=== PATIENT | female | born 1940 | race Caucasian/White ===

== ENCOUNTER 2016-05-27 13:16 | Emergency (ER) | payer MEDICARE, BC ==
[2016-05-27 13:31] VITALS: RESP 18
--- NOTE | 2016-05-27 14:08 | ED ---
General Adult HPI - General Chief complaint: Chest Pain Stated complaint: chest pain Time Seen by Provider: 05/27/16 13:30 Source: patient, RN notes reviewed Mode of arrival: ambulatory - History of Present Illness Initial comments: This is a 75-year-old female presents emergency Department complaining of left- sided chest pain. Patient states she's had this for about 15 years. Patient states sharp burning sensation lasts a few seconds and goes away and then comes back. Patient states when she burps the pain goes away completely. Patient states if he drinks water it usually takes away the pain. Patient came in today after the pain occurred because she states she had a TIA recently and was wondering if this is somehow related and wanted to be checked out. Patient denies any shortness of breath or difficulty breathing patient denies any pain currently. Patient denies any diaphoresis per patient denies any nausea. Patient states there is no difference with this pain today that she's had the last 15 years. Patient denies any headache patient denies numbness weakness. Patient denies any recent fever chills or cough. - Related Data Home Medications Medication Instructions Recorded Confirmed Ezetimibe [Zetia] 10 mg PO DAILY 02/18/15 05/27/16 clonazePAM [KlonoPIN] 0.5 mg PO TID PRN 02/18/15 05/27/16 Desvenlafaxine Succinate [Pristiq] 50 mg PO DAILY 05/07/16 05/27/16 Lisinopril [Zestril] 5 mg PO DAILY 05/07/16 05/27/16 lamoTRIgine [LaMICtal] 12.5 mg PO DAILY 05/07/16 05/27/16 Previous Rx's Medication Instructions Recorded amLODIPine [Norvasc] 5 mg PO DAILY #30 tab 05/09/16 Aspirin EC [Ecotrin Low Dose] 81 mg PO DAILY #1 tablet. 05/10/16 Clopidogrel Bisulfate [Plavix] 75 mg PO DAILY #30 tab 05/10/16 Allergies Allergy/AdvReac Type Severity Reaction Status Date / Time Iodinated Contrast Media - Allergy Unknown Verified 05/27/16 13:39 Oral and [Iodinated Contrast Media - IV Dye] Review of Systems ROS Statement: Those systems with pertinent positive or pertinent negative responses have been documented in the HPI. ROS Other: All systems not noted in ROS Statement are negative. Past Medical History Past Medical History: CVA/TIA, Hyperlipidemia, Hypertension, Renal Disease Additional Past Medical History / Comment(s): Chronic renal disease stage III, heart murmur-has plaque on valve, vertigo History of Any Multi-Drug Resistant Organisms: None Reported Past Surgical History: Breast Surgery, Cholecystectomy, Hysterectomy Additional Past Surgical History / Comment(s): L breast bx-benign, TEEs, CYN CATARACTS removed, cataracts removed bilaterally, colonoscopy-normal, Past Anesthesia/Blood Transfusion Reactions: Previous Problems w/ Anesthesia Additional Past Anesthesia/Blood Transfusion Reaction / Comment(s): STATES WAS TOLD "WE ALMOST LOST YOU" THAT HER B/P BOTTOMS Past Psychological History: Anxiety, Depression Additional Psychological History / Comment(s): Pt lives with her daughter. She is independent. She drives. Smoking Status: Current every day smoker Past Alcohol Use History: None Reported Additional Past Alcohol Use History / Comment(s): STOPPED SMOKING REGULAR CIGARETTES 2 YRS AGO-2013, CURRENTLY USING THE e-cigarettes. STARTED SMOKING 1954 Past Drug Use History: None Reported - Past Family History Mother Family Medical History: Cancer, CVA/TIA Additional Family Medical History / Comment(s): breast Father Family Medical History: Cancer Additional Family Medical History / Comment(s): lung General Exam - General Exam Comments Initial Comments: GENERAL: Patient is well-developed and well-nourished. Patient is nontoxic and well- hydrated and is in no acute distress. ENT: Neck is soft and supple. No significant lymphadenopathy is noted. Oropharynx is clear. Moist mucous membranes. Neck has full range of motion without eliciting any pain EYES: The sclera were anicteric and conjunctiva were pink and moist. Extraocular movements were intact and pupils were equal round and reactive to light. Eyelids were unremarkable. PULMONARY: Unlabored respirations. Good breath sounds bilaterally. No audible rales rhonchi or wheezing was noted. CARDIOVASCULAR: There is a regular rate and rhythm without any murmurs gallops or rubs. ABDOMEN: Soft and nontender with normal bowel sounds. No palpable organomegaly was noted. There is no palpable pulsatile mass. SKIN: Skin is clear with no lesions or rashes and otherwise unremarkable. NEUROLOGIC: Patient is alert and oriented x3. Cranial nerves II through XII are grossly intact. Motor and sensory are also intact. Normal speech, volume and content. Symmetrical smile. MUSCULOSKELETAL: Normal extremities with adequate strength and full range of motion. No lower extremity swelling or edema. No calf tenderness. LYMPHATICS: No significant lymphadenopathy is noted PSYCHIATRIC: Normal psychiatric evaluation. Normal interpersonal interactions appears functionally intact in deals appropriately with others. No signs of depression. No signs of anxiety. Course Vital Signs 05/27/16 13:27 Temperature 97.6 F Pulse Rate 91 Respiratory 18 Rate Blood Pressure 136/62 O2 Sat by Pulse 97 Oximetry Medical Decision Making - Medical Decision Making EKG shows sinus rhythm with a PAC at 81 bpm. It was on a 96 dresses 102 QT interval 380 QTC is 441. Patient's EKG shows no ST segment elevation or depression or T-wave abdomen is noted Patient's potassium was 5.91 I spoke with the lab and said there was hemolysis. I went back into reevaluate the patient she was having no symptoms. Patient' s chest x-ray was normal. Patient states that her symptoms typically worsened when she eats late at night just before going to bed Patient states these are the exact same symptom she has had for last 15 years and she believes is related to her stomach and her chest. I told the patient to follow-up with her primary medical care doctor and to return for any new or worsening symptoms - Lab Data Result diagrams: 05/27/16 11:40 05/27/16 11:40 Lab Results 05/27/16 05/27/16 05/27/16 Range/Units 11:40 11:40 11:40 WBC 7.2 (3.8-10.6) k/uL RBC 4.76 (3.80-5.40) m/uL Hgb 14.5 (11.4-16.0) gm/dL Hct 44.4 (34.0-46.0) % MCV 93.3 (80.0-100.0) fL MCH 30.5 (25.0-35.0) pg MCHC 32.7 (31.0-37.0) g/dL RDW 13.0 (11.5-15.5) % Plt Count 236 (150-450) k/uL Neutrophils % 70 % Lymphocytes % 20 % Monocytes % 6 % Eosinophils % 1 % Basophils % 1 % Neutrophils # 5.1 (1.3-7.7) k/uL Lymphocytes # 1.5 (1.0-4.8) k/uL Monocytes # 0.5 (0-1.0) k/uL Eosinophils # 0.1 (0-0.7) k/uL Basophils # 0.1 (0-0.2) k/uL PT (9.0-12.0) sec INR (<1.1) APTT (22.0-30.0) sec Sodium 144 (137-145) mmol/L Potassium 5.9 H (3.5-5.1) mmol/L Chloride 107 (98-107) mmol/L Carbon Dioxide 27 (22-30) mmol/L Anion Gap 10 mmol/L BUN 17 (7-17) mg/dL Creatinine 0.98 (0.52-1.04) mg/dL Est GFR (MDRD) Af Amer >60 (>60 ml/min/1.73 sqM) Est GFR (MDRD) Non-Af 55 (>60 ml/min/1.73 sqM) Glucose 86 (74-99) mg/dL Calcium 10.0 (8.4-10.2) mg/dL Magnesium 2.0 (1.6-2.3) mg/dL Total Bilirubin 1.2 (0.2-1.3) mg/dL AST 38 H (14-36) U/L ALT 24 (9-52) U/L Alkaline Phosphatase 74 (38-126) U/L Total Creatine Kinase 34 (30-135) U/L CK-MB (CK-2) <0.2 (0.0-2.4) ng/mL CK-MB (CK-2) Rel Index Troponin I <0.012 (0.000-0.034) ng/mL Total Protein 7.4 (6.3-8.2) g/dL Albumin 4.2 (3.5-5.0) g/dL 05/27/16 Range/Units 11:40 WBC (3.8-10.6) k/uL RBC (3.80-5.40) m/uL Hgb (11.4-16.0) gm/dL Hct (34.0-46.0) % MCV (80.0-100.0) fL MCH (25.0-35.0) pg MCHC (31.0-37.0) g/dL RDW (11.5-15.5) % Plt Count (150-450) k/uL Neutrophils % % Lymphocytes % % Monocytes % % Eosinophils % % Basophils % % Neutrophils # (1.3-7.7) k/uL Lymphocytes # (1.0-4.8) k/uL Monocytes # (0-1.0) k/uL Eosinophils # (0-0.7) k/uL Basophils # (0-0.2) k/uL PT 11.5 (9.0-12.0) sec INR 1.2 (<1.1) APTT 22.3 (22.0-30.0) sec Sodium (137-145) mmol/L Potassium (3.5-5.1) mmol/L Chloride (98-107) mmol/L Carbon Dioxide (22-30) mmol/L Anion Gap mmol/L BUN (7-17) mg/dL Creatinine (0.52-1.04) mg/dL Est GFR (MDRD) Af Amer (>60 ml/min/1.73 sqM) Est GFR (MDRD) Non-Af (>60 ml/min/1.73 sqM) Glucose (74-99) mg/dL Calcium (8.4-10.2) mg/dL Magnesium (1.6-2.3) mg/dL Total Bilirubin (0.2-1.3) mg/dL AST (14-36) U/L ALT (9-52) U/L Alkaline Phosphatase (38-126) U/L Total Creatine Kinase (30-135) U/L CK-MB (CK-2) (0.0-2.4) ng/mL CK-MB (CK-2) Rel Index Troponin I (0.000-0.034) ng/mL Total Protein (6.3-8.2) g/dL Albumin (3.5-5.0) g/dL Disposition Clinical Impression: Gastric reflux Disposition: HOME SELF-CARE Condition: Good Instructions: Gastroesophageal Reflux Disease (ED), Chest Pain (ED) Referrals: Pee Cornell MD [Primary Care Provider] - 1-2 days Time of Disposition: 16:17
[2016-05-27 14:54] LABS: Basophils # (A) 0.1 k/uL (0-0.2); Basophils % (A) 1 %; CH 30.7; Eosinophils # (A) 0.1 k/uL (0-0.7); Eosinophils % (A) 1 %; HCT 44.4 % (34.0-46.0); HDW 2.47; HGB 14.5 gm/dL (11.4-16.0); Luc # (Auto) 0.11; Luc % (Auto) 2; Lymphocytes # (A) 1.5 k/uL (1.0-4.8); Lymphocytes % (A) 20 %; MCH 30.5 pg (25.0-35.0); MCHC 32.7 g/dL (31.0-37.0); MCV 93.3 fL (80.0-100.0); Mean Platelet Volume 7.6; Monocytes # (A) 0.5 k/uL (0-1.0); Monocytes % (A) 6 %; Neutrophils # (A) 5.1 k/uL (1.3-7.7); Neutrophils % (A) 70 %; RBC 4.76 m/uL (3.80-5.40); WBC 7.2 k/uL (3.8-10.6); WBC (Perox) 7.74
[2016-05-27 15:03] LABS: INR 1.2 (<1.1); Partial Thromboplastin Time 22.3 sec (22.0-30.0); Prothrombin Time 11.5 sec (9.0-12.0)
[2016-05-27 15:10] LABS: ALT 24 U/L (9-52); AST 38 U/L (14-36); Alkaline Phosphatase 74 U/L (38-126); Anion Gap 10 mmol/L; Blood Urea Nitrogen 17 mg/dL (7-17); Carbon Dioxide 27 mmol/L (22-30); Chloride 107 mmol/L (98-107); Glucose 86 mg/dL (74-99); Non-African American GFR(MDRD) 55 (>60 ml/min/1.73 sqM); Sodium 144 mmol/L (137-145); Total Bilirubin 1.2 mg/dL (0.2-1.3); Total Protein 7.4 g/dL (6.3-8.2)
[2016-05-27 15:15] LABS: Creatine Kinase 34 U/L (30-135)
--- NOTE | 2016-05-27 15:27 | XR ---
EXAMINATION TYPE: XR chest 2V DATE OF EXAM: 05/27/2016 2:59 PM COMPARISON: NONE HISTORY: Chest pain TECHNIQUE: Frontal and lateral views of the chest are obtained. FINDINGS: Heart is normal. Lungs are clear of consolidation. There are no hilar masses. There are sm all calcified granulomata scattered in the lungs. Thoracic aorta is atheromatous. Bony thorax is inta ct. IMPRESSION: No active cardiopulmonary disease. Healed granulomatous disease.
[2016-05-27 15:28] LABS: Creatine Kinase MB <0.2 ng/mL (0.0-2.4); Troponin I <0.012 ng/mL (0.000-0.034)
[2016-05-27 15:54] LABS: Potassium 5.9 mmol/L (3.5-5.1)
[2016-05-27 16:39] VITALS: BP 131/70; PULSE 72; TEMP 98
== END 2016-05-27 16:46 | disposition home or self-care (01) ==
LOC: EC 13:16
DX: K21.9 Gastro-esophageal reflux disease without esophagitis (principal); E78.5 Hyperlipidemia, unspecified; I12.9 Hypertensive chronic kidney disease with stage 1 through stage 4 chronic kidney disease, or unspecified chronic kidney disease; N18.3 Chronic kidney disease, stage 3 (moderate); R01.1 Cardiac murmur, unspecified; F32.9 Major depressive disorder, single episode, unspecified; F17.210 Nicotine dependence, cigarettes, uncomplicated; Z91.041 Radiographic dye allergy status; Z86.73 Personal history of transient ischemic attack (TIA), and cerebral infarction without residual deficits; Z79.899 Other long term (current) drug therapy; Z79.82 Long term (current) use of aspirin; Z79.02 Long term (current) use of antithrombotics/antiplatelets
CPT/HCPCS: 36415; 71020; 80053; 82550; 82553; 83735; 84484; 85025; 85610; 85730; 93005; 99285

== ENCOUNTER 2016-06-06 15:23 | Emergency (ER) | payer MEDICARE, BC ==
[2016-06-06 15:32] VITALS: RESP 18
[2016-06-06] MEDS ORDERED: DIAZEPAM 5 MG/ML 2 ML SYRINGE IVP STA (15:49)
[2016-06-06] MEDS ORDERED: MECLIZINE 25 MG TAB PO STA (15:49)
--- NOTE | 2016-06-06 15:52 | ED ---
General Adult HPI - General Chief complaint: Neuro Symptoms/Deficit Stated complaint: POSS TIA Time Seen by Provider: 06/06/16 15:35 Source: EMS, RN notes reviewed Mode of arrival: EMS Limitations: no limitations - History of Present Illness Initial comments: This is a 75-year-old female presents to the emergency department complaining of being dizzy. Patient states while in the car driving she turned her head when she turned back everything seemed to be moving. Patient states she's had vertigo before this is exactly what it seemed like. Patient states when she got out of her car she had a hard time walking because she was a little off balance per patient denies any nausea vomiting per patient denies any headache. Patient denies numbness weakness. Patient denies palpitations chest pain difficult breathing shortness of breath per patient denies abdominal pain patient denies nausea vomiting or diarrhea. Patient denies any recent fever chills or cough. Patient denies any recent injury or trauma. - Related Data Home Medications Medication Instructions Recorded Confirmed Ezetimibe [Zetia] 10 mg PO DAILY 02/18/15 06/06/16 clonazePAM [KlonoPIN] 0.5 mg PO TID PRN 02/18/15 06/06/16 Desvenlafaxine Succinate [Pristiq] 50 mg PO DAILY 05/07/16 06/06/16 Lisinopril [Zestril] 5 mg PO DAILY 05/07/16 06/06/16 Previous Rx's Medication Instructions Recorded amLODIPine [Norvasc] 5 mg PO DAILY #30 tab 05/09/16 Aspirin EC [Ecotrin Low Dose] 81 mg PO DAILY #1 tablet. 05/10/16 Clopidogrel Bisulfate [Plavix] 75 mg PO DAILY #30 tab 05/10/16 Meclizine [Antivert] 25 mg PO TID #20 tab 06/06/16 Allergies Allergy/AdvReac Type Severity Reaction Status Date / Time Iodinated Contrast Media - Allergy Unknown Verified 06/06/16 15:44 Oral and [Iodinated Contrast Media - IV Dye] Review of Systems ROS Statement: Those systems with pertinent positive or pertinent negative responses have been documented in the HPI. ROS Other: All systems not noted in ROS Statement are negative. Past Medical History Past Medical History: CVA/TIA, Hyperlipidemia, Hypertension, Renal Disease Additional Past Medical History / Comment(s): Chronic renal disease stage III, heart murmur-has plaque on valve, vertigo History of Any Multi-Drug Resistant Organisms: None Reported Past Surgical History: Breast Surgery, Cholecystectomy, Hysterectomy Additional Past Surgical History / Comment(s): L breast bx-benign, TEEs, CYN CATARACTS removed, cataracts removed bilaterally, colonoscopy-normal, Past Anesthesia/Blood Transfusion Reactions: Previous Problems w/ Anesthesia Additional Past Anesthesia/Blood Transfusion Reaction / Comment(s): STATES WAS TOLD "WE ALMOST LOST YOU" THAT HER B/P BOTTOMS Past Psychological History: Anxiety, Depression Additional Psychological History / Comment(s): Pt lives with her daughter. She is independent. She drives. Smoking Status: Current every day smoker Past Alcohol Use History: None Reported Additional Past Alcohol Use History / Comment(s): STOPPED SMOKING REGULAR CIGARETTES 2 YRS AGO-2013, CURRENTLY USING THE e-cigarettes. STARTED SMOKING 1954 Past Drug Use History: None Reported - Past Family History Mother Family Medical History: Cancer, CVA/TIA Additional Family Medical History / Comment(s): breast Father Family Medical History: Cancer Additional Family Medical History / Comment(s): lung General Exam - General Exam Comments Initial Comments: GENERAL: Patient is well-developed and well-nourished. Patient is nontoxic and well- hydrated and is in mild distress. ENT: Neck is soft and supple. No significant lymphadenopathy is noted. Oropharynx is clear. Moist mucous membranes. Neck has full range of motion without eliciting any pain. EYES: The sclera were anicteric and conjunctiva were pink and moist. Extraocular movements were intact and pupils were equal round and reactive to light. Eyelids were unremarkable. PULMONARY: Unlabored respirations. Good breath sounds bilaterally. No audible rales rhonchi or wheezing was noted. CARDIOVASCULAR: There is a regular rate and rhythm without any murmurs gallops or rubs. ABDOMEN: Soft and nontender with normal bowel sounds. No palpable organomegaly was noted. There is no palpable pulsatile mass. SKIN: Skin is clear with no lesions or rashes and otherwise unremarkable. NEUROLOGIC: Patient is alert and oriented x3. Cranial nerves II through XII are grossly intact. Motor and sensory are also intact. Normal speech, volume and content. Symmetrical smile. Cerebellar exam grossly intact. MUSCULOSKELETAL: Normal extremities with adequate strength and full range of motion. LYMPHATICS: No significant lymphadenopathy is noted PSYCHIATRIC: Normal psychiatric evaluation. Normal interpersonal interactions appears functionally intact in deals appropriately with others. No signs of depression. No signs of anxiety. Limitations: no limitations Course Vital Signs 06/06/16 15:29 Temperature 97.5 F L Pulse Rate 78 Respiratory 18 Rate Blood Pressure 149/66 O2 Sat by Pulse 100 Oximetry Medical Decision Making - Medical Decision Making EKG shows a normal sinus rhythm at 72 bpm ME interval is 192 QRS is under QT interval 388 QTC is 424. Patient's EKG shows no ST segment elevation or depression or T wave abnormalities are noted Chest x-ray shows no acute abnormality. CT of the brain shows no acute abnormality. I went back in and reevaluated the patient after she received Valium and Antivert she was feeling considerably better though not back to her baseline. I do believe the patient has vertigo. - Lab Data Result diagrams: 06/06/16 15:42 06/06/16 15:42 Lab Results 06/06/16 06/06/16 06/06/16 Range/Units 15:42 15:42 15:42 WBC 5.5 (3.8-10.6) k/uL RBC 4.92 (3.80-5.40) m/uL Hgb 15.2 (11.4-16.0) gm/dL Hct 45.7 (34.0-46.0) % MCV 92.8 (80.0-100.0) fL MCH 30.9 (25.0-35.0) pg MCHC 33.2 (31.0-37.0) g/dL RDW 13.0 (11.5-15.5) % Plt Count 262 (150-450) k/uL Neutrophils % 69 % Lymphocytes % 22 % Monocytes % 6 % Eosinophils % 1 % Basophils % 1 % Neutrophils # 3.8 (1.3-7.7) k/uL Lymphocytes # 1.2 (1.0-4.8) k/uL Monocytes # 0.3 (0-1.0) k/uL Eosinophils # 0.0 (0-0.7) k/uL Basophils # 0.1 (0-0.2) k/uL PT (9.0-12.0) sec INR (<1.1) APTT (22.0-30.0) sec Sodium 143 (137-145) mmol/L Potassium 4.2 (3.5-5.1) mmol/L Chloride 105 (98-107) mmol/L Carbon Dioxide 26 (22-30) mmol/L Anion Gap 12 mmol/L BUN 13 (7-17) mg/dL Creatinine 1.01 (0.52-1.04) mg/dL Est GFR (MDRD) Af Amer >60 (>60 ml/min/1.73 sqM) Est GFR (MDRD) Non-Af 53 (>60 ml/min/1.73 sqM) Glucose 88 (74-99) mg/dL Calcium 10.1 (8.4-10.2) mg/dL Magnesium 1.9 (1.6-2.3) mg/dL Total Bilirubin 0.6 (0.2-1.3) mg/dL AST 25 (14-36) U/L ALT 38 (9-52) U/L Alkaline Phosphatase 77 (38-126) U/L Total Creatine Kinase 26 L (30-135) U/L CK-MB (CK-2) 0.2 (0.0-2.4) ng/mL CK-MB (CK-2) Rel Index 0.8 Troponin I <0.012 (0.000-0.034) ng/mL Total Protein 7.1 (6.3-8.2) g/dL Albumin 4.2 (3.5-5.0) g/dL 06/06/16 Range/Units 15:42 WBC (3.8-10.6) k/uL RBC (3.80-5.40) m/uL Hgb (11.4-16.0) gm/dL Hct (34.0-46.0) % MCV (80.0-100.0) fL MCH (25.0-35.0) pg MCHC (31.0-37.0) g/dL RDW (11.5-15.5) % Plt Count (150-450) k/uL Neutrophils % % Lymphocytes % % Monocytes % % Eosinophils % % Basophils % % Neutrophils # (1.3-7.7) k/uL Lymphocytes # (1.0-4.8) k/uL Monocytes # (0-1.0) k/uL Eosinophils # (0-0.7) k/uL Basophils # (0-0.2) k/uL PT 11.6 (9.0-12.0) sec INR 1.2 (<1.1) APTT 26.7 (22.0-30.0) sec Sodium (137-145) mmol/L Potassium (3.5-5.1) mmol/L Chloride (98-107) mmol/L Carbon Dioxide (22-30) mmol/L Anion Gap mmol/L BUN (7-17) mg/dL Creatinine (0.52-1.04) mg/dL Est GFR (MDRD) Af Amer (>60 ml/min/1.73 sqM) Est GFR (MDRD) Non-Af (>60 ml/min/1.73 sqM) Glucose (74-99) mg/dL Calcium (8.4-10.2) mg/dL Magnesium (1.6-2.3) mg/dL Total Bilirubin (0.2-1.3) mg/dL AST (14-36) U/L ALT (9-52) U/L Alkaline Phosphatase (38-126) U/L Total Creatine Kinase (30-135) U/L CK-MB (CK-2) (0.0-2.4) ng/mL CK-MB (CK-2) Rel Index Troponin I (0.000-0.034) ng/mL Total Protein (6.3-8.2) g/dL Albumin (3.5-5.0) g/dL Disposition Clinical Impression: Vertigo Disposition: HOME SELF-CARE Condition: Good Instructions: Vertigo (ED) Prescriptions: Meclizine [Antivert] 25 mg PO TID #20 tab Referrals: Pee Cornell MD [Primary Care Provider] - 1-2 days Time of Disposition: 16:57
[2016-06-06 16:06] LABS: Basophils # (A) 0.1 k/uL (0-0.2); Basophils % (A) 1 %; CH 30.9; CHCM 33.5; Eosinophils % (A) 1 %; HCT 45.7 % (34.0-46.0); HDW 2.51; HGB 15.2 gm/dL (11.4-16.0); Luc # (Auto) 0.07; Luc % (Auto) 1; Lymphocytes # (A) 1.2 k/uL (1.0-4.8); Lymphocytes % (A) 22 %; MCH 30.9 pg (25.0-35.0); MCHC 33.2 g/dL (31.0-37.0); MCV 92.8 fL (80.0-100.0); Mean Platelet Volume 7.8; Monocytes # (A) 0.3 k/uL (0-1.0); Monocytes % (A) 6 %; Neutrophils # (A) 3.8 k/uL (1.3-7.7); Neutrophils % (A) 69 %; RBC 4.92 m/uL (3.80-5.40); WBC 5.5 k/uL (3.8-10.6)
[2016-06-06 16:15] LABS: INR 1.2 (<1.1); Partial Thromboplastin Time 26.7 sec (22.0-30.0); Prothrombin Time 11.6 sec (9.0-12.0)
[2016-06-06 16:26] LABS: ALT 38 U/L (9-52); AST 25 U/L (14-36); Alkaline Phosphatase 77 U/L (38-126); Anion Gap 12 mmol/L; Blood Urea Nitrogen 13 mg/dL (7-17); Calcium 10.1 mg/dL (8.4-10.2); Carbon Dioxide 26 mmol/L (22-30); Chloride 105 mmol/L (98-107); Glucose 88 mg/dL (74-99); Magnesium 1.9 mg/dL (1.6-2.3); Non-African American GFR(MDRD) 53 (>60 ml/min/1.73 sqM); Potassium 4.2 mmol/L (3.5-5.1); Sodium 143 mmol/L (137-145); Total Bilirubin 0.6 mg/dL (0.2-1.3); Total Protein 7.1 g/dL (6.3-8.2)
[2016-06-06 16:35] LABS: Creatine Kinase 26 U/L (30-135)
[2016-06-06 16:47] LABS: Creatine Kinase MB 0.2 ng/mL (0.0-2.4); Troponin I <0.012 ng/mL (0.000-0.034)
--- NOTE | 2016-06-06 16:52 | CT ---
EXAMINATION TYPE: CT brain wo con DATE OF EXAM: 06/06/2016 4:41 PM COMPARISON: 05/07/2016 INDICATION: Pt states of vertigo today. DLP: 998.3 mGycm, Automated exposure control for dose reduction was used. CONTRAST: None CT of the brain is performed utilizing 3 mm thick sections through the posterior fossa and 3 mm thick sections through the remaining calvarium. Study is performed within 24 hours of arrival to the hosp ital. No abnormal hyperdensity is present to suggest an acute intracranial hemorrhage. No mass lesion is evident. No acute infarcts are evident. Mild periventricular white matter hypodensity may be present, most lik sue on the basis of chronic white matter ischemic changes. Ventricles and sulci are appropriate for the patient age. Paranasal sinuses and mastoid air cells within the [id number] are clear. IMPRESSIONS: 1. Mild periventricular white matter ischemic type changes.
--- NOTE | 2016-06-06 16:55 | XR ---
EXAMINATION TYPE: XR chest 2V DATE OF EXAM: 06/06/2016 4:45 PM COMPARISON: 05/27/2016 INDICATION: Chest pain TECHNIQUE: Frontal and lateral views of the chest are obtained. FINDINGS: The heart size is normal. The pulmonary vasculature is normal. There are scattered nodules the right mid and lower lung. These were present previously. Continued mo nitoring with a follow up examination in 3 months is recommended. No new infiltrates are evident. IMPRESSION: 1. No acute pulmonary process. 2. Apparent chronic nodularity within the right lung. Follow-up exam in 3 months is recommended.
[2016-06-06 17:19] VITALS: BP 146/77; PULSE 69; TEMP 98.3
== END 2016-06-06 17:19 | disposition home or self-care (01) ==
LOC: EC 15:23
DX: R42 Dizziness and giddiness (principal); I12.9 Hypertensive chronic kidney disease with stage 1 through stage 4 chronic kidney disease, or unspecified chronic kidney disease; E78.5 Hyperlipidemia, unspecified; N18.3 Chronic kidney disease, stage 3 (moderate); F32.9 Major depressive disorder, single episode, unspecified; F17.200 Nicotine dependence, unspecified, uncomplicated; Z86.73 Personal history of transient ischemic attack (TIA), and cerebral infarction without residual deficits; Z79.02 Long term (current) use of antithrombotics/antiplatelets; Z79.82 Long term (current) use of aspirin; Z91.041 Radiographic dye allergy status; Z79.899 Other long term (current) drug therapy
CPT/HCPCS: 99285; 96374; 36415; 93005; 80053; 82550; 82553; 83735; 84484; 85025; 85610; 85730; 71020; 70450; J3360

== ENCOUNTER → 2017-02-14 | Outpatient (CLI) | payer MEDICARE, BC ==
--- NOTE | 2017-02-15 11:16 | MM ---
Reason for exam: screening (asymptomatic). Last mammogram was performed 1 year and 5 months ago. History: Family history of breast cancer in mother at age 85 and breast cancer in maternal grandmother at age 47. Benign excisional biopsy of the left breast, 2013. Benign excisional biopsy of the right breast, 1981. Physical Findings: A clinical breast exam by your physician is recommended on an annual basis and results should be correlated with mammographic findings. MG 3D Screening Mammo W/Cad Bilateral CC and MLO view(s) were taken. Prior study comparison: September 26, 2015, bilateral MG screening mammo w CAD. November 20, 2013, mammogram, performed at [place]. Finding #1: There is a 1.5 mm high density mass in the upper outer quadrant of the right breast. Finding #2: There are typically benign calcifications. ASSESSMENT: Incomplete: need additional imaging evaluation, BI-RAD 0 RECOMMENDATION: Special view mammogram of the right breast. If lesion persists on supplemental views, image directed ultrasound is recommended. [facility] will attempt to contact patient to return for supplemental views and ultrasound if indicated.
== END | disposition home or self-care (01) ==
LOC: RADMAMWWP 11:43
PROVIDERS: ATTEND Family Medicine
DX: Z12.31 Encounter for screening mammogram for malignant neoplasm of breast (principal)
CPT/HCPCS: 77063; G0202

== ENCOUNTER → 2017-02-21 | Outpatient (CLI) | payer MEDICARE, BC ==
--- NOTE | 2017-02-21 08:34 | MM ---
Reason for exam: additional evaluation requested from abnormal screening. Last mammogram was performed less than 1 month ago. History: Patient is postmenopausal. Family history of breast cancer in mother at age 85 and breast cancer in maternal grandmother at age 47. Benign excisional biopsy of the left breast, 2013. Benign excisional biopsy of the right breast, 1981. Physical Findings: Nurse did not find any significant physical abnormalities on exam. MG 3D Work Up W/Cad RT Spot compression CC, spot compression MLO, LM, and CC view(s) were taken of the right breast. Prior study comparison: February 14, 2017, bilateral MG 3d screening mammo w/cad. September 26, 2015, bilateral MG screening mammo w CAD. There are scattered fibroglandular densities. On spot CC, the upper outer quadrant focal asymmetry appears similar but 3D images show no definate persisting abnormality. No persisting abnormality on the 3D spot MLO or 3D lateral images. These results were verbally communicated with the patient and result sheet given to the patient on 02/21/17. ASSESSMENT: Incomplete: need additional imaging evaluation, BI-RAD 0 RECOMMENDATION: Ultrasound of the right breast. (upper outer quadrant)
--- NOTE | 2017-02-21 08:59 | USB ---
Reason for exam: additional evaluation requested from abnormal screening. History: Patient is postmenopausal. Family history of breast cancer in mother at age 85 and breast cancer in maternal grandmother at age 47. Benign excisional biopsy of the left breast, 2013. Benign excisional biopsy of the right breast, 1981. US Breast Workup Limited RT Right breast ultrasound demonstrates a 0.2 x 0.2 x 0.3cm lesion too small to characterize at 10 o'clock, while this is very small, there may be an echogenic rim and a 0.3 x 0.4 x 0.5cm hypoechoic lesion at 10 o'clock and very vertically orientated. Uncertain if this relates to prior excisional scar tissue. These results were verbally communicated with the patient and result sheet given to the patient on 02/21/17. ASSESSMENT: Suspicious, BI-RAD 4 RECOMMENDATION: Surgical consultation and ultrasound core biopsy of the right breast. (2 site) Called Dr. Grimes with mammographic findings and has scheduled an appointment for the patient for 02/28/17 at 10:[address] Marcus. PRELIMINARY REPORT CALLED AND FAXED TO DR. MARCUS ON 02/21/17.
== END | disposition home or self-care (01) ==
LOC: RADMAMWWP 06:52
PROVIDERS: ATTEND Family Medicine
DX: R92.8 Other abnormal and inconclusive findings on diagnostic imaging of breast (principal); Z80.3 Family history of malignant neoplasm of breast
CPT/HCPCS: 76642; G0206; G0279

== ENCOUNTER → 2017-03-11 | Outpatient (CLI) | payer MEDICARE, BC ==
--- NOTE | 2017-03-11 11:10 | CT ---
EXAMINATION TYPE: CT chest wo con DATE OF EXAM: 03/11/2017 COMPARISON: NONE HISTORY: Patient complains of episode of hemoptysis. CT DLP: 391.9 mGycm. Automated Exposure Control for Dose Reduction was Utilized. TECHNIQUE: CT scan of the thorax is performed without IV contrast. FINDINGS: LUNGS: Numerous calcified benign granulomas are seen scattered throughout the lungs measuring up to 7 mm on the right, however few noncalcified pulmonary nodules are seen. Within the left lower lobe jazmin ng the interlobar fissure there is a 5 mm triangular-shaped nodule favored to relate to a perifissura l lymph node. 3 mm noncalcified pulmonary nodule in the left upper lobe on series 4 image 20 is prese nt. No focal consolidation is identified. Minimal subsegmental bibasilar dependent atelectasis is see n. There is no pleural effusion or pneumothorax seen. The tracheobronchial tree is patent. MEDIASTINUM: Lack of IV contrast is noted to limit evaluation for mediastinal and especially hilar ad enopathy. Multiple calcified hilar and mediastinal lymph nodes are seen as sequela of granulomatous c hange. There are no definitive greater than 1 cm hilar or mediastinal lymph nodes. Calcific atheromat ous changes are appreciated of the thoracic aorta and of the coronary arteries, moderate in degree as well as the cardiac valves. The heart is mildly enlarged. No pericardial effusion is present. Ascend ing thoracic aorta is within normal limits measuring 3.5 cm. OTHER: Small gastroesophageal hiatal hernia is noted. Cholecystectomy clips reside within the gallbla dder fossa. Single sclerotic focus within a mid thoracic vertebrae may relate to benign bone island a s it is densely ossified. IMPRESSION: 1. No focal consolidation, pleural effusion, or pulmonary mass. Benign pulmonary and mediastinal gran ulomatous changes are present. Tracheobronchial tree is patent. No findings to correspond to the ayleen ent's known hemoptysis. 2. Single noncalcified left upper lobe subcentimeter pulmonary nodule measuring 3 mm. This may also r epresent a noncalcified granuloma with neoplastic nodule considered much less likely. Follow-up CT co uld be performed in one year if clinically indicated for surveillance.
== END | disposition home or self-care (01) ==
LOC: RADCTMAIN 10:17
PROVIDERS: ATTEND Family Medicine
DX: R91.1 Solitary pulmonary nodule (principal); J84.10 Pulmonary fibrosis, unspecified
CPT/HCPCS: 71250

== ENCOUNTER → 2017-03-18 | Day surgery (SDC) | payer MEDICARE, BC ==
[2017-03-18 11:42] VITALS: RESP 16; TEMP 97.8; BMI 35.1
[2017-03-18 13:42] VITALS: BP 145/57; PULSE 84
--- NOTE | 2017-03-18 15:45 | USB ---
EXAMINATION TYPE: US biopsy breast add'l VAD RT, US biopsy breast VAD RT, MG diagnostic mammo RT wo CAD DATE OF EXAM: 03/18/2017 CLINICAL HISTORY: R92.8 abn mamm. TECHNIQUE: Ultrasound guided core biopsy of right breast. COMPARISON: 02/21/2017 FINDINGS: The procedure of ultrasound guided core biopsy was explained to the patient. Benefits, alternatives, and risks were discussed. An informed consent was then obtained. Site A: The patient was placed in supine positioning for imaging and for the procedure. The overlying skin was prepped and draped in usual sterile fashion. 7 cc of 1% lidocaine was used as anesthetic into the skin and subcutaneous tissue up to area of concern in the right breast (0.2 x 0.2 x 0.3 cm mass at the 10:00 position). A lisa was made with surgical scalpel. Under ultrasound guidance, a 12-gauge vacuum assisted biopsy gun device was used to obtain 8 core samples. Following this, a coil biopsy marker was left in lesion. Site B: The patient was placed in supine positioning for imaging and for the procedure. The overlying skin was prepped and draped in usual sterile fashion. 3 the use of lidocaine at the skin surface and 10 cc of lidocaine with epinephrine was utilized as anesthetic into subcutaneous tissue up to area of concern in the right breast (0.3 x 0.4 x 0.5 cm mass at the 10:00 position). A lisa was made with surgical scalpel. Under ultrasound guidance, a 12-gauge vacuum assisted biopsy gun device was used to obtain 6 core samples. Following this, a ribbon biopsy marker was left in lesion. The patient tolerated the procedure well without any immediate complication. The patient was kept in the radiology department for short stay after the procedure and then discharged home in stable condition. IMPRESSION: Successful, uncomplicated 2 site ultrasound guided core biopsy of area of concern in the right breast, full pathology results to follow. Pathology Results: Malignant A. BREAST, RIGHT, SITE 1 ZONE A, CORE BIOPSY: FIBROCYSTIC CHANGES INCLUDING CYSTS, FIBROSIS, AND CALCIFICATIONS. DETACHED FRAGMENTS OF HYPERPLASTIC DUCTAL EPITHELIAL CELLS WITH PAPILLOMATOUS FEATURES, SEE COMMENT. B. 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 SEE SURGICAL PATHOLOGY CANCER CASE SUMMARY AND COMMENT. Recommendation Surgical consult of the right breast. Site A: High Risk Site B: Malignant Papilloma features-re excise this region Malignant-appropriate therapy follow up MTDD
== END ==
LOC: RADUSWWP 11:16
PROVIDERS: ATTEND Surgery
DX: C50.911 Malignant neoplasm of unspecified site of right female breast (principal); Z17.0 Estrogen receptor positive status [ER+]; N60.31 Fibrosclerosis of right breast; R92.1 Mammographic calcification found on diagnostic imaging of breast
CPT/HCPCS: 88305; 88342; 88341; 19083; 19084; G0206; J2001

== ENCOUNTER 2017-06-17 11:53 | Emergency (ER) | payer MEDICARE, BC ==
[2017-06-17 12:21] VITALS: BP 139/62; PULSE 85; RESP 18; TEMP 99
--- NOTE | 2017-06-17 12:31 | ED ---
General Adult HPI - General Chief complaint: Fall Stated complaint: Fall, came over from [facility] Time Seen by Provider: 06/17/17 12:22 Source: patient, RN notes reviewed Mode of arrival: ambulatory Limitations: no limitations - History of Present Illness Initial comments: Patient's a 76-year-old female who presents emergency room today with a chief complaint of an injury to the posterior aspect of her left arm that occurred 4 days ago. Patient does admit that she is on a blood thinner. Denies any head injury. States she was getting out of her recliner tripped on a blanket hitting the back of the left arm against a table. She was with some bruising some swelling to the area. She states she was at [facility] receiving treatment and advised to come here to the emergency room for x-ray. Patient denies any recent fever, chills, shortness of breath, chest pain, back pain, vomiting, headaches or visual changes, or any other complaints. - Related Data Home Medications Medication Instructions Recorded Confirmed Ezetimibe [Zetia] 10 mg PO QAM 02/18/15 04/23/17 clonazePAM [KlonoPIN] 0.5 mg PO TID PRN 02/18/15 04/17/17 Lisinopril [Zestril] 5 mg PO QAM 05/07/16 04/17/17 Desvenlafaxine Succinate [Pristiq] 100 mg PO QAM 03/07/17 04/17/17 amLODIPine [Norvasc] 10 mg PO QAM 03/27/17 04/17/17 Albuterol Inhaler [Ventolin Hfa 1 - 2 puff INHALATION Q6HR PRN 04/17/17 04/17/17 Inhaler] Chlorpheniramine/Dextromethorp 2 each PO DAILY PRN 04/17/17 04/17/17 [Coricidin Hbp Cough & Cold Tab] Previous Rx's Medication Instructions Recorded Aspirin EC [Ecotrin Low Dose] 81 mg PO DAILY #1 tablet. 05/10/16 Clopidogrel Bisulfate [Plavix] 75 mg PO DAILY #30 tab 05/10/16 Allergies Allergy/AdvReac Type Severity Reaction Status Date / Time Iodinated Contrast- Oral and Allergy R/T RENAL Verified 06/17/17 12:21 IV Dye DISEASE [Iodinated Contrast Media - IV Dye] Review of Systems ROS Statement: Those systems with pertinent positive or pertinent negative responses have been documented in the HPI. ROS Other: All systems not noted in ROS Statement are negative. 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 Flor of blood in sputum and that she is taking coricidin otc for her cough. History of Any Multi-Drug Resistant Organisms: None Reported Past Surgical History: Breast Surgery, Cholecystectomy, Hysterectomy Additional Past Surgical History / Comment(s): VARICOSE VEIN SX, L breast bx- benign, MULTIPLE TEEs, CYN CATARACTS , colonoscopy-normal, Right breast surgery. Past Anesthesia/Blood Transfusion Reactions: Previous Problems w/ Anesthesia Additional Past Anesthesia/Blood Transfusion Reaction / Comment(s): STATES WAS TOLD "WE ALMOST LOST YOU" THAT HER B/P DROPPED POST CHOLECYSTECTOMY Past Psychological History: Anxiety, Depression Smoking Status: Former smoker Past Alcohol Use History: None Reported Past Drug Use History: None Reported - Past Family History Mother Family Medical History: Cancer, CVA/TIA Additional Family Medical History / Comment(s): breast Father Family Medical History: Cancer Additional Family Medical History / Comment(s): lung General Exam - General Exam Comments Initial Comments: General: The patient is awake and alert, in no distress, and does not appear acutely ill. Neck: The neck is supple, there is no tenderness or JVD. Cardiovascular: There is a regular rate and rhythm. No murmur, rub or gallop is appreciated. Respiratory: Lungs are clear to auscultation, respirations are non-labored, breath sounds are equal. No wheezes, stridor, rales, or rhonchi. Musculoskeletal: Patient does have bruising purple in color to the posterior aspect of the left humerus. Patient tender to palpation mid shaft humerus. No tenderness to the left shoulder or left elbow. Shows full range of motion all areas. Sensation intact pulses equal bilaterally 2+. Strength 5/5. Neurological: A&O x 3. CN II-XII intact, There are no obvious motor or sensory deficits. Coordination appears grossly intact. Speech is normal. Skin: Skin is warm and dry and no rashes or lesions are noted. Psychiatric: Normal mood and affect. Limitations: no limitations Course Vital Signs 06/17/17 12:17 Temperature 99.0 F Pulse Rate 85 Respiratory 18 Rate Blood Pressure 139/62 O2 Sat by Pulse 99 Oximetry Medical Decision Making - Medical Decision Making Patient's x-rays reviewed and are negative for any acute fracture dislocation. Results were discussed with the patient. Patient advised to continue to ice area. Advised to follow-up if symptoms persist for further evaluation. Advised return for any other concerns. Disposition Clinical Impression: Contusion of arm, left Disposition: HOME SELF-CARE Condition: Good Instructions: Contusion in Adults (ED) Additional Instructions: Please use ice to the area as discussed. Please follow-up with family doctor symptoms persist or return to emergency room for any other concerns. Referrals: Tom Grimes DO [Primary Care Provider] - 1-2 days Time of Disposition: 12:47
--- NOTE | 2017-06-17 12:51 | XR ---
EXAMINATION TYPE: XR humerus LT DATE OF EXAM: 06/17/2017 COMPARISON: NONE HISTORY: 76 year-old female left upper arm pain and contusion since fall 5 days ago TECHNIQUE: 2 views FINDINGS: There is focal soft tissue swelling along the lateral mid arm sitting on the AP view. No acute fractu re. The shoulder and elbow articulations appear grossly intact. No periostitis or osteolysis. IMPRESSION: Approximately 6 cm area of focal soft tissue density lateral left mid arm probably posttraumatic subc utaneous soft tissue contusion/hematoma. No underlying acute osseous abnormality seen.
== END 2017-06-17 12:57 | disposition home or self-care (01) ==
LOC: EC 11:53
DX: S40.022A Contusion of left upper arm, initial encounter (principal); I25.10 Atherosclerotic heart disease of native coronary artery without angina pectoris; E78.5 Hyperlipidemia, unspecified; I12.9 Hypertensive chronic kidney disease with stage 1 through stage 4 chronic kidney disease, or unspecified chronic kidney disease; N18.3 Chronic kidney disease, stage 3 (moderate); F41.9 Anxiety disorder, unspecified; F32.9 Major depressive disorder, single episode, unspecified; Z85.3 Personal history of malignant neoplasm of breast; Z87.891 Personal history of nicotine dependence; Z91.041 Radiographic dye allergy status; Z79.899 Other long term (current) drug therapy; W01.198A Fall on same level from slipping, tripping and stumbling with subsequent striking against other object, initial encounter
CPT/HCPCS: 77412; 77417; 99283

== ENCOUNTER 2017-09-10 08:43 | Day surgery (SDC) | payer MEDICARE, BC ==
[2017-09-06 13:45] VITALS: BMI 34.9
[~2017-09-10 08:43] MED LIST: LACTATED RINGERS 1,000 ML IV SCH; LIDOCAINE 1% 20 ML VIAL (10MG/ML) FOR IV START INTRADERMA PRN; MIDAZOLAM 2 MG/2 ML VIAL IV PRN
[2017-09-10 09:32] VITALS: TEMP 98.9
[2017-09-10] MEDS ORDERED: PROPOFOL 10 MG/ML 20 ML VIAL IV ONE (09:59)
[2017-09-10] MEDS ORDERED: LIDOCAINE 1% INJ 10MG/ML (20 ML MDV) ONE (09:59)
--- NOTE | 2017-09-10 10:25 | P.OP ---
Date of Procedure: 09/10/17 Preoperative Diagnosis: Prior history of colon polyps Postoperative Diagnosis: Diverticuli, internal hemorrhoids, prominent anal papillae Procedure(s) Performed: Colonoscopy Anesthesia: MAC Surgeon: Kacy Marcus Estimated Blood Loss (ml): 0 IV fluids (ml): 300 Pathology: none sent Condition: stable Disposition: PACU Indications for Procedure: . History of colon polyps, last colonoscopy approximately 5 years ago Operative Findings: Diverticuli, internal hemorrhoids, prominent anal papillae Description of Procedure: Patient was taken to the endoscopy suite and following sedation rectal exam was performed. Patient was noted to have good sphincter tone no masses. Colonoscope was passed through the anus into the rectum. Was passed through the sigmoid colon up to splenic flexure. Was passed through the transverse colon hepatic flexure right colon down to the area of the cecum. Circumferential observation mucosa did not reveal any lesions of concern in the cecum or right colon. No lesions of concern in the transverse colon. No lesions of concern in the left colon or sigmoid colon. Patient was noted to have scattered diverticuli. Scope was brought down to the rectum where it was retroflexed. Internal hemorrhoids identified prominent anal papillae. Approximately 6 minutes were taken to withdraw the scope from the cecum to the rectum. Impression/plan: 1. Diverticuli 2. Prominent anal papillae 3. Internal hemorrhoids Plan: 1. Repeat scope 7-10 years 2. Conservative management of diverticuli 3. Anoscopic evaluation of prominent anal papillae and internal hemorrhoids in 1 year
--- NOTE | 2017-09-10 10:26 | P.DS ---
Providers Attending physician: Kacy Marcus Primary care physician: Tom Grimes Plan - Discharge Summary New Discharge Prescriptions: No Action clonazePAM [KlonoPIN] 0.5 mg PO TID PRN PRN Reason: Anxiety Ezetimibe [Zetia] 10 mg PO QAM Lisinopril [Zestril] 5 mg PO QAM Aspirin EC [Ecotrin Low Dose] 81 mg PO DAILY #1 tablet. Clopidogrel Bisulfate [Plavix] 75 mg PO DAILY #30 tab Desvenlafaxine Succinate [Pristiq] 100 mg PO QAM amLODIPine [Norvasc] 10 mg PO QAM Albuterol Inhaler [Ventolin Hfa Inhaler] 1 - 2 puff INHALATION Q6HR PRN PRN Reason: Shortness Of Breath Aspirin [Adult Low Dose Aspirin EC] 81 mg PO DAILY Discharge Medication List Ezetimibe [Zetia] 10 mg PO QAM 02/18/15 [History] clonazePAM [KlonoPIN] 0.5 mg PO TID PRN 02/18/15 [History] Lisinopril [Zestril] 5 mg PO QAM 05/07/16 [History] Aspirin EC [Ecotrin Low Dose] 81 mg PO DAILY #1 tablet. 05/10/16 [Rx] Clopidogrel Bisulfate [Plavix] 75 mg PO DAILY #30 tab 05/10/16 [Rx] Desvenlafaxine Succinate [Pristiq] 100 mg PO QAM 03/07/17 [History] amLODIPine [Norvasc] 10 mg PO QAM 03/27/17 [History] Albuterol Inhaler [Ventolin Hfa Inhaler] 1 - 2 puff INHALATION Q6HR PRN [History] Aspirin [Adult Low Dose Aspirin EC] 81 mg PO DAILY 09/06/17 [History] Activity/Diet/Wound Care/Special Instructions: Diverticular diet Do not drive today Anoscopic exam in 1 year Discharge Disposition: HOME SELF-CARE
[2017-09-10 10:32] VITALS: RESP 18
[2017-09-10 10:57] VITALS: BP 111/48; PULSE 75
== END 2017-09-10 11:05 | disposition home or self-care (01) ==
LOC: ORWHC2ENDO 08:43
PROVIDERS: ATTEND Surgery
DX: Z12.11 Encounter for screening for malignant neoplasm of colon (principal); Z86.010 Personal history of colon polyps; K57.30 Diverticulosis of large intestine without perforation or abscess without bleeding; K64.8 Other hemorrhoids; I25.10 Atherosclerotic heart disease of native coronary artery without angina pectoris; I13.10 Hypertensive heart and chronic kidney disease without heart failure, with stage 1 through stage 4 chronic kidney disease, or unspecified chronic kidney disease; N18.9 Chronic kidney disease, unspecified; Z87.891 Personal history of nicotine dependence; J44.9 Chronic obstructive pulmonary disease, unspecified; Z86.73 Personal history of transient ischemic attack (TIA), and cerebral infarction without residual deficits; Z85.3 Personal history of malignant neoplasm of breast; F41.9 Anxiety disorder, unspecified; Z79.02 Long term (current) use of antithrombotics/antiplatelets; Z79.82 Long term (current) use of aspirin; Z79.890 Hormone replacement therapy; Z79.899 Other long term (current) drug therapy; Z91.041 Radiographic dye allergy status
CPT/HCPCS: J2001; J2704; G0105; 45378

== ENCOUNTER 2017-09-21 02:27 | Emergency (ER) | payer MEDICARE, BC ==
[2017-09-21 02:34] VITALS: TEMP 97.6
--- NOTE | 2017-09-21 02:56 | ED ---
General Adult HPI - General Chief complaint: Abdominal Pain Stated complaint: Blood in urine Time Seen by Provider: 09/21/17 02:40 Source: patient, RN notes reviewed Mode of arrival: ambulatory Limitations: no limitations - History of Present Illness Initial comments: This is a 77-year-old female who presents to the emergency department with chief complaint of blood in her urine. Patient states that yesterday she developed dysuria. She states that she has been unable to fully empty her bladder because of the discomfort she feels while trying to urinate. Patient states that she woke up this a.m. and noticed blood in her urine. She states that she has stage III kidney disease and has had urinary tract infections in the past but has never noticed blood in her urine. She denies abdominal pain, nausea or vomiting, diarrhea or constipation. She denies fevers or chills, chest pain or shortness of breath. - Related Data Home Medications Medication Instructions Recorded Confirmed Ezetimibe [Zetia] 10 mg PO QAM 02/18/15 09/16/17 clonazePAM [KlonoPIN] 0.5 mg PO TID PRN 02/18/15 09/16/17 Lisinopril [Zestril] 5 mg PO QAM 05/07/16 09/16/17 Desvenlafaxine Succinate [Pristiq] 100 mg PO QAM 03/07/17 09/16/17 amLODIPine [Norvasc] 10 mg PO QAM 03/27/17 09/16/17 Albuterol Inhaler [Ventolin Hfa 1 - 2 puff INHALATION Q6HR PRN 04/17/17 09/16/17 Inhaler] Aspirin [Adult Low Dose Aspirin EC] 81 mg PO DAILY 09/06/17 09/16/17 Anastrozole [Arimidex] 1 mg PO DAILY 09/16/17 09/16/17 Cholecalciferol [Vitamin D3] 400 unit PO DAILY@1200 09/16/17 09/16/17 Clopidogrel [Plavix] 75 mg PO DAILY 09/16/17 09/16/17 Previous Rx's Medication Instructions Recorded Amoxicillin/Potassium Clav 1 tab PO Q12HR #20 tab 09/21/17 [Augmentin 875-125 Tablet] Phenazopyridine HCl [Pyridium] 100 mg PO TID #6 tab 09/21/17 Allergies Allergy/AdvReac Type Severity Reaction Status Date / Time Iodinated Contrast- Oral and Allergy R/T RENAL Verified 09/21/17 02:34 IV Dye DISEASE [Iodinated Contrast Media - IV Dye] Review of Systems ROS Statement: Those systems with pertinent positive or pertinent negative responses have been documented in the HPI. ROS Other: All systems not noted in ROS Statement are negative. 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 Flor of blood in sputum and that she is taking coricidin otc for her cough. History of Any Multi-Drug Resistant Organisms: None Reported Past Surgical History: Breast Surgery, Cholecystectomy, Hysterectomy Additional Past Surgical History / Comment(s): VARICOSE VEIN SX, L breast bx- benign, MULTIPLE TEEs, CYN CATARACTS , colonoscopy-normal, Right breast surgery. LUMPECTOMY RT BREAST Past Anesthesia/Blood Transfusion Reactions: Previous Problems w/ Anesthesia Additional Past Anesthesia/Blood Transfusion Reaction / Comment(s): STATES WAS TOLD "WE ALMOST LOST YOU" THAT HER B/P DROPPED POST CHOLECYSTECTOMY Past Psychological History: Anxiety, Depression Smoking Status: Former smoker Past Alcohol Use History: None Reported Past Drug Use History: None Reported - Past Family History Mother Family Medical History: Cancer, CVA/TIA Additional Family Medical History / Comment(s): breast Father Family Medical History: Cancer Additional Family Medical History / Comment(s): lung General Exam - General Exam Comments Initial Comments: General: Awake and alert, well-developed; in no apparent distress. Pleasant and cooperative elderly female. HEENT: Head atraumatic, normocephalic. Pupils are equal, round and reactive to light. Extraocular movements intact. Oropharynx moist without erythema or exudate. Neck: Supple. Normal ROM. Cardiovascular: Regular rate and rhythm. No murmurs, rubs or gallops. Chest symmetrical. Respiratory: Lungs clear to auscultation bilaterally. No wheezes, rales or rhonchi. Normal respiratory effort with no use of accessory muscles. Abdomen: Soft, non-tender, non-distended. No rigidity, rebound or guarding. Normal bowel sounds in all 4 quadrants. Mild left CVA tenderness. Musculoskeletal: Normal ROM, no tenderness bilateral upper and lower extremities. Skin: [place], warm and dry without rashes or lesions. Neurological: Alert and oriented x3. CN II-XII grossly intact. Speech is fluent and answers are appropriate. No focal neuro deficits. Psychiatric: Normal mood and affect. No overt signs of depression or anxiety noted. Limitations: no limitations Course Vital Signs 09/21/17 02:30 Temperature 97.6 F Pulse Rate 96 Respiratory 18 Rate Blood Pressure 138/62 O2 Sat by Pulse 96 Oximetry Medical Decision Making - Medical Decision Making This is a 77-year-old female who presents to the emergency department with chief complaint of blood in her urine. Patient states that she developed dysuria yesterday and noticed blood in her urine earlier this a.m. Patient denies any abdominal pain, flank pain, nausea or vomiting, diarrhea or constipation, fevers or chills. She states that she does experience discomfort while trying to urinate. Patient's vital signs are stable and she is afebrile. CBC was unremarkable. CMP revealed a BUN of 24 and creatinine of 1.2. This is elevated from baseline, however patient does state that she has stage III kidney disease and states that she has not been drinking water today because she does not want to urinate due to the discomfort. UA was obtained and revealed moderate blood, large leukocyte esterase, high red blood cells and white blood cells and many white blood cell clumps. This case was discussed with attending physician, Dr. William. Recommended administering 2 g of Rocephin here and discharging patient home with Augmentin and Pyridium. Patient already sees Dr. Levine. Recommended follow-up with her on Saturday morning. Patient was made aware of findings and plan and is in agreement. She will be discharged home at this time. Vital signs are stable and she is in no acute distress. All questions answered. - Lab Data Result diagrams: 09/21/17 03:06 09/21/17 03:06 Lab Results 09/21/17 09/21/17 09/21/17 Range/Units 02:53 03:06 03:06 WBC 8.0 (3.8-10.6) k/uL RBC 4.17 (3.80-5.40) m/uL Hgb 11.5 (11.4-16.0) gm/dL Hct 35.5 (34.0-46.0) % MCV 85.0 (80.0-100.0) fL MCH 27.4 (25.0-35.0) pg MCHC 32.3 (31.0-37.0) g/dL RDW 14.2 (11.5-15.5) % Plt Count 438 (150-450) k/uL Neutrophils % 79 % Lymphocytes % 10 % Monocytes % 5 % Eosinophils % 3 % Basophils % 1 % Neutrophils # 6.3 (1.3-7.7) k/uL Lymphocytes # 0.8 L (1.0-4.8) k/uL Monocytes # 0.4 (0-1.0) k/uL Eosinophils # 0.3 (0-0.7) k/uL Basophils # 0.1 (0-0.2) k/uL Sodium 141 (137-145) mmol/L Potassium 4.4 (3.5-5.1) mmol/L Chloride 107 (98-107) mmol/L Carbon Dioxide 20 L (22-30) mmol/L Anion Gap 14 mmol/L BUN 24 H (7-17) mg/dL Creatinine 1.20 H (0.52-1.04) mg/dL Est GFR (CKD-EPI)AfAm 51 (>60 ml/min/1.73 sqM) Est GFR (CKD-EPI)NonAf 44 (>60 ml/min/1.73 sqM) Glucose 105 H (74-99) mg/dL Calcium 9.7 (8.4-10.2) mg/dL Total Bilirubin 0.2 (0.2-1.3) mg/dL AST 28 (14-36) U/L ALT 30 (9-52) U/L Alkaline Phosphatase 135 H (38-126) U/L Total Protein 6.5 (6.3-8.2) g/dL Albumin 3.8 (3.5-5.0) g/dL Amylase 41 (30-110) U/L Lipase 64 (23-300) U/L Urine Color Light Red Urine Appearance Cloudy H (Clear) Urine pH 5.5 (5.0-8.0) Ur Specific [place] 1.010 (1.001-1.035) Urine Protein 1+ H (Negative) Urine Glucose (UA) Negative (Negative) Urine Ketones Negative (Negative) Urine Blood Moderate H (Negative) Urine Nitrite Negative (Negative) Urine Bilirubin Negative (Negative) Urine Urobilinogen <2.0 (<2.0) mg/dL Ur Leukocyte Esterase Large H (Negative) Urine RBC >182 H (0-5) /hpf Urine WBC >182 H (0-5) /hpf Urine WBC Clumps Many H (None) /hpf Ur Squamous Epith Cells 15 H (0-4) /hpf Hyaline Casts 97 H (0-2) /lpf Disposition Clinical Impression: Hematuria, Urinary tract infection Narrative: UTI/early pyelonephritis Disposition: HOME SELF-CARE Condition: Good Instructions: Hematuria (ED), Urinary Tract Infection in Women (ED) Additional Instructions: Please follow-up with Dr. Levine on Saturday morning. Please take medications as prescribed. Please follow up with primary care provider within 1-2 days. Return to emergency department if symptoms should worsen or any concerns arise. Prescriptions: Amoxicillin/Potassium Clav [Augmentin 875-125 Tablet] 1 tab PO Q12HR #20 tab Phenazopyridine HCl [Pyridium] 100 mg PO TID #6 tab Is patient prescribed a controlled substance at d/c from ED?: No Referrals: Tom Grimes DO [Primary Care Provider] - 1-2 days Anaya Levine MD [STAFF PHYSICIAN] - 1-2 days Time of Disposition: 03:53
[2017-09-21 03:16] LABS: Basophils # (A) 0.1 k/uL (0-0.2); Basophils % (A) 1 %; Eosinophils # (A) 0.3 k/uL (0-0.7); Eosinophils % (A) 3 %; HCT 35.5 % (34.0-46.0); HGB 11.5 gm/dL (11.4-16.0); Lymphocytes # (A) 0.8 k/uL (1.0-4.8); Lymphocytes % (A) 10 %; MCH 27.4 pg (25.0-35.0); MCHC 32.3 g/dL (31.0-37.0); Mean Platelet Volume 6.6; Monocytes # (A) 0.4 k/uL (0-1.0); Monocytes % (A) 5 %; Neutrophils # (A) 6.3 k/uL (1.3-7.7); Neutrophils % (A) 79 %; Platelet Count 438 k/uL (150-450); RBC 4.17 m/uL (3.80-5.40); RDW 14.2 % (11.5-15.5)
[2017-09-21 03:19] LABS: Appearance,Urine Cloudy (Clear); Bilirubin,Urine Negative (Negative); Blood,Urine Moderate (Negative); Color,Urine Light Red; Glucose,Urine (UA) Negative (Negative); Hyaline Casts,Urine 97 /lpf (0-2); Ketones,Urine Negative (Negative); Leukocyte Esterase,Urine Large (Negative); Nitrite,Urine Negative (Negative); PH, Urine 5.5 (5.0-8.0); Protein,Urine 1+ (Negative); RBC,Urine >182 /hpf (0-5); Squamous Epithelial Cell,Urine 15 /hpf (0-4); Urobilinogen,Urine <2.0 mg/dL (<2.0); WBC,Urine >182 /hpf (0-5)
[2017-09-21 03:32] LABS: Albumin 3.8 g/dL (3.5-5.0); Calcium 9.7 mg/dL (8.4-10.2); Potassium 4.4 mmol/L (3.5-5.1); Total Bilirubin 0.2 mg/dL (0.2-1.3); Total Protein 6.5 g/dL (6.3-8.2)
[2017-09-21] MEDS ORDERED: cefTRIAXone IN SWFI 2,000 MG/20 ML SYRINGE IVP ONE (04:00)
[2017-09-21 04:11] VITALS: BP 126/59; PULSE 79; RESP 16
== END 2017-09-21 04:17 | disposition home or self-care (01) ==
LOC: EC 02:27
DX: N39.0 Urinary tract infection, site not specified (principal); R78.89 Finding of other specified substances, not normally found in blood; E78.5 Hyperlipidemia, unspecified; I12.9 Hypertensive chronic kidney disease with stage 1 through stage 4 chronic kidney disease, or unspecified chronic kidney disease; N18.3 Chronic kidney disease, stage 3 (moderate); I25.10 Atherosclerotic heart disease of native coronary artery without angina pectoris; F32.9 Major depressive disorder, single episode, unspecified; Z87.891 Personal history of nicotine dependence; Z79.02 Long term (current) use of antithrombotics/antiplatelets; Z79.82 Long term (current) use of aspirin; Z79.899 Other long term (current) drug therapy; Z91.041 Radiographic dye allergy status; Z86.73 Personal history of transient ischemic attack (TIA), and cerebral infarction without residual deficits; Z85.3 Personal history of malignant neoplasm of breast; Z98.890 Other specified postprocedural states
CPT/HCPCS: 36415; 80053; 82150; 83690; 85025; 81001; 87086; 99284; 96374; J0696; 87077; 87186

== ENCOUNTER 2017-11-16 10:23 | Emergency (ER) | payer MEDICARE, BC ==
[2017-11-16 10:35] VITALS: BP 110/66; PULSE 96; RESP 18; TEMP 98.4
--- NOTE | 2017-11-16 11:27 | ED ---
General Adult HPI - General Chief complaint: Recheck/Abnormal Lab/Rx Stated complaint: Medication refill Time Seen by Provider: 11/16/17 10:48 Source: patient, RN notes reviewed, old records reviewed Mode of arrival: ambulatory Limitations: no limitations - History of Present Illness Initial comments: This patient is a 77 year old female with CC of medication refill for .5mg of klonopin. Patient has been on this medication for years, she receives this from psychiatrist Dr. Pate. She forgot to call in her Rx for refill, and could not get it until Saturday. Patient reports that she needs 2 pills for today, and 3 for tomorrow. Patient has no suicidal or homicidal thoughts. She reports she has anxiety and does reach out to support groups and volunteers at the hospital. - Related Data Home Medications Medication Instructions Recorded Confirmed Ezetimibe [Zetia] 10 mg PO QAM 02/18/15 11/16/17 clonazePAM [KlonoPIN] 0.5 mg PO TID PRN 02/18/15 11/16/17 Lisinopril [Zestril] 5 mg PO QAM 05/07/16 11/16/17 Desvenlafaxine Succinate [Pristiq] 100 mg PO QAM 03/07/17 11/16/17 amLODIPine [Norvasc] 10 mg PO QAM 03/27/17 11/16/17 Albuterol Inhaler [Ventolin Hfa 1 - 2 puff INHALATION Q6HR PRN 04/17/17 11/16/17 Inhaler] Aspirin [Adult Low Dose Aspirin EC] 81 mg PO DAILY 09/06/17 11/16/17 Anastrozole [Arimidex] 1 mg PO DAILY 09/16/17 11/16/17 Cholecalciferol [Vitamin D3] 400 unit PO DAILY@1200 09/16/17 11/16/17 Clopidogrel [Plavix] 75 mg PO DAILY 09/16/17 11/16/17 Previous Rx's Medication Instructions Recorded clonazePAM [KlonoPIN] 0.5 mg PO TID #6 tablet 11/16/17 Allergies Allergy/AdvReac Type Severity Reaction Status Date / Time Iodinated Contrast- Oral and Allergy R/T RENAL Verified 11/16/17 10:35 IV Dye DISEASE [Iodinated Contrast Media - IV Dye] Review of Systems ROS Statement: Those systems with pertinent positive or pertinent negative responses have been documented in the HPI. ROS Other: All systems not noted in ROS Statement are negative. 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 Flor of blood in sputum and that she is taking coricidin otc for her cough. History of Any Multi-Drug Resistant Organisms: None Reported Past Surgical History: Breast Surgery, Cholecystectomy, Hysterectomy Additional Past Surgical History / Comment(s): VARICOSE VEIN SX, L breast bx- benign, MULTIPLE TEEs, CYN CATARACTS , colonoscopy-normal, Right breast surgery. LUMPECTOMY RT BREAST Past Anesthesia/Blood Transfusion Reactions: Previous Problems w/ Anesthesia Additional Past Anesthesia/Blood Transfusion Reaction / Comment(s): STATES WAS TOLD "WE ALMOST LOST YOU" THAT HER B/P DROPPED POST CHOLECYSTECTOMY Past Psychological History: Anxiety, Depression Smoking Status: Former smoker - Past Family History Mother Family Medical History: Cancer, CVA/TIA Additional Family Medical History / Comment(s): breast Father Family Medical History: Cancer Additional Family Medical History / Comment(s): lung General Exam - General Exam Comments Initial Comments: A pleasant 77 year old female, no distress. Limitations: no limitations General appearance: alert, in no apparent distress Head exam: Present: atraumatic, normocephalic, normal inspection Eye exam: Present: normal appearance, PERRL, EOMI. Absent: scleral icterus, conjunctival injection, periorbital swelling ENT exam: Present: normal exam, mucous membranes moist Neck exam: Present: normal inspection. Absent: tenderness, meningismus, lymphadenopathy Respiratory exam: Present: normal lung sounds bilaterally. Absent: respiratory distress, wheezes, rales, rhonchi, stridor Cardiovascular Exam: Present: regular rate, normal rhythm, normal heart sounds. Absent: systolic murmur, diastolic murmur, rubs, gallop, clicks GI/Abdominal exam: Present: soft, normal bowel sounds. Absent: distended, tenderness, guarding, rebound, rigid Extremities exam: Present: normal inspection, full ROM, normal capillary refill. Absent: tenderness, pedal edema, joint swelling, calf tenderness Back exam: Present: normal inspection Neurological exam: Present: alert, oriented X3, CN II-XII intact Psychiatric exam: Present: normal mood, anxious. Absent: normal affect Skin exam: Present: warm, dry, intact, normal color. Absent: rash Course Vital Signs 11/16/17 10:30 Temperature 98.4 F Pulse Rate 96 Respiratory 18 Rate Blood Pressure 110/66 O2 Sat by Pulse 98 Oximetry Medical Decision Making - Medical Decision Making PAtient is a 77 year old female, needing refill of clonopin for 2 days until a refill can be placed by psychiatrist. MAPS report was completed and patient is out of her medication in time. Patient will be given an Rx for 6 pills until can be followed up with PCP and psych. Patient has no other symptoms, suicidal thoughts or homicidal thoughts. Patient understand treatment plans and will comply. Disposition Clinical Impression: Medication refill, Anxiety Disposition: HOME SELF-CARE Condition: Good Instructions: Anxiety (ED) Additional Instructions: Patient has a follow-up with your psychiatrist and counselors. Return to emergency department if any alarming signs or symptoms occur. Prescriptions: clonazePAM [KlonoPIN] 0.5 mg PO TID #6 tablet Is patient prescribed a controlled substance at d/c from ED?: Yes When asked, does pt state using other controlled substances?: No If prescribed controlled substance>3 days was MAPS reviewed?: Yes If opioid is for acute pain is fill amount 7 days or less?: Yes If Rx opioid, was Start Talking consent form obtained?: No Referrals: Tom Grimes DO [Primary Care Provider] - 1-2 days
== END 2017-11-16 11:43 | disposition home or self-care (01) ==
LOC: EC 10:23
DX: Z76.0 Encounter for issue of repeat prescription (principal); F41.9 Anxiety disorder, unspecified; I25.10 Atherosclerotic heart disease of native coronary artery without angina pectoris; J44.9 Chronic obstructive pulmonary disease, unspecified; E78.5 Hyperlipidemia, unspecified; I12.9 Hypertensive chronic kidney disease with stage 1 through stage 4 chronic kidney disease, or unspecified chronic kidney disease; N18.3 Chronic kidney disease, stage 3 (moderate); Z86.73 Personal history of transient ischemic attack (TIA), and cerebral infarction without residual deficits; Z95.3 Presence of xenogenic heart valve; Z87.891 Personal history of nicotine dependence; Z79.82 Long term (current) use of aspirin; Z79.02 Long term (current) use of antithrombotics/antiplatelets; Z79.899 Other long term (current) drug therapy; Z91.041 Radiographic dye allergy status
CPT/HCPCS: 99282

== ENCOUNTER → 2017-12-20 | Outpatient (CLI) | payer MEDICARE, BC ==
--- NOTE | 2017-12-26 09:32 | MM ---
Reason for exam: follow-up at short interval from prior study. Last mammogram was performed 9 months ago. History: Patient is postmenopausal, has history of breast cancer at age 76, and has history of high-risk lesion on a previous biopsy at age 76. Family history of breast cancer in mother at age 85 and breast cancer in maternal grandmother at age 47. Malignant MG pre op loc each addl RT of the right breast, April 23, 2017. Malignant MG pre op needle loc RT of the right breast, April 23, 2017. Lumpectomy of the right breast, April 23, 2017. High risk US biopsy breast VAD RT of the right breast, March 18, 2017. Malignant US biopsy breast add'l VAD RT of the right breast, March 18, 2017. Benign excisional biopsy of the left breast, 2013. Benign excisional biopsy of the right breast, 1981. Taking antineoplastic beginning at age 77. Physical Findings: Nurse did not find any significant physical abnormalities on exam. MG 3D Diag Mammo W/Cad RT CC, MLO, and XCCL view(s) were taken of the right breast. Prior study comparison: March 18, 2017, right breast MG diagnostic mammo RT wo CAD. February 21, 2017, right breast MG 3d work up w/cad RT. February 21, 2017, right breast US breast workup limited RT. February 14, 2017, bilateral MG 3d screening mammo w/cad. September 26, 2015, bilateral MG screening mammo w CAD. November 20, 2013, mammogram, performed at [place]. May 29, 2013, mammogram, performed at [place]. The breast tissue is heterogeneously dense. This may lower the sensitivity of mammography. No suspicious abnormality. Post therapy change on the right. Biozorb noted right upper outer quadrant. These results were verbally communicated with the patient and result sheet given to the patient on 12/20/17. ASSESSMENT: Benign, BI-RAD 2 RECOMMENDATION: Follow-up diagnostic mammogram of both breasts in 1 year.
== END | disposition home or self-care (01) ==
LOC: RADMAMWWP 12:44
PROVIDERS: ATTEND Surgery
DX: Z08 Encounter for follow-up examination after completed treatment for malignant neoplasm (principal); Z85.3 Personal history of malignant neoplasm of breast
CPT/HCPCS: 77065; G0279; 77061

== ENCOUNTER → 2018-01-15 | Outpatient (CLI) | payer MEDICARE, BC ==
--- NOTE | 2018-01-15 10:02 | US ---
EXAMINATION TYPE: US kidneys/renal and bladder DATE OF EXAM: 01/15/2018 COMPARISON: US dated 04/25/2015 CLINICAL HISTORY: N18.3 Chronic kidney disease stage 3. CKD EXAM MEASUREMENTS: Right Kidney: 8.3 x 3.4 x 4.0 cm Left Kidney: 9.9 x 4.2 x 4.7 cm Right Kidney: Small in size, cortical thinning Left Kidney: Appeared wnl Bladder: wnl Bilateral Jets seen: Yes There is no evidence for hydronephrosis at this point in time. No nephrolithiasis is seen. No thor s are identified. The urinary bladder is anechoic. Bilateral ureteral jets are seen. IMPRESSION: Findings compatible with medical renal disease, similar to prior.
== END | disposition home or self-care (01) ==
LOC: RADUSWWP 09:24
PROVIDERS: ATTEND Internal Medicine Nephrology
DX: N18.3 Chronic kidney disease, stage 3 (moderate) (principal)
CPT/HCPCS: 76770

== ENCOUNTER → 2018-05-01 | Outpatient (CLI) | payer MEDICARE, BC ==
[2018-05-01 13:15] VITALS: BP 146/71; PULSE 89; RESP 18; TEMP 98.2; BMI 34.2
--- NOTE | 2018-05-01 13:46 | P.GSHP ---
History of Present Illness H&P Date: 05/01/18 Chief Complaint: Right breast cancer This is a 77-year-old white female who is status post right breast lumpectomy, radiation therapy in March 2017. She was noted to have invasive ductal carcinoma, invasive lobular carcinoma, lobular carcinoma in situ, and ductal carcinoma in situ,. The lesion was felt to be a T1 N0 M0 invasive ductal carcinoma. The ductal carcinoma in situ was approximately 7 mm in size and 8 mm from the superior margin this was a grade 1-2 lesion. Invasive lobular tumor was a grade 3 lesion of uncertain of the size. The invasive ductal tumor was ER/NE positive and HER-2 negative. The invasive lobular cancer was ER/NE negative and HER-2 negative. 1. AJCC1A, pT1 the N0 (SN) ER positive NE positive HER-2/nu negative invasive ductal carcinoma 2. AJCC1A, P T1 1 N0 (S) ER negative NE negative HER-2/nu negative invasive lobular carcinoma The patient was treated with radiation therapy and Arimidex she is still taking this. The patient complains of soreness in both breast. No masses of concern in her breast. No nipple discharge or changes of concern. The patient states she is feeling depressed secondary to family issues. Family History: 1. mother: breast 2. father: lung Hormonal history: Menarche: 10 Pregnancies: 4, 4 children, first born at 18, breast fed: none Menopause: 50 BCP: 3 years hormones: unsure short duration Past surgical history: 1. Cholecystectomy 2. Colonoscopy 3. Bilateral cataracts 4. Vein stripping bilateral lower legs Past Medical History: 1. depression Social History: smoke: none alcohol: none drugs: none - Constitutional Constitutional: Reports sweats, Denies chills, Denies fever - EENT Eyes: bilateral blurred vision, denies pain Ears: bilateral: decreased hearing, tinnitus Ears, nose, mouth and throat: Denies headache, Denies sore throat - Breasts Breasts: bilateral: as per HPI - Cardiovascular Cardiovascular: Denies chest pain, Denies shortness of breath - Respiratory Comment: SOB at times Respiratory: Denies cough, Denies 7 - Gastrointestinal Gastrointestinal: Reports diarrhea - Genitourinary (Female) Genitourinary: Denies dysuria, Denies hematuria - Menstruation Menstruation: Reports postmenopausal - Musculoskeletal Comment: leg arthritis - Integumentary Integumentary: Denies pruritus, Denies rash - Neurological Comment: TIA Neurological: Reports numbness, Denies weakness - Psychiatric Psychiatric: Reports depression - Endocrine Endocrine: Reports fatigue, Reports weight change - Hematologic/Lymphatic Comment: Aspirin and Plavix - Allergic/Immunologic Allergic/Immunologic: Reports as per HPI 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 Flor of blood in sputum and that she is taking coricidin otc for her cough. History of Any Multi-Drug Resistant Organisms: None Reported Past Surgical History: Breast Surgery, Cholecystectomy, Hysterectomy Additional Past Surgical History / Comment(s): VARICOSE VEIN SX, L breast bx- benign, MULTIPLE TEEs, CYN CATARACTS , colonoscopy-normal, Right breast surgery. LUMPECTOMY RT BREAST Past Anesthesia/Blood Transfusion Reactions: Previous Problems w/ Anesthesia Additional Past Anesthesia/Blood Transfusion Reaction / Comment(s): STATES WAS TOLD "WE ALMOST LOST YOU" THAT HER B/P DROPPED POST CHOLECYSTECTOMY Past Psychological History: Anxiety, Depression Additional Psychological History / Comment(s): . Smoking Status: Former smoker Past Alcohol Use History: None Reported Additional Past Alcohol Use History / Comment(s): SMOKED 1-2 PPD - QUIT REGULAR CIGARETTES-2013- SMOKED 30 YEARS AND THEN SMOKED E-CIGARETTES UNTIL NOVEMBER 2016. Past Drug Use History: None Reported - Past Family History Mother Family Medical History: Cancer, CVA/TIA Additional Family Medical History / Comment(s): breast Father Family Medical History: Cancer Additional Family Medical History / Comment(s): lung Medications and Allergies Home Medications Medication Instructions Recorded Confirmed Type Ezetimibe [Zetia] 10 mg PO QAM 02/18/15 05/01/18 History clonazePAM [KlonoPIN] 0.5 mg PO TID PRN 02/18/15 11/16/17 History Lisinopril [Zestril] 5 mg PO QAM 05/07/16 05/01/18 History Desvenlafaxine Succinate [Pristiq] 100 mg PO QAM 03/07/17 05/01/18 History amLODIPine [Norvasc] 10 mg PO QAM 03/27/17 05/01/18 History Albuterol Inhaler [Ventolin Hfa 1 - 2 puff INHALATION Q6HR PRN 04/17/17 History Inhaler] Aspirin [Adult Low Dose Aspirin EC] 81 mg PO DAILY 09/06/17 05/01/18 History Anastrozole [Arimidex] 1 mg PO DAILY 09/16/17 05/01/18 History Cholecalciferol [Vitamin D3] 400 unit PO DAILY@1200 09/16/17 05/01/18 History Clopidogrel [Plavix] 75 mg PO DAILY 09/16/17 05/01/18 History clonazePAM [KlonoPIN] 0.5 mg PO TID #6 tablet 11/16/17 05/01/18 Rx Allergies Allergy/AdvReac Type Severity Reaction Status Date / Time Iodinated Contrast- Oral and Allergy R/T RENAL Verified 11/16/17 10:35 IV Dye DISEASE [Iodinated Contrast Media - IV Dye] Surgical - Exam Vital Signs Temp Pulse Resp BP Pulse Ox 98.2 F 89 18 146/71 93 L 05/01/18 13:05 05/01/18 13:05 05/01/18 13:05 05/01/18 13:05 05/01/18 13:05 BMI 34.2 - General obese - Eyes normal ocular movement - ENT no hearing loss, no congestion - Neck no masses, trachea midline - Respiratory normal respiratory effort, clear to auscultation - Cardiovascular DENYS Rhythm: regular Heart Sounds: normal: S1, S2 - Abdomen Abdomen: soft - Integumentary mild erythema related to radiation - Neurologic no disoriented, no combative - Psychiatric oriented to time, oriented to person, oriented to place, speech is normal, memory intact Breast examination: Right breast: Well-healed scar from prior lumpectomy, skin changes related to radiation no dominant masses or nodules of concern and multiple positional exam Right axilla: No adenopathy of concern Left breast: No dominant mass or nodules of concern Left axilla: No adenopathy of concern Assessment and Plan Assessment: Impression: 1. right breast cancer status post lumpectomy and radiation therapy 2. TIA 3. depression Plan: 1. bilateral mammogram 2. follow up in 6 months 3. medical managment of medical problems CC: Cornelio
== END ==
LOC: WWCWWP 12:37
PROVIDERS: ATTEND Surgery
DX: Z53.9 Procedure and treatment not carried out, unspecified reason (principal)

== ENCOUNTER → 2018-05-05 | Outpatient (CLI) | payer MEDICARE, BC ==
--- NOTE | 2018-05-05 14:14 | MM ---
Reason for exam: follow-up at short interval from prior study. Last mammogram was performed 4 months ago. History: Patient is postmenopausal, has history of breast cancer at age 76, and has history of high-risk lesion on a previous biopsy at age 76. Family history of breast cancer in mother at age 85 and breast cancer in maternal grandmother at age 47. Malignant MG pre op loc each addl RT of the right breast, April 23, 2017. Malignant MG pre op needle loc RT of the right breast, April 23, 2017. Lumpectomy of the right breast, April 23, 2017. High risk US biopsy breast VAD RT of the right breast, March 18, 2017. Malignant US biopsy breast add'l VAD RT of the right breast, March 18, 2017. Benign excisional biopsy of the left breast, 2013. Benign excisional biopsy of the right breast, 1981. Taking antineoplastic beginning at age 77. Physical Findings: Nurse did not find any significant physical abnormalities on exam. MG 3D Diag Mammo W/Cad CYN Bilateral CC and MLO view(s) were taken. Prior study comparison: December 20, 2017, right breast MG 3d diag mammo w/cad RT. March 18, 2017, right breast MG diagnostic mammo RT wo CAD. There are scattered fibroglandular densities. Post surgical changes in the right breast. No significant new findings when compared with previous films. These results were verbally communicated with the patient and result sheet given to the patient on 05/05/18. ASSESSMENT: Benign, BI-RAD 2 RECOMMENDATION: Follow-up diagnostic mammogram of both breasts in 1 year.
== END ==
LOC: RADMAMWWP 12:46
PROVIDERS: ATTEND Surgery
DX: Z08 Encounter for follow-up examination after completed treatment for malignant neoplasm (principal); Z85.3 Personal history of malignant neoplasm of breast
CPT/HCPCS: 77066; G0279; 77062

== ENCOUNTER 2018-06-07 09:13 | Emergency (ER) | payer MEDICARE, BC ==
[2018-06-07 09:19] VITALS: RESP 18; TEMP 97.6
--- NOTE | 2018-06-07 09:51 | ED ---
General Adult HPI <Taurus Atkins - Last Filed: 06/07/18 11:21> - General Source: patient, RN notes reviewed Mode of arrival: ambulatory Limitations: no limitations <GuillermoJoey - Last Filed: 06/07/18 11:24> - General Chief complaint: Dizziness Stated complaint: Confused Time Seen by Provider: 06/07/18 09:31 - History of Present Illness Initial comments: Patient 77-year-old female presenting to the emergency room today with a chief complaint of a funny feeling in her head that occurred this morning. She states that she was waking up this morning and she typically has some "thoughts " but then they go away. She states she usually does not remember them. She states that then she was waking up and she felt a funny feeling in her head. She describes it as a "shaking". States is difficult to describe. She states she's not had this feeling before. She states it lasted just a few seconds. She denies any symptoms or any complaints currently. She states that she is unsure if it's related back to her history of depression. She states she does see a psychiatrist. She denies any suicidal or homicidal thoughts or plans. States she has been taking medications as prescribed. Patient denies any recent fever, chills, shortness of breath, chest pain, back pain, abdominal pain , nausea or vomiting, numbness or tingling, headaches or visual changes, or any other complaints. (Joey Li) - Related Data Home Medications Medication Instructions Recorded Confirmed Ezetimibe [Zetia] 10 mg PO QAM 02/18/15 06/07/18 clonazePAM [KlonoPIN] 0.5 mg PO TID PRN 02/18/15 06/07/18 Lisinopril [Zestril] 5 mg PO QAM 05/07/16 06/07/18 Desvenlafaxine Succinate [Pristiq] 100 mg PO QAM 03/07/17 06/07/18 amLODIPine [Norvasc] 10 mg PO QAM 03/27/17 06/07/18 Aspirin [Adult Low Dose Aspirin EC] 81 mg PO DAILY 09/06/17 06/07/18 Anastrozole [Arimidex] 1 mg PO DAILY 09/16/17 06/07/18 Cholecalciferol [Vitamin D3] 400 unit PO DAILY@1200 09/16/17 06/07/18 Clopidogrel [Plavix] 75 mg PO DAILY 09/16/17 06/07/18 Allergies Allergy/AdvReac Type Severity Reaction Status Date / Time Iodinated Contrast- Oral and Allergy R/T RENAL Verified 06/07/18 10:08 IV Dye DISEASE [Iodinated Contrast Media - IV Dye] Review of Systems ROS Other: All systems not noted in ROS Statement are negative. <Taurus Atkins - Last Filed: 06/07/18 11:21> ROS Other: All systems not noted in ROS Statement are negative. <Joey Li - Last Filed: 06/07/18 11:24> ROS Statement: Those systems with pertinent positive or pertinent negative responses have been documented in the HPI. 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 Flor of blood in sputum and that she is taking coricidin otc for her cough. History of Any Multi-Drug Resistant Organisms: None Reported Past Surgical History: Breast Surgery, Cholecystectomy, Hysterectomy Additional Past Surgical History / Comment(s): VARICOSE VEIN SX, L breast bx- benign, MULTIPLE TEEs, CYN CATARACTS , colonoscopy-normal, Right breast surgery. LUMPECTOMY RT BREAST Past Anesthesia/Blood Transfusion Reactions: Previous Problems w/ Anesthesia Additional Past Anesthesia/Blood Transfusion Reaction / Comment(s): STATES WAS TOLD "WE ALMOST LOST YOU" THAT HER B/P DROPPED POST CHOLECYSTECTOMY Past Psychological History: Anxiety, Depression Smoking Status: Former smoker Past Alcohol Use History: None Reported Past Drug Use History: None Reported - Past Family History Mother Family Medical History: Cancer, CVA/TIA Additional Family Medical History / Comment(s): breast Father Family Medical History: Cancer Additional Family Medical History / Comment(s): lung <Joey Li - Last Filed: 06/07/18 11:24> General Exam <Taurus Atkins - Last Filed: 06/07/18 11:21> Limitations: no limitations <Joey Li - Last Filed: 06/07/18 11:24> - General Exam Comments Initial Comments: General: The patient is awake and alert, in no distress, and does not appear acutely ill. Eye: Pupils are equal, round and reactive to light, extra-ocular movements are intact. No nystagmus. There is normal conjunctiva bilaterally. No signs of icterus. Ears, nose, mouth and throat: There are moist mucous membranes and no oral lesions. Neck: The neck is supple, there is no tenderness or JVD. Cardiovascular: There is a regular rate and rhythm. No murmur, rub or gallop is appreciated. Respiratory: Lungs are clear to auscultation, respirations are non-labored, breath sounds are equal. No wheezes, stridor, rales, or rhonchi. Musculoskeletal: Normal ROM, no tenderness. Strength 5/5. Sensation intact. Pulses equal bilaterally 2+. Neurological: A&O x 3. CN II-XII intact, There are no obvious motor or sensory deficits. Coordination appears grossly intact. Speech is normal. Skin: Skin is warm and dry and no rashes or lesions are noted. Psychiatric: Cooperative, appropriate mood & affect, normal judgment. (Joey Li) Course <WilbertTaurus - Last Filed: 06/07/18 11:21> <GuillermoJoey - Last Filed: 06/07/18 11:24> Vital Signs 06/07/18 09:14 Temperature 97.6 F Pulse Rate 87 Respiratory 18 Rate Blood Pressure 131/61 O2 Sat by Pulse 98 Oximetry - Reevaluation(s) Reevaluation #1: 06/07/18 11:21 PA supervision: I proceeded [id number] evaluation the patient patient did present with some vague complaints this morning she believes it may be secondary to anxiety which she's had the past. CT lab work are reviewed EKG reviewed no acute findings. I do agree with the assessment and plan. (Taurus Atkins) EKG Findings - EKG Comments: EKG Findings:: EKG performed at 0953: Shows normal sinus rhythm at 74 bpm. OK interval 186. QRS 118. QT/QTC 396/439. No acute ST change. <Joey Li - Last Filed: 06/07/18 11:24> Medical Decision Making - Lab Data Result diagrams: 06/07/18 10:11 06/07/18 10:11 <Taurus Atkins - Last Filed: 06/07/18 11:21> - Lab Data Result diagrams: 06/07/18 10:11 06/07/18 10:11 <Joey Li - Last Filed: 06/07/18 11:24> - Medical Decision Making Patient reexamined at this time shows no signs of distress. She is resting comfortably. She's been recent Medicare in the emergency room. She admits that she had a funny feeling this morning that lasted just a few seconds. CT of the head was performed which is negative for any acute changes. Patient's blood work reviewed. She does admit to history of anxiety. At this time patient's resting comfortably with no symptoms. Will be discharged home to follow-up the family doctor over the next 2 days. Advised return for any other concerns. (Joey Li) - Lab Data Lab Results 06/07/18 06/07/18 06/07/18 Range/Units 10:11 10:11 10:11 WBC 6.4 (3.8-10.6) k/uL RBC 4.69 (3.80-5.40) m/uL Hgb 13.9 (11.4-16.0) gm/dL Hct 42.7 (34.0-46.0) % MCV 91.1 (80.0-100.0) fL MCH 29.6 (25.0-35.0) pg MCHC 32.5 (31.0-37.0) g/dL RDW 14.1 (11.5-15.5) % Plt Count 259 (150-450) k/uL Neutrophils % 73 % Lymphocytes % 14 % Monocytes % 6 % Eosinophils % 3 % Basophils % 1 % Neutrophils # 4.7 (1.3-7.7) k/uL Lymphocytes # 0.9 L (1.0-4.8) k/uL Monocytes # 0.4 (0-1.0) k/uL Eosinophils # 0.2 (0-0.7) k/uL Basophils # 0.1 (0-0.2) k/uL PT (9.0-12.0) sec INR (<1.2) APTT (22.0-30.0) sec Sodium 140 (137-145) mmol/L Potassium 5.1 (3.5-5.1) mmol/L Chloride 110 H (98-107) mmol/L Carbon Dioxide 24 (22-30) mmol/L Anion Gap 6 mmol/L BUN 17 (7-17) mg/dL Creatinine 1.14 H (0.52-1.04) mg/dL Est GFR (CKD-EPI)AfAm 54 (>60 ml/min/1.73 sqM) Est GFR (CKD-EPI)NonAf 47 (>60 ml/min/1.73 sqM) Glucose 96 (74-99) mg/dL Calcium 9.8 (8.4-10.2) mg/dL Total Bilirubin 0.7 (0.2-1.3) mg/dL AST 25 (14-36) U/L ALT 18 (9-52) U/L Alkaline Phosphatase 77 (38-126) U/L Total Creatine Kinase 41 (30-135) U/L CK-MB (CK-2) 0.2 (0.0-2.4) ng/mL CK-MB (CK-2) Rel Index 0.5 Troponin I 0.012 (0.000-0.034) ng/mL Total Protein 7.4 (6.3-8.2) g/dL Albumin 4.1 (3.5-5.0) g/dL 06/07/18 Range/Units 10:11 WBC (3.8-10.6) k/uL RBC (3.80-5.40) m/uL Hgb (11.4-16.0) gm/dL Hct (34.0-46.0) % MCV (80.0-100.0) fL MCH (25.0-35.0) pg MCHC (31.0-37.0) g/dL RDW (11.5-15.5) % Plt Count (150-450) k/uL Neutrophils % % Lymphocytes % % Monocytes % % Eosinophils % % Basophils % % Neutrophils # (1.3-7.7) k/uL Lymphocytes # (1.0-4.8) k/uL Monocytes # (0-1.0) k/uL Eosinophils # (0-0.7) k/uL Basophils # (0-0.2) k/uL PT 10.4 (9.0-12.0) sec INR 1.0 (<1.2) APTT 24.9 (22.0-30.0) sec Sodium (137-145) mmol/L Potassium (3.5-5.1) mmol/L Chloride (98-107) mmol/L Carbon Dioxide (22-30) mmol/L Anion Gap mmol/L BUN (7-17) mg/dL Creatinine (0.52-1.04) mg/dL Est GFR (CKD-EPI)AfAm (>60 ml/min/1.73 sqM) Est GFR (CKD-EPI)NonAf (>60 ml/min/1.73 sqM) Glucose (74-99) mg/dL Calcium (8.4-10.2) mg/dL Total Bilirubin (0.2-1.3) mg/dL AST (14-36) U/L ALT (9-52) U/L Alkaline Phosphatase (38-126) U/L Total Creatine Kinase (30-135) U/L CK-MB (CK-2) (0.0-2.4) ng/mL CK-MB (CK-2) Rel Index Troponin I (0.000-0.034) ng/mL Total Protein (6.3-8.2) g/dL Albumin (3.5-5.0) g/dL Disposition <Taurus Atkins - Last Filed: 06/07/18 11:21> Is patient prescribed a controlled substance at d/c from ED?: No Time of Disposition: 11:24 <Joey Li - Last Filed: 06/07/18 11:24> Clinical Impression: Headache Disposition: HOME SELF-CARE Condition: Good Instructions: Acute Headache (ED) Additional Instructions: Please follow-up with family doctor in the next 2 days. Please return to emergency room if the symptoms increase or worsen or for any other concerns. Referrals: Tom Grimes DO [Primary Care Provider] - 1-2 days
[2018-06-07 10:25] LABS: Basophils # (A) 0.1 k/uL (0-0.2); Basophils % (A) 1 %; Eosinophils # (A) 0.2 k/uL (0-0.7); Eosinophils % (A) 3 %; HCT 42.7 % (34.0-46.0); HGB 13.9 gm/dL (11.4-16.0); Lymphocytes # (A) 0.9 k/uL (1.0-4.8); Lymphocytes % (A) 14 %; MCH 29.6 pg (25.0-35.0); MCHC 32.5 g/dL (31.0-37.0); MCV 91.1 fL (80.0-100.0); Mean Platelet Volume 7.3; Monocytes # (A) 0.4 k/uL (0-1.0); Monocytes % (A) 6 %; Neutrophils # (A) 4.7 k/uL (1.3-7.7); Neutrophils % (A) 73 %; Platelet Count 259 k/uL (150-450); RBC 4.69 m/uL (3.80-5.40); RDW 14.1 % (11.5-15.5); WBC 6.4 k/uL (3.8-10.6)
[2018-06-07 10:48] LABS: Albumin 4.1 g/dL (3.5-5.0); Calcium 9.8 mg/dL (8.4-10.2); Total Bilirubin 0.7 mg/dL (0.2-1.3); Total Protein 7.4 g/dL (6.3-8.2)
[2018-06-07 10:49] LABS: Potassium 5.1 mmol/L (3.5-5.1)
[2018-06-07 10:56] LABS: Partial Thromboplastin Time 24.9 sec (22.0-30.0); Prothrombin Time 10.4 sec (9.0-12.0)
[2018-06-07 11:00] LABS: Creatine Kinase MB 0.2 ng/mL (0.0-2.4); Troponin I 0.012 ng/mL (0.000-0.034)
--- NOTE | 2018-06-07 11:06 | CT ---
EXAMINATION TYPE: CT brain wo con DATE OF EXAM: 06/07/2018 COMPARISON: Previous study dated 06/06/2016 HISTORY: Dizziness and weakness CT DLP: 1099.4 mGycm Automated exposure control for dose reduction was used. FINDINGS: There are mild, generalized changes of sulcal prominence and ventriculomegaly, compatible with mild a trophic change. There is diffuse periventricular white matter lucency, compatible with chronic white matter ischemic change. No acute focal lesion, mass effect or midline shift is seen. I do not see evidence of intracr anial blood. There is mucoperiosteal thickening involving both maxillary sinuses. The remainder the paranasal sinu ses and mastoids are clear. The bony calvarium is intact. IMPRESSION: 1. NO ACUTE INTRACRANIAL ABNORMALITY. 2. MILD DEGENERATIVE CHANGE. 3. MILD, CHRONIC, BILATERAL MAXILLARY SINUS MUCOSAL DISEASE.
[2018-06-07 11:26] VITALS: BP 116/60; PULSE 71
== END 2018-06-07 11:30 | disposition home or self-care (01) ==
LOC: EC 09:13
DX: R51 Headache (principal); R42 Dizziness and giddiness; R41.0 Disorientation, unspecified; I25.10 Atherosclerotic heart disease of native coronary artery without angina pectoris; E78.5 Hyperlipidemia, unspecified; I12.9 Hypertensive chronic kidney disease with stage 1 through stage 4 chronic kidney disease, or unspecified chronic kidney disease; N18.3 Chronic kidney disease, stage 3 (moderate); F41.9 Anxiety disorder, unspecified; F32.9 Major depressive disorder, single episode, unspecified; Z79.82 Long term (current) use of aspirin; Z79.02 Long term (current) use of antithrombotics/antiplatelets; Z79.899 Other long term (current) drug therapy; Z91.041 Radiographic dye allergy status; Z87.891 Personal history of nicotine dependence; Z86.73 Personal history of transient ischemic attack (TIA), and cerebral infarction without residual deficits; Z85.3 Personal history of malignant neoplasm of breast
CPT/HCPCS: 36415; 70450; 80053; 82550; 82553; 84484; 85025; 85610; 85730; 93005; 99284

== ENCOUNTER → 2018-08-14 | Outpatient (CLI) | payer MEDICARE, BC ==
--- NOTE | 2018-08-14 15:33 | US ---
EXAMINATION TYPE: US venous doppler duplex LE RT DATE OF EXAM: 08/14/2018 3:15 PM COMPARISON: NONE CLINICAL HISTORY: 78-year-old female M79.604 Pain R lower Limb. Ecchymosis to right anterior lower le g x 2 days. SIDE PERFORMED: Right TECHNIQUE: The lower extremity deep venous system is examined utilizing real time linear array sonog lucy with graded compression, doppler sonography and color-flow sonography. FINDINGS: VESSELS IMAGED: Common Femoral Vein Deep Femoral Vein Greater Saphenous Vein * Femoral Vein Popliteal Vein Small Saphenous Vein * Proximal Calf Veins Posterior tibial veins (* superficial vessels) Right Leg: Negative for DVT Additional targeted scanning lateral leg at the site of ecchymosis. Mild subcutaneous edema is noted. IMPRESSION: No evidence for DVT within the right lower extremity.
--- NOTE | 2018-08-14 16:11 | XR ---
EXAMINATION TYPE: XR foot complete RT DATE OF EXAM: 08/14/2018 CLINICAL HISTORY: Pain and contusion of the right dorsal foot after injury TECHNIQUE: Frontal, lateral, and oblique images of the right foot are obtained. COMPARISON: None FINDINGS: There is no acute fracture/dislocation evident in the right foot. The joint spaces in the right foot display degenerative change most significant of the distal interphalangeal joints and fir st metatarsophalangeal joint. There is also diffuse osseous demineralization and hallux valgus deform ity. The overlying soft tissue appears unremarkable. IMPRESSION: There is no acute fracture or dislocation in the right foot.
== END ==
LOC: RADUSWWP 13:39
PROVIDERS: ATTEND Physician Assistant
DX: M79.604 Pain in right leg (principal)

== ENCOUNTER 2018-08-19 11:10 | Observation (INO) | payer MEDICARE, BC ==
[2018-08-19] MEDS ORDERED: ASPIRIN 81 MG PO STA (11:26)
[2018-08-19] MEDS ORDERED: NITROGLYCERIN OINT 1 INCH/GM PACKET TOPICAL STA (11:26)
--- NOTE | 2018-08-19 11:30 | ED ---
General Adult HPI - General Chief complaint: Chest Pain Stated complaint: Chest pain Time Seen by Provider: 08/19/18 11:15 Source: patient, RN notes reviewed Mode of arrival: wheelchair Limitations: no limitations - History of Present Illness Initial comments: Patient is a pleasant 78-year-old female presenting to the emergency Department with complaints of chest discomfort. Onset of symptoms was around 5 this morning. Patient had an ache of her left upper chest that lasted less than a minute. Symptoms are resolved. Patient had a second episode more of sharp discomfort of her left lower chest that lasted around a minute and has resolved. No associated dyspnea, nausea, or diaphoresis. No history of similar symptoms previously. Patient is scheduled to see Dr. Garcia tomorrow. No leg pain or leg swelling. - Related Data Home Medications Medication Instructions Recorded Confirmed Ezetimibe [Zetia] 10 mg PO QAM 02/18/15 08/19/18 clonazePAM [KlonoPIN] 0.5 mg PO TID PRN 02/18/15 08/19/18 Lisinopril [Zestril] 5 mg PO QAM 05/07/16 08/19/18 Desvenlafaxine Succinate [Pristiq] 100 mg PO QAM 03/07/17 08/19/18 amLODIPine [Norvasc] 10 mg PO QAM 03/27/17 08/19/18 Aspirin [Adult Low Dose Aspirin EC] 81 mg PO DAILY 09/06/17 08/19/18 Anastrozole [Arimidex] 1 mg PO DAILY 09/16/17 08/19/18 Cholecalciferol [Vitamin D3] 400 unit PO DAILY@1200 09/16/17 08/19/18 Clopidogrel [Plavix] 75 mg PO DAILY 09/16/17 08/19/18 Allergies Allergy/AdvReac Type Severity Reaction Status Date / Time Iodinated Contrast- Oral and Allergy R/T RENAL Verified 08/19/18 11:45 IV Dye DISEASE [Iodinated Contrast Media - IV Dye] Review of Systems ROS Statement: Those systems with pertinent positive or pertinent negative responses have been documented in the HPI. ROS Other: All systems not noted in ROS Statement are negative. Constitutional: Denies: fever Eyes: Denies: eye pain ENT: Denies: ear pain Respiratory: Denies: cough, dyspnea Cardiovascular: Reports: chest pain Endocrine: Denies: fatigue Gastrointestinal: Denies: abdominal pain Genitourinary: Denies: dysuria Musculoskeletal: Denies: back pain Skin: Denies: rash Neurological: Denies: weakness Past Medical History Past Medical History: Coronary Artery Disease (CAD), Cancer, COPD, CVA/TIA, GERD/Reflux, Hyperlipidemia, Hypertension, Renal Disease Additional Past Medical History / Comment(s): TIA 04/2016, Chronic renal disease stage III, heart murmur-has plaque on valve, vertigo, Lesion left upper lung lobe., 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 LUMPECTOMY RT BREAST Past Anesthesia/Blood Transfusion Reactions: Previous Problems w/ Anesthesia Additional Past Anesthesia/Blood Transfusion Reaction / Comment(s): STATES WAS TOLD "WE ALMOST LOST YOU" THAT HER B/P DROPPED POST CHOLECYSTECTOMY Past Psychological History: Anxiety, Depression Smoking Status: Former smoker Past Alcohol Use History: None Reported Past Drug Use History: None Reported - Past Family History Mother Family Medical History: Cancer, CVA/TIA Additional Family Medical History / Comment(s): breast Father Family Medical History: Cancer Additional Family Medical History / Comment(s): lung General Exam Limitations: no limitations General appearance: alert, in no apparent distress Head exam: Present: atraumatic Eye exam: Present: normal appearance Neck exam: Present: normal inspection Respiratory exam: Present: normal lung sounds bilaterally. Absent: chest wall tenderness Cardiovascular Exam: Present: regular rate, normal rhythm Expanded Peripheral pulses: 2+: Radial (R), Radial (L), Posterior Tibialis (R), Posterior Tibialis (L) GI/Abdominal exam: Present: soft. Absent: tenderness Extremities exam: Present: normal inspection. Absent: pedal edema, calf tenderness Neurological exam: Present: alert Psychiatric exam: Present: normal affect, normal mood Skin exam: Present: normal color Course Vital Signs 08/19/18 11:11 Temperature 98.2 F Pulse Rate 99 Respiratory 20 Rate Blood Pressure 157/71 O2 Sat by Pulse 97 Oximetry - Reevaluation(s) Reevaluation #1: 08/19/18 11:31 Patient states she sees Dr. Grimes. EKG Findings - EKG Comments: EKG Findings:: Normal sinus rhythm at 80. PA 160. QRS 104. QT 398. QTC 459. Left axis. LVH criteria. Septal Q waves. No acute ST change. Medical Decision Making - Medical Decision Making Patient reevaluated and resting comfortably in bed. Patient symptom-free at this point. Patient and family updated on results and plan. Case discussed in detail with Dr. Lane, who will admit covering for Dr. Grimes. - Lab Data Result diagrams: 08/19/18 12:06 08/19/18 12:06 Lab Results 08/19/18 08/19/18 08/19/18 Range/Units 12:06 12:06 12:06 WBC 5.5 (3.8-10.6) k/uL RBC 4.61 (3.80-5.40) m/uL Hgb 12.1 (11.4-16.0) gm/dL Hct 41.0 (34.0-46.0) % MCV 89.0 (80.0-100.0) fL MCH 26.2 (25.0-35.0) pg MCHC 29.5 L (31.0-37.0) g/dL RDW 14.1 (11.5-15.5) % Plt Count 288 (150-450) k/uL Neutrophils % 73 % Lymphocytes % 14 % Monocytes % 7 % Eosinophils % 3 % Basophils % 1 % Neutrophils # 4.1 (1.3-7.7) k/uL Lymphocytes # 0.8 L (1.0-4.8) k/uL Monocytes # 0.4 (0-1.0) k/uL Eosinophils # 0.2 (0-0.7) k/uL Basophils # 0.0 (0-0.2) k/uL Hypochromasia Slight PT 10.1 (9.0-12.0) sec INR 0.9 (<1.2) APTT 24.3 (22.0-30.0) sec Sodium 141 (137-145) mmol/L Potassium 4.9 (3.5-5.1) mmol/L Chloride 110 H (98-107) mmol/L Carbon Dioxide 23 (22-30) mmol/L Anion Gap 8 mmol/L BUN 24 H (7-17) mg/dL Creatinine 1.04 (0.52-1.04) mg/dL Est GFR (CKD-EPI)AfAm 60 (>60 ml/min/1.73 sqM) Est GFR (CKD-EPI)NonAf 52 (>60 ml/min/1.73 sqM) Glucose 86 (74-99) mg/dL Calcium 9.9 (8.4-10.2) mg/dL Magnesium 2.1 (1.6-2.3) mg/dL Total Bilirubin 0.6 (0.2-1.3) mg/dL AST 28 (14-36) U/L ALT 27 (9-52) U/L Alkaline Phosphatase 95 (38-126) U/L Troponin I (0.000-0.034) ng/mL Total Protein 7.0 (6.3-8.2) g/dL Albumin 4.0 (3.5-5.0) g/dL 08/19/18 Range/Units 12:06 WBC (3.8-10.6) k/uL RBC (3.80-5.40) m/uL Hgb (11.4-16.0) gm/dL Hct (34.0-46.0) % MCV (80.0-100.0) fL MCH (25.0-35.0) pg MCHC (31.0-37.0) g/dL RDW (11.5-15.5) % Plt Count (150-450) k/uL Neutrophils % % Lymphocytes % % Monocytes % % Eosinophils % % Basophils % % Neutrophils # (1.3-7.7) k/uL Lymphocytes # (1.0-4.8) k/uL Monocytes # (0-1.0) k/uL Eosinophils # (0-0.7) k/uL Basophils # (0-0.2) k/uL Hypochromasia PT (9.0-12.0) sec INR (<1.2) APTT (22.0-30.0) sec Sodium (137-145) mmol/L Potassium (3.5-5.1) mmol/L Chloride (98-107) mmol/L Carbon Dioxide (22-30) mmol/L Anion Gap mmol/L BUN (7-17) mg/dL Creatinine (0.52-1.04) mg/dL Est GFR (CKD-EPI)AfAm (>60 ml/min/1.73 sqM) Est GFR (CKD-EPI)NonAf (>60 ml/min/1.73 sqM) Glucose (74-99) mg/dL Calcium (8.4-10.2) mg/dL Magnesium (1.6-2.3) mg/dL Total Bilirubin (0.2-1.3) mg/dL AST (14-36) U/L ALT (9-52) U/L Alkaline Phosphatase (38-126) U/L Troponin I 0.014 (0.000-0.034) ng/mL Total Protein (6.3-8.2) g/dL Albumin (3.5-5.0) g/dL - Radiology Data Radiology results: image reviewed (Chest x-ray shows no acute process) Disposition Clinical Impression: Chest pain Disposition: ADMITTED IP TO THIS [facility] Is patient prescribed a controlled substance at d/c from ED?: No Referrals: None,Stated [REFERRING] - 1-2 days Decision Time: 13:33
[2018-08-19 12:31] LABS: Basophils % (A) 1 %; Eosinophils # (A) 0.2 k/uL (0-0.7); Eosinophils % (A) 3 %; HGB 12.1 gm/dL (11.4-16.0); Hypochromasia Slight; Lymphocytes # (A) 0.8 k/uL (1.0-4.8); Lymphocytes % (A) 14 %; MCH 26.2 pg (25.0-35.0); MCHC 29.5 g/dL (31.0-37.0); Mean Platelet Volume 7.6; Monocytes # (A) 0.4 k/uL (0-1.0); Monocytes % (A) 7 %; Neutrophils # (A) 4.1 k/uL (1.3-7.7); Neutrophils % (A) 73 %; Platelet Count 288 k/uL (150-450); RBC 4.61 m/uL (3.80-5.40); RDW 14.1 % (11.5-15.5); WBC 5.5 k/uL (3.8-10.6)
[2018-08-19 12:34] LABS: Calcium 9.9 mg/dL (8.4-10.2); Total Bilirubin 0.6 mg/dL (0.2-1.3)
--- NOTE | 2018-08-19 12:36 | XR ---
EXAMINATION TYPE: XR chest 2V DATE OF EXAM: 08/19/2018 COMPARISON: 06/06/2016 HISTORY: Shortness of breath TECHNIQUE: Frontal and lateral views of the chest are obtained. FINDINGS: Scattered senescent parenchymal changes noted. Hyperinflation compatible with COPD. No evidence for infiltrate. No evidence for atelectasis. Right mid lung zone granulomas. Heart size is stable. Mediastinal structures are stable and grossly unremarkable. No evidence for hilar prominence. Degenerative changes dorsal spine. IMPRESSION: 1. No evidence for acute pulmonary disease.
[2018-08-19 12:38] LABS: Magnesium 2.1 mg/dL (1.6-2.3); Potassium 4.9 mmol/L (3.5-5.1)
[2018-08-19 13:03] LABS: INR 0.9 (<1.2); Partial Thromboplastin Time 24.3 sec (22.0-30.0); Prothrombin Time 10.1 sec (9.0-12.0)
[2018-08-19] MEDS ORDERED: NITROGLYCERIN SL TABS 0.4 MG TAB SUBLINGUAL PRN (13:33)
[2018-08-19] MEDS ORDERED: clonazePAM 0.5 MG TAB PO PRN (16:57)
[2018-08-19] MEDS: NITROGLYCERIN OINT 1 INCH/GM PACKET TOPICAL SCH (19:31)
--- NOTE | 2018-08-20 00:26 | HP ---
HISTORY AND PHYSICAL DATE OF ADMISSION: 08/19/2018. DATE OF SERVICE: 08/19/2018. PRESENTING COMPLAINT: Chest pain. HISTORY OF PRESENTING COMPLAINT: This is a pleasant 78-year-old patient, follows with Dr. Grimes. Chronic stable medical conditions include COPD, GERD, hyperlipidemia, hypertension, chronic kidney disease stage 3, leak in left lung lobe, intracardiac tumor. He sees Dr. Alvarado. Right breast cancer. The patient presents with some sharp chest pain, localized, did not radiate. No perspiration or shortness of breath. It is lasting for a short time. Not related to activity. Came in to rule out a cardiac cause. The patient denies any coronary artery disease or prior history of angina. Rather active around the house. The patient's daughter lives with her. REVIEW OF SYSTEMS: CONSTITUTIONAL: None. HEENT: None. RESPIRATORY: None. CARDIOVASCULAR: As above. GENITOURINARY: None. MUSCULOSKELETAL: Arthritic pain in many joints. DERMATOLOGICAL, HEMATOLOGIC, LYMPHATIC: None. PSYCHIATRY: None. NEUROLOGIC: None. PAST MEDICAL HISTORY: COPD, GERD, hyperlipidemia, hypertension, TIA in 2016, chronic kidney disease stage 3, has a plaque on a valve, lesion of the left lower lobe, intracardiac tumor being followed by Dr. Alvarado, right breast cancer, sinus drainage, hemorrhoids. PAST SURGICAL HISTORY: Breast surgery, cholecystectomy, hysterectomy, varicose vein stripping, left breast benign mass, multiple TEEs, colonoscopy normal. PSYCH HISTORY: History of anxiety and depression. SOCIAL HISTORY: The patient smoked for about 30 years, quit in 2013, then smoked E-cigarettes until about 2 years ago. [place]. FAMILY HISTORY: Stroke and breast cancer. HOME MEDICATIONS: 1. Klonopin 0.5 mg t.i.d. p.r.n. 2. Norvasc 10 mg p.o. daily. 3. Zestril 5 mg p.o. daily. 4. Zetia 10 mg p.o. daily. 5. Pristiq 100 mg p.o. daily. 6. Plavix 75 mg p.o. daily. 7. Vitamin D3, 400 units p.o. daily. 8. Aspirin 81 mg p.o. daily. 9. Arimidex 1 mg p.o. daily. ALLERGIES: IV CONTRAST DYE. PHYSICAL EXAMINATION: VITAL SIGNS: Temperature 98.2, pulse 80, resting blood pressure 133/71, pulse ox 93 percent room air. GENERAL APPEARANCE: Well-built. BMI 32%, lying in bed. EYES: Pupils equal. Conjunctivae normal. HEENT: External nose and ears normal. Oral cavity normal. NECK: JVD not raised. Mass not palpable. Respiratory effort normal. LUNGS: Decreased breath sounds. CARDIOVASCULAR: First and second sounds normal. No edema. ABDOMEN: Soft, nontender. Liver and spleen not palpable. LYMPHATIC: No lymph nodes palpable in the neck or axillae. PSYCHIATRY: Alert and oriented x3. Mood and affect normal. NEUROLOGIC: Pupils equal. Cranial nerves grossly intact. Power and sensation grossly intact. MUSCULOSKELETAL: Evidence of osteoarthritis especially in the hands. INVESTIGATIONS: White count 5.5, hemoglobin 12.1, potassium 4.9, troponin 0.014, 0.017, creatinine 1.04. EKG tracing personally reviewed by me shows normal sinus rhythm. Poor R-wave progression in the anterior leads. Chest x-ray film personally reviewed by me shows borderline cardiomegaly, some elevation of right diaphragm. Lung lopez are clear. ASSESSMENT: 1. Anterior chest wall pain with some atypical features for which patient has cardiac risk factors. We need to rule out underlying coronary artery disease though the presentation is not compatible with the same. 2. Obesity; BMI 33.7. 3. Chronic obstructive pulmonary disease in an ex-smoker. 4. Gastroesophageal reflux disease. 5. Hypertension. 6. Hyperlipidemia. 7. Chronic kidney disease stage 2, probably from nephrosclerosis. PLAN: The patient is on aspirin and Plavix. Home medications resumed. Nitroglycerin paste was added. Cardiac enzymes are in place. Cardiology was consulted. Care was discussed with the patient and daughter at the bedside. Questions were answered. MMODL / IJN: [id number] /
[2018-08-20 01:02] LABS: Cholesterol 204 mg/dL (<200); HDL Cholesterol 77 mg/dL (40-60); LDL Cholesterol,Calculated 101 mg/dL (0-99); Triglycerides 128 mg/dL (<150)
[2018-08-20] MEDS: NITROGLYCERIN OINT 1 INCH/GM PACKET TOPICAL SCH ×2 (01:18→05:58)
[2018-08-20] MEDS ORDERED: ANASTROZOLE 1 MG TAB PO SCH (09:00)
[2018-08-20] MEDS ORDERED: ASPIRIN 325 MG TAB PO SCH (09:00)
[2018-08-20] MEDS ORDERED: ASPIRIN 81 MG PO SCH (09:00)
[2018-08-20] MEDS ORDERED: DESVENLAFAXINE SUCCINATE 50 MG TAB.ER.24H PO SCH (09:00)
[2018-08-20] MEDS ORDERED: EZETIMIBE 10 MG TAB PO SCH (09:00)
[2018-08-20] MEDS ORDERED: LISINOPRIL 5 MG TAB PO SCH (09:00)
[2018-08-20] MEDS ORDERED: amLODIPine 10 MG TAB PO SCH (09:00)
[2018-08-20] MEDS ORDERED: CLOPIDOGREL 75 MG TAB PO SCH (09:00)
[2018-08-20] MEDS ORDERED: DOBUTamine DRIP for NUC MED 500 MG in DEXTROSE/WATER 1 250ML.BAG IV ONE (09:40)
--- NOTE | 2018-08-20 12:31 | P.CRDCN ---
History of Present Illness History of present illness: This is a pleasant 78-year-old female past medical history significant for severe aortic regurgitation, aortic stenosis, mitral regurgitation and a calcified echodense cardiac mass that has been stable, hypertension, dyslipidemia, COPD, TIA in the past history of breast cancer status post lumpectomy. She has no known history of coronary artery disease. She follows in the office with Dr. Garcia. We've been asked to see her in consultation secondary to chest discomfort. She describes a very sharp sudden jolt of pain in the midsternal region that comes at rest. She states she was sitting down yesterday morning in bed when it came on. There is no specific aggravating fac tor. The symptoms subsided immediately on their own. She denies radiation to the back, arm, neck or jaw. She denies associated shortness of breath, palpitations, dizziness, nausea, vomiting or diaphoresis. EKG reveals sinus mechanism with poor R-wave progression. No acute ST or T wave abnormalities noted. Chest x-ray is negative for acute cardiopulmonary process. Laboratory data reviewed, WBC 5.5, hemoglobin 12.1, platelets 288, sodium 141, potassium 4.9, creatinine 1.04, magnesium 2.1, cardiac enzymes negative 3, LDL 101 and HDL 77. Current cardiac medications include aspirin 81 mg daily, Plavix 75 mg daily, steady at 10 mg daily, lisinopril 5 mg daily, amlodipine 10 mg daily. The pa sebas states she takes Plavix secondary to TIA in the past. Most recent echocardiogram obtained in the office July 2018 reveals preserved left ventricular systolic function with ejection fraction 50% with overall mild global hypokinesia, mild to moderate mitral regurgitation, severe aortic regurgitation, mild aortic stenosis with a mean gradient across the valve of 14 mmHg, a calcified intracardiac mass noted that his chronic and stable from previous echocardiogram. At the time of my exam: CONSTITUTIONAL: Denies fever. Denies chills. EYES: Denies blurred vision. Denies vision changes. Denies eye pain. EARS, NOSE, MOUTH & THROAT: Denies headache. Denies sore throat. Denies ear pain. CARDIOVASCULAR: Denies chest pain. Denies shortness of breath. Denies orthopnea. Denies PND. Denies palpitations. RESPIRATORY: Denies cough. GASTROINTESTINAL: Denies abdominal pain. Denies diarrhea. Denies constipation. Denies nausea. Denies vomiting. MUSCULOSKELETAL: Denies myalgias. INTEGUMENTARY: Denies pruitis. Denies rash. NEUROLOGIC: Denies numbness. Denies tingling. Denies weakness. PSYCHIATRIC: Denies anxiety. Denies depression. ENDOCRINE: Denies fatigue. Denies weight change. Denies polydipsia. Denies polyurina. GENITOURINARY: Denies burning, hematuria or urgency with micturation. HEMATOLOGIC: Denies history of anemia. Denies bleeding. Blood pressure 154/66 heart rate 76 afebrile maintaining saturation on room air GENERAL: This is a 78-year-old female in no apparent distress at the time of my examination. HEENT: Head is atraumatic, normocephalic. Pupils are equal, round. Sclerae anicteric. Conjunctivae are clear. Mucous membranes of the mouth are moist. Neck is supple. There is no jugular venous distention. No carotid bruit is heard. LUNGS: Clear to auscultation no wheezes, rales or rhonchi. No chest wall tenderness is noted on palpation or with deep breathing. HEART: Regular rate and rhythm with systolic and diastolic murmur, no rubs or gallops. S1 and S2 heard. ABDOMEN: Soft, nontender. Bowel sounds are heard. No organomegaly noted. EXTREMITIES: No evidence of peripheral edema and no calf tenderness noted. VASCULAR: Radial and dorsalis pedis pulses palpated, no evidence of clubbing. NEUROLOGIC: Patient is awake, alert and oriented x3. ASSESSMENT Chest pain, atypical for angina. An acute coronary event has been ruled out with no EKG evidence of ischemia and negative cardiac enzymes. Valvular heart disease Hypertension History of TIA COPD Dyslipidemia Former nicotine dependence Anxiety/depression History of breast cancer status post lumpectomy PLAN Echocardiogram obtained in the office earlier this week has been reviewed. We will obtain a stress echocardiogram to assess for stress-induced ischemia and see if there is any return of symptoms. If normal she is stable from a cardiac perspective. We recommend discontinuation of Plavix since her TIA was 3 years ago. Follow-up with Dr. Garcia in the office. Thank you kindly for this consultation. Nurse Practitioner note has been reviewed, I agree with a documented findings and plan of care. Patient was seen and examined. 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 History of Any Multi-Drug Resistant Organisms: None Reported Past Surgical History: Breast Surgery, Cholecystectomy, Hysterectomy Additional Past Surgical History / Comment(s): VARICOSE VEIN SX, L breast bx- benign, MULTIPLE TEEs, CYN CATARACTS , colonoscopy-normal, Right breast surgery. LUMPECTOMY RT BREAST Past Anesthesia/Blood Transfusion Reactions: Previous Problems w/ Anesthesia Additional Past Anesthesia/Blood Transfusion Reaction / Comment(s): STATES WAS TOLD "WE ALMOST LOST YOU" THAT HER B/P DROPPED POST CHOLECYSTECTOMY Past Psychological History: Anxiety, Depression Additional Psychological History / Comment(s): . Smoking Status: Former smoker Past Alcohol Use History: None Reported Additional Past Alcohol Use History / Comment(s): SMOKED 1-2 PPD - QUIT REGULAR CIGARETTES-2013- SMOKED 30 YEARS AND THEN SMOKED E-CIGARETTES UNTIL NOVEMBER 2016. Past Drug Use History: None Reported - Past Family History Mother Family Medical History: Cancer, CVA/TIA Additional Family Medical History / Comment(s): breast Father Family Medical History: Cancer Additional Family Medical History / Comment(s): lung Medications and Allergies Home Medications Medication Instructions Recorded Confirmed Type Ezetimibe [Zetia] 10 mg PO QAM 02/18/15 08/19/18 History clonazePAM [KlonoPIN] 0.5 mg PO TID PRN 02/18/15 08/19/18 History Lisinopril [Zestril] 5 mg PO QAM 05/07/16 08/19/18 History Desvenlafaxine Succinate [Pristiq] 100 mg PO QAM 03/07/17 08/19/18 History amLODIPine [Norvasc] 10 mg PO QAM 03/27/17 08/19/18 History Aspirin [Adult Low Dose Aspirin EC] 81 mg PO DAILY 09/06/17 08/19/18 History Anastrozole [Arimidex] 1 mg PO DAILY 09/16/17 08/19/18 History Cholecalciferol [Vitamin D3] 400 unit PO DAILY@1200 09/16/17 08/19/18 History Clopidogrel [Plavix] 75 mg PO DAILY 09/16/17 08/19/18 History Allergies Allergy/AdvReac Type Severity Reaction Status Date / Time Iodinated Contrast- Oral and Allergy R/T RENAL Verified 08/19/18 11:45 IV Dye DISEASE [Iodinated Contrast Media - IV Dye] Physical Exam Vitals: Vital Signs Temp Pulse Pulse Resp BP BP Pulse Ox 08/20/18 08:00 76 18 08/20/18 07:10 98.2 F 76 18 154/66 94 L 08/20/18 04:00 98.3 F 83 16 156/67 94 L 08/20/18 03:39 16 08/19/18 23:47 98.5 F 84 16 141/55 93 L 08/19/18 23:35 80 16 08/19/18 20:30 98.2 F 80 16 133/71 93 L 08/19/18 20:00 80 16 08/19/18 18:30 77 18 149/45 92 L 08/19/18 18:00 17 143/62 93 L 08/19/18 17:30 137/45 08/19/18 17:00 82 19 143/47 92 L 08/19/18 16:30 17 142/49 94 L 08/19/18 16:00 18 143/47 96 08/19/18 15:30 85 16 143/44 95 08/19/18 15:00 18 146/53 93 L 08/19/18 14:30 16 140/47 93 L 08/19/18 14:00 17 139/47 94 L Intake and Output 08/19/18 08/20/18 08/20/18 22:59 06:59 14:59 Other: Voiding Method Toilet Toilet Toilet # Voids 2 2 2 Results 08/19/18 12:06 08/19/18 12:06 Cardiac Enzymes 08/19/18 08/19/18 08/19/18 Range/Units 12:06 12:06 18:15 AST 28 (14-36) U/L Troponin I 0.014 0.017 (0.000-0.034) ng/mL 08/20/18 Range/Units 00:32 AST (14-36) U/L Troponin I 0.026 (0.000-0.034) ng/mL Coagulation 08/19/18 Range/Units 12:06 PT 10.1 (9.0-12.0) sec APTT 24.3 (22.0-30.0) sec Lipids 08/20/18 Range/Units 00:33 Triglycerides 128 (<150) mg/dL Cholesterol 204 H (<200) mg/dL HDL Cholesterol 77 H (40-60) mg/dL CBC 08/19/18 Range/Units 12:06 WBC 5.5 (3.8-10.6) k/uL RBC 4.61 (3.80-5.40) m/uL Hgb 12.1 (11.4-16.0) gm/dL Hct 41.0 (34.0-46.0) % Plt Count 288 (150-450) k/uL Comprehensive Metabolic Panel 08/19/18 Range/Units 12:06 Sodium 141 (137-145) mmol/L Potassium 4.9 (3.5-5.1) mmol/L Chloride 110 H (98-107) mmol/L Carbon Dioxide 23 (22-30) mmol/L BUN 24 H (7-17) mg/dL Creatinine 1.04 (0.52-1.04) mg/dL Glucose 86 (74-99) mg/dL Calcium 9.9 (8.4-10.2) mg/dL AST 28 (14-36) U/L ALT 27 (9-52) U/L Alkaline Phosphatase 95 (38-126) U/L Total Protein 7.0 (6.3-8.2) g/dL Albumin 4.0 (3.5-5.0) g/dL Current Medications Generic Name Dose Route Start Last Admin Trade Name Freq PRN Reason Stop Dose Admin Amlodipine Besylate 10 mg 08/20/18 09:00 Norvasc PO QAM JEFFERY Anastrozole 1 mg 08/20/18 09:00 08/20/18 08:29 Arimidex PO 1 mg DAILY [facility] Administration Aspirin 81 mg 08/20/18 09:00 Aspirin PO DAILY [facility] Clonazepam 0.5 mg 08/19/18 16:57 Klonopin PO TID PRN Anxiety Clopidogrel Bisulfate 75 mg 08/20/18 09:00 Plavix PO DAILY [facility] Desvenlafaxine Succinate 100 mg 08/20/18 09:00 Pristiq Er PO QAM [facility] Ezetimibe 10 mg 08/20/18 09:00 Zetia PO QAM [facility] Dobutamine HCl/Dextrose 500 mg 250 mls @ 25.038 mls/hr 08/20/18 09:40 / IV Solution IV 08/20/18 19:39 .Q10H ONE Protocol 10 MCG/KG/MIN Lisinopril 5 mg 08/20/18 09:00 Zestril PO QAM [facility] Nitroglycerin 1 inch 08/19/18 18:00 08/20/18 05:58 Nitro-Bid Oint TOPICAL Not Given Q6HR [facility] Nitroglycerin 0.4 mg 08/19/18 13:33 Nitrostat SUBLINGUAL Q5M PRN Chest Pain Sodium Chloride 10 ml 08/19/18 21:00 08/19/18 23:13 Saline Flush IV 10 ml BID [facility] Administration Intake and Output 08/19/18 08/20/18 08/20/18 22:59 06:59 14:59 Other: Voiding Method Toilet Toilet Toilet # Voids 2 2 2 08/19/18 12:06 08/19/18 12:06
[2018-08-20 12:38] VITALS: BP 137/56; PULSE 99; RESP 16; TEMP 97.7
--- NOTE | 2018-08-20 13:54 | ECHOS ---
STRESS ECHOCARDIOGRAM INDICATIONS: Chest pain. BASELINE HEART RATE: 106 BASELINE BLOOD PRESSURE: 153/60 MAXIMUM HEART RATE: 135 MAXIMUM BLOOD PRESSURE: 189/43 85% MPHR: 121 100% MPHR: 142 METS: 3.4 MAXIMUM STAGE REACHED: 1 TOTAL EXERCISE TIME: 2:30 CLINICAL INFORMATION: Patient was exercised for a total period of 2 minutes and 30 seconds. The peak heart rate of 135 was achieved. Maximum blood pressure of 189/43 mmHg was noted. Patient did not complain of any chest pain during the test. Resting EKG showed evidence of normal sinus rhythm with left bundle branch block pattern with ST-T abnormalities during exercise. Again ST T abnormalities were noted. Occasional PVCs were noted. The baseline echocardiographic images reveals normal left ventricular chamber size with atypical septal motion secondary to left bundle branch block pattern. There is also small area of inferior basal wall hypokinesia and in the immediate post exercise, the abnormal septal motion persists and there is a persistent hypokinesia in the inferior basal segment suggestive of prior myocardial infarction. FINAL IMPRESSION: 1. This stress echocardiographic study shows atypical and paradoxical septal motion of the interventricular septum secondary to left bundle branch block. 2. There is a persistent hypokinesia in the inferobasal segment suggestive of prior inferior basal myocardial infarction. The EKG portion of the stress test is inconclusive to diagnose ischemia because of the left bundle branch block pattern. Occasional premature ventricular contractions were noted. MMODL / IJN: [id number] /
--- NOTE | 2018-08-21 06:19 | DS ---
DISCHARGE SUMMARY DATE OF ADMISSION: 08/19/2018 DATE OF DISCHARGE: 08/20/2018 FINAL DIAGNOSES: 1. Anterior chest wall pain, could be musculoskeletal. 2. Obesity; body mass index 33.7. 3. Chronic obstructive pulmonary disease in an ex-smoker. 4. Gastroesophageal reflux disease. 5. Hypertension. 6. Hyperlipidemia. 7. Chronic kidney disease stage 2 probably from nephrosclerosis. HOSPITAL COURSE: This patient presented with anterior chest wall pain, sharp. The patient did undergo a stress echocardiogram that was negative. Care was discussed with the patient. PHYSICAL EXAMINATION: On examination, temperature 97.7 pulse 99, respiration 16, blood pressure 137/56, pulse ox 94% on room air. Lungs are clear. CONSULTATION: Dr. Alice Enamorado from Cardiology. DISCHARGE MEDICATIONS: 1. Zetia 10 mg p.o. daily. 2. Klonopin 0.5 mg p.o. t.i.d. p.r.n. 3. Zestril 5 mg p.o. daily. 4. Pristiq 100 mg p.o. daily. 5. Norvasc 10 mg p.o. daily. 6. Aspirin 81 mg p.o. daily. 7. Arimidex 1 mg p.o. daily. 8. Vitamin D3, 400 units p.o. daily. 9. Plavix 75 mg p.o. daily. Follow up with Dr. Garcia in 3 weeks. Follow up with Dr. Grimes in one week. MMODL / NOAN: [id number] /
== END 2018-08-20 16:00 | disposition home or self-care (01) ==
LOC: SUPCPDRO 11:10 → EC 11:10 → 1SOBS 13:33
PROVIDERS: ADMIT Hospitalist; ATTEND Hospitalist
DX: R07.89 Other chest pain (principal); I25.10 Atherosclerotic heart disease of native coronary artery without angina pectoris; K21.9 Gastro-esophageal reflux disease without esophagitis; J44.9 Chronic obstructive pulmonary disease, unspecified; I12.9 Hypertensive chronic kidney disease with stage 1 through stage 4 chronic kidney disease, or unspecified chronic kidney disease; N18.2 Chronic kidney disease, stage 2 (mild); I08.0 Rheumatic disorders of both mitral and aortic valves; R91.1 Solitary pulmonary nodule; D15.1 Benign neoplasm of heart; E78.5 Hyperlipidemia, unspecified; F41.9 Anxiety disorder, unspecified; F32.9 Major depressive disorder, single episode, unspecified; C50.911 Malignant neoplasm of unspecified site of right female breast; M19.042 Primary osteoarthritis, left hand; M19.041 Primary osteoarthritis, right hand; Z68.33 Body mass index [BMI] 33.0-33.9, adult; E66.9 Obesity, unspecified; Z79.02 Long term (current) use of antithrombotics/antiplatelets; Z79.82 Long term (current) use of aspirin; Z91.041 Radiographic dye allergy status; Z79.811 Long term (current) use of aromatase inhibitors; Z79.899 Other long term (current) drug therapy; Z86.73 Personal history of transient ischemic attack (TIA), and cerebral infarction without residual deficits; Z90.49 Acquired absence of other specified parts of digestive tract; Z90.710 Acquired absence of both cervix and uterus; Z87.891 Personal history of nicotine dependence; Z80.3 Family history of malignant neoplasm of breast; Z80.1 Family history of malignant neoplasm of trachea, bronchus and lung; Z82.3 Family history of stroke
CPT/HCPCS: 99285; 36415; 93005; 93351; 80061; 80053; 83735; 84484 ×2; 85025; 85610; 85730; 71046; G0378 ×2; J1250; S0170

== ENCOUNTER 2018-09-21 04:20 | Inpatient (IN) | payer MEDICARE, BC ==
[2018-09-21] MEDS ORDERED: ETOMIDATE 2 MG/ML 10 ML VIAL IVP STA (04:24)
[2018-09-21] MEDS ORDERED: SUCCINYLCHOLINE CHLORIDE VIAL 200 MG/10 ML VIAL IV STA (04:28)
[2018-09-21] MEDS ORDERED: PROPOFOL 1,000 MG in EMPTY BAG 1 BAG IV STA (04:29)
[2018-09-21] MEDS ORDERED: PROPOFOL 1,000 MG in EMPTY BAG 1 BAG IV ONE (04:33)
--- NOTE | 2018-09-21 04:43 | ED ---
SOB HPI - General Chief Complaint: Shortness of Breath Stated Complaint: CHANA Time Seen by Provider: 09/21/18 04:31 Source: patient, EMS Mode of arrival: EMS Limitations: no limitations - History of Present Illness Initial Comments: This is a 78-year-old female with a history of COPD, severe aortic regurgitation, hyperlipidemia who presents emergent department for shortness of breath. Per EMS she called because she was having progressive worsening luis alberto rtness of breath and cough throughout the evening. When they got there they placed her on nasal cannula oxygen and she was satting 92% however shortly after leaving the house she became very anxious and then suddenly became more diaphoretic and shortness of breath. He noted that she went into severe respiratory distress. They attempted BiPAP however were unable to oxygenate the patient adequately. They gave a DuoNeb treatment in route to the hospital. The patient did report to them in route that she wanted to be full code and he placed on a ventilator if required. There is no reported fevers at home. The daughter is special needs and states that she has been coughing all night however otherwise has little to the history. The patient was intubated on arrival due to severe respiratory distress. - Related Data Home Medications Medication Instructions Recorded Confirmed Ezetimibe [Zetia] 10 mg PO QAM 02/18/15 08/19/18 clonazePAM [KlonoPIN] 0.5 mg PO TID PRN 02/18/15 08/19/18 Lisinopril [Zestril] 5 mg PO QAM 05/07/16 08/19/18 Desvenlafaxine Succinate [Pristiq] 100 mg PO QAM 03/07/17 08/19/18 amLODIPine [Norvasc] 10 mg PO QAM 03/27/17 08/19/18 Aspirin [Adult Low Dose Aspirin EC] 81 mg PO DAILY 09/06/17 08/19/18 Anastrozole [Arimidex] 1 mg PO DAILY 09/16/17 08/19/18 Cholecalciferol [Vitamin D3] 400 unit PO DAILY@1200 09/16/17 08/19/18 Clopidogrel [Plavix] 75 mg PO DAILY 09/16/17 08/19/18 Allergies Allergy/AdvReac Type Severity Reaction Status Date / Time Iodinated Contrast- Oral and Allergy R/T RENAL Verified 09/21/18 04:25 IV Dye DISEASE [Iodinated Contrast Media - IV Dye] Review of Systems ROS Statement: Those systems with pertinent positive or pertinent negative responses have been documented in the HPI. ROS Other: All systems not noted in ROS Statement are negative. 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 History of Any Multi-Drug Resistant Organisms: None Reported Past Surgical History: Breast Surgery, Cholecystectomy, Hysterectomy Additional Past Surgical History / Comment(s): VARICOSE VEIN SX, L breast bx- benign, MULTIPLE TEEs, CYN CATARACTS , colonoscopy-normal, Right breast surgery. LUMPECTOMY RT BREAST Past Anesthesia/Blood Transfusion Reactions: Previous Problems w/ Anesthesia Additional Past Anesthesia/Blood Transfusion Reaction / Comment(s): STATES WAS TOLD "WE ALMOST LOST YOU" THAT HER B/P DROPPED POST CHOLECYSTECTOMY Past Psychological History: Anxiety, Depression Smoking Status: Former smoker Past Alcohol Use History: None Reported Past Drug Use History: None Reported - Past Family History Mother Family Medical History: Cancer, CVA/TIA Additional Family Medical History / Comment(s): breast Father Family Medical History: Cancer Additional Family Medical History / Comment(s): lung General Exam - General Exam Comments Initial Comments: Constitutional: Awake alert patient is extremely anxious and in respiratory distress Head: Normocephalic atraumatic Eyes: no conjunctival injection No scleral icterus EOMI Neck: No JVD Supple Heart: Tachycardia normal S1-S2 no murmurs Lungs: Patient is tachypnea can, there are rales at the bilateral bases, patient is coughing up frothy sputum Abdomen: Soft nondistended nontender Extremities: Non edematous DP pulses intact Radial pulses intact Neuro: Patient was awake and alert however and severe distress and unable to answer questions No focal neurologic deficits Psych: Appropriate mood and affect Limitations: no limitations Course Vital Signs 09/21/18 09/21/18 09/21/18 04:21 04:24 04:25 Temperature 100.2 F H Pulse Rate 101 H Respiratory 30 H 30 H 14 Rate Blood Pressure 179/81 O2 Sat by Pulse 75 L Oximetry 09/21/18 09/21/18 09/21/18 04:50 05:06 05:10 Temperature Pulse Rate 120 H 99 92 Respiratory 20 14 20 Rate Blood Pressure 106/69 156/62 O2 Sat by Pulse 94 L 95 94 L Oximetry 09/21/18 09/21/18 05:11 05:20 Temperature Pulse Rate 90 85 Respiratory 20 20 Rate Blood Pressure 113/42 108/42 O2 Sat by Pulse 95 95 Oximetry - Reevaluation(s) Reevaluation #1: 09/21/18 04:42 EKG showing sinus tachycardia with a rate of 109. There is a left bundle-branch block which is insistent with the patient's history. No abnormal ST segment changes or T-wave inversions. QTC is 465. Other intervals normal. No ectopy. Procedures - Intubation Sedative: Etomidate Mg Given: 20 Paralytic: Succinylcholine Mg Given: 100 Laryngoscope: Alessandra Size: 4 ET Tube Size: 7.5 ET Tube Uncuffed: Yes Tube Secured Depth (cm): 20 Tube Secured Location: lips Tube Placement Confirmation: visualized tube passing through cords, equal breath sounds bilaterally, no breath sounds over epigastrium, confirmation by capnometry Patient Tolerated Procedure: well Intubation Complications: none Medical Decision Making - Medical Decision Making This is a 78-year-old female who presents emergency department in respiratory distress. The patient did have frothy secretions upon intubation that were suctioned. Intubation was performed without any problem. A 7.5 tube was placed. Initial chest x-ray did show right mainstem intubation and this was adjusted by pulling the tube back. Chest x-ray did show what appears to be bilateral pulmonary edema. This would be consistent with the patient's sudden onset of respiratory distress and flash pulmonary edema. However the patient also has a leukocytosis of 16 and was noted by family to be having some cough with a low-grade temperature at home. Because of this patient was started on antibiotics. Lactic acidosis of 5.2 was suspected to be from the patient's respiratory failure and hypoxia and not due to sepsis. Unable to give the patient sepsis boluses because of the pulmonary edema on x-ray and worsening of her respiratory status. The patient was started on gentle fluid hydration at 75 mL an hour. Lasix was held due to the patient's blood pressure and pneumonia. Suspect that the pulmonary edema will resolve on its own with better blood pressure control and positive pressure ventilation. The patient will be admitted to the ICU for further monitoring. - Lab Data Result diagrams: 09/21/18 04:25 09/21/18 04:25 Lab Results 09/21/18 09/21/18 09/21/18 Range/Units 04:25 04:25 04:25 WBC 16.2 H (3.8-10.6) k/uL RBC 5.06 (3.80-5.40) m/uL Hgb 13.3 (11.4-16.0) gm/dL Hct 45.1 (34.0-46.0) % MCV 89.1 (80.0-100.0) fL MCH 26.2 (25.0-35.0) pg MCHC 29.5 L (31.0-37.0) g/dL RDW 14.4 (11.5-15.5) % Plt Count 422 (150-450) k/uL Neutrophils % 58 % Lymphocytes % 31 % Monocytes % 4 % Eosinophils % 3 % Basophils % 1 % Neutrophils # 9.5 H (1.3-7.7) k/uL Lymphocytes # 5.0 H (1.0-4.8) k/uL Monocytes # 0.6 (0-1.0) k/uL Eosinophils # 0.4 (0-0.7) k/uL Basophils # 0.2 (0-0.2) k/uL Hypochromasia Marked PT (9.0-12.0) sec INR (<1.2) APTT (22.0-30.0) sec Sample Site ABG pH (7.35-7.45) ABG pCO2 (35-45) mmHg ABG pO2 (83-108) mmHg ABG HCO3 (21-25) mmol/L ABG Total CO2 (19-24) mmol/L ABG O2 Saturation (94-97) % ABG Base Excess mmol/L Jesus Test FiO2 % Sodium 140 (137-145) mmol/L Potassium 4.8 (3.5-5.1) mmol/L Chloride 106 (98-107) mmol/L Carbon Dioxide 20 L (22-30) mmol/L Anion Gap 14 mmol/L BUN 24 H (7-17) mg/dL Creatinine 1.25 H (0.52-1.04) mg/dL Est GFR (CKD-EPI)AfAm 48 (>60 ml/min/1.73 sqM) Est GFR (CKD-EPI)NonAf 41 (>60 ml/min/1.73 sqM) Glucose 163 H (74-99) mg/dL Plasma Lactic Acid Ryan (0.7-2.0) mmol/L Calcium 9.5 (8.4-10.2) mg/dL Magnesium 2.2 (1.6-2.3) mg/dL Total Bilirubin 0.8 (0.2-1.3) mg/dL AST 106 H (14-36) U/L ALT 51 (9-52) U/L Alkaline Phosphatase 143 H (38-126) U/L CK-MB (CK-2) 0.3 (0.0-2.4) ng/mL Troponin I 0.014 (0.000-0.034) ng/mL NT-Pro-B Natriuret Pep pg/mL Total Protein 7.9 (6.3-8.2) g/dL Albumin 4.5 (3.5-5.0) g/dL Urine Color Urine Appearance (Clear) Urine pH (5.0-8.0) Ur Specific Gorham (1.001-1.035) Urine Protein (Negative) Urine Glucose (UA) (Negative) Urine Ketones (Negative) Urine Blood (Negative) Urine Nitrite (Negative) Urine Bilirubin (Negative) Urine Urobilinogen (<2.0) mg/dL Ur Leukocyte Esterase (Negative) 09/21/18 09/21/18 09/21/18 Range/Units 04:25 04:25 04:25 WBC (3.8-10.6) k/uL RBC (3.80-5.40) m/uL Hgb (11.4-16.0) gm/dL Hct (34.0-46.0) % MCV (80.0-100.0) fL MCH (25.0-35.0) pg MCHC (31.0-37.0) g/dL RDW (11.5-15.5) % Plt Count (150-450) k/uL Neutrophils % % Lymphocytes % % Monocytes % % Eosinophils % % Basophils % % Neutrophils # (1.3-7.7) k/uL Lymphocytes # (1.0-4.8) k/uL Monocytes # (0-1.0) k/uL Eosinophils # (0-0.7) k/uL Basophils # (0-0.2) k/uL Hypochromasia PT 11.4 (9.0-12.0) sec INR 1.1 (<1.2) APTT 24.7 (22.0-30.0) sec Sample Site ABG pH (7.35-7.45) ABG pCO2 (35-45) mmHg ABG pO2 (83-108) mmHg ABG HCO3 (21-25) mmol/L ABG Total CO2 (19-24) mmol/L ABG O2 Saturation (94-97) % ABG Base Excess mmol/L Jesus Test FiO2 % Sodium (137-145) mmol/L Potassium (3.5-5.1) mmol/L Chloride (98-107) mmol/L Carbon Dioxide (22-30) mmol/L Anion Gap mmol/L BUN (7-17) mg/dL Creatinine (0.52-1.04) mg/dL Est GFR (CKD-EPI)AfAm (>60 ml/min/1.73 sqM) Est GFR (CKD-EPI)NonAf (>60 ml/min/1.73 sqM) Glucose (74-99) mg/dL Plasma Lactic Acid Ryan 5.4 H* (0.7-2.0) mmol/L Calcium (8.4-10.2) mg/dL Magnesium (1.6-2.3) mg/dL Total Bilirubin (0.2-1.3) mg/dL AST (14-36) U/L ALT (9-52) U/L Alkaline Phosphatase (38-126) U/L CK-MB (CK-2) (0.0-2.4) ng/mL Troponin I (0.000-0.034) ng/mL NT-Pro-B Natriuret Pep 2320 pg/mL Total Protein (6.3-8.2) g/dL Albumin (3.5-5.0) g/dL Urine Color Urine Appearance (Clear) Urine pH (5.0-8.0) Ur Specific Gorham (1.001-1.035) Urine Protein (Negative) Urine Glucose (UA) (Negative) Urine Ketones (Negative) Urine Blood (Negative) Urine Nitrite (Negative) Urine Bilirubin (Negative) Urine Urobilinogen (<2.0) mg/dL Ur Leukocyte Esterase (Negative) 09/21/18 09/21/18 Range/Units 04:41 05:09 WBC (3.8-10.6) k/uL RBC (3.80-5.40) m/uL Hgb (11.4-16.0) gm/dL Hct (34.0-46.0) % MCV (80.0-100.0) fL MCH (25.0-35.0) pg MCHC (31.0-37.0) g/dL RDW (11.5-15.5) % Plt Count (150-450) k/uL Neutrophils % % Lymphocytes % % Monocytes % % Eosinophils % % Basophils % % Neutrophils # (1.3-7.7) k/uL Lymphocytes # (1.0-4.8) k/uL Monocytes # (0-1.0) k/uL Eosinophils # (0-0.7) k/uL Basophils # (0-0.2) k/uL Hypochromasia PT (9.0-12.0) sec INR (<1.2) APTT (22.0-30.0) sec Sample Site Right Radial ABG pH 7.20 L (7.35-7.45) ABG pCO2 51 H (35-45) mmHg ABG pO2 78 L (83-108) mmHg ABG HCO3 20 L (21-25) mmol/L ABG Total CO2 21 (19-24) mmol/L ABG O2 Saturation 91.8 L (94-97) % ABG Base Excess -8.2 mmol/L Jesus Test Yes FiO2 100 % Sodium (137-145) mmol/L Potassium (3.5-5.1) mmol/L Chloride (98-107) mmol/L Carbon Dioxide (22-30) mmol/L Anion Gap mmol/L BUN (7-17) mg/dL Creatinine (0.52-1.04) mg/dL Est GFR (CKD-EPI)AfAm (>60 ml/min/1.73 sqM) Est GFR (CKD-EPI)NonAf (>60 ml/min/1.73 sqM) Glucose (74-99) mg/dL Plasma Lactic Acid Ryan (0.7-2.0) mmol/L Calcium (8.4-10.2) mg/dL Magnesium (1.6-2.3) mg/dL Total Bilirubin (0.2-1.3) mg/dL AST (14-36) U/L ALT (9-52) U/L Alkaline Phosphatase (38-126) U/L CK-MB (CK-2) (0.0-2.4) ng/mL Troponin I (0.000-0.034) ng/mL NT-Pro-B Natriuret Pep pg/mL Total Protein (6.3-8.2) g/dL Albumin (3.5-5.0) g/dL Urine Color Yellow Urine Appearance Clear (Clear) Urine pH 5.0 (5.0-8.0) Ur Specific Gorham 1.023 (1.001-1.035) Urine Protein Trace H (Negative) Urine Glucose (UA) Negative (Negative) Urine Ketones Negative (Negative) Urine Blood Negative (Negative) Urine Nitrite Negative (Negative) Urine Bilirubin Negative (Negative) Urine Urobilinogen <2.0 (<2.0) mg/dL Ur Leukocyte Esterase Negative (Negative) Critical Care Time Critical Care Time: Yes Total Critical Care Time: 35 Critical Care Time: Critical care time was spent medically stabilized and the patient including intubation, ventilator management, and attempting to obtain blood samples at bedside. Time was spent obtaining history from EMS and family, speaking with [employer] application packaging consultant, reviewing labs and imaging, readjusting the patient's ET tube after initial chest x-ray, initiating antibiotics for sepsis and interpreting lab results. Disposition Clinical Impression: Acute respiratory failure with hypoxia, Flash pulmonary edema, SIRS (systemic inflammatory response syndrome), Heart failure Disposition: ADMITTED IP TO THIS HOSP Condition: Critical Referrals: Tom Grimes DO [Primary Care Provider] - 1-2 days
[2018-09-21 04:45] LABS: Basophils # (A) 0.2 k/uL (0-0.2); Basophils % (A) 1 %; Eosinophils # (A) 0.4 k/uL (0-0.7); Eosinophils % (A) 3 %; HCT 45.1 % (34.0-46.0); HGB 13.3 gm/dL (11.4-16.0); Hypochromasia Marked; Lymphocytes % (A) 31 %; MCH 26.2 pg (25.0-35.0); MCHC 29.5 g/dL (31.0-37.0); MCV 89.1 fL (80.0-100.0); Monocytes # (A) 0.6 k/uL (0-1.0); Monocytes % (A) 4 %; Neutrophils # (A) 9.5 k/uL (1.3-7.7); Neutrophils % (A) 58 %; Platelet Count 422 k/uL (150-450); RBC 5.06 m/uL (3.80-5.40); RDW 14.4 % (11.5-15.5); WBC 16.2 k/uL (3.8-10.6)
[2018-09-21] MEDS: fentaNYL (PF) 50 MCG/ML 2 ML AMP IVP PRN (04:45)
[2018-09-21] MEDS ORDERED: AZITHROMYCIN 500 MG in SODIUM CHLORIDE 0.9% 250 ML IVPB STA (04:50)
[2018-09-21] MEDS ORDERED: cefTRIAXone IN SWFI 1,000 MG/10 ML SYRINGE IVP STA (04:50)
[2018-09-21 04:54] LABS: Appearance,Urine Clear (Clear); Bilirubin,Urine Negative (Negative); Blood,Urine Negative (Negative); Color,Urine Yellow; Glucose,Urine (UA) Negative (Negative); Ketones,Urine Negative (Negative); Leukocyte Esterase,Urine Negative (Negative); Nitrite,Urine Negative (Negative); Protein,Urine Trace (Negative); Specific Gravity,Urine 1.023 (1.001-1.035); Urobilinogen,Urine <2.0 mg/dL (<2.0)
[2018-09-21 04:56] LABS: INR 1.1 (<1.2); Partial Thromboplastin Time 24.7 sec (22.0-30.0); Prothrombin Time 11.4 sec (9.0-12.0)
[2018-09-21 04:58] LABS: Albumin 4.5 g/dL (3.5-5.0); Calcium 9.5 mg/dL (8.4-10.2); Total Bilirubin 0.8 mg/dL (0.2-1.3); Total Protein 7.9 g/dL (6.3-8.2)
--- NOTE | 2018-09-21 05:01 | XR ---
EXAM: XR Chest, 1 View CLINICAL HISTORY: Pain TECHNIQUE: Frontal view of the chest. COMPARISON: 08/19/2018 FINDINGS: Lungs: Patchy to confluent perihilar opacities with interstitial prominence, right greater than left. Pleural space: Unremarkable. No pneumothorax. Heart: The cardiac silhouette is upper limits of normal in caliber. Mediastinum: As above. More prominent from previous examination . Bones/joints: No appreciable acute abnormality identified. Soft tissues: Postsurgical changes with surgical clips and superficial skin veronica overlie the right lateral thoracic in the presumed area of the breast tissue. Tubes, lines and devices: The endotracheal tube tip is identified in the right mainstem bronchus, approximately 2.7 cm below the srini. The nasogastric tube traverses the mediastinum and extends into the superior abdomen. The tip is not clearly evident on this exam but is presumed in the mid to distal stomach. IMPRESSION: 1. The endotracheal tube tip is identified in the right mainstem bronchus, approximately 2.7 cm below the srini. Recommend retraction of approximately 6 cm, if not already performed. 2. Patchy to confluent perihilar opacities with interstitial prominence, right greater than left. Differential consideration includes interstitial and alveolar edema versus infection. Asymmetric prominence of the right lung despite endotracheal tube positioning suggest right lung involvement greater than left. No large pleural effusion or pneumothorax identified. 3. The nasogastric tube traverses the mediastinum and extends into the superior abdomen. The tip is not clearly evident on this exam but is presumed in the mid to distal stomach. 4. Postsurgical changes with surgical clips and superficial skin veronica overlie the right lateral thoracic in the presumed area of the breast tissue. <MYCVCSECTION> [employer] 09/21/18 05:08 Verify Receipt Verified receipt with AMY Soares. Report given to Dr. Jorge on 09/21 05:08 (-04:00)
[2018-09-21 05:07] LABS: Potassium 4.8 mmol/L (3.5-5.1)
[2018-09-21 05:08] LABS: Magnesium 2.2 mg/dL (1.6-2.3)
[2018-09-21 05:14] LABS: ABG Base Excess -8.2 mmol/L; ABG HCO3 20 mmol/L (21-25); ABG Oxygen Saturation 91.8 % (94-97); ABG PCO2 51 mmHg (35-45); ABG PO2 78 mmHg (83-108); ABG TCO2 21 mmol/L (19-24); Allen Test Performed? Yes
[2018-09-21 05:15] LABS: Creatine Kinase MB 0.3 ng/mL (0.0-2.4); Troponin I 0.014 ng/mL (0.000-0.034)
[2018-09-21] MEDS: SODIUM CHLORIDE 0.9% 1,000 ML IV SCH ×2 (05:23→21:13)
[2018-09-21] MEDS ORDERED: ACETAMINOPHEN SUPPOSITORY 650 MG SUPP RECTAL PRN (05:24)
[2018-09-21] MEDS ORDERED: NALOXONE 0.4 MG/ML 1 ML VIAL IV PRN (05:25)
[2018-09-21 06:08] LABS: Glucose,Whole Blood 175 mg/dL (75-99)
--- NOTE | 2018-09-21 06:36 | XR ---
EXAMINATION TYPE: XR chest 1V DATE OF EXAM: 09/21/2018 HISTORY: vent. REFERENCE: Previous study dated 09/21/2018. FINDINGS: The patient is ET tube has been pulled back and is now in satisfactory position, 2 cm above the srini. An NG tube is present and its tip is just beyond the GE junction and should likely be ad vanced. There is bibasilar airspace disease. This has worsened on the left. There are bilateral effusions. He art size is upper limits of normal. IMPRESSION: 1. SATISFACTORY ET TUBE PLACEMENT. 2. THE PATIENT IS NG TUBE SHOULD BE ADVANCED ITS TIP IS JUST WITHIN THE GE JUNCTION. 3. WORSENING BIBASILAR AIRSPACE DISEASE. 4. SMALL, BILATERAL EFFUSIONS.
[2018-09-21] MEDS ORDERED: SODIUM CHLORIDE 0.9% 2,000 ML IV ONE (07:12)
[2018-09-21] MEDS: PROPOFOL 1,000 MG in EMPTY BAG 1 BAG IV SCH ×4 (07:30→20:53)
[2018-09-21 08:14] LABS: Amorphous Sediment,Urine Few /hpf; Appearance,Urine Cloudy (Clear); Bacteria,Urine Rare /hpf; Bilirubin,Urine Negative (Negative); Blood,Urine Trace (Negative); Color,Urine Yellow; Glucose,Urine (UA) Trace (Negative); Granular Casts,Urine 13 /lpf (0); Hyaline Casts,Urine 7 /lpf (0-2); Ketones,Urine Negative (Negative); Leukocyte Esterase,Urine Negative (Negative); Nitrite,Urine Negative (Negative); PH, Urine 5.5 (5.0-8.0); Protein,Urine 2+ (Negative); RBC,Urine 1 /hpf (0-5); Specific Gravity,Urine 1.023 (1.001-1.035); Squamous Epithelial Cell,Urine 1 /hpf (0-4); Urobilinogen,Urine <2.0 mg/dL (<2.0)
[2018-09-21] MEDS ORDERED: CISATRACURIUM 2 MG/ML 5 ML VIAL IV ONE (08:40)
[2018-09-21 09:17] LABS: ABG Base Excess -8.2 mmol/L; ABG HCO3 18 mmol/L (21-25); ABG PCO2 37 mmHg (35-45); ABG PO2 96 mmHg (83-108); ABG TCO2 19 mmol/L (19-24); Allen Test Performed? Yes
[2018-09-21] MEDS ORDERED: IPRATROPIUM-ALBUTEROL 3 ML NEB INHALATION PRN (09:32)
--- NOTE | 2018-09-21 09:43 | XR ---
EXAMINATION TYPE: XR chest 1V portable DATE OF EXAM: 09/21/2018 HISTORY: Line Placement. REFERENCE: Previous study dated 09/21/2018. FINDINGS: Patient is ET tube remains in good position. The patient NG tube is just beyond the GE junc tion and should be advanced. Left internal jugular catheter has been inserted. Its tip is in the righ t atrium. The heart is mildly enlarged. There is vascular congestion and batwing edema. Confluent airspace dise ase in the right may represent confluent edema or pneumonia. I suspect tiny effusions. IMPRESSION: 1. SATISFACTORY PLACEMENT OF THE PATIENT'S LEFT INTERNAL JUGULAR CATHETER. 2. NG TUBE IS AT THE GE JUNCTION AND SHOULD BE ADVANCED. 3. CHANGES CONSISTENT WITH MILD HEART FAILURE. CONFLUENT DISEASE IN THE RIGHT LUNG BASE MAY REPRESENT CONFLUENT EDEMA OR PNEUMONIA.
[2018-09-21] MEDS: NOREPINEPHRINE 4 MG in SODIUM CHLORIDE 0.9% 250 ML IV SCH ×2 (09:45→23:50)
--- NOTE | 2018-09-21 10:16 | CONS ---
CONSULTATION HISTORY: This is a 78-year-old female that was seen in the emergency room by Dr. Jorge. She apparently was brought in by EMS because of difficulty breathing. She apparently has a history of underlying COPD, aortic regurgitation, hyperlipidemia, and presented to the emergency room with complaints of increasing shortness of breath. It apparently had been going on for a couple days prior to admission and getting worse. She was placed on nasal cannula. The patient became very anxious in the emergency room and was much more diaphoretic and in DrTalon Jorge mentioned that her face became blue. For that reason, she was intubated. They did try BiPAP prior to intubation. She also did receive some updraft treatments en route. Apparently there were no fever or chills. Apparently, the family member was asked about life support and they wanted her to be a FULL CODE. In addition, apparently it came out that the patient had been coughing all night. Her current situation is that she is currently on the volume assist-control mode rate of 20, tidal volume 500, FiO2 of 100% and PEEP of 5. Blood gases show pO2 of 78, pCO2 of 51, and pH 7.24. She is getting saline at 100 mL an hour. She has got 2.7 L of fluids. She is getting Diprivan at 50 mcg/kg per per minute. The patient was admitted on the . We gave her 10 mg of Nimbex and put left internal jugular triple- lumen catheter in her. We will also attempt to put an art line in her. CURRENT HOME MEDICATIONS: Apparently included Zetia, Klonopin, Zestril, Pristiq, Norvasc, aspirin Arimidex, vitamin D3, and Plavix. ALLERGIES: IVP DYE. PAST MEDICAL HISTORY: Includes CAD, right breast cancer, COPD, CVA, GERD, hyperlipidemia, hypertension, stage 3 chronic kidney disease. She also apparently has a history of transient ischemic attack. She also apparently has a history of valvular heart disease. In addition, there is some mention of a left upper lobe lung lesion. SURGICAL HISTORY: Includes among other things, breast cancer surgery on the right breast, cholecystectomy, hysterectomy, varicose vein surgery, multiple transesophageal echocardiograms, bilateral cataracts, colonoscopy, and right breast lumpectomy. SOCIAL HISTORY: Positive for previous tobacco use. Denies alcohol or illicit drug use. FAMILY HISTORY: Positive for cancer, CVA. Both mother and father apparently had breast and lung cancer respectively. OCCUPATIONAL HISTORY: Not known. REVIEW OF SYSTEMS: Cannot be obtained. Review of systems obtained from the ER meryl includes shortness of breath which has been progressive, chest congestion and cough. PHYSICAL EXAMINATION: Current vital signs include a temperature of 100.2, heart rate 87, respiratory rate 26, blood pressure 84/20, mean 41, saturations 98%. Currently appears sedated. She was paralyzed briefly for insertion of line. HEENT examination is grossly unremarkable. She looks much older than her stated age. She has got an orally placed endotracheal tube and NG tube. Neck is supple. Full range of motion. No adenopathy. There is a left internal jugular triple-lumen catheter that I just inserted. Cardiovascular examination reveals distant heart sounds. Heart rate about 90 beats per minute. S1, S2 normal. There is no murmur. Lungs reveal coarse rhonchi. Breath sounds are diminished. No wheezes. Abdomen is obese. Bowel sounds are heard. Extremities are intact. Minimal edema. Skin is without rash. Neurologic examination could not be properly assessed. She has chest x-ray that shows bibasilar airspace disease with small effusions. This could be consistent with either pneumonia and/or heart failure or both. LABS: Microbiology is pending. Lab data includes a white count of 16.2, hemoglobin 13.3, hematocrit 45.1, platelet count 422,000. PT/INR and PTT normal. Sodium 140, potassium 4.8, chloride 106, CO2 of 20, anion gap is 14, BUN and creatinine 24 and 1.25. Glucose was 163. Lactic acid was 5.4, AST 106, alkaline phosphatase 143. Troponin was 0.014 and terminal proBNP was 2320. Urine is yellow and cloudy. There is 2+ protein, trace glucose, trace blood. Leukocyte esterase and nitrate both negative. There is rare bacteria. MEDICATIONS: Reviewed. The patient is on Tylenol suppository, chlorhexidine, subcu heparin, Narcan, Protonix. She did receive antibiotics in the emergency room but they were not continued. ASSESSMENT: 1. Acute hypoxemic respiratory failure requiring intubation and mechanical ventilation on September 21. Etiologies would include either fluid overload/CHF versus pneumonia or both. 2. History of coronary artery disease. 3. Breast cancer by history. 4. History of chronic obstructive pulmonary disease from previous tobacco use. 5. History of cerebrovascular accident. 6. History of gastroesophageal reflux disease. 7. Hyperlipidemia. 8. Hypertension. 9. Stage 3 chronic kidney disease. 10.Valvular heart disease. 11.Apparent left upper lobe pulmonary nodule. PLAN: Overall prognosis remains very guarded. Central line and art line in place. Adjustments will be made. Medications will be reviewed. She will be started on DuoNeb every 4 around the clock. The patient will also be started on some antibiotics. A number of different consultants have been consulted and asked to see this patient. Started on tube feeds. She may need Levophed for blood pressure support. Additional recommendations and suggestions are forthcoming. Again prognosis is very guarded. We will continue to follow closely. MMODL / IJN: [id number] / KALEN
--- NOTE | 2018-09-21 10:34 | PCN ---
PROCEDURE NOTE PROCEDURE PERFORMED: Radial arterial line placement DESCRIPTION OF PROCEDURE: Right radial arterial line was placed without immediate complications. Patient tolerated the procedure well, good waveform and blood return were noted, patient art line was sutured in place, sterile dressing was applied. MMBARBARA / NOAN: [id number] /
--- NOTE | 2018-09-21 10:34 | PCN ---
PROCEDURE NOTE PROCEDURE: Triple lumen catheter placement. CELLAR PUMPER: Dr. Cote. PREOPERATIVE DIAGNOSIS: Administration of fluids and pressors. POSTOPERATIVE DIAGNOSIS: Administration of fluids and pressors. DESCRIPTION: A time-out was completed verifying correct patient, procedure, site, positioning, and implant(s) or special equipment if applicable. The patient was placed in a dependent position appropriate for triple lumen catheter placement based on the vein to be cannulated. The patient's left neck was prepped and draped in sterile fashion. 1% Lidocaine was used to anesthetize the surrounding skin area. A triple lumen 9F Cordis catheter was introduced into the left internal jugular or common femoral vein using Seldinger technique. The catheter was threaded smoothly over the guide wire and appropriate blood return was obtained. Each lumen of the catheter was evacuated of air and flushed with sterile saline. The catheter was then sutured in place to the skin and a sterile dressing applied. Perfusion to the extremity distal to the point of catheter insertion was checked and found to be adequate. There was good blood return from all 3 ports. Patient tolerated the procedure well. The catheter was sutured in place. Sterile dressing was applied by the nurse. A chest x-ray will be done to check placement and rule out complication. MMODL / IJN: [id number] /
[2018-09-21] MEDS ORDERED: PROPOFOL 10 MG/ML 20 ML VIAL IV ONE (10:56)
[2018-09-21] MEDS: ACETAMINOPHEN IV (For NPO) 1,000 MG in EMPTY BAG 1 BAG IVPB PRN (11:00)
[2018-09-21] MEDS: IPRATROPIUM-ALBUTEROL 3 ML NEB INHALATION SCH ×4 (11:21→23:03)
[2018-09-21] MEDS: PANTOPRAZOLE 40 MG/10 ML VIAL IV SCH (11:54)
[2018-09-21] MEDS: CHLORHEXIDINE GLUCONATE 15 ML CUP MUCOUS MEM SCH ×2 (11:55→20:51)
[2018-09-21] MEDS: HEPARIN SODIUM,PORCINE 5,000 UNIT/ML 1 ML VIAL SQ SCH ×3 (11:55→23:51)
[2018-09-21 12:17] LABS: Glucose,Whole Blood 110 mg/dL (75-99)
[2018-09-21] MEDS ORDERED: SODIUM CHLORIDE 0.9% 1,000 ML IV ONE (13:46)
[2018-09-21] MEDS ORDERED: FUROSEMIDE 10 MG/ML 2 ML VIAL IV ONE (15:13)
[2018-09-21 17:57] LABS: Glucose,Whole Blood 91 mg/dL (75-99)
--- NOTE | 2018-09-21 22:19 | HP ---
HISTORY AND PHYSICAL DATE OF ADMISSION: 09/21/2018. DATE OF SERVICE: 09/21/2018. PRESENTING COMPLAINT: Unwell. HISTORY OF PRESENTING COMPLAINT: This is a 78-year-old patient with rather extensive medical history. The patient for the last 2 to 3 days was home, getting unwell, getting more and more short of breath. She had called the EMS. She was getting more and more short of breath and coughing more. She was initially put on nasal cannula and was saturating 92%, then she became more diaphoretic, more short of breath, went into respiratory failure. Initially BiPAP was tried and she was then intubated en route. The patient was at home with a daughter who is special needs. The patient is currently in the ICU on Levophed about 10 mics, propofol 55 mics and FiO2 and PEEP. Tube feeding is at 30 mL an hour. Also getting IV fluids. Patient has got a Mayer catheter in place. Having some thick franco secretions through the endotracheal tube. The patient's chronic stable medical conditions include COPD, GERD, hypertension, hyperlipidemia, chronic kidney disease stage 2 last noted. REVIEW OF SYSTEMS: Cannot be done as patient is intubated. Other information as above. PAST MEDICAL HISTORY: COPD, GERD, hypertension, hyperlipidemia, chronic kidney disease stage 2. PAST SURGICAL HISTORY: Breast surgery, cholecystectomy, hysterectomy, varicose vein surgery, multiple TEEs, bilateral cataract, right breast lumpectomy. Additional past medical includes TIA in 2016 with no residual, intracardiac tumor, more details not known, hemorrhoids, GERD. PSYCH HISTORY: Anxiety and depression. SOCIAL HISTORY: The patient smoked for about 30 years. Did smoke E cigarettes until November of 2016. Alcohol none. Lives with her daughter who is handicapped and patient's sister is the DPOA. FAMILY HISTORY: Stroke and breast cancer. HOME MEDICATIONS: 1. Klonopin 0.5 mg p.o. t.i.d. p.r.n. 2. Norvasc 10 mg p.o. daily. 3. Zestril 5 mg p.o. daily. 4. Zetia 10 mg p.o. daily. 5. Pristiq 100 mg p.o. daily. 6. Plavix 75 mg p.o. daily. 7. Arimidex 1 mg p.o. daily. ALLERGIES: IV CONTRAST DYE. PHYSICAL EXAMINATION: VITAL SIGNS: Vital signs, temperature up to 104, pulse 85, respirations 39, blood pressure 120/45, pulse ox 92 percent. GENERAL APPEARANCE: BMI 31. Lying in bed intubated. EYES: Pupils equal. Conjunctivae normal. HEENT: External appearance of nose and ears normal. Oral cavity, endotracheal tube in place. NECK: JVD unable to assess. Mass not palpable. Respiratory effort increased. LUNGS: Decreased breath sounds. Some crackles. CARDIOVASCULAR: First and second sounds normal. No edema. ABDOMEN: Soft, nontender. Liver and spleen not palpable. LYMPHATIC: No lymph node palpable in the neck or axillae. PSYCHIATRY: Unable to assess. Patient intubated. NEUROLOGICAL: Pupils equal. Reacting. Plantars are equivocal. INVESTIGATIONS: Reviewed in the clinical context. White count 16.2, hemoglobin 13.3, platelets 422,000. Potassium 4.8, BUN 24, creatinine 1.25. Lactic acid 5.4. Blood gas showed a pCO2 of 51, PO2 of 78, and a pH of 7.2. The patient's BUN creatinine was 1.04 on 08/19/2018. EKG tracing personally reviewed by me shows left bundle branch block. Chest x-ray film personally reviewed by me shows diffuse infiltrates on the right side, some on the left side. ASSESSMENT: 1. Acute severe sepsis due to multilobar pneumonia suspect gram-negative organism, POA. 2. Acute hypoxic respiratory failure, severe, requiring ventilator support, from pneumonia. 3. Acute chronic obstructive pulmonary disease exacerbation in an ex-smoker smoker. 4. Acute metabolic encephalopathy due to sepsis. 5. Obesity; BMI more than 30. 6. Gastroesophageal reflux disease. 7. Essential hypertension history of. 8. Hyperlipidemia. 9. 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 10.Septic shock. The patient is on pressure support. PLAN: The patient is on IV fluids, IV propofol, IV Levophed, antibiotics in the form of ceftriaxone and Zithromax started by Dr. Flor. The patient is critically ill. DVT prophylaxis has been given. Cultures have been sent off for the blood. Will also send off sputum cultures. MMODL / IJN: [id number] /
[2018-09-21 23:40] LABS: Appearance,Urine Cloudy (Clear); Bilirubin,Urine Negative (Negative); Blood,Urine Trace (Negative); Color,Urine Yellow; Glucose,Urine (UA) Negative (Negative); Hyaline Casts,Urine 9 /lpf (0-2); Ketones,Urine Negative (Negative); Leukocyte Esterase,Urine Negative (Negative); Mucus,Urine Occasional /hpf; Nitrite,Urine Negative (Negative); Protein,Urine Negative (Negative); RBC,Urine 6 /hpf (0-5); Specific Gravity,Urine 1.015 (1.001-1.035); Squamous Epithelial Cell,Urine <1 /hpf (0-4); Urobilinogen,Urine <2.0 mg/dL (<2.0); WBC,Urine 3 /hpf (0-5)
[2018-09-22] LABS: Glucose,Whole Blood 135 mg/dL (75-99)
[2018-09-22] MEDS: PROPOFOL 1,000 MG in EMPTY BAG 1 BAG IV SCH ×7 (00:43→22:00)
[2018-09-22] MEDS: ACETAMINOPHEN IV (For NPO) 1,000 MG in EMPTY BAG 1 BAG IVPB PRN ×2 (00:46→16:27)
[2018-09-22] MEDS: IPRATROPIUM-ALBUTEROL 3 ML NEB INHALATION SCH ×6 (03:55→23:04)
[2018-09-22 04:45] LABS: Basophils % (A) 0 %; Eosinophils % (A) 0 %; HCT 33.2 % (34.0-46.0); HGB 10.4 gm/dL (11.4-16.0); Hypochromasia Marked; Lymphocytes # (A) 0.8 k/uL (1.0-4.8); Lymphocytes % (A) 4 %; MCH 27.4 pg (25.0-35.0); MCHC 31.3 g/dL (31.0-37.0); MCV 87.5 fL (80.0-100.0); Mean Platelet Volume 7.7; Monocytes # (A) 0.4 k/uL (0-1.0); Monocytes % (A) 2 %; Neutrophils # (A) 17.5 k/uL (1.3-7.7); Neutrophils % (A) 93 %; Platelet Count 249 k/uL (150-450); RBC 3.79 m/uL (3.80-5.40); RDW 14.8 % (11.5-15.5); WBC 18.8 k/uL (3.8-10.6)
[2018-09-22 04:51] LABS: Albumin 2.7 g/dL (3.5-5.0); Calcium 7.5 mg/dL (8.4-10.2); Magnesium 1.7 mg/dL (1.6-2.3); Phosphorus 3.2 mg/dL (2.5-4.5); Total Bilirubin 0.4 mg/dL (0.2-1.3); Total Protein 5.1 g/dL (6.3-8.2)
[2018-09-22 05:03] LABS: Allen Test Performed? Yes
[2018-09-22 05:05] LABS: ABG Base Excess -8.4 mmol/L; ABG HCO3 18 mmol/L (21-25); ABG PCO2 35 mmHg (35-45); ABG PH 7.32 (7.35-7.45); ABG PO2 92 mmHg (83-108); ABG TCO2 19 mmol/L (19-24)
[2018-09-22] MEDS ORDERED: Magnesium Replacement Protocol 1 EACH MISC MISCELLANE PRN (05:10)
[2018-09-22] MEDS: SODIUM CHLORIDE 0.9% 1,000 ML IV SCH ×2 (05:23→14:14)
[2018-09-22] MEDS: MAGNESIUM SULFATE-D5W PMX 1 GM in DEXTROSE/WATER 1 100ML.BAG IVPB SCH ×2 (06:20→09:05)
[2018-09-22 06:32] LABS: Glucose,Whole Blood 123 mg/dL (75-99)
--- NOTE | 2018-09-22 08:08 | XR ---
EXAMINATION TYPE: XR chest 1V portable DATE OF EXAM: 09/22/2018 COMPARISON: 09/21/2018 HISTORY: Shortness of breath. Endotracheal tube placement. TECHNIQUE: Single frontal view of the chest is obtained. FINDINGS: There are new bilateral layering pleural effusions, engorgement of the hilar vasculature, enlarged cardiomediastinal silhouette, and bibasilar airspace disease. There is also mild pulmonary v ascular congestion. Endotracheal is satisfactory in position and similar to the prior. Enteric tube e xtends beyond the distal end of the film and coils with its distal portion directed cephalad likely i n the gastric fundus oriented towards the gastroesophageal junction. No sizable pneumothorax. Osseous demineralization. Right breast surgical clips are noted. IMPRESSION: Sequela of congestive heart failure with new layering small pleural effusions, pulmonary vascular congestion, and enlarged cardiomediastinal silhouette.
[2018-09-22] MEDS: PANTOPRAZOLE 40 MG/10 ML VIAL IV SCH (09:03)
[2018-09-22] MEDS: HEPARIN SODIUM,PORCINE 5,000 UNIT/ML 1 ML VIAL SQ SCH ×3 (09:04→23:55)
[2018-09-22] MEDS: CHLORHEXIDINE GLUCONATE 15 ML CUP MUCOUS MEM SCH ×2 (09:04→19:53)
[2018-09-22] MEDS: AZITHROMYCIN 500 MG in SODIUM CHLORIDE 0.9% 250 ML IVPB SCH (09:04)
[2018-09-22 11:56] LABS: Glucose,Whole Blood 113 mg/dL (75-99)
--- NOTE | 2018-09-22 15:34 | P.PN ---
Subjective Progress Note Date: 09/22/18 A 78-year-old female patient who came in to the emergency department with respiratory failure. The patient has COPD, history of aortic regurgitation and hyperlipidemia and addition to a previous history of CVA, hypertension, and breast cancer. The patient was intubated and placed on a mechanical ventilator. She was septic, but I will and she was aggressively resuscitated with IV fluids and currently she is only a few mics of norepinephrine infusion for blood pressure support. She already has a triple lumen catheter in place. Chest x- ray from today shows adequate positioning of the orotracheal tube. The patient has still some cardiomegaly and bilateral layering of pleural effusion in addition to engorgement of the hilar vasculature and cardiac silhouettes. Overall his findings are more consistent with CHF, the patient is acting more like pneumonia/sepsis. She is afebrile. White cell count remains elevated at 18, and the patient's metabolic acidosis improving. Lactic acid level is down to 1.7. Renal function is normal with a creatinine of 0.9. The patient is currently receiving a combination of Rocephin and Zithromax. The patient is also on IV fluids with normal state rate of 100 mL an hour. Echocardiogram was sent and the results are still pending for now. The patient remains on a mechanical ventilator. On today's evaluation the patient is on a PEEP of 8 with an FiO2 of 50% and tidal volume of 400 with a rate of 25. The blood gases from today showed a pH of 7.32 with a pCO2 of 35 and a pO2 of 92. A sedation holiday will be given. Nevertheless, the patient is not ready for any weaning trials or possible extubation yet. She is producing adequate amount of urine output. No other significant events otherwise since yesterday. Objective - Vital Signs Vital signs: Vital Signs Temp 99.7 F H 09/22/18 12:00 Pulse 80 09/22/18 15:23 Resp 32 H 09/22/18 14:00 BP 124/45 09/22/18 04:30 Pulse Ox 95 09/22/18 14:00 Intake & Output 09/21/18 09/22/18 09/22/18 18:59 06:59 18:59 Intake Total 2622.810 2593.280 1741.960 Output Total 1190 1035 445 Balance 4978.575 5586.280 1296.960 Weight 79.379 kg 89.5 kg Intake: IV 2215 1486 1195 ACETAMINOPHEN IV (For NPO 100 ) 1,000 mg In Empty Bag 1 bag @ 400 mls/hr IVPB Q6HR PRN Rx#:[id number] Azithromycin 500 mg In 250 Sodium Chloride 0.9% 250 ml @ 250 mls/hr IVPB DAILY [facility] Rx#:[id number] Magnesium Sulfate-D5w Pmx 100 100 1 gm In Dextrose/Water 1 100ml.bag @ 100 mls/hr IVPB Q1H [facility] Rx#: [id number] Normal Saline Pressure 15 36 45 Bag Sodium Chloride 0.9% 1, 1200 1200 800 000 ml @ 100 mls/hr IV . Q10H [facility] Rx#:[id number] Sodium Chloride 0.9% 2, 1000 000 ml @ 999 mls/hr IV . Q2H1M ONE Rx#:[id number] cefTRIAXone 1 gm In 50 Sodium Chloride 0.9% 50 ml @ 100 mls/hr IVPB Q24H [facility] Rx#:[id number] Intake, IV Titration 407.810 597.280 246.960 Amount Norepinephrine 4 mg In 171.380 274.260 52.623 Sodium Chloride 0.9% 250 ml @ 0.05 MCG/KG/MIN 15. 122 mls/hr IV .[id number] [facility] Rx#:[id number] Propofol 1,000 mg In 236.430 323.020 194.337 Empty Bag 1 bag @ Titrate IV .Q0M [facility] Rx#: [id number] Tube Feeding 420 240 Other 90 60 Output: Urine 1190 1035 445 Other: Voiding Method Indwelling Catheter Indwelling Catheter Indwelling Catheter ABP, PAP, CO, CI - Last Documented Arterial Blood Pressure 147/41 - Exam Gen. appearance, comfortable likely distress. Intubated on a mechanical ventilator. Head exam was generally normal. There was no scleral icterus or corneal arcus. Mucous membranes were moist. Neck was supple and without jugular venous distension, thyromegaly, or carotid bruits. Carotids were easily palpable bilaterally. There was no adenopathy. The patient has an orogastric and orotracheal tube are both in place. Lungs sounds are diminished in lung bases bilaterally otherwise clear. No wheezes overall currently crackles. Cardiac exam revealed the PMI to be normally situated and sized. The rhythm was regular and no extrasystoles were noted during several minutes of auscultation. The first and second heart sounds were normal and physiologic splitting of the second heart sound was noted. There were no murmurs, rubs, clicks, or gallops. Abdominal exam revealed normal bowel sounds. The abdomen was soft, non-tender, and without masses, organomegaly, or appreciable enlargement of the abdominal aorta. Examination of the extremities revealed easily palpable radial, femoral and pedal pulses. There was no cyanosis, clubbing or edema. Examination of the skin revealed no evidence of significant rashes, suspicious appearing nevi or other concerning lesions. Neurologically the patient is sedated and the patient is calm and comfortable. No focal neurological deficits. Sedation holidays to follow. - Labs CBC & Chem 7: 09/22/18 04:20 09/22/18 04:20 Labs: Abnormal Lab Results - Last 24 Hours (Table) 09/21/18 09/21/18 09/22/18 Range/Units 21:50 23:57 04:20 WBC 18.8 H (3.8-10.6) k/uL RBC 3.79 L (3.80-5.40) m/uL Hgb 10.4 L (11.4-16.0) gm/dL Hct 33.2 L (34.0-46.0) % Neutrophils # 17.5 H (1.3-7.7) k/uL Lymphocytes # 0.8 L (1.0-4.8) k/uL ABG pH (7.35-7.45) ABG HCO3 (21-25) mmol/L Chloride (98-107) mmol/L Carbon Dioxide (22-30) mmol/L BUN (7-17) mg/dL Glucose (74-99) mg/dL POC Glucose (mg/dL) 135 H (75-99) mg/dL Calcium (8.4-10.2) mg/dL AST (14-36) U/L ALT (9-52) U/L Total Protein (6.3-8.2) g/dL Albumin (3.5-5.0) g/dL Urine Appearance Cloudy H (Clear) Urine Blood Trace H (Negative) Urine RBC 6 H (0-5) /hpf Hyaline Casts 9 H (0-2) /lpf Urine Mucus Occasional H (None) /hpf 09/22/18 09/22/18 09/22/18 Range/Units 04:20 04:47 06:29 WBC (3.8-10.6) k/uL RBC (3.80-5.40) m/uL Hgb (11.4-16.0) gm/dL Hct (34.0-46.0) % Neutrophils # (1.3-7.7) k/uL Lymphocytes # (1.0-4.8) k/uL ABG pH 7.32 L (7.35-7.45) ABG HCO3 18 L (21-25) mmol/L Chloride 116 H (98-107) mmol/L Carbon Dioxide 18 L (22-30) mmol/L BUN 20 H (7-17) mg/dL Glucose 156 H (74-99) mg/dL POC Glucose (mg/dL) 123 H (75-99) mg/dL Calcium 7.5 L (8.4-10.2) mg/dL AST 48 H (14-36) U/L ALT 59 H (9-52) U/L Total Protein 5.1 L (6.3-8.2) g/dL Albumin 2.7 L (3.5-5.0) g/dL Urine Appearance (Clear) Urine Blood (Negative) Urine RBC (0-5) /hpf Hyaline Casts (0-2) /lpf Urine Mucus (None) /hpf 09/22/18 Range/Units 11:52 WBC (3.8-10.6) k/uL RBC (3.80-5.40) m/uL Hgb (11.4-16.0) gm/dL Hct (34.0-46.0) % Neutrophils # (1.3-7.7) k/uL Lymphocytes # (1.0-4.8) k/uL ABG pH (7.35-7.45) ABG HCO3 (21-25) mmol/L Chloride (98-107) mmol/L Carbon Dioxide (22-30) mmol/L BUN (7-17) mg/dL Glucose (74-99) mg/dL POC Glucose (mg/dL) 113 H (75-99) mg/dL Calcium (8.4-10.2) mg/dL AST (14-36) U/L ALT (9-52) U/L Total Protein (6.3-8.2) g/dL Albumin (3.5-5.0) g/dL Urine Appearance (Clear) Urine Blood (Negative) Urine RBC (0-5) /hpf Hyaline Casts (0-2) /lpf Urine Mucus (None) /hpf Microbiology - Last 24 Hours (Table) 09/21/18 21:50 Urine Culture - Preliminary Urine,Catheterized 09/21/18 05:32 Blood Culture - Preliminary Blood No Growth after 24 hours 09/21/18 04:37 Gram Stain - Preliminary Sputum Sputum Culture - Preliminary Assessment and Plan Plan: 1 acute hypoxic respiratory failure 2 acute beta pulmonary infiltrates with pleural effusions probably combination of pneumonia/CHF 3 acute hypotension, consider sepsis, improved with fluid resuscitation and the patient is currently on low-dose pressors 4 acute kidney injury, improved 5 history of right-sided breast cancer 6 COPD 7 previous history of CVA 8 hypertension 9 hyperlipidemia 10 acute leukocytosis 11 mild lactic acidosis, improving 12 history of aortic regurgitation valvular heart disease, awaiting follow-up echocardiogram to assess LV function and the valvular function Plan Keep the patient sedated for now. Wean down the FiO2 as tolerated to maintain saturation above 90%. May be able to cut down the PEEP down to 5. Continue IV fluids. Continue same antibiotic coverage. Obtain an echocardiogram. Obtain pro-calcitonin level. Give the patient has sedation holiday. Not ready for weaning for extubation at this point in time. Wean off pressors and discontinue norepinephrine possible. Continue tube feeds. Echocardiogram to be done today. We'll continue to follow make further recommendations based on her progress. Renal Function is improved. Critical care evaluation done more than 30 minutes. Time with Patient: Greater than 30
[2018-09-22] MEDS: NOREPINEPHRINE 4 MG in SODIUM CHLORIDE 0.9% 250 ML IV SCH (18:42)
[2018-09-22 18:46] LABS: Glucose,Whole Blood 111 mg/dL (75-99)
--- NOTE | 2018-09-22 18:48 | ECHOF ---
Referral Reason:chf MEASUREMENTS -------- HEIGHT: 160.0 cm WEIGHT: 89.4 kg BP: IVSd: 1.1 cm (0.6 - 1.1) LVIDd: 3.9 cm (3.9 - 5.3) LVPWd: 1.2 cm (0.6 - 1.1) IVSs: 1.6 cm LVIDs: 2.4 cm LVPWs: 1.8 cm LAESV Index (A-L): 15.59 ml/m Ao Diam: 2.7 cm (2.0 - 3.7) LA Diam: 3.6 cm (2.7 - 3.8) AV Cusp: 1.1 cm (1.5 - 2.6) EPSS: 1.7 cm MV E Woody: 1.17 m/s MV DecT: 284 ms MV A Woody: 0.58 m/s MV E/A Ratio: 2.01 AV maxP.89 mmHg AV meanP.49 mmHg AR PHT: 201 ms RAP: 20.00 mmHg RVSP: 29.19 mmHg MV EF SLOPE: 62.98 mm/s (70 - 150) MV EXCURSION: 14.92 mm (> 18.000) FINDINGS -------- Sinus rhythm. This was a technically good study. The left ventricular size is normal. Left ventricular wall thickness is normal. Overall left vent ricular systolic function is mildly impaired with, an EF between 45 - 50 %. The right ventricle is normal in size. Normal LA size by volume 22+/-6 ml/m2. The right atrial size is normal. Aortic valve is trileaflet and is moderately thickened. There is severe aortic regurgitation. The re is moderate aortic stenosis present. Peak/mean gradient across the Aortic Valve is 39.89mmHg / 1 8.49mmHg. The mitral valve leaflets are mildly thickened. Mild mitral annular calcification present. Modera te mitral regurgitation is present. Mild tricuspid regurgitation present. The right ventricular systolic pressure, as measured by Doppl er, is 29.19mmHg. There is no pulmonic regurgitation present. The aortic root size is normal. The inferior vena cava is dilated with no significant inspiratory collapse which is consistent estima alberto right atrial pressure of >20 mmHg. There is no pericardial effusion. CONCLUSIONS -------- 1. Sinus rhythm. 2. This was a technically good study. 3. The left ventricular size is normal. 4. Left ventricular wall thickness is normal. 5. Overall left ventricular systolic function is mildly impaired with, an EF between 45 - 50 %. 6. The right ventricle is normal in size. 7. Normal LA size by volume 22+/-6 ml/m2. 8. The right atrial size is normal. 9. Aortic valve is trileaflet and is moderately thickened. 10. There is severe aortic regurgitation. 11. There is moderate aortic stenosis present. 12. Peak/mean gradient across the Aortic Valve is 39.89mmHg / 18.49mmHg. 13. The mitral valve leaflets are mildly thickened. 14. Mild mitral annular calcification present. 15. Moderate mitral regurgitation is present. 16. Mild tricuspid regurgitation present. 17. The right ventricular systolic pressure, as measured by Doppler, is 29.19mmHg. 18. There is no pulmonic regurgitation present. 19. The aortic root size is normal. 20. The inferior vena cava is dilated with no significant inspiratory collapse which is consistent es timated right atrial pressure of >20 mmHg. 21. There is no pericardial effusion. PUBLICATIONS EDITOR: Leilani Urbina RDCS
[2018-09-22 21:00] LABS: Albumin 2.4 g/dL (3.5-5.0); Calcium 7.7 mg/dL (8.4-10.2); Magnesium 2.4 mg/dL (1.6-2.3); Phosphorus 2.8 mg/dL (2.5-4.5); Potassium 3.9 mmol/L (3.5-5.1); Total Bilirubin 0.3 mg/dL (0.2-1.3); Total Protein 4.7 g/dL (6.3-8.2)
--- NOTE | 2018-09-22 21:14 | PN ---
PROGRESS NOTE DATE OF SERVICE: September 22, 2018. PRESENTING COMPLAINT: Intubated. INTERVAL HISTORY: This is a patient admitted to the ICU, intubated with multilobar pneumonia with severe sepsis and COPD exacerbation. Remains on the vent. The patient remains on Levophed drip and propofol drip. Also getting tube feeding. Ventilator FiO2 80% and PEEP of 5. Getting IV fluids. Still getting some secretions through the endotracheal tube. REVIEW OF SYSTEMS: Patient intubated. CURRENT MEDICATIONS: Reviewed that include DuoNeb, IV azithromycin, IV ceftriaxone, IV Levophed, IV propofol, normal saline. PHYSICAL EXAMINATION: VITAL SIGNS: Temperature 99.7, pulse 81, respiration 28, blood pressure 140/36, pulse ox 92 percent on the ventilator. GENERAL APPEARANCE: Lying in bed, intubated. EYES: Pupils are equal. Conjunctivae normal. NECK: JVD unable to assess. Mass not palpable. HEENT endotracheal tube in place. RESPIRATORY: Effort increased. LUNGS: Decreased breath sounds. CARDIOVASCULAR: First and second sounds normal. No edema. ABDOMEN: Soft, nontender. Liver and spleen not palpable. PSYCHIATRY: Pupil reactive. INVESTIGATIONS: White count is 18.8, hemoglobin 10.4, potassium 4, BUN 20, creatinine 0.97. Procalcitonin 28.8. 2D echocardiogram shows EF of 45-50 percent and severe aortic regurgitation, moderate aortic stenosis, moderate mitral regurgitation is present. ASSESSMENT: 1. Multilobar pneumonia suspect gram-negative organism with severe sepsis, POA, slow to respond. 2. Acute hypoxic respiratory failure, severe, requiring ventilator support from pneumonia slow to respond. 3. Acute chronic obstructive pulmonary disease exacerbation in an ex-smoker. 4. Acute metabolic encephalopathy due to sepsis. 5. Obesity; BMI more than 30. 6. Gastroesophageal reflux disease. 7. Essential hypertension history of. 8. Hyperlipidemia. 9. 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 10.Septic shock. Patient is on pressor support. 11.Severe aortic regurgitation, moderate aortic stenosis, moderate mitral regurgitation, nonrheumatic. PLAN: Continue current medication and treatment plan. Patient remains critically ill. Did speak to the sisters at the bedside. Antibiotics, pressor support is to continue. Follow with photographic equipment mechanic. MMODL / IJN: [id number] /
[2018-09-23 00:51] LABS: Glucose,Whole Blood 108 mg/dL (75-99)
[2018-09-23] MEDS: SODIUM CHLORIDE 0.9% 1,000 ML IV SCH ×3 (01:29→21:05)
[2018-09-23] MEDS: PROPOFOL 1,000 MG in EMPTY BAG 1 BAG IV SCH ×6 (01:50→22:26)
[2018-09-23] MEDS: NOREPINEPHRINE 4 MG in SODIUM CHLORIDE 0.9% 250 ML IV SCH (02:41)
[2018-09-23] MEDS: IPRATROPIUM-ALBUTEROL 3 ML NEB INHALATION SCH ×6 (03:25→23:22)
[2018-09-23 04:29] LABS: Basophils % (A) 0 %; Eosinophils % (A) 0 %; HCT 29.9 % (34.0-46.0); HGB 9.3 gm/dL (11.4-16.0); Hypochromasia Marked; Lymphocytes # (A) 1.8 k/uL (1.0-4.8); Lymphocytes % (A) 16 %; MCH 27.3 pg (25.0-35.0); MCHC 31.1 g/dL (31.0-37.0); MCV 87.8 fL (80.0-100.0); Monocytes # (A) 0.3 k/uL (0-1.0); Monocytes % (A) 2 %; Neutrophils # (A) 8.5 k/uL (1.3-7.7); Neutrophils % (A) 80 %; Platelet Count 195 k/uL (150-450); RBC 3.41 m/uL (3.80-5.40); RDW 14.7 % (11.5-15.5); WBC 10.7 k/uL (3.8-10.6)
[2018-09-23 04:44] LABS: Calcium 8.1 mg/dL (8.4-10.2); Magnesium 2.4 mg/dL (1.6-2.3); Phosphorus 2.8 mg/dL (2.5-4.5); Potassium 4.1 mmol/L (3.5-5.1)
[2018-09-23 05:09] LABS: ABG Base Excess -6.7 mmol/L; ABG HCO3 19 mmol/L (21-25); ABG Oxygen Saturation 98.6 % (94-97); ABG PCO2 35 mmHg (35-45); ABG PH 7.35 (7.35-7.45); ABG PO2 113 mmHg (83-108); ABG TCO2 20 mmol/L (19-24)
[2018-09-23 06:18] LABS: Glucose,Whole Blood 90 mg/dL (75-99)
--- NOTE | 2018-09-23 07:20 | P.CRDCN ---
History of Present Illness Consult date: 09/23/18 Chief complaint: Shortness of breath History of present illness: This is a 78-year-old female patient with a past medical history significant for valvular heart disease unknown severe aortic regurgitation, moderate aortic stenosis, and moderate mitral regurgitation, as well as history of chronic hypoxic respiratory failure secondary to COPD, history of stroke in the past and history of breast cancer, was admitted to the hospital with acute hypoxic respiratory failure. Currently the patient is intubated and she is on mechanical ventilation. The patient presented to the hospital with shortness of breath for the last few days and she was found to be septic. Beside being intubated, currently the patient is on antibiotic for the sepsis/pneumonia. We get involved in the care of the patient because off "V. tach". I did review the rhythm strip which to me looks like intermittent left bundle branch block which seems to be associated was tachycardia. I was able to identify P-wave. I don't feel that this is represent ventricular tachycardia. The patient underwent an echocardiogram which revealed impaired LV function with EF between 45-50% with severe aortic insufficiency, moderate aortic stenosis, and moderate mitral regurgitation. The patient yesterday was hemodynamically unstable and she was receiving vasopressors but currently she is off any vasopressors. Her systolic blood pressure has been between 110-1 20 mmHg. I will start the patient on small dose of metoprolol and see if she can tolerate that to prevent the int ermittent arrhythmia with intermittent LBBB. Beside that I did review the blood work from today which revealed stable hemoglobin as well as normal creatinine and electrolytes. 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 History of Any Multi-Drug Resistant Organisms: None Reported Past Surgical History: Breast Surgery, Cholecystectomy, Hysterectomy Additional Past Surgical History / Comment(s): VARICOSE VEIN SX, L breast bx- benign, MULTIPLE TEEs, CYN CATARACTS , colonoscopy-normal, Right breast surgery. LUMPECTOMY RT BREAST Past Anesthesia/Blood Transfusion Reactions: Previous Problems w/ Anesthesia Additional Past Anesthesia/Blood Transfusion Reaction / Comment(s): STATES WAS TOLD "WE ALMOST LOST YOU" THAT HER B/P DROPPED POST CHOLECYSTECTOMY Past Psychological History: Anxiety, Depression Additional Psychological History / Comment(s): . Smoking Status: Former smoker Past Alcohol Use History: None Reported Additional Past Alcohol Use History / Comment(s): SMOKED 1-2 PPD - QUIT REGULAR CIGARETTES-2013- SMOKED 30 YEARS AND THEN SMOKED E-CIGARETTES UNTIL NOVEMBER 2016. Past Drug Use History: None Reported - Past Family History Mother Family Medical History: Cancer, CVA/TIA Additional Family Medical History / Comment(s): breast Father Family Medical History: Cancer Additional Family Medical History / Comment(s): lung, heart issues Medications and Allergies Home Medications Medication Instructions Recorded Confirmed Type Ezetimibe [Zetia] 10 mg PO QAM 02/18/15 09/21/18 History clonazePAM [KlonoPIN] 0.5 mg PO TID PRN 02/18/15 09/21/18 History Lisinopril [Zestril] 5 mg PO QAM 05/07/16 09/21/18 History Desvenlafaxine Succinate [Pristiq] 100 mg PO QAM 03/07/17 09/21/18 History amLODIPine [Norvasc] 10 mg PO QAM 03/27/17 09/21/18 History Anastrozole [Arimidex] 1 mg PO DAILY 09/16/17 09/21/18 History Clopidogrel [Plavix] 75 mg PO DAILY 09/16/17 09/21/18 History Allergies Allergy/AdvReac Type Severity Reaction Status Date / Time Iodinated Contrast- Oral and Allergy R/T RENAL Verified 09/21/18 08:40 IV Dye DISEASE [Iodinated Contrast Media - IV Dye] Physical Exam Vitals: Vital Signs Temp Pulse Resp BP Pulse Ox 09/23/18 07:00 73 25 H 96 09/23/18 06:00 76 25 H 97 09/23/18 05:30 76 25 H 97 09/23/18 05:00 77 25 H 97 09/23/18 04:30 79 28 H 97 09/23/18 04:00 99.5 F 81 28 H 98 09/23/18 03:46 80 09/23/18 03:31 80 04/30/19 03:30 79 25 H 148/50 95 09/23/18 03:00 75 26 H 122/39 96 09/23/18 02:30 74 25 H 112/38 96 09/23/18 02:00 99.5 F 76 26 H 116/40 95 09/23/18 01:30 80 26 H 98 09/23/18 01:00 79 26 H 97 09/23/18 00:30 78 26 H 97 09/23/18 00:00 99.9 F H 81 27 H 117/38 96 09/22/18 23:30 76 25 H 99 09/22/18 23:29 79 09/22/18 23:10 78 09/22/18 23:00 77 26 H 97 09/22/18 22:45 79 28 H 98 09/22/18 22:30 78 27 H 97 09/22/18 22:15 78 27 H 97 09/22/18 22:00 78 28 H 97 09/22/18 21:45 79 29 H 97 09/22/18 21:30 84 27 H 95 09/22/18 21:15 81 26 H 93 L 09/22/18 21:00 80 29 H 97 09/22/18 20:45 85 29 H 96 09/22/18 20:30 85 30 H 95 09/22/18 20:15 87 36 H 95 09/22/18 20:00 100.6 F H 86 29 H 92 L 09/22/18 19:56 84 09/22/18 19:45 78 25 H 96 09/22/18 19:30 80 28 H 94 L 09/22/18 19:28 78 09/22/18 19:00 78 27 H 95 09/22/18 18:00 82 29 H 96 09/22/18 17:00 81 28 H 97 09/22/18 16:00 98.9 F 80 28 H 94 L 09/22/18 15:23 80 09/22/18 15:03 80 09/22/18 15:00 102 H 30 H 96 09/22/18 14:00 86 32 H 95 09/22/18 13:00 80 28 H 94 L 09/22/18 12:00 99.7 F H 81 28 H 92 L 09/22/18 11:27 78 09/22/18 11:10 76 04/29/19 11:00 79 29 H 90 L 09/22/18 10:00 80 30 H 90 L 09/22/18 09:45 77 28 H 93 L 09/22/18 09:30 76 27 H 92 L 09/22/18 09:15 74 26 H 92 L 09/22/18 09:00 71 25 H 94 L 09/22/18 08:45 69 25 H 95 09/22/18 08:30 69 25 H 96 09/22/18 08:15 69 25 H 95 09/22/18 08:00 98.8 F 67 25 H 95 09/22/18 07:50 71 09/22/18 07:45 67 25 H 97 09/22/18 07:30 69 25 H 98 09/22/18 07:15 69 25 H 97 Intake and Output 09/22/18 09/23/18 09/23/18 22:59 06:59 14:59 Intake Total 8780.808 0359.585 186 Output Total 725 632 105 Balance 552.882 786.585 81 Intake: IV 848 848 156 Normal Saline Pressure 48 48 6 Bag Sodium Chloride 0.9% 1, 800 800 100 000 ml @ 100 mls/hr IV . Q10H JEFFERY Rx#:[id number] cefTRIAXone 1 gm In 50 Sodium Chloride 0.9% 50 ml @ 100 mls/hr IVPB Q24H JEFFERY Rx#:[id number] Intake, IV Titration 99.882 210.585 Amount Norepinephrine 4 mg In 10.585 Sodium Chloride 0.9% 250 ml @ 0.05 MCG/KG/MIN 15. 122 mls/hr IV .[id number] JEFFERY Rx#:[id number] Propofol 1,000 mg In 99.882 200.000 Empty Bag 1 bag @ Titrate IV .Q0M JEFFERY Rx#: [id number] Tube Feeding 270 300 30 Other 60 60 Output: Urine 725 632 105 Other: Voiding Method Indwelling Catheter Indwelling Catheter Weight 93.8 kg ABP, PAP, CO, CI - Last 8 Hours Arterial Blood Pressure 141/36 Arterial Blood Pressure 141/36 Arterial Blood Pressure 147/41 Arterial Blood Pressure 145/37 Arterial Blood Pressure 143/36 Arterial Blood Pressure 146/41 Arterial Blood Pressure 125/37 Arterial Blood Pressure 146/36 Arterial Blood Pressure 99/27 Arterial Blood Pressure 138/36 Arterial Blood Pressure 138/34 Arterial Blood Pressure 139/35 Arterial Blood Pressure 124/62 Arterial Blood Pressure 134/36 Arterial Blood Pressure 123/32 - Constitutional General appearance: no acute distress - Respiratory Respiratory: bilateral: diminished - Cardiovascular Rhythm: regular Heart sounds: normal: S1, S2 Abnormal Heart Sounds: systolic murmur Results 09/23/18 04:05 09/23/18 04:05 Cardiac Enzymes 09/22/18 Range/Units 20:26 AST 36 (14-36) U/L CBC 09/23/18 Range/Units 04:05 WBC 10.7 H (3.8-10.6) k/uL RBC 3.41 L (3.80-5.40) m/uL Hgb 9.3 L (11.4-16.0) gm/dL Hct 29.9 L (34.0-46.0) % Plt Count 195 (150-450) k/uL Comprehensive Metabolic Panel 09/22/18 09/23/18 Range/Units 20:26 04:05 Sodium 138 138 (137-145) mmol/L Potassium 3.9 4.1 (3.5-5.1) mmol/L Chloride 115 H 115 H (98-107) mmol/L Carbon Dioxide 18 L 19 L (22-30) mmol/L BUN 21 H 21 H (7-17) mg/dL Creatinine 0.86 0.83 (0.52-1.04) mg/dL Glucose 102 H 104 H (74-99) mg/dL Calcium 7.7 L 8.1 L (8.4-10.2) mg/dL AST 36 (14-36) U/L ALT 47 (9-52) U/L Alkaline Phosphatase 95 (38-126) U/L Total Protein 4.7 L (6.3-8.2) g/dL Albumin 2.4 L (3.5-5.0) g/dL Current Medications Generic Name Dose Route Start Last Admin Trade Name Freq PRN Reason Stop Dose Admin Acetaminophen 650 mg 09/21/18 05:24 Tylenol Suppository RECTAL Q6H PRN Fever Albuterol/Ipratropium 3 ml 09/21/18 12:00 09/23/18 07:11 Duoneb 0.5 Mg-3 Mg/3 Ml Soln INHALATION 3 ml RT-Q4H JEFFERY Administration Albuterol/Ipratropium 3 ml 09/21/18 09:32 Duoneb 0.5 Mg-3 Mg/3 Ml Soln INHALATION RT-Q2H PRN Shortness Of Breath Or Wheezing Chlorhexidine Gluconate 15 ml 09/21/18 09:00 09/22/18 19:53 Peridex MUCOUS MEM 15 ml BID JEFFERY Administration Fentanyl Citrate 50 mcg 09/21/18 04:39 09/21/18 04:45 Sublimaze IVP 50 mcg Q1H PRN Administration Agitation Heparin Sodium (Porcine) 5,000 unit 09/21/18 08:00 09/22/18 23:55 Heparin SQ 5,000 unit Q8HR JEFFERY Administration Sodium Chloride 1,000 mls @ 100 mls/hr 09/21/18 05:30 09/23/18 01:29 Saline 0.9% IV 100 mls/hr .Q10H JEFFERY Administration Azithromycin 500 mg/ Sodium 250 mls @ 250 mls/hr 09/22/18 09:00 09/22/18 09:04 Chloride IVPB 250 mls/hr DAILY JEFFERY Administration Ceftriaxone Sodium 1 gm/ 50 mls @ 100 mls/hr 09/22/18 06:00 09/23/18 06:39 Sodium Chloride IVPB 100 mls/hr Q24H JEFFERY Administration Acetaminophen 1,000 mg/ IV 100 mls @ 400 mls/hr 09/21/18 10:03 09/22/18 16:27 Solution IVPB 400 mls/hr Q6HR PRN Administration Fever and/ or Pain Norepinephrine Bitartrate 4 mg 254 mls @ 15.122 mls/hr 09/21/18 09:45 09/23/18 03:15 / Sodium Chloride IV 0 mcg/kg/min .[id number] JEFFERY 0 mls/hr Titration Protocol 0.05 MCG/KG/MIN Propofol 1,000 mg/ IV Solution 100 mls @ 0 mls/hr 09/21/18 07:30 09/23/18 06:03 IV 60 mcg/kg/min .Q0M JEFFERY 33.768 mls/hr Administration Protocol Titrate Metoprolol Tartrate 12.5 mg 09/23/18 09:00 Lopressor PO BID JEFFERY Miscellaneous Information 1 each 09/22/18 05:10 Magnesium Per Protocol MISCELLANE DAILY PRN Per Protocol Protocol Naloxone HCl 0.2 mg 09/21/18 05:25 Narcan IV Q2M PRN Opioid Reversal Pantoprazole Sodium 40 mg 09/21/18 09:00 09/22/18 09:03 Protonix IV 40 mg DAILY JEFFERY Administration Intake and Output 09/22/18 09/23/18 09/23/18 22:59 06:59 14:59 Intake Total 3144.611 6315.585 186 Output Total 725 632 105 Balance 552.882 786.585 81 Intake: IV 848 848 156 Normal Saline Pressure 48 48 6 Bag Sodium Chloride 0.9% 1, 800 800 100 000 ml @ 100 mls/hr IV . Q10H JEFFERY Rx#:[id number] cefTRIAXone 1 gm In 50 Sodium Chloride 0.9% 50 ml @ 100 mls/hr IVPB Q24H JEFFERY Rx#:[id number] Intake, IV Titration 99.882 210.585 Amount Norepinephrine 4 mg In 10.585 Sodium Chloride 0.9% 250 ml @ 0.05 MCG/KG/MIN 15. 122 mls/hr IV .[id number] JEFFERY Rx#:[id number] Propofol 1,000 mg In 99.882 200.000 Empty Bag 1 bag @ Titrate IV .Q0M JEFFERY Rx#: [id number] Tube Feeding 270 300 30 Other 60 60 Output: Urine 725 632 105 Other: Voiding Method Indwelling Catheter Indwelling Catheter Weight 93.8 kg 09/23/18 04:05 09/23/18 04:05 Assessment and Plan Assessment: Assessment #1 acute hypoxic respiratory failure #2 sepsis/pneumonia #3 acute renal failure which has improved #4 hemodynamic instability which has improved #5 cardiac arrhythmia #6 valvular heart disease #7 COPD #8 multiple comorbid conditions Plan #1 the echocardiogram was reviewed #2 I would start the patient on small dose of metoprolol to see if she can tolerate that #3 continue the current medical regimen #4 continue following up with the patient Thank you for allowing us participate in her care and we'll continue following up with the patient
--- NOTE | 2018-09-23 08:20 | XR ---
EXAMINATION TYPE: XR chest 1V portable DATE OF EXAM: 09/23/2018 Comparison: 09/22/2018 Clinical History: 78-year-old female tube placement Findings: ET tube is satisfactory. NG tube courses below the diaphragm. Left-sided CVC tip in the right atrium. Heart remains borderline enlarged with diffuse interstitial prominence and bibasilar opacities. Impression: Overall stable exam. Suspect underlying pulmonary vascular congestion with small effusions and adjace nt atelectasis and/or consolidation.
[2018-09-23] MEDS: PANTOPRAZOLE 40 MG/10 ML VIAL IV SCH (08:26)
[2018-09-23] MEDS: AZITHROMYCIN 500 MG in SODIUM CHLORIDE 0.9% 250 ML IVPB SCH (08:26)
[2018-09-23] MEDS: HEPARIN SODIUM,PORCINE 5,000 UNIT/ML 1 ML VIAL SQ SCH ×3 (08:26→23:43)
[2018-09-23] MEDS: CHLORHEXIDINE GLUCONATE 15 ML CUP MUCOUS MEM SCH ×2 (08:26→21:04)
[2018-09-23] MEDS ORDERED: FUROSEMIDE 10 MG/ML 4 ML VIAL IV SCH (09:00)
--- NOTE | 2018-09-23 09:01 | CDI ---
Documentation Clarification Form Date: 09/23/2018 8:48:27 AM From: Niki MorrisonSterlingJOAN franco, CCDS Admit Date: 09/21/2018 5:25:00 AM Patient Name: Cindy Quiros Visit Number: [id number] Discharge Date: ATTENTION: The Clinical Documentation Specialists (CDI) and [facility] Coding Staff appreciate your assistance in clarifying documentation. Please respond to the clarification below the line at the bottom and electronically sign. The CDI & [facility] Coding staff will review the response and follow-up if needed. Please note: Queries are made part of the Legal Health Record. If you have any questions, please contact the author of this message via ITS. Dr. Vern Thomas Per the ED impression: "Acute respiratory failure with hypoxia, Flash pulmonary edema, SIRS (systemic inflammatory response syndrome), Heart failure" Per the Pulmonary/Critical Care consult: "This could be consistent with either pneumonia and/or heart failure or both." History/Risk Factors: COPD, Hypertension, CKD Stage II, Hyperlipidemia & GERD, History breast CA. Clinical Indicators: Patient is admitted from home via EMS, Intubated on arrival VS: T 100.2^, P 101^, R 30 (cough, sob, shallow, tachypnea), BP 179/81, PO 75 BVM-intubated. LAB: WBC 16.2^, Neut 9.5^, pH 7.20*, pCO2 51^, pO2 78*, HCO3 20*, O2 Sat 91.8*; CO2 20*, BUN 24^, Cr 1.25%, Lactic Acid: 5.4^^. RAD: CXR: Intubated: ET tube, Patchy to confluent perihilar opacities w/interstitial prominence, rt > lt. Interstitial & alveolar edema vs infection. f/u CXR: Small bilateral effusions. ECHO 09/22: Systolic function mildly impaired w/EF 45-50%, Severe aortic regurg, Mod aortic stenosis, Mod MR, mild TR BNP 2320 Treatment: Intubated, NGT, A line, Triple lumen cath, IV Azithromycin, IV Rocephin, IV fluid bolus, Heparin sq, IV Nimbex, Albuterol INH, IV Tylenol, IV Lasix. In your professional opinion, can you please clarify the acuity and type of CHF if known or is CHF ruled out? Congestive Heart Failure Ruled out Systolic Heart Failure: o Acute o Chronic o Acute on Chronic Diastolic Heart Failure: o Acute o Chronic o Acute on Chronic Systolic & Diastolic Heart Failure: o Acute o Chronic o Acute on Chronic Heart Failure Unable to Determine Other, please specify (Last Revision: August 2017) Acute on chronic diastolic heart [facility]
[2018-09-23] MEDS: METOPROLOL TARTRATE 12.5 MG TAB PO SCH ×2 (09:10→21:05)
[2018-09-23 11:50] LABS: Glucose,Whole Blood 100 mg/dL (75-99)
--- NOTE | 2018-09-23 12:20 | P.PN ---
Subjective Progress Note Date: 09/23/18 A 78-year-old female patient who came in to the emergency department with respiratory failure. The patient has COPD, history of aortic regurgitation and hyperlipidemia and addition to a previous history of CVA, hypertension, and breast cancer. The patient was intubated and placed on a mechanical ventilator. She was septic, but I will and she was aggressively resuscitated with IV fluids and currently she is only a few mics of norepinephrine infusion for blood pressure support. She already has a triple lumen catheter in place. Chest x- ray from today shows adequate positioning of the orotracheal tube. The patient has still some cardiomegaly and bilateral layering of pleural effusion in addition to engorgement of the hilar vasculature and cardiac silhouettes. Overall his findings are more consistent with CHF, the patient is acting more like pneumonia/sepsis. She is afebrile. White cell count remains elevated at 18, and the patient's metabolic acidosis improving. Lactic acid level is down to 1.7. Renal function is normal with a creatinine of 0.9. The patient is currently receiving a combination of Rocephin and Zithromax. The patient is also on IV fluids with normal state rate of 100 mL an hour. Echocardiogram was sent and the results are still pending for now. The patient remains on a mechanical ventilator. On today's evaluation the patient is on a PEEP of 8 with an FiO2 of 50% and tidal volume of 400 with a rate of 25. The blood gases from today showed a pH of 7.32 with a pCO2 of 35 and a pO2 of 92. A sedation holiday will be given. Nevertheless, the patient is not ready for any weaning trials or possible extubation yet. She is producing adequate amount of urine output. No other significant events otherwise since yesterday. On 09/23/2018 and seeing this patient for a follow-up. This morning the patient is still sedated with Diprivan at 50 microvascular KG per minute. She is calm and comfortable. Hemodynamically she is stable and the patient is currently off pressors. She remains on a mechanical ventilator. She is an assist-control mode at the rate of 85 with a tidal volume of 400 with an FiO2 of 50% and a PEEP of 5. The chest x-ray from today is showing pulmonary vascular congestion and small effusions bilaterally. No significant sputum production. The blood cultures been negative. The patient remains on a combination of Rocephin and Zithromax. The echocardiogram was done and the patient was found to have a mildly impaired LV function with an ejection fraction of 45-50%. There is evidence of severe aortic regurgitation, moderate aortic stenosis, moderate mitral regurgitation and right ventricular systolic pressure measured to be 29 mmHg. The net fluid balance over the past 24 hours is +2.6 L. The white cell count has improved and is down to 10.7. Blood gases from today showed a pH of 7.35 with a pCO2 of 35 and a pO2 of 113 and this was on FiO2 of 50%. She is tolerating her tube feeds. No other significant events overnight otherwise. Objective - Vital Signs Vital signs: Vital Signs Temp 98.7 F 09/23/18 08:00 Pulse 83 09/23/18 11:43 Resp 30 H 09/23/18 10:00 BP 124/43 09/23/18 10:00 Pulse Ox 97 09/23/18 10:00 Intake & Output 09/22/18 09/23/18 09/23/18 18:59 06:59 18:59 Intake Total 2315.960 2122.467 882.254 Output Total 830 972 605 Balance 0612.891 2111.467 277.254 Weight 93.8 kg Intake: IV 1619 1272 564 Azithromycin 500 mg In 250 250 Sodium Chloride 0.9% 250 ml @ 250 mls/hr IVPB DAILY [facility] Rx#:[id number] Magnesium Sulfate-D5w Pmx 100 1 gm In Dextrose/Water 1 100ml.bag @ 100 mls/hr IVPB Q1H [facility] Rx#: [id number] Normal Saline Pressure 69 72 24 Bag Sodium Chloride 0.9% 1, 1200 1200 240 000 ml @ 100 mls/hr IV . Q10H [facility] Rx#:[id number] cefTRIAXone 1 gm In 50 Sodium Chloride 0.9% 50 ml @ 100 mls/hr IVPB Q24H [facility] Rx#:[id number] Intake, IV Titration 246.960 310.467 108.254 Amount Norepinephrine 4 mg In 52.623 10.585 Sodium Chloride 0.9% 250 ml @ 0.05 MCG/KG/MIN 15. 122 mls/hr IV .[id number] [facility] Rx#:[id number] Propofol 1,000 mg In 194.337 299.882 108.254 Empty Bag 1 bag @ Titrate IV .Q0M [facility] Rx#: [id number] Tube Feeding 360 450 180 Other 90 90 30 Output: Urine 830 972 605 Other: Voiding Method Indwelling Catheter Indwelling Catheter ABP, PAP, CO, CI - Last Documented Arterial Blood Pressure 115/36 - Exam Gen. appearance, comfortable likely distress. Intubated on a mechanical ventilator. Head exam was generally normal. There was no scleral icterus or corneal arcus. Mucous membranes were moist. Neck was supple and without jugular venous distension, thyromegaly, or carotid bruits. Carotids were easily palpable bilaterally. There was no adenopathy. The patient has an orogastric and orotracheal tube are both in place. Lungs sounds are diminished in lung bases bilaterally otherwise clear. No wheezes overall currently crackles. Cardiac exam revealed the PMI to be normally situated and sized. The rhythm was regular and no extrasystoles were noted during several minutes of auscultation. The first and second heart sounds were normal and physiologic splitting of the second heart sound was noted. There were no murmurs, rubs, clicks, or gallops. Abdominal exam revealed normal bowel sounds. The abdomen was soft, non-tender, and without masses, organomegaly, or appreciable enlargement of the abdominal aorta. Examination of the extremities revealed easily palpable radial, femoral and pedal pulses. There was no cyanosis, clubbing or edema. Examination of the skin revealed no evidence of significant rashes, suspicious appearing nevi or other concerning lesions. Neurologically the patient is sedated and the patient is calm and comfortable. No focal neurological deficits. Sedation holidays to follow. - Labs CBC & Chem 7: 09/23/18 04:05 09/23/18 04:05 Labs: Abnormal Lab Results - Last 24 Hours (Table) 09/22/18 09/22/18 09/22/18 Range/Units 04:20 18:31 20:26 WBC (3.8-10.6) k/uL RBC (3.80-5.40) m/uL Hgb (11.4-16.0) gm/dL Hct (34.0-46.0) % Neutrophils # (1.3-7.7) k/uL ABG pO2 (83-108) mmHg ABG HCO3 (21-25) mmol/L ABG O2 Saturation (94-97) % Chloride 115 H (98-107) mmol/L Carbon Dioxide 18 L (22-30) mmol/L BUN 21 H (7-17) mg/dL Glucose 102 H (74-99) mg/dL POC Glucose (mg/dL) 111 H (75-99) mg/dL Calcium 7.7 L (8.4-10.2) mg/dL Magnesium 2.4 H (1.6-2.3) mg/dL Total Protein 4.7 L (6.3-8.2) g/dL Albumin 2.4 L (3.5-5.0) g/dL Procalcitonin 28.87 H (0.02-0.09) ng/mL 09/23/18 09/23/18 09/23/18 Range/Units 00:23 04:05 04:05 WBC 10.7 H (3.8-10.6) k/uL RBC 3.41 L (3.80-5.40) m/uL Hgb 9.3 L (11.4-16.0) gm/dL Hct 29.9 L (34.0-46.0) % Neutrophils # 8.5 H (1.3-7.7) k/uL ABG pO2 (83-108) mmHg ABG HCO3 (21-25) mmol/L ABG O2 Saturation (94-97) % Chloride 115 H (98-107) mmol/L Carbon Dioxide 19 L (22-30) mmol/L BUN 21 H (7-17) mg/dL Glucose 104 H (74-99) mg/dL POC Glucose (mg/dL) 108 H (75-99) mg/dL Calcium 8.1 L (8.4-10.2) mg/dL Magnesium 2.4 H (1.6-2.3) mg/dL Total Protein (6.3-8.2) g/dL Albumin (3.5-5.0) g/dL Procalcitonin (0.02-0.09) ng/mL 09/23/18 09/23/18 Range/Units 05:04 11:49 WBC (3.8-10.6) k/uL RBC (3.80-5.40) m/uL Hgb (11.4-16.0) gm/dL Hct (34.0-46.0) % Neutrophils # (1.3-7.7) k/uL ABG pO2 113 H (83-108) mmHg ABG HCO3 19 L (21-25) mmol/L ABG O2 Saturation 98.6 H (94-97) % Chloride (98-107) mmol/L Carbon Dioxide (22-30) mmol/L BUN (7-17) mg/dL Glucose (74-99) mg/dL POC Glucose (mg/dL) 100 H (75-99) mg/dL Calcium (8.4-10.2) mg/dL Magnesium (1.6-2.3) mg/dL Total Protein (6.3-8.2) g/dL Albumin (3.5-5.0) g/dL Procalcitonin (0.02-0.09) ng/mL Microbiology - Last 24 Hours (Table) 09/21/18 04:37 Gram Stain - Final Sputum Sputum Culture - Final 09/21/18 05:32 Blood Culture - Preliminary Blood No Growth after 48 hours 09/21/18 23:35 Blood Culture - Preliminary Blood No Growth after 24 hours 09/21/18 21:50 Urine Culture - Preliminary Urine,Catheterized Assessment and Plan Plan: 1 acute hypoxic respiratory failure, currently intubated on a mechanical ventilator. Chest x-ray still showing pulmonary vessel congestion and small effusions bilaterally. Pneumonia cannot be completely excluded monitor the patient's proBNP level was quite elevated at time of admission. The patient was also hypotensive and the patient is hemodynamically stable at this point in time. Currently on accommodation Rocephin and Zithromax. There is improvement in the blood gases. The patient is currently off pressors. 2 acute bilateral pulmonary infiltrates with pleural effusions probably combination of pneumonia/CHF 3 acute hypotension, consider sepsis, improved with fluid resuscitation and the patient was resuscitated with IV fluids and pressors and currently she is off pressors and she is maintaining home blood pressure 4 acute kidney injury, improved 5 history of right-sided breast cancer 6 COPD 7 previous history of CVA 8 hypertension 9 hyperlipidemia 10 acute leukocytosis 11 mild lactic acidosis, improving 12 history of aortic regurgitation valvular heart disease, and echo of the heart showed an ejection fraction of 45% and the patient has severe aortic regurgitation, moderate aortic stenosis, moderate mitral regurgitation and mild degree of pulmonary hypertension. 13 leukocytosis, improved Plan The patient was given a sedation holiday this morning. She was able to wake up and follow commands. Nevertheless, she failed spontaneous breathing trial as the patient became tachypneic. The trial was discontinued and the patient was placed back on the mechanical ventilator. Currently she is an assist-control mode at the same vent setting and a PEEP is down to 5 with an FiO2 of 50% with further weaning down to maintain a saturation above 90%. The patient was given a dose of Lasix 40 mg IV push and I'm suggesting continuing the Lasix 20 mg IV push every 12 hours. We'll try to get her into a negative fluid balance. Kept on IV fluids to KVO. Continue Rocephin and Zithromax. Continue to tube feeds. Reevaluate her condition in a.m. Repeat chest x-ray and blood gases in the morning. We'll consider another weaning trial in a.m. hopefully by then her overall condition and the fluid balance will be further optimized. We'll continue to follow. Critically care evaluation that was done more than 30 minutes. Time with Patient: Greater than 30
--- NOTE | 2018-09-23 15:34 | PN ---
PROGRESS NOTE DATE OF SERVICE: 09/23/2018 PRESENTING COMPLAINT: Intubated. INTERVAL HISTORY: The patient is in the ICU intubated with multilobar pneumonia with severe sepsis, COPD exacerbation. Seen by Dr. Brown today, patient did get some IV Lasix. Patient had been on Levophed drip and propofol. Also getting tube feeding. FiO2 is 50% and a PEEP of 5. No family present at bedside. REVIEW OF SYSTEMS: Patient intubated. CURRENT MEDICATIONS: Reviewed that include IV Zithromax, IV ceftriaxone, IV propofol, taken off Levophed. PHYSICAL EXAM: Temperature 98.9, pulse 58, respiration 25, blood pressure 116/32, pulse ox 96% on ventilator. GENERAL APPEARANCE: Lying in bed, intubated. EYES: Pupils equal, conjunctivae are normal. NECK: JVD unable to assess. Mass not palpable. HEENT:": Endotracheal tube in place respiratory effort increased. LUNGS: Decreased breath sounds. Sounds no edema. ABDOMEN: Soft, nontender. Liver and spleen not palpable psychiatry pupils are reactive does respond to pain. INVESTIGATIONS: White count 10.7, hemoglobin 9.3, platelets 195. Potassium 4.1, BUN 21, creatinine 0.83. Chest x-ray film reviewed. ASSESSMENT: 1. Multilobar pneumonia, suspect gram-negative organism with severe sepsis, POA. 2. Acute hypoxic respiratory failure, severe, requiring ventilator support from pneumonia slow to respond. 3. Acute chronic obstructive pulmonary disease exacerbation an ex-smoker. 4. Hyperintensive, patient felt to be in fluid overload, given IV Lasix. 5. Acute metabolic encephalopathy due to sepsis. 6. Obesity; BMI more than 30. 7. Gastroesophageal reflux disease. 8. Essential hypertension history. 9. Hyperlipidemia. 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 11.Septic shock, status post pressure support. 12.Severe aortic regurgitation, moderate aortic stenosis, moderate mitral regurgitation, nonrheumatic. 13.Two minute episode of ventricular tachycardia yesterday evening. PLAN: Continue current medication and treatment plan. Patient was is seen earlier by Cardiology today, they are putting the patient on a small dose of beta fuentes. Prognosis remains guarded. Will follow. MMODL / IJN: [id number] /
[2018-09-23 17:49] LABS: Glucose,Whole Blood 98 mg/dL (75-99)
[2018-09-23] MEDS: FUROSEMIDE 10 MG/ML 2 ML VIAL IV SCH (21:05)
[2018-09-23] MEDS: ACETAMINOPHEN IV (For NPO) 1,000 MG in EMPTY BAG 1 BAG IVPB PRN (22:00)
[2018-09-24 00:20] LABS: Glucose,Whole Blood 100 mg/dL (75-99)
[2018-09-24] MEDS: PROPOFOL 1,000 MG in EMPTY BAG 1 BAG IV SCH ×3 (01:32→17:44)
[2018-09-24] MEDS: IPRATROPIUM-ALBUTEROL 3 ML NEB INHALATION SCH ×6 (03:00→23:28)
[2018-09-24 04:41] LABS: ABG HCO3 24 mmol/L (21-25); ABG Oxygen Saturation 94.6 % (94-97); ABG PCO2 38 mmHg (35-45); ABG PH 7.41 (7.35-7.45); ABG PO2 69 mmHg (83-108); ABG TCO2 25 mmol/L (19-24); Allen Test Performed? Yes
[2018-09-24 04:47] LABS: Basophils % (A) 0 %; Eosinophils # (A) 0.1 k/uL (0-0.7); Eosinophils % (A) 1 %; HCT 28.9 % (34.0-46.0); Hypochromasia Moderate; Lymphocytes # (A) 0.9 k/uL (1.0-4.8); Lymphocytes % (A) 12 %; MCH 26.8 pg (25.0-35.0); MCV 86.4 fL (80.0-100.0); Mean Platelet Volume 7.9; Monocytes # (A) 0.3 k/uL (0-1.0); Monocytes % (A) 3 %; Neutrophils % (A) 81 %; Platelet Count 219 k/uL (150-450); RBC 3.34 m/uL (3.80-5.40); RDW 15.2 % (11.5-15.5); WBC 7.4 k/uL (3.8-10.6)
[2018-09-24 05:16] LABS: Calcium 8.5 mg/dL (8.4-10.2); Magnesium 1.9 mg/dL (1.6-2.3); Phosphorus 3.2 mg/dL (2.5-4.5); Potassium 3.7 mmol/L (3.5-5.1)
[2018-09-24] MEDS ORDERED: POTASSIUM BICARBONATE/CIT AC 20 MEQ TABLET.EFF NG-TUBE SCH (06:00)
--- NOTE | 2018-09-24 07:21 | P.PN ---
Subjective Progress Note Date: 09/24/18 Principal diagnosis: Cardiac arrhythmia This is a 78-year-old female patient with a past medical history significant for COPD, valvular heart disease, as well as multiple comorbid conditions was admitted to the hospital with shortness of breath and was diagnosed with acute hypoxic respiratory failure secondary to COPD exacerbation as well as sepsis pneumonia. We get involved in her care because of cardiac arrhythmia and the patient was experiencing intermittent and rate related LBBB. On follow-up with her today, the patient continues to be intubated. She seems to be hemodynamically stable and she was on vasopressors earlier. Yesterday I did start the patient on small dose of metoprolol and we'll continue that. If her blood pressure is tolerating it, I am going to increase the dose of metoprolol. And we'll do that gradually. The echocardiogram showed mildly imp aired LV function with evidence off mild to moderate aortic stenosis. Objective - Vital Signs Vital signs: Vital Signs Temp 99.5 F 09/24/18 04:00 Pulse 71 09/24/18 07:05 Resp 31 H 09/24/18 06:00 BP 136/46 09/24/18 05:00 Pulse Ox 91 L 09/24/18 06:00 Intake & Output 09/23/18 09/24/18 09/24/18 18:59 06:59 18:59 Intake Total 1703.361 987.892 Output Total 2560 1365 Balance -856.639 -377.108 Weight 89.9 kg Intake: IV 772 172 Azithromycin 500 mg In 250 Sodium Chloride 0.9% 250 ml @ 250 mls/hr IVPB DAILY [facility] Rx#:[id number] Normal Saline Pressure 72 72 Bag Sodium Chloride 0.9% 1, 400 100 000 ml @ 20 mls/hr IV . Q24H [facility] Rx#:[id number] cefTRIAXone 1 gm In 50 Sodium Chloride 0.9% 50 ml @ 100 mls/hr IVPB Q24H [facility] Rx#:[id number] Intake, IV Titration 331.361 365.892 Amount Norepinephrine 4 mg In 54.539 84.380 Sodium Chloride 0.9% 250 ml @ 0.05 MCG/KG/MIN 15. 122 mls/hr IV .[id number] [facility] Rx#:[id number] Propofol 1,000 mg In 276.822 281.512 Empty Bag 1 bag @ Titrate IV .Q0M [facility] Rx#: [id number] Tube Feeding 510 390 Other 90 60 Output: Urine 2560 1365 Other: Voiding Method Indwelling Catheter Indwelling Catheter ABP, PAP, CO, CI - Last Documented Arterial Blood Pressure 143/33 - Constitutional General appearance: Present: no acute distress - Respiratory Respiratory: bilateral: diminished - Cardiovascular Rhythm: regular Heart sounds: normal: S1, S2 Abnormal Heart Sounds: Present: systolic murmur - Labs CBC & Chem 7: 09/24/18 04:25 09/24/18 04:25 Labs: Abnormal Lab Results - Last 24 Hours (Table) 09/23/18 09/24/18 09/24/18 Range/Units 11:49 00:18 04:25 RBC 3.34 L (3.80-5.40) m/uL Hgb 9.0 L (11.4-16.0) gm/dL Hct 28.9 L (34.0-46.0) % Lymphocytes # 0.9 L (1.0-4.8) k/uL ABG pO2 (83-108) mmHg ABG Total CO2 (19-24) mmol/L Chloride (98-107) mmol/L BUN (7-17) mg/dL POC Glucose (mg/dL) 100 H 100 H (75-99) mg/dL 09/24/18 09/24/18 Range/Units 04:25 04:38 RBC (3.80-5.40) m/uL Hgb (11.4-16.0) gm/dL Hct (34.0-46.0) % Lymphocytes # (1.0-4.8) k/uL ABG pO2 69 L (83-108) mmHg ABG Total CO2 25 H (19-24) mmol/L Chloride 113 H (98-107) mmol/L BUN 28 H (7-17) mg/dL POC Glucose (mg/dL) (75-99) mg/dL Microbiology - Last 24 Hours (Table) 09/21/18 23:35 Blood Culture - Preliminary Blood No Growth after 48 hours 09/21/18 21:50 Urine Culture - Final Urine,Catheterized 09/21/18 04:37 Gram Stain - Final Sputum Sputum Culture - Final 09/21/18 05:32 Blood Culture - Preliminary Blood No Growth after 48 hours Assessment and Plan Assessment: Assessment #1 acute hypoxic respiratory failure #2 sepsis/pneumonia #3 acute renal failure which has improved #4 hemodynamic instability which has improved #5 cardiac arrhythmia #6 valvular heart disease #7 COPD #8 multiple comorbid conditions Plan #1 the echocardiogram was reviewed #2 continue the current dose of metoprolol and increase the dose gradually #3 continue the current medical regimen #4 continue following up with the patient Thank you for allowing us participate in her care and we'll continue following up with the patient
--- NOTE | 2018-09-24 07:43 | XR ---
EXAMINATION TYPE: XR chest 1V portable DATE OF EXAM: 09/24/2018 CLINICAL HISTORY: Difficulty breathing progress study. TECHNIQUE: Single AP portable semiupright view of the chest is obtained. COMPARISON: Chest x-ray from one day earlier and older studies. FINDINGS: An endotracheal tube, orogastric tube, and left internal jugular central venous catheter a re all stable in appearance. Cardiac fluid size is stable and mildly enlarged with atherosclerotic th oracic aorta and central vascular congestion with bibasilar opacities remaining present. No pneumotho rax is seen bilaterally. Osseous structures are intact. IMPRESSION: Overall stable findings, suspect CHF exacerbation as there is persistent mild cardiomeg alessandro with central vascular congestion and small bilateral pleural effusions with associated bibasilar compressive atelectasis.
[2018-09-24] MEDS: FUROSEMIDE 10 MG/ML 2 ML VIAL IV SCH ×2 (08:12→20:40)
[2018-09-24] MEDS: CHLORHEXIDINE GLUCONATE 15 ML CUP MUCOUS MEM SCH ×2 (08:12→20:40)
[2018-09-24] MEDS: PANTOPRAZOLE 40 MG/10 ML VIAL IV SCH (08:12)
[2018-09-24] MEDS: HEPARIN SODIUM,PORCINE 5,000 UNIT/ML 1 ML VIAL SQ SCH ×2 (08:13→17:38)
[2018-09-24] MEDS: AZITHROMYCIN 500 MG in SODIUM CHLORIDE 0.9% 250 ML IVPB SCH (08:13)
[2018-09-24] MEDS: METOPROLOL TARTRATE 12.5 MG TAB PO SCH ×2 (08:13→23:31)
[2018-09-24] MEDS: MAGNESIUM SULFATE-D5W PMX 1 GM in DEXTROSE/WATER 1 100ML.BAG IVPB SCH ×2 (10:03→13:56)
[2018-09-24 10:53] LABS: ABG Base Excess 2.5 mmol/L; ABG HCO3 27 mmol/L (21-25); ABG Oxygen Saturation 98.4 % (94-97); ABG PCO2 39 mmHg (35-45); ABG PH 7.44 (7.35-7.45); ABG PO2 100 mmHg (83-108); ABG TCO2 28 mmol/L (19-24); Allen Test Performed? Yes
[2018-09-24] MEDS: ACETAMINOPHEN IV (For NPO) 1,000 MG in EMPTY BAG 1 BAG IVPB PRN (11:15)
[2018-09-24 11:33] LABS: Glucose,Whole Blood 108 mg/dL (75-99)
--- NOTE | 2018-09-24 11:34 | P.PN ---
Subjective Progress Note Date: 09/24/18 A 78-year-old female patient who came in to the emergency department with respiratory failure. The patient has COPD, history of aortic regurgitation and hyperlipidemia and addition to a previous history of CVA, hypertension, and breast cancer. The patient was intubated and placed on a mechanical ventilator. She was septic, but I will and she was aggressively resuscitated with IV fluids and currently she is only a few mics of norepinephrine infusion for blood pressure support. She already has a triple lumen catheter in place. Chest x- ray from today shows adequate positioning of the orotracheal tube. The patient has still some cardiomegaly and bilateral layering of pleural effusion in addition to engorgement of the hilar vasculature and cardiac silhouettes. Overall his findings are more consistent with CHF, the patient is acting more like pneumonia/sepsis. She is afebrile. White cell count remains elevated at 18, and the patient's metabolic acidosis improving. Lactic acid level is down to 1.7. Renal function is normal with a creatinine of 0.9. The patient is currently receiving a combination of Rocephin and Zithromax. The patient is also on IV fluids with normal state rate of 100 mL an hour. Echocardiogram was sent and the results are still pending for now. The patient remains on a mechanical ventilator. On today's evaluation the patient is on a PEEP of 8 with an FiO2 of 50% and tidal volume of 400 with a rate of 25. The blood gases from today showed a pH of 7.32 with a pCO2 of 35 and a pO2 of 92. A sedation holiday will be given. Nevertheless, the patient is not ready for any weaning trials or possible extubation yet. She is producing adequate amount of urine output. No other significant events otherwise since yesterday. On 09/23/2018 and seeing this patient for a follow-up. This morning the patient is still sedated with Diprivan at 50 microvascular KG per minute. She is calm and comfortable. Hemodynamically she is stable and the patient is currently off pressors. She remains on a mechanical ventilator. She is an assist-control mode at the rate of 85 with a tidal volume of 400 with an FiO2 of 50% and a PEEP of 5. The chest x-ray from today is showing pulmonary vascular congestion and small effusions bilaterally. No significant sputum production. The blood cultures been negative. The patient remains on a combination of Rocephin and Zithromax. The echocardiogram was done and the patient was found to have a mildly impaired LV function with an ejection fraction of 45-50%. There is evidence of severe aortic regurgitation, moderate aortic stenosis, moderate mitral regurgitation and right ventricular systolic pressure measured to be 29 mmHg. The net fluid balance over the past 24 hours is +2.6 L. The white cell count has improved and is down to 10.7. Blood gases from today showed a pH of 7.35 with a pCO2 of 35 and a pO2 of 113 and this was on FiO2 of 50%. She is tolerating her tube feeds. No other significant events overnight otherwise. On 09/24/2018 and seeing this patient for a follow-up. This morning she is quite comfortable and the patient is being weaned off the sedation. She is hemodynamically stable and the patient is being diuresed with IV Lasix 20 mg and fish every 12 hours. The patient remains a negative fluid balance. Chest x-ray shows small better pleural effusion. No significant orotracheal secretions. ET tube is in a good location. The patient remains and accommodation Rocephin and Zithromax. Cultures of been all negative. In terms of vent support, the patient is an assist-control mode at the rate of 25 with a total volume of 400 and FiO2 of 40% and a PEEP of 5. The morning blood gases showed a pH of 0.41 with a pCO2 of 38 and pO2 of 69 and this was done and FiO2 of 40%. Renal fu nction is stable with a creatinine of 0.8. The rest of the electrodes are all within normal limits. Echocardiogram from yesterday was noted. We are in the process of taking this patient off sedation. I made recommendations to hold propofol. Following that the patient was monitored for another 30-60 minutes during which she was waking up nicely and she was following commands and answering questions. At that point, weaning parameters were checked and the patient was given a spontaneous breathing trial with a pressure support of 5 and a PEEP of 5. After doing that for another 20 minutes, the patient had a blood culture that showed a pH of 7.44 with a pCO2 of 38 and pO2 of 100. Based on all this, I made recommendations to extubate this patient. Objective - Vital Signs Vital signs: Vital Signs Temp 99.3 F 09/24/18 08:00 Pulse 91 09/24/18 11:00 Resp 35 H 09/24/18 11:00 BP 144/50 09/24/18 11:00 Pulse Ox 97 09/24/18 11:00 Intake & Output 09/23/18 09/24/18 09/24/18 18:59 06:59 18:59 Intake Total 1703.361 987.892 760 Output Total 2560 1365 1605 Balance -856.639 -377.108 -845 Weight 89.9 kg 89.9 kg Intake: IV 772 172 320 Azithromycin 500 mg In 250 250 Sodium Chloride 0.9% 250 ml @ 250 mls/hr IVPB DAILY [facility] Rx#:[id number] Normal Saline Pressure 72 72 30 Bag Sodium Chloride 0.9% 1, 400 100 40 000 ml @ 20 mls/hr IV . Q24H [facility] Rx#:[id number] cefTRIAXone 1 gm In 50 Sodium Chloride 0.9% 50 ml @ 100 mls/hr IVPB Q24H [facility] Rx#:[id number] Intake, IV Titration 331.361 365.892 350 Amount Azithromycin 500 mg In 250 Sodium Chloride 0.9% 250 ml @ 250 mls/hr IVPB DAILY [facility] Rx#:[id number] Magnesium Sulfate-D5w Pmx 100 1 gm In Dextrose/Water 1 100ml.bag @ 100 mls/hr IVPB Q1H [facility] Rx#: [id number] Norepinephrine 4 mg In 54.539 84.380 Sodium Chloride 0.9% 250 ml @ 0.05 MCG/KG/MIN 15. 122 mls/hr IV .[id number] [facility] Rx#:[id number] Propofol 1,000 mg In 276.822 281.512 Empty Bag 1 bag @ Titrate IV .Q0M [facility] Rx#: [id number] Tube Feeding 510 390 90 Other 90 60 Output: Urine 2560 1365 1605 Other: Voiding Method Indwelling Catheter Indwelling Catheter Indwelling Catheter ABP, PAP, CO, CI - Last Documented Arterial Blood Pressure 156/43 - Exam Gen. appearance, comfortable likely distress. Intubated on a mechanical ventilator. Note that the patient was given a sedation holiday and following t hat the patient was weaned off the mechanical ventilator and the patient was extubated to nasal cannula. She is following commands and opening up her eyes and moving all 4 extremities without any limitation. Head exam was generally normal. There was no scleral icterus or corneal arcus. Mucous membranes were moist. Neck was supple and without jugular venous distension, thyromegaly, or carotid bruits. Carotids were easily palpable bilaterally. There was no adenopathy. The patient has an orogastric and orotracheal tube are both in place. Lungs sounds are diminished in lung bases bilaterally otherwise clear. No wheezes overall currently crackles. Cardiac exam revealed the PMI to be normally situated and sized. The rhythm was regular and no extrasystoles were noted during several minutes of auscultation. The first and second heart sounds were normal and physiologic splitting of the second heart sound was noted. There were no murmurs, rubs, clicks, or gallops. Abdominal exam revealed normal bowel sounds. The abdomen was soft, non-tender, and without masses, organomegaly, or appreciable enlargement of the abdominal aorta. Examination of the extremities revealed easily palpable radial, femoral and pedal pulses. There was no cyanosis, clubbing or edema. Examination of the skin revealed no evidence of significant rashes, suspicious appearing nevi or other concerning lesions. Neurologically the patient is has an adequate neurologic exam moving all 4 extremities without limitation and there is no focal neurological deficit. - Labs CBC & Chem 7: 09/24/18 04:25 09/24/18 04:25 Labs: Abnormal Lab Results - Last 24 Hours (Table) 09/23/18 09/24/18 09/24/18 Range/Units 11:49 00:18 04:25 RBC 3.34 L (3.80-5.40) m/uL Hgb 9.0 L (11.4-16.0) gm/dL Hct 28.9 L (34.0-46.0) % Lymphocytes # 0.9 L (1.0-4.8) k/uL ABG pO2 (83-108) mmHg ABG HCO3 (21-25) mmol/L ABG Total CO2 (19-24) mmol/L ABG O2 Saturation (94-97) % Chloride (98-107) mmol/L BUN (7-17) mg/dL POC Glucose (mg/dL) 100 H 100 H (75-99) mg/dL 09/24/18 09/24/18 09/24/18 Range/Units 04:25 04:38 10:48 RBC (3.80-5.40) m/uL Hgb (11.4-16.0) gm/dL Hct (34.0-46.0) % Lymphocytes # (1.0-4.8) k/uL ABG pO2 69 L (83-108) mmHg ABG HCO3 27 H (21-25) mmol/L ABG Total CO2 25 H 28 H (19-24) mmol/L ABG O2 Saturation 98.4 H (94-97) % Chloride 113 H (98-107) mmol/L BUN 28 H (7-17) mg/dL POC Glucose (mg/dL) (75-99) mg/dL Microbiology - Last 24 Hours (Table) 09/21/18 05:32 Blood Culture - Preliminary Blood No Growth after 72 hours 09/21/18 23:35 Blood Culture - Preliminary Blood No Growth after 48 hours 09/21/18 21:50 Urine Culture - Final Urine,Catheterized 09/21/18 04:37 Gram Stain - Final Sputum Sputum Culture - Final Assessment and Plan Plan: 1 acute hypoxic respiratory failure secondary to a component of bilateral pneumonia/CHF. The patient was weaned off the mechanical ventilator and the patient was extubated this morning after being given a spontaneous breathing trial. Her weaning parameters were adequate. Chest x-ray still showing some bilateral pleural effusions and some limited infiltration of the lung bases bilaterally. 2 acute bilateral pulmonary infiltrates with pleural effusions probably combination of pneumonia/CHF 3 acute hypotension, recovered and the patient is currently on no pressors and currently being diuresed with IV Lasix 20 mg IV push every 12 hours. 4 acute kidney injury, improved 5 history of right-sided breast cancer 6 COPD 7 previous history of CVA 8 hypertension 9 hyperlipidemia 10 acute leukocytosis, recovered 11 mild lactic acidosis, improving, recovered 12 history of aortic regurgitation valvular heart disease, and echo of the heart showed an ejection fraction of 45% and the patient has severe aortic regurgitation, moderate aortic stenosis, moderate mitral regurgitation and mild degree of pulmonary hypertension. 13 leukocytosis, improved Plan Monitor the patient's sister status post extubation. The patient will be maintained on oxygen to maintain a saturation above 90%. Continued IV Lasix. Continue Rocephin and Zithromax. Hold tube feeds for now. We'll continue to follow make further recommendations based on her progress. We'll allow some oral intake as the patient is recovering from sedation at a later stage. We'll continue to follow and the patient will be kept in ICU for 24 hours. This progress over the past 24 hours. Current extubated. This evaluation was in the morning 40 minutes and this is a critically care evaluation done in the intensive care unit. Time with Patient: Greater than 30
[2018-09-24] MEDS ORDERED: FUROSEMIDE 10 MG/ML 4 ML VIAL IV STA (15:48)
[2018-09-24] MEDS: HALOPERIDOL LACTATE 5 MG/ML 1 ML VIAL IVP PRN (16:06)
[2018-09-24 16:47] LABS: ABG Base Excess 1.3 mmol/L; ABG HCO3 26 mmol/L (21-25); ABG Oxygen Saturation 91.4 % (94-97); ABG PCO2 45 mmHg (35-45); ABG PH 7.38 (7.35-7.45); ABG PO2 64 mmHg (83-108); ABG TCO2 28 mmol/L (19-24); Allen Test Performed? Yes
--- NOTE | 2018-09-24 17:05 | XR ---
EXAMINATION: XR chest 1V portable DATE AND TIME: 09/24/2018 4:41 PM CLINICAL INDICATION: PHH; post intubation TECHNIQUE: AP portable semiupright COMPARISON: 2019 at 5:59 AM FINDINGS: ET tube tip superimposing the mid trachea. NG tube port superimposed over the gastric cardia. Left IJ central line tip superimposed over the right atrium. EKG leads. There is interval worsening in the overall inflation pattern with increased pulmonary edema from inte rstitial phase on the prior exam - to alveolar phase presently. Evidence of right pleural effusion no w present. Negative for pneumothorax. Mildly enlarged cardiac silhouette redemonstrated. IMPRESSION: INTERVAL WORSENING.
[2018-09-24] MEDS: POTASSIUM CHLORIDE 10 MEQ in WATER FOR INJECTION 1 100ML.BAG IVPB SCH ×2 (17:38→20:29)
[2018-09-24 18:25] LABS: Glucose,Whole Blood 102 mg/dL (75-99)
[2018-09-24] MEDS: NOREPINEPHRINE 4 MG in SODIUM CHLORIDE 0.9% 250 ML IV SCH ×2 (20:19→23:35)
[2018-09-24] MEDS: SODIUM CHLORIDE 0.9% 1,000 ML IV SCH (20:29)
--- NOTE | 2018-09-24 23:02 | P.PN ---
Subjective Progress Note Date: 09/24/18 Principal diagnosis: Acute hypoxic respiratory failure requiring mechanical ventilator Multilobar pneumonia patient is 78-year-old female with a known history of COPD, hypertension, hyperlipidemia was admitted to hospital due to multilobar pneumonia and hypoxemic respiratory failure requiring mechanical ventilator and was support. Patient was also started on tube feeding. On 09/24/2018 Patient is currently in the MICU. Awake alert but agitated and is trying to get out of the bed... Patient was extubated this morning. Currently still having shortness of breath. Chest x-ray showed overall stable findings. Suspected CHF exacerbation as there is persistent mild cardiomegaly with central vascular congestion and small bilateral pleural effusions bibasilar compressive atelectasis. Patient is getting IV Lasix. Patient is being continued on antibiotics no cough ceftriaxone and azithromycin. Cultures have been negative so far. Due to worsening respiratory status pulmonary is planning to intubate the patient again. Current medications reviewed. Objective - Vital Signs Vital signs: Vital Signs Temp 98.8 F 09/24/18 12:00 Pulse 99 09/24/18 15:00 Resp 21 09/24/18 15:00 BP 149/65 09/24/18 15:00 Pulse Ox 90 L 09/24/18 15:00 Intake & Output 09/23/18 09/24/18 09/24/18 18:59 06:59 18:59 Intake Total 1703.361 987.892 928 Output Total 2560 1365 2855 Balance -856.639 -377.108 -1927 Weight 89.9 kg 89.9 kg Intake: IV 772 172 388 Azithromycin 500 mg In 250 250 Sodium Chloride 0.9% 250 ml @ 250 mls/hr IVPB DAILY [facility] Rx#:[id number] Normal Saline Pressure 72 72 48 Bag Sodium Chloride 0.9% 1, 400 100 90 000 ml @ 20 mls/hr IV . Q24H [facility] Rx#:[id number] cefTRIAXone 1 gm In 50 Sodium Chloride 0.9% 50 ml @ 100 mls/hr IVPB Q24H [facility] Rx#:[id number] Intake, IV Titration 331.361 365.892 450 Amount Azithromycin 500 mg In 250 Sodium Chloride 0.9% 250 ml @ 250 mls/hr IVPB DAILY [facility] Rx#:[id number] Magnesium Sulfate-D5w Pmx 200 1 gm In Dextrose/Water 1 100ml.bag @ 100 mls/hr IVPB Q1H [facility] Rx#: [id number] Norepinephrine 4 mg In 54.539 84.380 Sodium Chloride 0.9% 250 ml @ 0.05 MCG/KG/MIN 15. 122 mls/hr IV .[id number] [facility] Rx#:[id number] Propofol 1,000 mg In 276.822 281.512 Empty Bag 1 bag @ Titrate IV .Q0M [facility] Rx#: [id number] Tube Feeding 510 390 90 Other 90 60 Output: Urine 2560 1365 2855 Other: Voiding Method Indwelling Catheter Indwelling Catheter Indwelling Catheter ABP, PAP, CO, CI - Last Documented Arterial Blood Pressure 167/46 - Exam PHYSICAL EXAMINATION: Patient is lying in the bed comfortably, no acute distress, awake alert but agitated and confused and could not communicate. Morbidly obese.. HEENT: Normocephalic. Neck is supple. Pupils reactive. Nostrils clear. Oral cavity is moist. Ears reveal no drainage. Neck reveals no JVD, carotid bruits, or thyromegaly. CHEST EXAMINATION: Trachea is central. Symmetrical expansion. Bibasilar diminished air entry and scattered coarse breath sounds. CARDIAC: Normal S1, S2 with no gallops. No murmurs ABDOMEN: Soft. Bowel sounds normal. No organomegaly. No abdominal bruits. Extremities: reveal no edema. No clubbing or cyanosis Neurologically awake, alert , agitated. No gross focal deficits noted Skin: No rash or skin lesions. Psychiatric: nonCooperative. Could not be tested completely Musculoskeletal: No joint swelling or deformity. Normal range of motion. - Labs CBC & Chem 7: 09/24/18 04:25 09/24/18 16:30 Labs: Abnormal Lab Results - Last 24 Hours (Table) 09/24/18 09/24/18 09/24/18 Range/Units 00:18 04:25 04:25 RBC 3.34 L (3.80-5.40) m/uL Hgb 9.0 L (11.4-16.0) gm/dL Hct 28.9 L (34.0-46.0) % Lymphocytes # 0.9 L (1.0-4.8) k/uL ABG pO2 (83-108) mmHg ABG HCO3 (21-25) mmol/L ABG Total CO2 (19-24) mmol/L ABG O2 Saturation (94-97) % Chloride 113 H (98-107) mmol/L BUN 28 H (7-17) mg/dL POC Glucose (mg/dL) 100 H (75-99) mg/dL 09/24/18 09/24/18 09/24/18 Range/Units 04:38 10:48 11:31 RBC (3.80-5.40) m/uL Hgb (11.4-16.0) gm/dL Hct (34.0-46.0) % Lymphocytes # (1.0-4.8) k/uL ABG pO2 69 L (83-108) mmHg ABG HCO3 27 H (21-25) mmol/L ABG Total CO2 25 H 28 H (19-24) mmol/L ABG O2 Saturation 98.4 H (94-97) % Chloride (98-107) mmol/L BUN (7-17) mg/dL POC Glucose (mg/dL) 108 H (75-99) mg/dL Microbiology - Last 24 Hours (Table) 09/21/18 05:32 Blood Culture - Preliminary Blood No Growth after 72 hours 09/21/18 23:35 Blood Culture - Preliminary Blood No Growth after 48 hours 09/21/18 21:50 Urine Culture - Final Urine,Catheterized Assessment and Plan Assessment: Acute hypoxemic respiratory failure secondary to multifocal pneumonia suspected gram-negative organism Severe sepsis/Septic shock requiring pressor support on admission. Currently off pressors. Bibasilar pleural effusions Possible acute CHF with reduced ejection fraction. valvular heart disease with aortic regurgitation, moderate aortic stenosis and moderate mitral regurgitation and mild pulmonary hypertension. Cardiac arrhythmia. Left bundle branch block. Started on low-dose beta blocke rs. Acute kidney injury improved. History of right-sided breast cancer COPD. History of CVA Hypertension Hyperlipidemia DVT prophylaxis with heparin subcu Plan: Patient be continued on antibiotics in the form of ceftriaxone and azithromycin. Continue with breathing treatments and IV Lasix. Critical care team is following closely. Cardiology is on board due to cardiac arrhythmia. Renal function is improved and leukocytosis resolved. Monitor H&H. Monitor strict I&O's and follow closely. Further recommendations based on the clinical course. Prognosis is guarded. Time with Patient: Greater than 30
--- NOTE | 2018-09-24 23:41 | PCN ---
PROCEDURE NOTE PREOPERATIVE DIAGNOSIS: Acute respiratory failure/pulmonary edema. POSTOPERATIVE DIAGNOSIS: Acute respiratory failure/pulmonary edema. PROCEDURE: Intubation. DESCRIPTION OF PROCEDURE: A time-out was completed verifying correct patient, procedure, site, positioning, and implant(s) or special equipment if applicable. The patient was positioned appropriately and a #4 Govea blade was used. A #8 oral endotracheal tube was placed under direct laryngoscopy. The tube was anchored at 22 cm at the teeth. Correct placement was confirmed by presence of bilateral breath sounds without air sounds in the abdomen on auscultation. An end-tidal CO2 monitor was also used to confirm tracheal placement of the ET tube. A chest x-ray was ordered to assess for pneumothorax and verify endotracheal tube placement. The patient tolerated the procedure well and there were no bedside complication or bleeding. Chest x-ray is to follow. MMODL / IJN: [id number] /
[2018-09-25] MEDS: PROPOFOL 1,000 MG in EMPTY BAG 1 BAG IV SCH ×5 (00:16→22:30)
[2018-09-25 00:24] LABS: Glucose,Whole Blood 79 mg/dL (75-99)
[2018-09-25] MEDS: HEPARIN SODIUM,PORCINE 5,000 UNIT/ML 1 ML VIAL SQ SCH ×3 (01:07→16:08)
[2018-09-25] MEDS: FUROSEMIDE 10 MG/ML 2 ML VIAL IV SCH ×3 (01:07→16:09)
[2018-09-25] MEDS: IPRATROPIUM-ALBUTEROL 3 ML NEB INHALATION SCH ×6 (02:59→23:39)
[2018-09-25] MEDS: NOREPINEPHRINE 4 MG in SODIUM CHLORIDE 0.9% 250 ML IV SCH (03:46)
[2018-09-25 04:44] LABS: Basophils % (A) 1 %; Eosinophils # (A) 0.1 k/uL (0-0.7); Eosinophils % (A) 1 %; HCT 30.1 % (34.0-46.0); HGB 9.5 gm/dL (11.4-16.0); Hypochromasia Slight; Lymphocytes # (A) 0.9 k/uL (1.0-4.8); Lymphocytes % (A) 12 %; MCH 26.8 pg (25.0-35.0); MCHC 31.6 g/dL (31.0-37.0); MCV 84.7 fL (80.0-100.0); Mean Platelet Volume 7.9; Monocytes # (A) 0.3 k/uL (0-1.0); Monocytes % (A) 4 %; Neutrophils # (A) 5.7 k/uL (1.3-7.7); Neutrophils % (A) 80 %; Platelet Count 234 k/uL (150-450); RBC 3.55 m/uL (3.80-5.40); RDW 15.2 % (11.5-15.5); WBC 7.2 k/uL (3.8-10.6)
[2018-09-25 05:01] LABS: ABG HCO3 29 mmol/L (21-25); ABG Oxygen Saturation 99.3 % (94-97); ABG PCO2 36 mmHg (35-45); ABG PH 7.51 (7.35-7.45); ABG PO2 154 mmHg (83-108); ABG TCO2 30 mmol/L (19-24); Allen Test Performed? Yes
[2018-09-25 05:53] LABS: Calcium 8.9 mg/dL (8.4-10.2); Phosphorus 3.4 mg/dL (2.5-4.5); Potassium 3.8 mmol/L (3.5-5.1)
[2018-09-25 05:57] LABS: Glucose,Whole Blood 84 mg/dL (75-99)
[2018-09-25] MEDS ORDERED: Potassium Replacement Protocol 1 EACH MISC MISCELLANE PRN (06:08)
[2018-09-25] MEDS ORDERED: POTASSIUM BICARBONATE/CIT AC 20 MEQ TABLET.EFF NG-TUBE SCH (07:00)
[2018-09-25] MEDS: AZITHROMYCIN 500 MG in SODIUM CHLORIDE 0.9% 250 ML IVPB SCH (08:38)
[2018-09-25] MEDS: CHLORHEXIDINE GLUCONATE 15 ML CUP MUCOUS MEM SCH ×2 (08:38→20:14)
[2018-09-25] MEDS: PANTOPRAZOLE 40 MG/10 ML VIAL IV SCH (08:38)
--- NOTE | 2018-09-25 09:20 | XR ---
EXAMINATION TYPE: XR chest 1V portable DATE OF EXAM: 09/25/2018 COMPARISON: 09/24/2018 INDICATION: Difficulty breathing TECHNIQUE: Single frontal view of the chest is obtained. FINDINGS: The heart size is mildly prominent. The pulmonary vasculature is normal. Bibasilar infiltrates are present. Small left pleural effusion is not excluded. There is some improve ment on the right base infiltrate and improvement of the pulmonary vascular markings suggesting some improving pulmonary edema. Endotracheal tube tip is 1.1 cm above the srini and could be pulled back somewhat. Nasogastric tube transverses the thorax. Left central venous catheter is present with the tip within right atrium. No pneumothorax is evident. IMPRESSION: 1. Endotracheal tube tip 1.1 cm from the srini and can be pulled back somewhat. 2. Lines and catheters discussed above. 3. There appears to be improving pulmonary edema. Pneumonia could be considered. Continued follow-up is recommended.
[2018-09-25] MEDS: METOPROLOL TARTRATE 12.5 MG TAB PO SCH ×2 (10:49→20:14)
--- NOTE | 2018-09-25 11:36 | P.PN ---
Subjective Progress Note Date: 09/25/18 Principal diagnosis: Cardiac arrhythmia This is a 78-year-old female patient with a past medical history significant for COPD, valvular heart disease, as well as multiple comorbid conditions was admitted to the hospital with shortness of breath and was diagnosed with acute hypoxic respiratory failure secondary to COPD exacerbation as well as sepsis pneumonia. We get involved in her care because of cardiac arrhythmia and the patient was experiencing intermittent and rate related LBBB. On follow-up with the patient today, 09/25/2018, the patient was reintubated. Hemodynamically she continues to be stable patient continues to be on a small dose of metoprolol. The frequency of the episodes of wide-complex tachycardia has improved. I asked to continue the metoprolol as far as we have systolic blood pressure above 90 mmHg. Objective - Vital Signs Vital signs: Vital Signs Temp 99.5 F 09/25/18 08:00 Pulse 86 09/25/18 11:30 Resp 25 H 09/25/18 11:00 BP 103/40 09/25/18 11:00 Pulse Ox 99 09/25/18 11:00 Intake & Output 09/24/18 09/25/18 09/25/18 18:59 06:59 18:59 Intake Total 964 671.014 379.032 Output Total 3353 1975 850 Balance -2389 -1303.986 -470.968 Weight 89.9 kg 89.1 kg Intake: IV 424 463 375 Azithromycin 500 mg In 250 250 Sodium Chloride 0.9% 250 ml @ 250 mls/hr IVPB DAILY [facility] Rx#:[id number] Normal Saline Pressure 54 63 30 Bag Potassium Chloride 10 meq 100 In Water For Injection 1 100ml.bag @ 100 mls/hr IVPB Q1H [facility] Rx#: [id number] Sodium Chloride 0.9% 1, 120 200 95 000 ml @ 20 mls/hr IV . Q24H [facility] Rx#:[id number] cefTRIAXone 1 gm In 100 Sodium Chloride 0.9% 50 ml @ 100 mls/hr IVPB Q24H [facility] Rx#:[id number] Intake, IV Titration 450 208.014 4.032 Amount Azithromycin 500 mg In 250 Sodium Chloride 0.9% 250 ml @ 250 mls/hr IVPB DAILY [facility] Rx#:[id number] Magnesium Sulfate-D5w Pmx 200 1 gm In Dextrose/Water 1 100ml.bag @ 100 mls/hr IVPB Q1H [facility] Rx#: [id number] Norepinephrine 4 mg In 8.014 4.032 Sodium Chloride 0.9% 250 ml @ 0.05 MCG/KG/MIN 15. 122 mls/hr IV .[id number] [facility] Rx#:[id number] Propofol 1,000 mg In 200.000 Empty Bag 1 bag @ Titrate IV .Q0M [facility] Rx#: [id number] Tube Feeding 90 Output: Urine 3353 1975 850 Other: Voiding Method Indwelling Catheter Indwelling Catheter Indwelling Catheter ABP, PAP, CO, CI - Last Documented Arterial Blood Pressure 101/36 - Constitutional General appearance: Present: no acute distress - Respiratory Respiratory: bilateral: diminished - Cardiovascular Rhythm: regular - Labs CBC & Chem 7: 09/25/18 04:25 09/25/18 04:25 Labs: Abnormal Lab Results - Last 24 Hours (Table) 09/24/18 09/24/18 09/25/18 Range/Units 16:44 18:23 04:25 RBC (3.80-5.40) m/uL Hgb (11.4-16.0) gm/dL Hct (34.0-46.0) % Lymphocytes # (1.0-4.8) k/uL ABG pH (7.35-7.45) ABG pO2 64 L (83-108) mmHg ABG HCO3 26 H (21-25) mmol/L ABG Total CO2 28 H (19-24) mmol/L ABG O2 Saturation 91.4 L (94-97) % BUN 25 H (7-17) mg/dL POC Glucose (mg/dL) 102 H (75-99) mg/dL 09/25/18 09/25/18 Range/Units 04:25 04:56 RBC 3.55 L (3.80-5.40) m/uL Hgb 9.5 L (11.4-16.0) gm/dL Hct 30.1 L (34.0-46.0) % Lymphocytes # 0.9 L (1.0-4.8) k/uL ABG pH 7.51 H (7.35-7.45) ABG pO2 154 H (83-108) mmHg ABG HCO3 29 H (21-25) mmol/L ABG Total CO2 30 H (19-24) mmol/L ABG O2 Saturation 99.3 H (94-97) % BUN (7-17) mg/dL POC Glucose (mg/dL) (75-99) mg/dL Microbiology - Last 24 Hours (Table) 09/21/18 05:32 Blood Culture - Preliminary Blood No Growth after 96 hours 09/21/18 23:35 Blood Culture - Preliminary Blood No Growth after 72 hours Assessment and Plan Assessment: Assessment #1 acute hypoxic respiratory failure #2 sepsis/pneumonia #3 acute renal failure which has improved #4 hemodynamic instability which has improved #5 cardiac arrhythmia #6 valvular heart disease #7 COPD #8 multiple comorbid conditions Plan #1 continue Lasix IV #2 continue the current dose of metoprolol and increase the dose gradually #3 continue the current medical regimen #4 continue following up with the patient Thank you for allowing us participate in her care and we'll continue following up with the patient
[2018-09-25 11:37] LABS: Glucose,Whole Blood 87 mg/dL (75-99)
--- NOTE | 2018-09-25 16:44 | P.PN ---
Subjective Progress Note Date: 09/25/18 Principal diagnosis: Acute hypoxic respiratory failure secondary to bilateral pneumonia, and congestive heart failure A 78-year-old female patient who came in to the emergency department with respiratory failure. The patient has COPD, history of aortic regurgitation and hyperlipidemia and addition to a previous history of CVA, hypertension, and breast cancer. The patient was intubated and placed on a mechanical ventilator. She was septic, but I will and she was aggressively resuscitated with IV fluids and currently she is only a few mics of norepinephrine infusion for blood pressure support. She already has a triple lumen catheter in place. Chest x- ray from today shows adequate positioning of the orotracheal tube. The patient has still some cardiomegaly and bilateral layering of pleural effusion in addition to engorgement of the hilar vasculature and cardiac silhouettes. Overall his findings are more consistent with CHF, the patient is acting more like pneumonia/sepsis. She is afebrile. White cell count remains elevated at 18, and the patient's metabolic acidosis improving. Lactic acid level is down to 1.7. Renal function is normal with a creatinine of 0.9. The patient is currently receiving a combination of Rocephin and Zithromax. The patient is also on IV fluids with normal state rate of 100 mL an hour. Echocardiogram was sent and the results are still pending for now. The patient remains on a mechanical ventilator. On today's evaluation the patient is on a PEEP of 8 with an FiO2 of 50% and tidal volume of 400 with a rate of 25. The blood gases from today showed a pH of 7.32 with a pCO2 of 35 and a pO2 of 92. A sedation holiday will be given. Nevertheless, the patient is not ready for any weaning trials or possible extubation yet. She is producing adequate amount of urine output. No other significant events otherwise since yesterday. On 09/23/2018 and seeing this patient for a follow-up. This morning the patient is still sedated with Diprivan at 50 microvascular KG per minute. She is calm and comfortable. Hemodynamically she is stable and the patient is currently off pressors. She remains on a mechanical ventilator. She is an assist-control mode at the rate of 85 with a tidal volume of 400 with an FiO2 of 50% and a PEEP of 5. The chest x-ray from today is showing pulmonary vascular congestion and small effusions bilaterally. No significant sputum production. The blood cultures been negative. The patient remains on a combination of Rocephin and Zithromax. The echocardiogram was done and the patient was found to have a mildly impaired LV function with an ejection fraction of 45-50%. There is evidence of severe aortic regurgitation, moderate aortic stenosis, moderate mitral regurgitation and right ventricular systolic pressure measured to be 29 mmHg. The net fluid balance over the past 24 hours is +2.6 L. The white cell count has improved and is down to 10.7. Blood gases from today showed a pH of 7.35 with a pCO2 of 35 and a pO2 of 113 and this was on FiO2 of 50%. She is tolerating her tube feeds. No other significant events overnight otherwise. On 09/24/2018 and seeing this patient for a follow-up. This morning she is quite comfortable and the patient is being weaned off the sedation. She is hemodynamically stable and the patient is being diuresed with IV Lasix 20 mg and fish every 12 hours. The patient remains a negative fluid balance. Chest x-ray shows small better pleural effusion. No significant orotracheal secretions. ET tube is in a good location. The patient remains and accommodation Rocephin and Zithromax. Cultures of been all negative. In terms of vent support, the patient is an assist-control mode at the rate of 25 with a total volume of 400 and FiO2 of 40% and a PEEP of 5. The morning blood gases showed a pH of 0.41 with a pCO2 of 38 and pO2 of 69 and this was done and FiO2 of 40%. Renal function is stable with a creatinine of 0.8. The rest of the electrodes are all within normal limits. Echocardiogram from yesterday was noted. We are in the process of taking this patient off sedation. I made recommendations to hold propofol. Following that the patient was monitored for another 30-60 minutes during which she was waking up nicely and she was following commands and answering questions. At that point, weaning parameters were checked and the patient was given a spontaneous breathing trial with a pressure support of 5 and a PEEP of 5. After doing that for another 20 minutes, the patient had a blood culture that showed a pH of 7.44 with a pCO2 of 38 and pO2 of 100. Based on all this, I made recommendations to extubate this patient. On 09/25/2089 patient seen in follow-up in the intensive care unit, patient was extubated yesterday, however within 2 hours of extubation she became very hypoxemic, respirations labored, and subsequently patient failed extubation, and had to be emergently reintubated. This morning she is intubated, on mechanical ventilator, and her current vent settings are assist control mode of ventilation with a rate of 25, tidal in the 400, FiO2 of 70%, and PEEP of 8, today's chest x-ray has been reviewed, and shows bilateral pleural effusions, and improving pulmonary edema. Patient is on IV diuretics, and she is in -3600 mL fluid balance over the last 24 hours. One episode of low-grade fever last night at 1999, afebrile this morning, blood, urine and sputum cultures have shown no growth thus far. Current antibiotic coverage in the form of Rocephin and Zithromax, IV Lasix at 20 mg every 8 hours. This morning's blood gases were reviewed, and showed pO2 of 154, pCO2 of 36, and pH of 7.51. White blood cell count is 7.2, hemoglobin is 9.5, electrolyte were within normal limits, BUN is 25 creatinine 0.82. Lung sounds are clear, diminished at the bases. Patient is nontender any vasopressor support. 0.9 normal saline every 20, and improving and is a 60 mics per kilo per minute. Objective - Vital Signs Vital signs: Vital Signs Temp 99.5 F 09/25/18 16:00 Pulse 84 09/25/18 16:00 Resp 25 H 09/25/18 16:00 BP 103/40 09/25/18 11:00 Pulse Ox 99 09/25/18 16:00 Intake & Output 09/24/18 09/25/18 09/25/18 18:59 06:59 18:59 Intake Total 964 671.014 563.032 Output Total 3353 1975 1035 Balance -4269 -1303.986 -471.968 Weight 89.9 kg 89.1 kg Intake: IV 424 463 459 Azithromycin 500 mg In 250 250 Sodium Chloride 0.9% 250 ml @ 250 mls/hr IVPB DAILY [facility] Rx#:[id number] Normal Saline Pressure 54 63 54 Bag Potassium Chloride 10 meq 100 In Water For Injection 1 100ml.bag @ 100 mls/hr IVPB Q1H [facility] Rx#: [id number] Sodium Chloride 0.9% 1, 120 200 155 000 ml @ 20 mls/hr IV . Q24H [facility] Rx#:[id number] cefTRIAXone 1 gm In 100 Sodium Chloride 0.9% 50 ml @ 100 mls/hr IVPB Q24H [facility] Rx#:[id number] Intake, IV Titration 450 208.014 104.032 Amount Azithromycin 500 mg In 250 Sodium Chloride 0.9% 250 ml @ 250 mls/hr IVPB DAILY [facility] Rx#:[id number] Magnesium Sulfate-D5w Pmx 200 1 gm In Dextrose/Water 1 100ml.bag @ 100 mls/hr IVPB Q1H [facility] Rx#: [id number] Norepinephrine 4 mg In 8.014 4.032 Sodium Chloride 0.9% 250 ml @ 0.05 MCG/KG/MIN 15. 122 mls/hr IV .[id number] [facility] Rx#:[id number] Propofol 1,000 mg In 200.000 100 Empty Bag 1 bag @ Titrate IV .Q0M [facility] Rx#: [id number] Tube Feeding 90 Output: Urine 3353 1975 1035 Other: Voiding Method Indwelling Catheter Indwelling Catheter Indwelling Catheter ABP, PAP, CO, CI - Last Documented Arterial Blood Pressure 158/42 - Exam GENERAL EXAM: 78 -year-old obese white female, intubated, sedated on mechanical ventilator, comfortable in no apparent distress. HEAD: Normocephalic/atraumatic. EYES: Normal reaction of pupils, equal size. Conjunctiva pink, sclera white. NOSE: Clear with pink turbinates. THROAT: No erythema or exudates. NECK: No masses, no JVD, no thyroid enlargement, no adenopathy. CHEST: No chest wall deformity. Symmetrical expansion. LUNGS: Equal air entry with no crackles, wheeze, rhonchi or dullness. CVS: Regular rate and rhythm, normal S1 and S2, no gallops, no murmurs, no rubs ABDOMEN: Soft, nontender. No hepatosplenomegaly, normal bowel sounds, no guarding or rigidity. EXTREMITIES: No clubbing, no edema, no cyanosis, 2+ pulses and upper and lower extremities. MUSCULOSKELETAL: Muscle strength and tone normal. SPINE: No scoliosis or deformity SKIN: No rashes CENTRAL NERVOUS SYSTEM: Intubated, sedated No focal deficits, tone is normal in all 4 extremities. - Labs CBC & Chem 7: 09/25/18 04:25 09/25/18 04:25 Labs: Abnormal Lab Results - Last 24 Hours (Table) 09/24/18 09/24/18 09/25/18 Range/Units 16:44 18:23 04:25 RBC (3.80-5.40) m/uL Hgb (11.4-16.0) gm/dL Hct (34.0-46.0) % Lymphocytes # (1.0-4.8) k/uL ABG pH (7.35-7.45) ABG pO2 64 L (83-108) mmHg ABG HCO3 26 H (21-25) mmol/L ABG Total CO2 28 H (19-24) mmol/L ABG O2 Saturation 91.4 L (94-97) % BUN 25 H (7-17) mg/dL POC Glucose (mg/dL) 102 H (75-99) mg/dL 09/25/18 09/25/18 Range/Units 04:25 04:56 RBC 3.55 L (3.80-5.40) m/uL Hgb 9.5 L (11.4-16.0) gm/dL Hct 30.1 L (34.0-46.0) % Lymphocytes # 0.9 L (1.0-4.8) k/uL ABG pH 7.51 H (7.35-7.45) ABG pO2 154 H (83-108) mmHg ABG HCO3 29 H (21-25) mmol/L ABG Total CO2 30 H (19-24) mmol/L ABG O2 Saturation 99.3 H (94-97) % BUN (7-17) mg/dL POC Glucose (mg/dL) (75-99) mg/dL Microbiology - Last 24 Hours (Table) 09/21/18 05:32 Blood Culture - Preliminary Blood No Growth after 96 hours 09/21/18 23:35 Blood Culture - Preliminary Blood No Growth after 72 hours Assessment and Plan Plan: Assessment: 1 acute hypoxic respiratory failure secondary to a component of bilateral pneumonia/CHF. The patient was weaned off the mechanical ventilator and the patient was extubated this morning after being given a spontaneous breathing trial. Patient did fail extubation within the couple of hours, and had to be emergently intubated for acute pulmonary edema, and acute hypoxemic respiratory failure 2 acute bilateral pulmonary infiltrates with pleural effusions probably co mbination of pneumonia/CHF 3 acute hypotension, recovered and the patient is currently on no pressors and currently being diuresed with IV Lasix 20 mg IV push every 12 hours. 4 acute kidney injury, improved 5 history of right-sided breast cancer 6 COPD 7 previous history of CVA 8 hypertension 9 hyperlipidemia 10 acute leukocytosis, recovered 11 mild lactic acidosis, improving, recovered 12 history of aortic regurgitation valvular heart disease, and echo of the heart showed an ejection fraction of 45% and the patient has severe aortic regurgitation, moderate aortic stenosis, moderate mitral regurgitation and mild degree of pulmonary hypertension. 13 leukocytosis, improved Plan: We'll continue with diuresis, his chest x-ray shows improving pulmonary edema, however does still pretty significant changes of fluid overload and congestive heart failure, we'll decrease the FiO2 down to 50%, patient will remain intubated on mechanical ventilator today, repeat chest x-ray in the morning, continue current antibiotics, culture data has been reviewed and remains negative thus far, no leukocytosis, no fever, hemodynamically patient is stable, maintaining negative fluid balance. Oxygenation is improved improving. We'll attempt sedation holiday and possibly spontaneous breathing trials tomorrow morning. Continue GI and DVT prophylaxis. I performed a history & physical examination of the patient and discussed their management with my nurse practitioner, Cindy Fink. I reviewed the nurse practitioner's note and agree with the documented findings and plan of care. Lung sounds are positive for diminished breath sounds. The findings and the impression was discussed with the patient. I attest to the documentation by the nurse practitioner. Time with Patient: Greater than 30
[2018-09-25 18:18] LABS: Glucose,Whole Blood 84 mg/dL (75-99)
[2018-09-25] MEDS: ACETAMINOPHEN IV (For NPO) 1,000 MG in EMPTY BAG 1 BAG IVPB PRN (19:16)
[2018-09-25] MEDS: SODIUM CHLORIDE 0.9% 1,000 ML IV SCH (20:14)
--- NOTE | 2018-09-26 00:14 | P.PN ---
Subjective Progress Note Date: 09/25/18 Principal diagnosis: Acute hypoxic respiratory failure requiring mechanical ventilator Multilobar pneumonia patient is 78-year-old female with a known history of COPD, hypertension, hyperlipidemia was admitted to hospital due to multilobar pneumonia and hypoxemic respiratory failure requiring mechanical ventilator and was support. Patient was also started on tube feeding. On 09/24/2018 Patient is currently in the MICU. Awake alert but agitated and is trying to get out of the bed... Patient was extubated this morning. Currently still having shortness of breath. Chest x-ray showed overall stable findings. Suspected CHF exacerbation as there is persistent mild cardiomegaly with central vascular congestion and small bilateral pleural effusions bibasilar compressive atelectasis. Patient is getting IV Lasix. Patient is being continued on antibiotics no cough ceftriaxone and azithromycin. Cultures have been negative so far. Due to worsening respiratory status pulmonary is planning to intubate the patient again. 09/25/2018 Patient is currently on mechanical ventilator. Patient was reintubated yesterday evening. X-ray showed bilateral pleural effusions and improving pulmonary edema. Cultures have been negative so far. Current antibiotics no cough Rocephin and azithromycin. Patient is also being continued on IV Lasix as well. WBC 7.2 and hemoglobin 9.5. Patient is requiring low-dose of Levophed currently. Patient was given top 12.5 mg of metoprolol in the morning. Pulmonary and cardiology is following. Current medications reviewed. Objective - Vital Signs Vital signs: Vital Signs Temp 100.4 F H 09/25/18 20:00 Pulse 85 09/25/18 20:00 Resp 25 H 09/25/18 20:00 BP 98/36 09/25/18 17:00 Pulse Ox 97 09/25/18 20:00 Intake & Output 09/25/18 09/25/18 09/26/18 06:59 18:59 06:59 Intake Total 671.014 732.257 21 Output Total 5497 6665 110 Balance -1303.986 -1012.743 -89 Weight 89.1 kg Intake: IV 463 543 21 Azithromycin 500 mg In 250 Sodium Chloride 0.9% 250 ml @ 250 mls/hr IVPB DAILY [facility] Rx#:[id number] Normal Saline Pressure 63 78 6 Bag Potassium Chloride 10 meq 100 In Water For Injection 1 100ml.bag @ 100 mls/hr IVPB Q1H [facility] Rx#: [id number] Sodium Chloride 0.9% 1, 200 215 15 000 ml @ 20 mls/hr IV . Q24H [facility] Rx#:[id number] cefTRIAXone 1 gm In 100 Sodium Chloride 0.9% 50 ml @ 100 mls/hr IVPB Q24H [facility] Rx#:[id number] Intake, IV Titration 208.014 189.257 Amount Norepinephrine 4 mg In 8.014 4.032 Sodium Chloride 0.9% 250 ml @ 0.05 MCG/KG/MIN 15. 122 mls/hr IV .[id number] [facility] Rx#:[id number] Propofol 1,000 mg In 200.000 185.225 Empty Bag 1 bag @ Titrate IV .Q0M [facility] Rx#: [id number] Output: Urine 1975 1745 110 Other: Voiding Method Indwelling Catheter Indwelling Catheter ABP, PAP, CO, CI - Last Documented Arterial Blood Pressure 125/36 - Exam PHYSICAL EXAMINATION: Patient is sedated and on mechanical ventilation. Morbidly obese.. HEENT: Normocephalic. Neck is supple. Pupils reactive. Nostrils clear. Oral cavity is moist. Ears reveal no drainage. Neck reveals no JVD, carotid bruits, or thyromegaly. CHEST EXAMINATION: Trachea is central. Symmetrical expansion. Bibasilar diminished air entry and scattered coarse breath sounds. CARDIAC: Normal S1, S2 with no gallops. No murmurs ABDOMEN: Soft. Bowel sounds normal. No organomegaly. No abdominal bruits. Extremities: reveal no edema. No clubbing or cyanosis Neurologically awake, alert , agitated. No gross focal deficits noted Skin: No rash or skin lesions. Psychiatric: Could not be tested completely Musculoskeletal: No joint swelling or deformity. - Labs CBC & Chem 7: 09/25/18 04:25 09/25/18 04:25 Labs: Abnormal Lab Results - Last 24 Hours (Table) 09/25/18 09/25/18 09/25/18 Range/Units 04:25 04:25 04:56 RBC 3.55 L (3.80-5.40) m/uL Hgb 9.5 L (11.4-16.0) gm/dL Hct 30.1 L (34.0-46.0) % Lymphocytes # 0.9 L (1.0-4.8) k/uL ABG pH 7.51 H (7.35-7.45) ABG pO2 154 H (83-108) mmHg ABG HCO3 29 H (21-25) mmol/L ABG Total CO2 30 H (19-24) mmol/L ABG O2 Saturation 99.3 H (94-97) % BUN 25 H (7-17) mg/dL Microbiology - Last 24 Hours (Table) 09/21/18 05:32 Blood Culture - Preliminary Blood No Growth after 96 hours 09/21/18 23:35 Blood Culture - Preliminary Blood No Growth after 72 hours Assessment and Plan Assessment: Acute hypoxemic respiratory failure secondary to multifocal pneumonia suspected gram-negative organism. Currently on mechanical ventilator. Severe sepsis/Septic shock requiring pressor support on admission. Started back on pressors. Bibasilar pleural effusions Possible acute CHF with reduced ejection fraction. valvular heart disease with aortic regurgitation, moderate aortic stenosis and moderate mitral regurgitation and mild pulmonary hypertension. Cardiac arrhythmia. Left bundle branch block. Started on low-dose beta blockers. Acute kidney injury improved. History of right-sided breast cancer COPD. History of CVA Hypertension Hyperlipidemia DVT prophylaxis with heparin subcu Plan: Patient be continued on antibiotics in the form of ceftriaxone and azithromycin. Continue with breathing treatments and IV Lasix. Critical care team is fo llowing closely. Cardiology is on board due to cardiac arrhythmia. Renal function is improved and leukocytosis resolved. Monitor H&H. Monitor strict I&O's and follow closely. Further recommendations based on the clinical course. Prognosis is guarded. Time with Patient: Greater than 30
[2018-09-26] MEDS: PROPOFOL 1,000 MG in EMPTY BAG 1 BAG IV SCH ×5 (00:56→21:49)
[2018-09-26] MEDS: HEPARIN SODIUM,PORCINE 5,000 UNIT/ML 1 ML VIAL SQ SCH ×3 (00:56→16:11)
[2018-09-26] MEDS: FUROSEMIDE 10 MG/ML 2 ML VIAL IV SCH ×3 (00:56→16:11)
[2018-09-26 01:09] LABS: Glucose,Whole Blood 76 mg/dL (75-99)
[2018-09-26] MEDS: IPRATROPIUM-ALBUTEROL 3 ML NEB INHALATION SCH ×6 (03:36→22:58)
[2018-09-26 04:21] LABS: ABG Base Excess 7.6 mmol/L; ABG HCO3 30 mmol/L (21-25); ABG Oxygen Saturation 96.8 % (94-97); ABG PCO2 35 mmHg (35-45); ABG PH 7.54 (7.35-7.45); ABG PO2 81 mmHg (83-108); ABG TCO2 31 mmol/L (19-24); Allen Test Performed? Yes
[2018-09-26 04:46] LABS: Basophils # (A) 0.1 k/uL (0-0.2); Basophils % (A) 1 %; Eosinophils # (A) 0.2 k/uL (0-0.7); Eosinophils % (A) 3 %; HCT 30.4 % (34.0-46.0); HGB 9.6 gm/dL (11.4-16.0); Lymphocytes # (A) 1.2 k/uL (1.0-4.8); Lymphocytes % (A) 20 %; MCH 26.9 pg (25.0-35.0); MCHC 31.7 g/dL (31.0-37.0); Monocytes # (A) 0.4 k/uL (0-1.0); Monocytes % (A) 6 %; Neutrophils # (A) 3.9 k/uL (1.3-7.7); Neutrophils % (A) 67 %; Platelet Count 243 k/uL (150-450); RBC 3.58 m/uL (3.80-5.40); RDW 15.2 % (11.5-15.5); WBC 5.9 k/uL (3.8-10.6)
[2018-09-26 05:00] LABS: Calcium 9.1 mg/dL (8.4-10.2); Magnesium 1.9 mg/dL (1.6-2.3); Phosphorus 3.7 mg/dL (2.5-4.5); Potassium 3.5 mmol/L (3.5-5.1)
[2018-09-26] MEDS: MAGNESIUM SULFATE-D5W PMX 1 GM in DEXTROSE/WATER 1 100ML.BAG IVPB SCH ×2 (06:26→08:20)
[2018-09-26] MEDS: POTASSIUM BICARBONATE/CIT AC 20 MEQ TABLET.EFF NG-TUBE SCH ×2 (06:26→08:20)
[2018-09-26 06:43] LABS: Glucose,Whole Blood 71 mg/dL (75-99)
--- NOTE | 2018-09-26 07:11 | XR ---
EXAMINATION TYPE: XR chest 1V portable DATE OF EXAM: 09/26/2018 CLINICAL HISTORY: Difficulty breathing progress study. TECHNIQUE: Single AP portable upright view of the chest is obtained. COMPARISON: Chest x-ray from one day earlier and older studies. FINDINGS: There is interval retraction of orogastric tube. Side-port is above srini current study. Advise advancing 13 to 14 cm. Endotracheal tube is low in position at lower aortic knob level right a t srini, recommend pulling back 3 to 4 cm. There is stable left internal jugular central venous cath eter terminating in right atrium. There is persistent mild cardiomegaly with central vascular congestion and bibasilar opacity consiste nt with small bilateral pleural effusions and associated compressive atelectasis. No pneumothorax is seen bilaterally. Osseous structures are intact. IMPRESSION: 1. Low-lying endotracheal tube, advise pulling back 3 to 4 cm. Interval retraction of orogastric tube , advise advancing 13 to 14 cm. 2. Persistent mild cardiomegaly with central vascular congestion and small bilateral pleural effusion s consistent with CHF exacerbation, correlate clinically. Impression #1 Findings discussed with ICU nurse via telephone at time of dictation.
--- NOTE | 2018-09-26 07:25 | P.PN ---
Subjective Progress Note Date: 09/26/18 Principal diagnosis: Cardiac arrhythmia This is a 78-year-old female patient with a past medical history significant for COPD, valvular heart disease, as well as multiple comorbid conditions was admitted to the hospital with shortness of breath and was diagnosed with acute hypoxic respiratory failure secondary to COPD exacerbation as well as sepsis pneumonia. We get involved in her care because of cardiac arrhythmia and the patient was experiencing intermittent and rate related LBBB. On follow-up with the patient today, 09/26/2018, the patient continues to be intubated. Hemodynamically she is requiring small dose of the above head. She still on a small dose of metoprolol 12.5 mg by mouth twice a day. The plan is possibly extubate the patient later on today and hopefully her blood pressure will be better. The chest x-ray continues to show findings consistent with fluid overload. The patient continues to be on IV Lasix. Objective - Vital Signs Vital signs: Vital Signs Temp 99.1 F 09/26/18 04:00 Pulse 84 09/26/18 07:10 Resp 25 H 09/26/18 07:00 BP 98/36 09/25/18 17:00 Pulse Ox 99 09/26/18 07:00 Intake & Output 09/25/18 09/26/18 09/26/18 18:59 06:59 18:59 Intake Total 732.257 431.446 21 Output Total 1745 1162 40 Balance -1012.743 -730.554 -19 Weight 89.2 kg Intake: IV 543 241 21 Azithromycin 500 mg In 250 Sodium Chloride 0.9% 250 ml @ 250 mls/hr IVPB DAILY [facility] Rx#:[id number] Normal Saline Pressure 78 66 6 Bag Sodium Chloride 0.9% 1, 215 175 15 000 ml @ 20 mls/hr IV . Q24H [facility] Rx#:[id number] Intake, IV Titration 189.257 190.446 Amount Norepinephrine 4 mg In 4.032 11.694 Sodium Chloride 0.9% 250 ml @ 0.05 MCG/KG/MIN 15. 122 mls/hr IV .[id number] [facility] Rx#:[id number] Propofol 1,000 mg In 185.225 178.752 Empty Bag 1 bag @ Titrate IV .Q0M [facility] Rx#: [id number] Output: Urine 1745 1162 40 Other: Voiding Method Indwelling Catheter Indwelling Catheter ABP, PAP, CO, CI - Last Documented Arterial Blood Pressure 149/39 - Constitutional General appearance: Present: no acute distress - Respiratory Respiratory: bilateral: CTA - Cardiovascular Rhythm: regular Heart sounds: normal: S1, S2 - Labs CBC & Chem 7: 09/26/18 04:05 09/26/18 04:05 Labs: Abnormal Lab Results - Last 24 Hours (Table) 09/26/18 09/26/18 09/26/18 Range/Units 04:05 04:05 04:15 RBC 3.58 L (3.80-5.40) m/uL Hgb 9.6 L (11.4-16.0) gm/dL Hct 30.4 L (34.0-46.0) % ABG pH 7.54 H (7.35-7.45) ABG pO2 81 L (83-108) mmHg ABG HCO3 30 H (21-25) mmol/L ABG Total CO2 31 H (19-24) mmol/L BUN 26 H (7-17) mg/dL POC Glucose (mg/dL) (75-99) mg/dL 09/26/18 Range/Units 06:41 RBC (3.80-5.40) m/uL Hgb (11.4-16.0) gm/dL Hct (34.0-46.0) % ABG pH (7.35-7.45) ABG pO2 (83-108) mmHg ABG HCO3 (21-25) mmol/L ABG Total CO2 (19-24) mmol/L BUN (7-17) mg/dL POC Glucose (mg/dL) 71 L (75-99) mg/dL Microbiology - Last 24 Hours (Table) 09/21/18 23:35 Blood Culture - Preliminary Blood No Growth after 96 hours 09/21/18 05:32 Blood Culture - Preliminary Blood No Growth after 96 hours Assessment and Plan Assessment: Assessment #1 acute hypoxic respiratory failure #2 sepsis/pneumonia #3 acute renal failure which has improved #4 hemodynamic instability which has improved #5 cardiac arrhythmia #6 valvular heart disease #7 COPD #8 multiple comorbid conditions Plan #1 continue Lasix IV #2 continue the current dose of metoprolol and increase the dose gradually #3 continue the current medical regimen #4 continue following up with the patient Thank you for allowing us participate in her care and we'll continue following up with the patient
[2018-09-26] MEDS: NOREPINEPHRINE 4 MG in SODIUM CHLORIDE 0.9% 250 ML IV SCH (08:21)
[2018-09-26] MEDS: METOPROLOL TARTRATE 12.5 MG TAB PO SCH ×2 (08:23→19:59)
[2018-09-26] MEDS: PANTOPRAZOLE 40 MG/10 ML VIAL IV SCH (08:24)
[2018-09-26] MEDS: CHLORHEXIDINE GLUCONATE 15 ML CUP MUCOUS MEM SCH ×2 (08:24→19:59)
[2018-09-26] MEDS: AZITHROMYCIN 500 MG in SODIUM CHLORIDE 0.9% 250 ML IVPB SCH (09:30)
[2018-09-26 10:19] LABS: Glucose,Whole Blood 101 mg/dL (75-99)
[2018-09-26 12:13] LABS: Glucose,Whole Blood 96 mg/dL (75-99)
[2018-09-26] MEDS ORDERED: POTASSIUM BICARBONATE/CIT AC 20 MEQ TABLET.EFF NG-TUBE SCH ×2 (14:00→20:00)
--- NOTE | 2018-09-26 16:44 | P.PN ---
Subjective Progress Note Date: 09/26/18 A 78-year-old female patient who came in to the emergency department with respiratory failure. The patient has COPD, history of aortic regurgitation and hyperlipidemia and addition to a previous history of CVA, hypertension, and breast cancer. The patient was intubated and placed on a mechanical ventilator. She was septic, but I will and she was aggressively resuscitated with IV fluids and currently she is only a few mics of norepinephrine infusion for blood pressure support. She already has a triple lumen catheter in place. Chest x- ray from today shows adequate positioning of the orotracheal tube. The patient has still some cardiomegaly and bilateral layering of pleural effusion in addition to engorgement of the hilar vasculature and cardiac silhouettes. Overall his findings are more consistent with CHF, the patient is acting more like pneumonia/sepsis. She is afebrile. White cell count remains elevated at 18, and the patient's metabolic acidosis improving. Lactic acid level is down to 1.7. Renal function is normal with a creatinine of 0.9. The patient is currently receiving a combination of Rocephin and Zithromax. The patient is also on IV fluids with normal state rate of 100 mL an hour. Echocardiogram was sent and the results are still pending for now. The patient remains on a mechanical ventilator. On today's evaluation the patient is on a PEEP of 8 with an FiO2 of 50% and tidal volume of 400 with a rate of 25. The blood gases from today showed a pH of 7.32 with a pCO2 of 35 and a pO2 of 92. A sedation holiday will be given. Nevertheless, the patient is not ready for any weaning trials or possible extubation yet. She is producing adequate amount of urine output. No other significant events otherwise since yesterday. On 09/23/2018 and seeing this patient for a follow-up. This morning the patient is still sedated with Diprivan at 50 microvascular KG per minute. She is calm and comfortable. Hemodynamically she is stable and the patient is currently off pressors. She remains on a mechanical ventilator. She is an assist-control mode at the rate of 85 with a tidal volume of 400 with an FiO2 of 50% and a PEEP of 5. The chest x-ray from today is showing pulmonary vascular congestion and small effusions bilaterally. No significant sputum production. The blood cultures been negative. The patient remains on a combination of Rocephin and Zi thromax. The echocardiogram was done and the patient was found to have a mildly impaired LV function with an ejection fraction of 45-50%. There is evidence of severe aortic regurgitation, moderate aortic stenosis, moderate mitral regurgitation and right ventricular systolic pressure measured to be 29 mmHg. The net fluid balance over the past 24 hours is +2.6 L. The white cell count has improved and is down to 10.7. Blood gases from today showed a pH of 7.35 with a pCO2 of 35 and a pO2 of 113 and this was on FiO2 of 50%. She is tolerating her tube feeds. No other significant events overnight otherwise. On 09/24/2018 and seeing this patient for a follow-up. This morning she is quite comfortable and the patient is being weaned off the sedation. She is hemodynamically stable and the patient is being diuresed with IV Lasix 20 mg and fish every 12 hours. The patient remains a negative fluid balance. Chest x-ray shows small better pleural effusion. No significant orotracheal secretions. ET tube is in a good location. The patient remains and accommodation Rocephin and Zithromax. Cultures of been all negative. In terms of vent support, the patient is an assist-control mode at the rate of 25 with a total volume of 400 and FiO2 of 40% and a PEEP of 5. The morning blood gases showed a pH of 0.41 with a pCO2 of 38 and pO2 of 69 and this was done and FiO2 of 40%. Renal f unction is stable with a creatinine of 0.8. The rest of the electrodes are all within normal limits. Echocardiogram from yesterday was noted. We are in the process of taking this patient off sedation. I made recommendations to hold propofol. Following that the patient was monitored for another 30-60 minutes during which she was waking up nicely and she was following commands and answering questions. At that point, weaning parameters were checked and the patient was given a spontaneous breathing trial with a pressure support of 5 and a PEEP of 5. After doing that for another 20 minutes, the patient had a blood culture that showed a pH of 7.44 with a pCO2 of 38 and pO2 of 100. Based on all this, I made recommendations to extubate this patient. On 09/25/2089 patient seen in follow-up in the intensive care unit, patient was extubated yesterday, however within 2 hours of extubation she became very hypoxemic, respirations labored, and subsequently patient failed extubation, and had to be emergently reintubated. This morning she is intubated, on mechanical ventilator, and her current vent settings are assist control mode of ventilation with a rate of 25, tidal in the 400, FiO2 of 70%, and PEEP of 8, today's chest x-ray has been reviewed, and shows bilateral pleural effusions, and improving pulmonary edema. Patient is on IV diuretics, and she is in -3600 mL fluid balance over the last 24 hours. One episode of low-grade fever last night at 2000, afebrile this morning, blood, urine and sputum cultures have shown no growth thus far. Current antibiotic coverage in the form of Rocephin and Zithromax, IV Lasix at 20 mg every 8 hours. This morning's blood gases were reviewed, and showed pO2 of 154, pCO2 of 36, and pH of 7.51. White blood cell count is 7.2, hemoglobin is 9.5, electrolyte were within normal limits, BUN is 25 creatinine 0.82. Lung sounds are clear, diminished at the bases. Patient is nontender any vasopressor support. 0.9 normal saline every 20, and improving and is a 60 mics per kilo per minute. On 09/26/2018, I'm seeing this patient in follow-up in the intensive care units. Note that the patient was given initial trial of extubation 2 days ago and the patient failed and subsequently the patient had to be reintubated. Since then the patient is receiving diuresis and the patient remains in a negative fluid balance was receiving Lasix 20 mg of push every 8 hours. The net fluid balance has been -3.6 L from yesterday. Meanwhile, the chest x-ray from today showing some improvement in the volume status. There is persistence of mild card iomegaly and central vascular congestion and small bilateral pleural effusion which seems to be improved compared to yesterday. As for ET tube, this was a low-lying ET tube and was pushed out why around 1 cm. Meanwhile, the patient remains hemodynamically stable on no pressors. She remains afebrile. She is rating her tube feeds. She is on ventilator at the rate of 25 with a tidal volume of 400 and FiO2 has been drop down to 50% with a PEEP of 5 in the morning blood gases showed a pH of 7.54 with a pCO2 of 35 and pO2 of 81. Remains and accommodation Rocephin and Zithromax. No other significant events otherwise for now. We are the process of getting this patient a sedation holiday and possibly a spontaneous breathing trial Objective - Vital Signs Vital signs: Vital Signs Temp 99.1 F 09/26/18 16:00 Pulse 97 09/26/18 16:00 Resp 25 H 09/26/18 16:00 BP 98/36 09/26/18 13:00 Pulse Ox 97 09/26/18 16:00 Intake & Output 09/25/18 09/26/18 09/26/18 18:59 06:59 18:59 Intake Total 732.257 431.446 819.683 Output Total 1745 1162 1730 Balance -1012.743 -730.554 -910.317 Weight 89.2 kg 89.2 kg Intake: IV 543 241 615 Azithromycin 500 mg In 250 250 Sodium Chloride 0.9% 250 ml @ 250 mls/hr IVPB DAILY [facility] Rx#:[id number] Magnesium Sulfate-D5w Pmx 200 1 gm In Dextrose/Water 1 100ml.bag @ 100 mls/hr IVPB Q1H [facility] Rx#: [id number] Normal Saline Pressure 78 66 60 Bag Sodium Chloride 0.9% 1, 215 175 105 000 ml @ 20 mls/hr IV . Q24H [facility] Rx#:[id number] Intake, IV Titration 189.257 190.446 104.683 Amount Norepinephrine 4 mg In 4.032 11.694 Sodium Chloride 0.9% 250 ml @ 0.05 MCG/KG/MIN 15. 122 mls/hr IV .[id number] [facility] Rx#:[id number] Propofol 1,000 mg In 185.225 178.752 100 Empty Bag 1 bag @ Titrate IV .Q0M [facility] Rx#: [id number] Propofol 1,000 mg In 4.683 Empty Bag 1 bag @ Titrate IV .Q0M [facility] Rx#: [id number] Other 100 Output: Urine 1745 1162 1730 Other: Voiding Method Indwelling Catheter Indwelling Catheter Indwelling Catheter # Bowel Movements 1 ABP, PAP, CO, CI - Last Documented Arterial Blood Pressure 129/42 - Exam Gen. appearance, comfortable likely distress. Intubated on a mechanical ventilator. Note that the patient was given a sedation holiday and following that the patient was weaned off the mechanical ventilator and the patient was extubated to nasal cannula. She is following commands and opening up her eyes and moving all 4 extremities without any limitation. Head exam was generally normal. There was no scleral icterus or corneal arcus. Mucous membranes were moist. Neck was supple and without jugular venous distension, thyromegaly, or carotid bruits. Carotids were easily palpable bilaterally. There was no adenopathy. The patient has an orogastric and orotracheal tube are both in place. Lungs sounds are diminished in lung bases bilaterally otherwise clear. No wheezes overall currently crackles. Cardiac exam revealed the PMI to be normally situated and sized. The rhythm was regular and no extrasystoles were noted during several minutes of auscultation. The first and second heart sounds were normal and physiologic splitting of the second heart sound was noted. There were no murmurs, rubs, clicks, or gallops. Abdominal exam revealed normal bowel sounds. The abdomen was soft, non-tender, and without masses, organomegaly, or appreciable enlargement of the abdominal aorta. Examination of the extremities revealed easily palpable radial, femoral and pedal pulses. There was no cyanosis, clubbing or edema. Examination of the skin revealed no evidence of significant rashes, suspicious appearing nevi or other concerning lesions. Neurologically the patient is has an adequate neurologic exam moving all 4 extremities without limitation and there is no focal neurological deficit. - Labs CBC & Chem 7: 09/26/18 04:05 09/26/18 12:10 Labs: Abnormal Lab Results - Last 24 Hours (Table) 09/26/18 09/26/18 09/26/18 Range/Units 04:05 04:05 04:15 RBC 3.58 L (3.80-5.40) m/uL Hgb 9.6 L (11.4-16.0) gm/dL Hct 30.4 L (34.0-46.0) % ABG pH 7.54 H (7.35-7.45) ABG pO2 81 L (83-108) mmHg ABG HCO3 30 H (21-25) mmol/L ABG Total CO2 31 H (19-24) mmol/L BUN 26 H (7-17) mg/dL POC Glucose (mg/dL) (75-99) mg/dL 09/26/18 09/26/18 Range/Units 06:41 10:18 RBC (3.80-5.40) m/uL Hgb (11.4-16.0) gm/dL Hct (34.0-46.0) % ABG pH (7.35-7.45) ABG pO2 (83-108) mmHg ABG HCO3 (21-25) mmol/L ABG Total CO2 (19-24) mmol/L BUN (7-17) mg/dL POC Glucose (mg/dL) 71 L 101 H (75-99) mg/dL Microbiology - Last 24 Hours (Table) 09/21/18 05:32 Blood Culture - Preliminary Blood No Growth after 120 hours 09/21/18 23:35 Blood Culture - Preliminary Blood No Growth after 96 hours Assessment and Plan Plan: 1 acute hypoxic respiratory failure secondary to a component of bilateral pneumonia/CHF. The patient is currently being diuresis with IV Lasix and the patient is a negative fluid balance pH she felt a trial of extubation ap proximately 48 hours ago. She has been well diuresed and the chest x-rays looking improved over the past few days and the patient will be kept on IV Lasix. Meanwhile, we'll continue the IV Rocephin and Zithromax and the patient will be given a sedation holiday and her candidacy for further weaning will be evaluated today. 2 acute bilateral pulmonary infiltrates with pleural effusions probably combination of pneumonia/CHF 3 acute hypotension, recovered rs. 4 acute kidney injury, improved 5 history of right-sided breast cancer 6 COPD 7 previous history of CVA 8 hypertension 9 hyperlipidemia 10 acute leukocytosis, recovered 11 mild lactic acidosis, improving, recovered 12 history of aortic regurgitation valvular heart disease, and echo of the heart showed an ejection fraction of 45% and the patient has severe aortic regurgitation, moderate aortic stenosis, moderate mitral regurgitation and mild degree of pulmonary hypertension. 13 leukocytosis, improved Plan Continue IV Lasix. Stop sedation and assess the patient's mental status and inability to follow commands and perform adequate weaning parameters. Following that the patient may be given a spontaneous breathing trial and I'm considering extubation again either today or tomorrow depending on her progress. Continue rest of the treatment. Continue antibiotics. Continue diuresis. Monitor electrolytes. May add Diamox if she developed significant alkalosis. We'll continue to follow. Critically care evaluation that was done in more than 30 minutes. Time with Patient: Greater than 30
[2018-09-26 18:18] LABS: Glucose,Whole Blood 99 mg/dL (75-99)
[2018-09-26] MEDS: SODIUM CHLORIDE 0.9% 1,000 ML IV SCH (20:07)
[2018-09-26] MEDS: ACETAMINOPHEN IV (For NPO) 1,000 MG in EMPTY BAG 1 BAG IVPB PRN (21:44)
[2018-09-26 23:25] LABS: Glucose,Whole Blood 104 mg/dL (75-99)
--- NOTE | 2018-09-27 00:08 | P.PN ---
Subjective Progress Note Date: 09/26/18 Principal diagnosis: Acute hypoxic respiratory failure requiring mechanical ventilator Multilobar pneumonia patient is 78-year-old female with a known history of COPD, hypertension, hyperlipidemia was admitted to hospital due to multilobar pneumonia and hypoxemic respiratory failure requiring mechanical ventilator and was support. Patient was also started on tube feeding. On 09/24/2018 Patient is currently in the MICU. Awake alert but agitated and is trying to get out of the bed... Patient was extubated this morning. Currently still having shortness of breath. Chest x-ray showed overall stable findings. Suspected CHF exacerbation as there is persistent mild cardiomegaly with central vascular congestion and small bilateral pleural effusions bibasilar compressive atelectasis. Patient is getting IV Lasix. Patient is being continued on antibiotics no cough ceftriaxone and azithromycin. Cultures have been negative so far. Due to worsening respiratory status pulmonary is planning to intubate the patient again. 09/25/2018 Patient is currently on mechanical ventilator. Patient was reintubated yesterday evening. X-ray showed bilateral pleural effusions and improving pulmonary edema. Cultures have been negative so far. Current antibiotics no cough Rocephin and azithromycin. Patient is also being continued on IV Lasix as well. WBC 7.2 and hemoglobin 9.5. Patient is requiring low-dose of Levophed currently. Patient was given top 12.5 mg of metoprolol in the morning. Pulmonary and cardiology is following. 09/26/2018 Patient is currently on mechanical ventilator. Patient failed weaning trial 2 days ago. Patient is being continued on IV Lasix 20 mg every 8 hourly. Chest x-ray showed persistent mild cardiomegaly with central vascular congestion and small bilateral pleural effusions consistent with CHF exacerbation. Correlate clinically. Patient is being continued on antibiotics no cough ceftriaxone and azithromycin. No other acute overnight issues. No fever. Current medications reviewed. Objective - Vital Signs Vital signs: Vital Signs Temp 99.4 F 09/26/18 12:00 Pulse 88 09/26/18 15:36 Resp 25 H 09/26/18 14:00 BP 98/36 09/26/18 14:00 Pulse Ox 97 09/26/18 14:00 Intake & Output 09/25/18 09/26/18 09/26/18 18:59 06:59 18:59 Intake Total 732.257 431.446 777.683 Output Total 1745 1162 1280 Balance -1012.743 -730.554 -502.317 Weight 89.2 kg 89.2 kg Intake: IV 543 241 573 Azithromycin 500 mg In 250 250 Sodium Chloride 0.9% 250 ml @ 250 mls/hr IVPB DAILY [facility] Rx#:[id number] Magnesium Sulfate-D5w Pmx 200 1 gm In Dextrose/Water 1 100ml.bag @ 100 mls/hr IVPB Q1H [facility] Rx#: [id number] Normal Saline Pressure 78 66 48 Bag Sodium Chloride 0.9% 1, 215 175 75 000 ml @ 20 mls/hr IV . Q24H [facility] Rx#:[id number] Intake, IV Titration 189.257 190.446 104.683 Amount Norepinephrine 4 mg In 4.032 11.694 Sodium Chloride 0.9% 250 ml @ 0.05 MCG/KG/MIN 15. 122 mls/hr IV .[id number] [facility] Rx#:[id number] Propofol 1,000 mg In 185.225 178.752 100 Empty Bag 1 bag @ Titrate IV .Q0M [facility] Rx#: [id number] Propofol 1,000 mg In 4.683 Empty Bag 1 bag @ Titrate IV .Q0M [facility] Rx#: [id number] Other 100 Output: Urine 1745 1162 1280 Other: Voiding Method Indwelling Catheter Indwelling Catheter Indwelling Catheter ABP, PAP, CO, CI - Last Documented Arterial Blood Pressure 101/42 - Exam PHYSICAL EXAMINATION: Patient is sedated and on mechanical ventilation. Morbidly obese.. HEENT: Normocephalic. Neck is supple. Pupils reactive. Nostrils clear. Oral cavity is moist. Ears reveal no drainage. Neck reveals no JVD, carotid bruits, or thyromegaly. CHEST EXAMINATION: Trachea is central. Symmetrical expansion. Bibasilar diminished air entry and scattered coarse breath sounds. CARDIAC: Normal S1, S2 with no gallops. No murmurs ABDOMEN: Soft. Bowel sounds normal. No organomegaly. No abdominal bruits. Extremities: reveal no edema. No clubbing or cyanosis Neurologically awake, alert , agitated. No gross focal deficits noted Skin: No rash or skin lesions. Psychiatric: Could not be tested completely Musculoskeletal: No joint swelling or deformity. - Labs CBC & Chem 7: 09/26/18 04:05 09/26/18 18:15 Labs: Abnormal Lab Results - Last 24 Hours (Table) 09/26/18 09/26/18 09/26/18 Range/Units 04:05 04:05 04:15 RBC 3.58 L (3.80-5.40) m/uL Hgb 9.6 L (11.4-16.0) gm/dL Hct 30.4 L (34.0-46.0) % ABG pH 7.54 H (7.35-7.45) ABG pO2 81 L (83-108) mmHg ABG HCO3 30 H (21-25) mmol/L ABG Total CO2 31 H (19-24) mmol/L BUN 26 H (7-17) mg/dL POC Glucose (mg/dL) (75-99) mg/dL 09/26/18 09/26/18 Range/Units 06:41 10:18 RBC (3.80-5.40) m/uL Hgb (11.4-16.0) gm/dL Hct (34.0-46.0) % ABG pH (7.35-7.45) ABG pO2 (83-108) mmHg ABG HCO3 (21-25) mmol/L ABG Total CO2 (19-24) mmol/L BUN (7-17) mg/dL POC Glucose (mg/dL) 71 L 101 H (75-99) mg/dL Microbiology - Last 24 Hours (Table) 09/21/18 05:32 Blood Culture - Preliminary Blood No Growth after 120 hours 09/21/18 23:35 Blood Culture - Preliminary Blood No Growth after 96 hours Assessment and Plan Assessment: Acute hypoxemic respiratory failure secondary to multifocal pneumonia suspected gram-negative organism. Currently on mechanical ventilator. Severe sepsis/Septic shock requiring pressor support on admission. Started back on pressors. Currently off pressors. Bibasilar pleural effusions acute CHF with mildly reduced ejection fraction 45-50%. valvular heart disease with aortic regurgitation, moderate aortic stenosis and moderate mitral regurgitation and mild pulmonary hypertension. Cardiac arrhythmia. Left bundle branch block. Started on low-dose beta blockers. Acute kidney injury improved. History of right-sided breast cancer COPD. History of CVA Hypertension Hyperlipidemia DVT prophylaxis with heparin subcu Plan: Patient be continued on antibiotics in the form of ceftriaxone and azithromycin. Continue with breathing treatments and IV Lasix. Critical care team is following closely. Cardiology is on board due to cardiac arrhythmia. Renal function is improved and leukocytosis resolved. Monitor H&H. Monitor strict I&O's and follow closely. Further recommendations based on the clinical course. Prognosis is guarded. Time with Patient: Greater than 30
[2018-09-27] MEDS: FUROSEMIDE 10 MG/ML 2 ML VIAL IV SCH ×4 (00:13→23:20)
[2018-09-27] MEDS: HEPARIN SODIUM,PORCINE 5,000 UNIT/ML 1 ML VIAL SQ SCH ×4 (00:13→23:20)
[2018-09-27] MEDS: IPRATROPIUM-ALBUTEROL 3 ML NEB INHALATION SCH ×6 (03:18→23:04)
[2018-09-27] MEDS: PROPOFOL 1,000 MG in EMPTY BAG 1 BAG IV SCH ×3 (03:22→21:41)
[2018-09-27 04:40] LABS: Basophils # (A) 0.1 k/uL (0-0.2); Basophils % (A) 1 %; Eosinophils # (A) 0.2 k/uL (0-0.7); Eosinophils % (A) 3 %; HCT 27.9 % (34.0-46.0); HGB 9.2 gm/dL (11.4-16.0); Hypochromasia Slight; Lymphocytes # (A) 0.9 k/uL (1.0-4.8); Lymphocytes % (A) 13 %; MCH 27.7 pg (25.0-35.0); MCV 83.9 fL (80.0-100.0); Monocytes # (A) 0.5 k/uL (0-1.0); Monocytes % (A) 8 %; Neutrophils # (A) 4.6 k/uL (1.3-7.7); Neutrophils % (A) 72 %; Platelet Count 247 k/uL (150-450); RBC 3.32 m/uL (3.80-5.40); RDW 14.8 % (11.5-15.5); WBC 6.4 k/uL (3.8-10.6)
[2018-09-27] MEDS: NOREPINEPHRINE 4 MG in SODIUM CHLORIDE 0.9% 250 ML IV SCH ×2 (04:43→23:19)
[2018-09-27 05:09] LABS: Calcium 9.1 mg/dL (8.4-10.2); Magnesium 2.2 mg/dL (1.6-2.3); Potassium 3.6 mmol/L (3.5-5.1)
[2018-09-27 05:15] LABS: ABG Base Excess 13.2 mmol/L; ABG HCO3 35 mmol/L (21-25); ABG Oxygen Saturation 96.7 % (94-97); ABG PCO2 37 mmHg (35-45); ABG PO2 78 mmHg (83-108); ABG TCO2 36 mmol/L (19-24); Allen Test Performed? Yes
[2018-09-27 05:20] LABS: ABG PH 7.59 (7.35-7.45)
[2018-09-27] MEDS ORDERED: DEXTROSE 5% IN WATER 100 ML with AMIODARONE 150 MG IV ONE (06:15)
[2018-09-27] MEDS ORDERED: AMIODARONE 360 MG in DEXTROSE 5% IN WATER 200 ML IV ONE ×2 (06:30)
--- NOTE | 2018-09-27 06:38 | XR ---
EXAMINATION TYPE: XR chest 1V portable DATE OF EXAM: 09/27/2018 HISTORY: intubation. REFERENCE: Previous study dated 09/26/2018. FINDINGS: The patient is NG tube is been repositioned. Its tip is now within the stomach. The patient is NG tube has been been advanced and is tip is now 1.4 cm above the srini. This should likely be w ithdrawn slightly. A left internal jugular catheter is in place. Its tip is in the right atrium. There is continuing bibasilar airspace disease. There are bilateral effusions. The heart is mildly en larged. IMPRESSION: 1. CONTINUING BIBASILAR AIRSPACE DISEASE. 2. CARDIOMEGALY. 3. SMALL EFFUSIONS. 4. THE PATIENT IS ET TUBE IS SOMEWHAT LOW-LYING AND SHOULD LIKELY BE WITHDRAWN SLIGHTLY.
--- NOTE | 2018-09-27 06:47 | P.PN ---
Subjective Progress Note Date: 09/27/18 Principal diagnosis: Cardiac arrhythmia This is a 78-year-old female patient with a past medical history significant for COPD, valvular heart disease, as well as multiple comorbid conditions was admitted to the hospital with shortness of breath and was diagnosed with acute hypoxic respiratory failure secondary to COPD exacerbation as well as sepsis pneumonia. We get involved in her care because of cardiac arrhythmia and the patient was experiencing intermittent and rate related LBBB. On follow-up with the patient today, September 272018, the patient continues to be intubated on mechanical ventilation. She failed weaning him yesterday. She continues to require small dose of norepinephrine. She continues to have intermittent episodes of wide-complex tachycardia and every time she does have that her blood pressure dropped down. She is on metoprolol. I am going to DC the metoprolol and start the patient on amiodarone was bolus and drip. Otherwise, the patient continues to be on Lasix IV. The chest x-ray showed bilateral pleural effusion. Objective - Vital Signs Vital signs: Vital Signs Temp 99.0 F 09/27/18 04:00 Pulse 85 09/27/18 05:00 Resp 25 H 09/27/18 05:00 BP 95/39 09/27/18 04:00 Pulse Ox 99 09/27/18 05:00 Intake & Output 09/26/18 09/26/18 09/27/18 06:59 18:59 06:59 Intake Total 431.446 959.752 694.598 Output Total 1162 2155 775 Balance -730.554 -1195.248 -80.402 Weight 89.2 kg 89.2 kg Intake: IV 241 657 235 Azithromycin 500 mg In 250 Sodium Chloride 0.9% 250 ml @ 250 mls/hr IVPB DAILY [facility] Rx#:[id number] Magnesium Sulfate-D5w Pmx 200 1 gm In Dextrose/Water 1 100ml.bag @ 100 mls/hr IVPB Q1H [facility] Rx#: [id number] Normal Saline Pressure 66 72 60 Bag Sodium Chloride 0.9% 1, 175 135 175 000 ml @ 20 mls/hr IV . Q24H [facility] Rx#:[id number] Intake, IV Titration 190.446 162.752 204.598 Amount Norepinephrine 4 mg In 11.694 20.616 Sodium Chloride 0.9% 250 ml @ 0.05 MCG/KG/MIN 15. 122 mls/hr IV .[id number] [facility] Rx#:[id number] Propofol 1,000 mg In 178.752 100 Empty Bag 1 bag @ Titrate IV .Q0M [facility] Rx#: [id number] Propofol 1,000 mg In 62.752 183.982 Empty Bag 1 bag @ Titrate IV .Q0M [facility] Rx#: [id number] Tube Feeding 40 195 Other 100 60 Output: Urine 1162 2155 775 Other: Voiding Method Indwelling Catheter Indwelling Catheter Indwelling Catheter # Bowel Movements 1 1 ABP, PAP, CO, CI - Last Documented Arterial Blood Pressure 108/27 - Constitutional General appearance: Present: no acute distress - Respiratory Respiratory: bilateral: CTA - Cardiovascular Rhythm: regular Heart sounds: normal: S1, S2 - Labs CBC & Chem 7: 09/27/18 04:28 09/27/18 04:28 Labs: Abnormal Lab Results - Last 24 Hours (Table) 09/26/18 09/26/18 09/27/18 Range/Units 10:18 23:23 04:28 RBC (3.80-5.40) m/uL Hgb (11.4-16.0) gm/dL Hct (34.0-46.0) % Lymphocytes # (1.0-4.8) k/uL ABG pH (7.35-7.45) ABG pO2 (83-108) mmHg ABG HCO3 (21-25) mmol/L ABG Total CO2 (19-24) mmol/L Carbon Dioxide 33 H (22-30) mmol/L BUN 27 H (7-17) mg/dL Glucose 102 H (74-99) mg/dL POC Glucose (mg/dL) 101 H 104 H (75-99) mg/dL 09/27/18 09/27/18 Range/Units 04:28 05:11 RBC 3.32 L (3.80-5.40) m/uL Hgb 9.2 L (11.4-16.0) gm/dL Hct 27.9 L (34.0-46.0) % Lymphocytes # 0.9 L (1.0-4.8) k/uL ABG pH 7.59 H* (7.35-7.45) ABG pO2 78 L (83-108) mmHg ABG HCO3 35 H (21-25) mmol/L ABG Total CO2 36 H (19-24) mmol/L Carbon Dioxide (22-30) mmol/L BUN (7-17) mg/dL Glucose (74-99) mg/dL POC Glucose (mg/dL) (75-99) mg/dL Microbiology - Last 24 Hours (Table) 09/21/18 23:35 Blood Culture - Preliminary Blood No Growth after 120 hours 09/21/18 05:32 Blood Culture - Preliminary Blood No Growth after 120 hours Assessment and Plan Assessment: Assessment #1 acute hypoxic respiratory failure #2 sepsis/pneumonia #3 acute renal failure which has improved #4 hemodynamic instability which has improved #5 cardiac arrhythmia #6 valvular heart disease #7 COPD #8 multiple comorbid conditions Plan #1 continue Lasix IV #2 DC metoprolol, and start the patient on amiodarone #3 continue the current medical regimen #4 continue following up with the patient Thank you for allowing us participate in her care and we'll continue following up with the patient
[2018-09-27] MEDS ORDERED: POTASSIUM BICARBONATE/CIT AC 20 MEQ TABLET.EFF NG-TUBE SCH (07:00)
[2018-09-27 07:01] LABS: Glucose,Whole Blood 126 mg/dL (75-99)
[2018-09-27] MEDS: PANTOPRAZOLE 40 MG/10 ML VIAL IV SCH (08:56)
[2018-09-27] MEDS: CHLORHEXIDINE GLUCONATE 15 ML CUP MUCOUS MEM SCH ×2 (08:58→20:30)
[2018-09-27] MEDS: AZITHROMYCIN 500 MG in SODIUM CHLORIDE 0.9% 250 ML IVPB SCH (08:58)
[2018-09-27] MEDS: AMIODARONE 300 MG in DEXTROSE 5% IN WATER 250 ML IV SCH ×2 (12:30)
--- NOTE | 2018-09-27 14:46 | P.PN ---
Subjective Progress Note Date: 09/27/18 A 78-year-old female patient who came in to the emergency department with respiratory failure. The patient has COPD, history of aortic regurgitation and hyperlipidemia and addition to a previous history of CVA, hypertension, and breast cancer. The patient was intubated and placed on a mechanical ventilator. She was septic, but I will and she was aggressively resuscitated with IV fluids and currently she is only a few mics of norepinephrine infusion for blood pressure support. She already has a triple lumen catheter in place. Chest x- ray from today shows adequate positioning of the orotracheal tube. The patient has still some cardiomegaly and bilateral layering of pleural effusion in addition to engorgement of the hilar vasculature and cardiac silhouettes. Overall his findings are more consistent with CHF, the patient is acting more like pneumonia/sepsis. She is afebrile. White cell count remains elevated at 18, and the patient's metabolic acidosis improving. Lactic acid level is down to 1.7. Renal function is normal with a creatinine of 0.9. The patient is currently receiving a combination of Rocephin and Zithromax. The patient is also on IV fluids with normal state rate of 100 mL an hour. Echocardiogram was sent and the results are still pending for now. The patient remains on a mechanical ventilator. On today's evaluation the patient is on a PEEP of 8 with an FiO2 of 50% and tidal volume of 400 with a rate of 25. The blood gases from today showed a pH of 7.32 with a pCO2 of 35 and a pO2 of 92. A sedation holiday will be given. Nevertheless, the patient is not ready for any weaning trials or possible extubation yet. She is producing adequate amount of urine output. No other significant events otherwise since yesterday. On 09/23/2018 and seeing this patient for a follow-up. This morning the patient is still sedated with Diprivan at 50 microvascular KG per minute. She is calm and comfortable. Hemodynamically she is stable and the patient is currently off pressors. She remains on a mechanical ventilator. She is an assist-control mode at the rate of 85 with a tidal volume of 400 with an FiO2 of 50% and a PEEP of 5. The chest x-ray from today is showing pulmonary vascular congestion and small effusions bilaterally. No significant sputum production. The blood cultures been negative. The patient remains on a combination of Rocephin and Zi thromax. The echocardiogram was done and the patient was found to have a mildly impaired LV function with an ejection fraction of 45-50%. There is evidence of severe aortic regurgitation, moderate aortic stenosis, moderate mitral regurgitation and right ventricular systolic pressure measured to be 29 mmHg. The net fluid balance over the past 24 hours is +2.6 L. The white cell count has improved and is down to 10.7. Blood gases from today showed a pH of 7.35 with a pCO2 of 35 and a pO2 of 113 and this was on FiO2 of 50%. She is tolerating her tube feeds. No other significant events overnight otherwise. On 09/24/2018 and seeing this patient for a follow-up. This morning she is quite comfortable and the patient is being weaned off the sedation. She is hemodynamically stable and the patient is being diuresed with IV Lasix 20 mg and fish every 12 hours. The patient remains a negative fluid balance. Chest x-ray shows small better pleural effusion. No significant orotracheal secretions. ET tube is in a good location. The patient remains and accommodation Rocephin and Zithromax. Cultures of been all negative. In terms of vent support, the patient is an assist-control mode at the rate of 25 with a total volume of 400 and FiO2 of 40% and a PEEP of 5. The morning blood gases showed a pH of 0.41 with a pCO2 of 38 and pO2 of 69 and this was done and FiO2 of 40%. Renal f unction is stable with a creatinine of 0.8. The rest of the electrodes are all within normal limits. Echocardiogram from yesterday was noted. We are in the process of taking this patient off sedation. I made recommendations to hold propofol. Following that the patient was monitored for another 30-60 minutes during which she was waking up nicely and she was following commands and answering questions. At that point, weaning parameters were checked and the patient was given a spontaneous breathing trial with a pressure support of 5 and a PEEP of 5. After doing that for another 20 minutes, the patient had a blood culture that showed a pH of 7.44 with a pCO2 of 38 and pO2 of 100. Based on all this, I made recommendations to extubate this patient. On 09/25/2089 patient seen in follow-up in the intensive care unit, patient was extubated yesterday, however within 2 hours of extubation she became very hypoxemic, respirations labored, and subsequently patient failed extubation, and had to be emergently reintubated. This morning she is intubated, on mechanical ventilator, and her current vent settings are assist control mode of ventilation with a rate of 25, tidal in the 400, FiO2 of 70%, and PEEP of 8, today's chest x-ray has been reviewed, and shows bilateral pleural effusions, and improving pulmonary edema. Patient is on IV diuretics, and she is in -3600 mL fluid balance over the last 24 hours. One episode of low-grade fever last night at 2000, afebrile this morning, blood, urine and sputum cultures have shown no growth thus far. Current antibiotic coverage in the form of Rocephin and Zithromax, IV Lasix at 20 mg every 8 hours. This morning's blood gases were reviewed, and showed pO2 of 154, pCO2 of 36, and pH of 7.51. White blood cell count is 7.2, hemoglobin is 9.5, electrolyte were within normal limits, BUN is 25 creatinine 0.82. Lung sounds are clear, diminished at the bases. Patient is nontender any vasopressor support. 0.9 normal saline every 20, and improving and is a 60 mics per kilo per minute. On 09/26/2018, I'm seeing this patient in follow-up in the intensive care units. Note that the patient was given initial trial of extubation 2 days ago and the patient failed and subsequently the patient had to be reintubated. Since then the patient is receiving diuresis and the patient remains in a negative fluid balance was receiving Lasix 20 mg of push every 8 hours. The net fluid balance has been -3.6 L from yesterday. Meanwhile, the chest x-ray from today showing some improvement in the volume status. There is persistence of mild card iomegaly and central vascular congestion and small bilateral pleural effusion which seems to be improved compared to yesterday. As for ET tube, this was a low-lying ET tube and was pushed out why around 1 cm. Meanwhile, the patient remains hemodynamically stable on no pressors. She remains afebrile. She is rating her tube feeds. She is on ventilator at the rate of 25 with a tidal volume of 400 and FiO2 has been drop down to 50% with a PEEP of 5 in the morning blood gases showed a pH of 7.54 with a pCO2 of 35 and pO2 of 81. Remains and accommodation Rocephin and Zithromax. No other significant events otherwise for now. We are the process of getting this patient a sedation holiday and possibly a spontaneous breathing trial On 09/27/2018 I'm seeing this patient for a follow-up. The patient was taken off sedation at 9 AM. I started around 11 AM and the patient was still not following commands. She would open eyes and move extremities and she would withdraw to painful stimulation. Nevertheless there was no meaningful reactions from her. Based on this, I decided to keep it off sedation monitor mental status over the next few hours. I tried to put on a spontaneous breathing trial with a pressure support of 5 and PEEP of 5 and she did poorly as the patient's tidal volumes were low and she became quite tachypneic and restless. I put her back on assist control and she did fine and when the process of continuing the sedation holiday for now. She is having low-grade fever. Sputum and blood culture will be sent. The patient for now is an assist-control mode of ventila tion. Her vent settings include assist control mode at the rate of 25 with a tidal volume of 400 with an FiO2 of 40% and a PEEP of 5. The chest x-ray showing some improvement in the volume status. ET tube is in a good location. Blood gases from this morning showed a component of metabolic alkalosis with a pH of 7.59 and a pCO2 of 36 and pO2 of 77. The patient was given a dose of Diamox to 250 mg IV push. The patient is started on IV Lasix 20 mg every 8 hours and the net fluid balance remains -1.7 L over the past 24 hours. Renal function remains stable with a creatinine of 0.7. She is tolerating his tube feeds. No other significant events overnight. She remains on an empiric antibiotic coverage with a combination of Rocephin and Zithromax. She is on few mics of norepinephrine infusion for hemodynamic support. Her cardiac rhythm is sinus. Objective - Vital Signs Vital signs: Vital Signs Temp 99.5 F 09/27/18 12:00 Pulse 75 09/27/18 14:00 Resp 25 H 09/27/18 14:00 BP 136/47 09/27/18 09:10 Pulse Ox 99 09/27/18 14:00 Intake & Output 09/26/18 09/27/18 09/27/18 18:59 06:59 18:59 Intake Total 959.752 931.223 563 Output Total 2155 875 1410 Balance -1195.248 56.223 -847 Weight 89.2 kg 86.4 kg Intake: IV 657 337 458 Azithromycin 500 mg In 250 250 Sodium Chloride 0.9% 250 ml @ 250 mls/hr IVPB DAILY [facility] Rx#:[id number] Magnesium Sulfate-D5w Pmx 200 1 gm In Dextrose/Water 1 100ml.bag @ 100 mls/hr IVPB Q1H [facility] Rx#: [id number] Normal Saline Pressure 72 72 48 Bag Sodium Chloride 0.9% 1, 135 215 160 000 ml @ 20 mls/hr IV . Q24H [facility] Rx#:[id number] cefTRIAXone 1 gm In 50 Sodium Chloride 0.9% 50 ml @ 100 mls/hr IVPB Q24H [facility] Rx#:[id number] Intake, IV Titration 162.752 269.223 Amount Norepinephrine 4 mg In 20.616 Sodium Chloride 0.9% 250 ml @ 0.05 MCG/KG/MIN 15. 122 mls/hr IV .[id number] [facility] Rx#:[id number] Propofol 1,000 mg In 100 Empty Bag 1 bag @ Titrate IV .Q0M [facility] Rx#: [id number] Propofol 1,000 mg In 62.752 248.607 Empty Bag 1 bag @ Titrate IV .Q0M [facility] Rx#: [id number] Tube Feeding 40 265 105 Other 100 60 Output: Urine 2155 875 1410 Other: Voiding Method Indwelling Catheter Indwelling Catheter Indwelling Catheter # Bowel Movements 1 1 ABP, PAP, CO, CI - Last Documented Arterial Blood Pressure 145/38 - Exam Gen. appearance, comfortable likely distress. Intubated on a mechanical ventilator. . She is following commands and opening up her eyes and moving all 4 extremities without any limitation. Head exam was generally normal. There was no scleral icterus or corneal arcus. Mucous membranes were moist. Neck was supple and without jugular venous distension, thyromegaly, or carotid bruits. Carotids were easily palpable bilaterally. There was no adenopathy. The patient has an orogastric and orotracheal tube are both in place. Lungs sounds are diminished in lung bases bilaterally otherwise clear. No wheezes overall currently crackles. Cardiac exam revealed the PMI to be normally situated and sized. The rhythm was regular and no extrasystoles were noted during several minutes of auscultation. The first and second heart sounds were normal and physiologic splitting of the second heart sound was noted. There were no murmurs, rubs, clicks, or gallops. Abdominal exam revealed normal bowel sounds. The abdomen was soft, non-tender, and without masses, organomegaly, or appreciable enlargement of the abdominal aorta. Examination of the extremities revealed easily palpable radial, femoral and pedal pulses. There was no cyanosis, clubbing or edema. Examination of the skin revealed no evidence of significant rashes, suspicious appearing nevi or other concerning lesions. Neurologically the patient is recovering from his sedation. She is now followi ng commands. She opens up her eyes and she withdraws to painful stimulation all 4 extremities. Pupils are equal and reactive to light. - Labs CBC & Chem 7: 09/27/18 04:28 09/27/18 04:28 Labs: Abnormal Lab Results - Last 24 Hours (Table) 09/26/18 09/27/18 09/27/18 Range/Units 23:23 04:28 04:28 RBC 3.32 L (3.80-5.40) m/uL Hgb 9.2 L (11.4-16.0) gm/dL Hct 27.9 L (34.0-46.0) % Lymphocytes # 0.9 L (1.0-4.8) k/uL ABG pH (7.35-7.45) ABG pO2 (83-108) mmHg ABG HCO3 (21-25) mmol/L ABG Total CO2 (19-24) mmol/L Carbon Dioxide 33 H (22-30) mmol/L BUN 27 H (7-17) mg/dL Glucose 102 H (74-99) mg/dL POC Glucose (mg/dL) 104 H (75-99) mg/dL 09/27/18 09/27/18 Range/Units 05:11 07:00 RBC (3.80-5.40) m/uL Hgb (11.4-16.0) gm/dL Hct (34.0-46.0) % Lymphocytes # (1.0-4.8) k/uL ABG pH 7.59 H* (7.35-7.45) ABG pO2 78 L (83-108) mmHg ABG HCO3 35 H (21-25) mmol/L ABG Total CO2 36 H (19-24) mmol/L Carbon Dioxide (22-30) mmol/L BUN (7-17) mg/dL Glucose (74-99) mg/dL POC Glucose (mg/dL) 126 H (75-99) mg/dL Microbiology - Last 24 Hours (Table) 09/21/18 05:32 Blood Culture - Final Blood No Growth after 144 hours 09/21/18 23:35 Blood Culture - Preliminary Blood No Growth after 120 hours Assessment and Plan Plan: 1 acute hypoxic respiratory failure secondary to a component of bilateral pneumonia/CHF. The patient failed initial extubation. His back and the patient remains on a mechanical ventilator. For now we'll continue diuresis for now to optimize her fluid balance. Her chest x-ray is showing some small effusions and cardiomegaly and some limited bibasilar airspace disease. The patient is having low-grade fever. Continue same antibiotic coverage. The culture the patient. 2 acute bilateral pulmonary infiltrates with pleural effusions probably combination of pneumonia/CHF. The patient has an ejection fraction of 45-50% in addition to that the patient has severe aortic regurgitation, moderate aortic stenosis as noted in the echocardiogram. 3 acute hypotension, recovered , on and off the patient is still requiring a low dose pressors for hemodynamic support. 4 acute kidney injury, improved 5 history of right-sided breast cancer 6 COPD 7 previous history of CVA 8 hypertension 9 hyperlipidemia 10 acute leukocytosis, recovered 11 mild lactic acidosis, improving, recovered 12 history of aortic regurgitation valvular heart disease, and echo of the heart showed an ejection fraction of 45% and the patient has severe aortic regurgitation, moderate aortic stenosis, moderate mitral regurgitation and mild degree of pulmonary hypertension. 13 leukocytosis, improved Plan Continue IV Lasix. Diamox to 50 mg every 12 hours. Sputum culture. Blood culture. Keep the patient off sedation. Check weaning parameters periodically and assess her candidacy to further wean. Continue rest of the supportive care. Electrolytes management. Fluid management. Pressors if needed. We'll continue to follow and make further recommendations based on her progress. Condition is critical. Evaluation was done more than 30 minutes. Time with Patient: Greater than 30
[2018-09-27 18:04] LABS: Glucose,Whole Blood 114 mg/dL (75-99)
[2018-09-27] MEDS: HALOPERIDOL LACTATE 5 MG/ML 1 ML VIAL IVP PRN ×2 (19:22→21:10)
[2018-09-27] MEDS: fentaNYL (PF) 50 MCG/ML 2 ML AMP IVP PRN (20:11)
--- NOTE | 2018-09-27 20:22 | PN ---
PROGRESS NOTE DATE OF SERVICE: 09/27/2018 PRESENTING COMPLAINT: Intubated. INTERVAL HISTORY: The patient is in the ICU. Remains intubated. Initially admitted with multilobar pneumonia, severe sepsis, COPD exacerbation. This morning, sedation was held. The patient remains on Levophed drip. Tube feeding has been getting at 30 mL an hour. The patient is on FiO2 of 40 and a PEEP of 5. The patient also had a wide-complex QRS. Did get beta fuentes yesterday but because of blood pressure, she was switched to amiodarone. The patient is opening a bit of eyes, but lethargic, barely following commands. REVIEW OF SYSTEMS: Patient is still very lethargic, intubated. CURRENT MEDICATIONS: Reviewed that include IV amiodarone, Zithromax, IV ceftriaxone, Levophed. Propofol has been held. EXAMINATION: Afebrile, pulse 81, respiration 25, blood pressure 137/76, pulse 100 percent on ventilator. GENERAL APPEARANCE: Lying in bed intubated. EYES: Pupils equal. Conjunctivae normal. NECK: JVD unable to assess. Mass not palpable. HENT: Endotracheal tube in place. Respiratory effort increased. LUNGS: Decreased breath sounds. CARDIOVASCULAR: First and second sounds normal. No edema. ABDOMEN: Soft, nontender. Liver and spleen not palpable. NEUROLOGICAL: Patient has movements of eyes, lethargic, not really following commands. INVESTIGATIONS: White count 6.4, hemoglobin 9.2. Blood gas showed a pH of 7.59. Potassium 3.6, BUN 27, creatinine 0.79. Chest x-ray film personally reviewed by me shows some infiltrate. ASSESSMENT: 1. Multilobar pneumonia, suspect gram-negative organism with severe sepsis, present on admission with clinical improvement. 2. Acute hypoxic respiratory failure requiring ventilator support from pneumonia. 3. Acute chronic obstructive pulmonary disease exacerbation in an ex-smoker. 4. Acute metabolic encephalopathy due to sepsis, some improvement. 5. Obesity, BMI more than 30. 6. Gastroesophageal reflux disease. 7. Essential hypertension, history of. 8. Hyperlipidemia. 9. Chronic kidney stage 2 from nephrosclerosis. 10.Septic shock. The patient did require pressure support, still on a small dose of Levophed. 11.Severe aortic regurgitation, moderate aortic stenosis, moderate mitral regurgitation, nonrheumatic. 12.Episodes of ventricular tachycardia for which patient is on amiodarone. PLAN: Patient still remains critical with slow improvement. We will see how the patient does with weaning. Antibiotics are to continue. Follow with Pulmonary. MMODL / IJN: [id number] /
[2018-09-27] MEDS: SODIUM CHLORIDE 0.9% 1,000 ML IV SCH (22:18)
[2018-09-27 23:34] LABS: Glucose,Whole Blood 114 mg/dL (75-99)
[2018-09-28] MEDS: IPRATROPIUM-ALBUTEROL 3 ML NEB INHALATION SCH ×6 (03:24→23:05)
[2018-09-28] MEDS: AMIODARONE 300 MG in DEXTROSE 5% IN WATER 250 ML IV SCH ×2 (03:58)
[2018-09-28 05:02] LABS: ABG Base Excess 7.7 mmol/L; ABG HCO3 31 mmol/L (21-25); ABG Oxygen Saturation 99.3 % (94-97); ABG PCO2 37 mmHg (35-45); ABG PH 7.52 (7.35-7.45); ABG PO2 147 mmHg (83-108); ABG TCO2 32 mmol/L (19-24); Allen Test Performed? Yes
[2018-09-28 05:04] LABS: Basophils # (A) 0.1 k/uL (0-0.2); Basophils % (A) 1 %; Eosinophils # (A) 0.3 k/uL (0-0.7); Eosinophils % (A) 4 %; HCT 27.9 % (34.0-46.0); HGB 8.7 gm/dL (11.4-16.0); Hypochromasia Slight; Lymphocytes # (A) 0.7 k/uL (1.0-4.8); Lymphocytes % (A) 9 %; MCH 26.6 pg (25.0-35.0); MCHC 31.2 g/dL (31.0-37.0); MCV 85.3 fL (80.0-100.0); Mean Platelet Volume 8.1; Monocytes # (A) 0.5 k/uL (0-1.0); Monocytes % (A) 6 %; Neutrophils # (A) 5.9 k/uL (1.3-7.7); Neutrophils % (A) 78 %; Platelet Count 302 k/uL (150-450); RBC 3.27 m/uL (3.80-5.40); RDW 14.9 % (11.5-15.5); WBC 7.6 k/uL (3.8-10.6)
[2018-09-28 05:23] LABS: Calcium 9.2 mg/dL (8.4-10.2); Magnesium 2.1 mg/dL (1.6-2.3); Phosphorus 3.6 mg/dL (2.5-4.5)
[2018-09-28] MEDS: POTASSIUM CHLORIDE 20 MEQ in WATER FOR INJECTION 1 100ML.BAG IVPB SCH ×5 (06:04→22:11)
[2018-09-28 06:18] LABS: Glucose,Whole Blood 115 mg/dL (75-99)
[2018-09-28] MEDS: AMIODARONE 200 MG TAB PO SCH ×2 (06:48→19:51)
--- NOTE | 2018-09-28 06:50 | XR ---
EXAMINATION TYPE: XR chest 1V portable DATE OF EXAM: 09/28/2018 HISTORY: intubation. REFERENCE: Previous study dated 09/27/2018. FINDINGS: The patient is ET tube and NG tube remain in place. The ET tube has been withdrawn slightly and its tip is now 2.8 cm above the srini in good position. Left internal jugular catheter has been removed. The heart is mildly prominent. There is vascular congestion. There is bibasilar airspace disease. The re are small effusions. IMPRESSION: 1. SATISFACTORY ET TUBE PLACEMENT. 2. BIBASILAR AIRSPACE DISEASE. 3. SMALL EFFUSIONS.
--- NOTE | 2018-09-28 07:05 | P.PN ---
Subjective Progress Note Date: 09/28/18 Principal diagnosis: Cardiac arrhythmia This is a 78-year-old female patient with a past medical history significant for COPD, valvular heart disease, as well as multiple comorbid conditions was admitted to the hospital with shortness of breath and was diagnosed with acute hypoxic respiratory failure secondary to COPD exacerbation as well as sepsis pneumonia. We get involved in her care because of cardiac arrhythmia and the patient was experiencing intermittent and rate related LBBB. On follow-up with the patient today, September 282018, the patient still intubated but she's of sedation and possibly extubated later on today. Yesterday I did stop the metoprolol and started the patient on amiodarone. She seems to be doing better on amiodarone and she is did not have any more episodes of wide- complex tachycardia. I am going to DC the amiodarone IV and start the patient on amiodarone by mouth. She continues to be on Lasix IV. We'll follow-up with the chest x-ray. Objective - Vital Signs Vital signs: Vital Signs Temp 99.7 F H 09/28/18 04:00 Pulse 85 09/28/18 06:00 Resp 25 H 09/28/18 06:00 BP 136/47 09/27/18 22:00 Pulse Ox 99 09/28/18 06:00 Intake & Output 09/27/18 09/28/18 09/28/18 18:59 06:59 18:59 Intake Total 863 1321.711 Output Total 1840 1645 Balance -977 -323.289 Weight 84.2 kg Intake: IV 588 336 Azithromycin 500 mg In 250 Sodium Chloride 0.9% 250 ml @ 250 mls/hr IVPB DAILY [facility] Rx#:[id number] Normal Saline Pressure 78 66 Bag Sodium Chloride 0.9% 1, 260 220 000 ml @ 20 mls/hr IV . Q24H [facility] Rx#:[id number] cefTRIAXone 1 gm In 50 Sodium Chloride 0.9% 50 ml @ 100 mls/hr IVPB Q24H [facility] Rx#:[id number] Intake, IV Titration 100 405.711 Amount Amiodarone 300 mg In 250 Dextrose 5% in Water 250 ml @ 0.5 MG/MIN 25 mls/hr IV .Q10H [facility] Rx#: [id number] Norepinephrine 4 mg In 117.445 Sodium Chloride 0.9% 250 ml @ 0.05 MCG/KG/MIN 15. 122 mls/hr IV .[id number] [facility] Rx#:[id number] Propofol 1,000 mg In 100 38.266 Empty Bag 1 bag @ Titrate IV .Q0M [facility] Rx#: [id number] Tube Feeding 175 490 Other 90 Output: Urine 1840 1645 Other: Voiding Method Indwelling Catheter Indwelling Catheter # Bowel Movements 1 ABP, PAP, CO, CI - Last Documented Arterial Blood Pressure 126/34 - Constitutional General appearance: Present: no acute distress - Respiratory Respiratory: bilateral: CTA - Cardiovascular Rhythm: regular Heart sounds: normal: S1, S2 - Labs CBC & Chem 7: 09/28/18 04:50 09/28/18 04:50 Labs: Abnormal Lab Results - Last 24 Hours (Table) 09/27/18 09/27/18 09/28/18 Range/Units 18:02 23:32 04:50 RBC 3.27 L (3.80-5.40) m/uL Hgb 8.7 L (11.4-16.0) gm/dL Hct 27.9 L (34.0-46.0) % Lymphocytes # 0.7 L (1.0-4.8) k/uL ABG pH (7.35-7.45) ABG pO2 (83-108) mmHg ABG HCO3 (21-25) mmol/L ABG Total CO2 (19-24) mmol/L ABG O2 Saturation (94-97) % Potassium (3.5-5.1) mmol/L Carbon Dioxide (22-30) mmol/L BUN (7-17) mg/dL Glucose (74-99) mg/dL POC Glucose (mg/dL) 114 H 114 H (75-99) mg/dL 09/28/18 09/28/18 09/28/18 Range/Units 04:50 04:57 06:17 RBC (3.80-5.40) m/uL Hgb (11.4-16.0) gm/dL Hct (34.0-46.0) % Lymphocytes # (1.0-4.8) k/uL ABG pH 7.52 H (7.35-7.45) ABG pO2 147 H (83-108) mmHg ABG HCO3 31 H (21-25) mmol/L ABG Total CO2 32 H (19-24) mmol/L ABG O2 Saturation 99.3 H (94-97) % Potassium 3.0 L (3.5-5.1) mmol/L Carbon Dioxide 31 H (22-30) mmol/L BUN 26 H (7-17) mg/dL Glucose 124 H (74-99) mg/dL POC Glucose (mg/dL) 115 H (75-99) mg/dL Microbiology - Last 24 Hours (Table) 09/21/18 23:35 Blood Culture - Final Blood No Growth after 144 hours 09/27/18 19:13 Gram Stain - Preliminary Sputum Sputum Culture - Preliminary 09/21/18 05:32 Blood Culture - Final Blood No Growth after 144 hours Assessment and Plan Assessment: Assessment #1 acute hypoxic respiratory failure #2 sepsis/pneumonia #3 acute renal failure which has improved #4 hemodynamic instability which has improved #5 cardiac arrhythmia #6 valvular heart disease #7 COPD #8 multiple comorbid conditions Plan #1 DC amiodarone IV and start the patient on amiodarone by mouth #2 continue Lasix IV. We will follow-up with a chest x-ray #3 the patient's possible would be extubated later on today Thank you for allowing us participate in her care and we'll continue following up with the patient
[2018-09-28] MEDS: FUROSEMIDE 10 MG/ML 2 ML VIAL IV SCH (08:22)
[2018-09-28] MEDS: CHLORHEXIDINE GLUCONATE 15 ML CUP MUCOUS MEM SCH ×3 (08:22→19:43)
[2018-09-28] MEDS: PANTOPRAZOLE 40 MG/10 ML VIAL IV SCH (08:22)
[2018-09-28] MEDS: AZITHROMYCIN 500 MG in SODIUM CHLORIDE 0.9% 250 ML IVPB SCH (08:23)
[2018-09-28] MEDS: HEPARIN SODIUM,PORCINE 5,000 UNIT/ML 1 ML VIAL SQ SCH ×2 (08:23→16:47)
[2018-09-28] MEDS ORDERED: LORazepam 2 MG/ML INJ IV STA ×2 (09:44→10:33)
[2018-09-28] MEDS ORDERED: FUROSEMIDE 10 MG/ML 4 ML VIAL IV STA (10:33)
[2018-09-28] MEDS ORDERED: CHLORHEXIDINE GLUCONATE 15 ML CUP MUCOUS MEM ONE (10:58)
[2018-09-28] MEDS ORDERED: MORPHINE SULFATE 2 MG/ML SYRINGE IVP STA (11:22)
[2018-09-28] MEDS ORDERED: CISATRACURIUM 2 MG/ML 5 ML VIAL IV ONE (11:23)
[2018-09-28] MEDS: PROPOFOL 1,000 MG in EMPTY BAG 1 BAG IV SCH ×2 (11:43→19:42)
--- NOTE | 2018-09-28 11:53 | XR ---
EXAMINATION TYPE: XR chest 1V portable DATE OF EXAM: 09/28/2018 HISTORY: post intubation. REFERENCE: Previous study dated 09/28/2018. FINDINGS: The patient is ET tube and NG tube remain in place, unchanged in appearance. There is perihilar density which May represent perihilar pneumonias or batwing edema. The entire righ t CP angle was not visualized. The left is clear. The heart is upper limits of normal in size. IMPRESSION: BATTLING OPACIFICATION OF THE CHEST MAY REPRESENT BATWING EDEMA OR PERIHILAR INFILTRATES.
[2018-09-28 11:57] LABS: Glucose,Whole Blood 155 mg/dL (75-99)
[2018-09-28 12:28] LABS: ABG Base Excess -0.3 mmol/L; ABG HCO3 25 mmol/L (21-25); ABG Oxygen Saturation 99.6 % (94-97); ABG PCO2 43 mmHg (35-45); ABG PH 7.37 (7.35-7.45); ABG PO2 329 mmHg (83-108); ABG TCO2 26 mmol/L (19-24)
[2018-09-28 12:30] LABS: Allen Test Performed? no
[2018-09-28] MEDS: FUROSEMIDE 100 MG in SODIUM CHLORIDE 0.9% 90 ML IV SCH (12:45)
[2018-09-28] MEDS ORDERED: VANCOMYCIN IV PER PHARMACY 1 EACH MISC MISCELLANE PRN (13:18)
--- NOTE | 2018-09-28 13:22 | P.PN ---
Subjective Progress Note Date: 09/28/18 A 78-year-old female patient who came in to the emergency department with respiratory failure. The patient has COPD, history of aortic regurgitation and hyperlipidemia and addition to a previous history of CVA, hypertension, and breast cancer. The patient was intubated and placed on a mechanical ventilator. She was septic, but I will and she was aggressively resuscitated with IV fluids and currently she is only a few mics of norepinephrine infusion for blood pressure support. She already has a triple lumen catheter in place. Chest x- ray from today shows adequate positioning of the orotracheal tube. The patient has still some cardiomegaly and bilateral layering of pleural effusion in addition to engorgement of the hilar vasculature and cardiac silhouettes. Overall his findings are more consistent with CHF, the patient is acting more like pneumonia/sepsis. She is afebrile. White cell count remains elevated at 18, and the patient's metabolic acidosis improving. Lactic acid level is down to 1.7. Renal function is normal with a creatinine of 0.9. The patient is currently receiving a combination of Rocephin and Zithromax. The patient is also on IV fluids with normal state rate of 100 mL an hour. Echocardiogram was sent and the results are still pending for now. The patient remains on a mechanical ventilator. On today's evaluation the patient is on a PEEP of 8 with an FiO2 of 50% and tidal volume of 400 with a rate of 25. The blood gases from today showed a pH of 7.32 with a pCO2 of 35 and a pO2 of 92. A sedation holiday will be given. Nevertheless, the patient is not ready for any weaning trials or possible extubation yet. She is producing adequate amount of urine output. No other significant events otherwise since yesterday. On 09/23/2018 and seeing this patient for a follow-up. This morning the patient is still sedated with Diprivan at 50 microvascular KG per minute. She is calm and comfortable. Hemodynamically she is stable and the patient is currently off pressors. She remains on a mechanical ventilator. She is an assist-control mode at the rate of 85 with a tidal volume of 400 with an FiO2 of 50% and a PEEP of 5. The chest x-ray from today is showing pulmonary vascular congestion and small effusions bilaterally. No significant sputum production. The blood cultures been negative. The patient remains on a combination of Rocephin and Zi thromax. The echocardiogram was done and the patient was found to have a mildly impaired LV function with an ejection fraction of 45-50%. There is evidence of severe aortic regurgitation, moderate aortic stenosis, moderate mitral regurgitation and right ventricular systolic pressure measured to be 29 mmHg. The net fluid balance over the past 24 hours is +2.6 L. The white cell count has improved and is down to 10.7. Blood gases from today showed a pH of 7.35 with a pCO2 of 35 and a pO2 of 113 and this was on FiO2 of 50%. She is tolerating her tube feeds. No other significant events overnight otherwise. On 09/24/2018 and seeing this patient for a follow-up. This morning she is quite comfortable and the patient is being weaned off the sedation. She is hemodynamically stable and the patient is being diuresed with IV Lasix 20 mg and fish every 12 hours. The patient remains a negative fluid balance. Chest x-ray shows small better pleural effusion. No significant orotracheal secretions. ET tube is in a good location. The patient remains and accommodation Rocephin and Zithromax. Cultures of been all negative. In terms of vent support, the patient is an assist-control mode at the rate of 25 with a total volume of 400 and FiO2 of 40% and a PEEP of 5. The morning blood gases showed a pH of 0.41 with a pCO2 of 38 and pO2 of 69 and this was done and FiO2 of 40%. Renal f unction is stable with a creatinine of 0.8. The rest of the electrodes are all within normal limits. Echocardiogram from yesterday was noted. We are in the process of taking this patient off sedation. I made recommendations to hold propofol. Following that the patient was monitored for another 30-60 minutes during which she was waking up nicely and she was following commands and answering questions. At that point, weaning parameters were checked and the patient was given a spontaneous breathing trial with a pressure support of 5 and a PEEP of 5. After doing that for another 20 minutes, the patient had a blood culture that showed a pH of 7.44 with a pCO2 of 38 and pO2 of 100. Based on all this, I made recommendations to extubate this patient. On 09/25/2089 patient seen in follow-up in the intensive care unit, patient was extubated yesterday, however within 2 hours of extubation she became very hypoxemic, respirations labored, and subsequently patient failed extubation, and had to be emergently reintubated. This morning she is intubated, on mechanical ventilator, and her current vent settings are assist control mode of ventilation with a rate of 25, tidal in the 400, FiO2 of 70%, and PEEP of 8, today's chest x-ray has been reviewed, and shows bilateral pleural effusions, and improving pulmonary edema. Patient is on IV diuretics, and she is in -3600 mL fluid balance over the last 24 hours. One episode of low-grade fever last night at 2000, afebrile this morning, blood, urine and sputum cultures have shown no growth thus far. Current antibiotic coverage in the form of Rocephin and Zithromax, IV Lasix at 20 mg every 8 hours. This morning's blood gases were reviewed, and showed pO2 of 154, pCO2 of 36, and pH of 7.51. White blood cell count is 7.2, hemoglobin is 9.5, electrolyte were within normal limits, BUN is 25 creatinine 0.82. Lung sounds are clear, diminished at the bases. Patient is nontender any vasopressor support. 0.9 normal saline every 20, and improving and is a 60 mics per kilo per minute. On 09/26/2018, I'm seeing this patient in follow-up in the intensive care units. Note that the patient was given initial trial of extubation 2 days ago and the patient failed and subsequently the patient had to be reintubated. Since then the patient is receiving diuresis and the patient remains in a negative fluid balance was receiving Lasix 20 mg of push every 8 hours. The net fluid balance has been -3.6 L from yesterday. Meanwhile, the chest x-ray from today showing some improvement in the volume status. There is persistence of mild card iomegaly and central vascular congestion and small bilateral pleural effusion which seems to be improved compared to yesterday. As for ET tube, this was a low-lying ET tube and was pushed out why around 1 cm. Meanwhile, the patient remains hemodynamically stable on no pressors. She remains afebrile. She is rating her tube feeds. She is on ventilator at the rate of 25 with a tidal volume of 400 and FiO2 has been drop down to 50% with a PEEP of 5 in the morning blood gases showed a pH of 7.54 with a pCO2 of 35 and pO2 of 81. Remains and accommodation Rocephin and Zithromax. No other significant events otherwise for now. We are the process of getting this patient a sedation holiday and possibly a spontaneous breathing trial On 09/27/2018 I'm seeing this patient for a follow-up. The patient was taken off sedation at 9 AM. I started around 11 AM and the patient was still not following commands. She would open eyes and move extremities and she would withdraw to painful stimulation. Nevertheless there was no meaningful reactions from her. Based on this, I decided to keep it off sedation monitor mental status over the next few hours. I tried to put on a spontaneous breathing trial with a pressure support of 5 and PEEP of 5 and she did poorly as the patient's tidal volumes were low and she became quite tachypneic and restless. I put her back on assist control and she did fine and when the process of continuing the sedation holiday for now. She is having low-grade fever. Sputum and blood culture will be sent. The patient for now is an assist-control mode of ventila tion. Her vent settings include assist control mode at the rate of 25 with a tidal volume of 400 with an FiO2 of 40% and a PEEP of 5. The chest x-ray showing some improvement in the volume status. ET tube is in a good location. Blood gases from this morning showed a component of metabolic alkalosis with a pH of 7.59 and a pCO2 of 36 and pO2 of 77. The patient was given a dose of Diamox to 250 mg IV push. The patient is started on IV Lasix 20 mg every 8 hours and the net fluid balance remains -1.7 L over the past 24 hours. Renal function remains stable with a creatinine of 0.7. She is tolerating his tube feeds. No other significant events overnight. She remains on an empiric antibiotic coverage with a combination of Rocephin and Zithromax. She is on few mics of norepinephrine infusion for hemodynamic support. Her cardiac rhythm is sinus. On 09/28/2018 I'm seeing this patient for a follow-up. This morning the patient looked great. She has been off sedation since 4 AM in the morning and the patient was following commands and she was hemodynamically stable. She has diur esed aggressively over the past 24 hours and 48 hours and the patient has been negative fluid balance. She also has received regarding metabolic alkalosis. Earlier this morning the patient's pH was at 7.52 with a pCO2 of 37 and pO2 147. Chest x-ray was showing improvement in the CHF findings. Based on that, I made a decision to give the patient spontaneous breathing trial and the subsequent ex tubated the patient. Within one hour of extubation the patient failed and she went into a full-blown acute pulmonary edema. The patient had bilateral pulmonary edema right more than left. She had to be reintubated. Excessive amount of frothy secretions were suctioned from the ET tube following the extubation. She was placed back on a mechanical ventilator at the same setting and the patient subsequent blood cultures showed a pH of 7.37 with a pCO2 of 43 and pO2 of 70 on and this was on FiO2 100% with a PEEP of 12. Tidal volume was at 500 with a rate of 25. At this point in time, the FiO2 was gradually weaned off. The patient is currently on propofol. She was having some low-grade fever. Blood cultures were sent and the cultures came back positive for gram-positive cocci. I'm in the process of switching her antibiotics. She'll be taken off the Rocephin and Zithromax in place and accommodation Zosyn and vancomycin. She has no significant leukocytosis. The gram-positive and the blood could be potentially colonization. At the same time, I'm going to put this patient on Lasix drip at 5 mg an hour to diuresis him aggressively. Levo fed will be utilized for hemodynamic support. She has significant valvular heart disease and regurgitation with stenosis. Objective - Vital Signs Vital signs: Vital Signs Temp 99.1 F 09/28/18 12:00 Pulse 90 09/28/18 12:30 Resp 30 H 09/28/18 12:30 BP 186/75 09/28/18 12:30 Pulse Ox 100 09/28/18 12:30 Intake & Output 09/27/18 09/28/18 09/28/18 18:59 06:59 18:59 Intake Total 863 1321.711 669.531 Output Total 1840 1645 875 Balance -977 -323.289 -205.469 Weight 84.2 kg Intake: IV 588 336 406 Azithromycin 500 mg In 250 250 Sodium Chloride 0.9% 250 ml @ 250 mls/hr IVPB DAILY [facility] Rx#:[id number] Normal Saline Pressure 78 66 36 Bag Sodium Chloride 0.9% 1, 260 220 120 000 ml @ 20 mls/hr IV . Q24H [facility] Rx#:[id number] cefTRIAXone 1 gm In 50 Sodium Chloride 0.9% 50 ml @ 100 mls/hr IVPB Q24H [facility] Rx#:[id number] Intake, IV Titration 100 405.711 228.531 Amount Amiodarone 300 mg In 250 Dextrose 5% in Water 250 ml @ 0.5 MG/MIN 25 mls/hr IV .Q10H [facility] Rx#: [id number] Norepinephrine 4 mg In 117.445 28.531 Sodium Chloride 0.9% 250 ml @ 0.05 MCG/KG/MIN 15. 122 mls/hr IV .[id number] [facility] Rx#:[id number] Potassium Chloride 20 meq 200 In Water For Injection 1 100ml.bag @ 50 mls/hr IVPB Q2H [facility] Rx#: [id number] Propofol 1,000 mg In 100 38.266 0 Empty Bag 1 bag @ Titrate IV .Q0M [facility] Rx#: [id number] Tube Feeding 175 490 35 Other 90 Output: Urine 1840 1645 875 Other: Voiding Method Indwelling Catheter Indwelling Catheter Indwelling Catheter # Bowel Movements 1 ABP, PAP, CO, CI - Last Documented Arterial Blood Pressure 145/53 - Exam Gen. appearance, comfortable likely distress. Intubated on a mechanical ventilator. . She is following commands and opening up her eyes and moving all 4 extremities without any limitation. Head exam was generally normal. There was no scleral icterus or corneal arcus. Mucous membranes were moist. Neck was supple and without jugular venous distension, thyromegaly, or carotid bruits. Carotids were easily palpable bilaterally. There was no adenopathy. The patient has an orogastric and orotracheal tube are both in place. Lungs sounds are diminished in lung bases bilaterally otherwise clear. No wheezes overall currently crackles. Cardiac exam revealed the PMI to be normally situated and sized. The rhythm was regular and no extrasystoles were noted during several minutes of auscultation. The first and second heart sounds were normal and physiologic splitting of the second heart sound was noted. There were no murmurs, rubs, clicks, or gallops. Abdominal exam revealed normal bowel sounds. The abdomen was soft, non-tender, and without masses, organomegaly, or appreciable enlargement of the abdominal aorta. Examination of the extremities revealed easily palpable radial, femoral and pe rosemary pulses. There was no cyanosis, clubbing or edema. Examination of the skin revealed no evidence of significant rashes, suspicious appearing nevi or other concerning lesions. Neurologically the patient is recovering from his sedation. She is now following commands. She opens up her eyes and she withdraws to painful stimulation all 4 extremities. Pupils are equal and reactive to light. - Labs CBC & Chem 7: 09/28/18 04:50 09/28/18 04:50 Labs: Abnormal Lab Results - Last 24 Hours (Table) 09/27/18 09/27/18 09/28/18 Range/Units 18:02 23:32 04:50 RBC 3.27 L (3.80-5.40) m/uL Hgb 8.7 L (11.4-16.0) gm/dL Hct 27.9 L (34.0-46.0) % Lymphocytes # 0.7 L (1.0-4.8) k/uL ABG pH (7.35-7.45) ABG pO2 (83-108) mmHg ABG HCO3 (21-25) mmol/L ABG Total CO2 (19-24) mmol/L ABG O2 Saturation (94-97) % Potassium (3.5-5.1) mmol/L Carbon Dioxide (22-30) mmol/L BUN (7-17) mg/dL Glucose (74-99) mg/dL POC Glucose (mg/dL) 114 H 114 H (75-99) mg/dL 09/28/18 09/28/18 09/28/18 Range/Units 04:50 04:57 06:17 RBC (3.80-5.40) m/uL Hgb (11.4-16.0) gm/dL Hct (34.0-46.0) % Lymphocytes # (1.0-4.8) k/uL ABG pH 7.52 H (7.35-7.45) ABG pO2 147 H (83-108) mmHg ABG HCO3 31 H (21-25) mmol/L ABG Total CO2 32 H (19-24) mmol/L ABG O2 Saturation 99.3 H (94-97) % Potassium 3.0 L (3.5-5.1) mmol/L Carbon Dioxide 31 H (22-30) mmol/L BUN 26 H (7-17) mg/dL Glucose 124 H (74-99) mg/dL POC Glucose (mg/dL) 115 H (75-99) mg/dL 09/28/18 09/28/18 Range/Units 11:54 12:26 RBC (3.80-5.40) m/uL Hgb (11.4-16.0) gm/dL Hct (34.0-46.0) % Lymphocytes # (1.0-4.8) k/uL ABG pH (7.35-7.45) ABG pO2 329 H (83-108) mmHg ABG HCO3 (21-25) mmol/L ABG Total CO2 26 H (19-24) mmol/L ABG O2 Saturation 99.6 H (94-97) % Potassium (3.5-5.1) mmol/L Carbon Dioxide (22-30) mmol/L BUN (7-17) mg/dL Glucose (74-99) mg/dL POC Glucose (mg/dL) 155 H (75-99) mg/dL Microbiology - Last 24 Hours (Table) 09/27/18 17:53 Blood Culture - Final Blood 09/21/18 23:35 Blood Culture - Final Blood No Growth after 144 hours 09/27/18 19:13 Gram Stain - Preliminary Sputum Sputum Culture - Preliminary Assessment and Plan Plan: 1 acute hypoxic respiratory failure secondary to a component of bilateral p neumonia/CHF. The patient had 2 attempts with extubation and the patient failed again this morning. She went into flash pulmonary edema and based on that she had to be reintubated. I think she has significant amount of fluid overload and valvular heart disease contributing to her recurrent pulmonary edema especially post extubation and following her being switched from positive to negative pres sure ventilation. 2 acute bilateral pulmonary infiltrates with pleural effusions probably combination of pneumonia/CHF. The patient has an ejection fraction of 45-50% in addition to that the patient has severe aortic regurgitation, moderate aortic stenosis as noted in the echocardiogram. 3 acute hypotension, recovered , on and off the patient is still requiring a low dose pressors for hemodynamic support. 4 acute kidney injury, improved 5 history of right-sided breast cancer 6 COPD 7 previous history of CVA 8 hypertension 9 hyperlipidemia 10 acute leukocytosis, recovered 11 mild lactic acidosis, improving, recovered 12 history of aortic regurgitation valvular heart disease, and echo of the heart showed an ejection fraction of 45% and the patient has severe aortic regurgitation, moderate aortic stenosis, moderate mitral regurgitation and mild degree of pulmonary hypertension. 13 leukocytosis, improved 14 possible culture with gram-positive cocci, consider contamination. Plan The patient on Lasix drip at 5 mg an hour. Note that the patient had to be intubated. Continue Diamox 250 mg every 12 hours. Discontinue the Rocephin and Zithromax and put the patient on Zosyn and vancomycin. Restart sedation for now. Restart tube feeds. Continue supportive care. Monitor electrolytes. Currently the patient and a PEEP of 12 with an FiO2 of 100%. FiO2 will be gradually weaned off. The PEEP was also weaned off. Discussed the findings with cardiology and there is a high likelihood the patient has been having recurrent pulmonary edema secondary to her valvular heart disease. We'll continue to follow. We'll keep a negative fluid balance. The patient to be intubated. This is her second failed attempt for weaning. Further from additional to follow based on her progress. Evaluation was done more than 30 minutes. Time with Patient: Greater than 30
[2018-09-28] MEDS: VANCOMYCIN 1,750 MG in SODIUM CHLORIDE 0.9% 500 ML 500 ML IVPB SCH (14:28)
[2018-09-28] MEDS: NOREPINEPHRINE 4 MG in SODIUM CHLORIDE 0.9% 250 ML IV SCH (14:30)
[2018-09-28] MEDS: PIPERACILLIN-TAZOBACTAM 3.375 GM in SODIUM CHLORIDE 0.9% 100 ML IVPB SCH (16:54)
--- NOTE | 2018-09-28 17:41 | PCN ---
PROCEDURE NOTE PROCEDURE NOTE: Intubation. PREOP DIAGNOSIS: Acute pulmonary edema. POSTOP DIAGNOSIS: Acute pulmonary edema. ENDOTRACHEAL INTUBATION: Indication: Respiratory compromise. A time-out was completed verifying correct patient, procedure, site, positioning, and implant(s) or special equipment if applicable. The patient was positioned appropriately. I used a #4 Govea blade. Intubated the patient with #8 orotracheal tube, placed under direct laryngoscopy. The tube was anchored at 22 cm at the teeth. Correct placement was confirmed by presence of bilateral breath sounds without air sounds in the abdomen on auscultation. An end- tidal CO2 monitor was also used to confirm tracheal placement of the ET tube. A chest x-ray was ordered to assess for pneumothorax and verify endotracheal tube placement. The patient tolerated the procedure well and there were no complications. MMODL / IJN: [id number] /
[2018-09-28 18:25] LABS: Glucose,Whole Blood 113 mg/dL (75-99)
[2018-09-28] MEDS ORDERED: Potassium Replacement Protocol 1 EACH MISC MISCELLANE PRN (18:31)
[2018-09-28] MEDS ORDERED: POTASSIUM CHLORIDE ER 20 MEQ TAB.ER PO SCH (20:00)
[2018-09-28] MEDS: SODIUM CHLORIDE 0.9% 1,000 ML IV SCH (20:34)
[2018-09-28] MEDS: ACETAMINOPHEN IV (For NPO) 1,000 MG in EMPTY BAG 1 BAG IVPB PRN (22:12)
--- NOTE | 2018-09-28 23:32 | PN ---
PROGRESS NOTE DATE OF SERVICE: 09/28/2018. PRESENTING COMPLAINT: Intubated. INTERVAL HISTORY: Patient remains in the ICU. The patient was extubated this morning, went into pulmonary edema and then was reintubated. The patient was initially admitted for multilobar pneumonia, sepsis, COPD exacerbation. Later patient was put back on propofol and Levophed. Also put on a Lasix drip. Currently sedated. REVIEW OF SYSTEMS: Patient is sedated, on propofol. CURRENT MEDICATIONS: Reviewed that include IV propofol, IV Lasix drip, IV Levophed, antibiotics in form of Zosyn and vancomycin. PHYSICAL EXAMINATION: Temperature 98.9, pulse 84, respirations 28, blood pressure 120/46 and 142/36, pulse ox 92 percent on FiO2 15 and a PEEP of 5. GENERAL: Lying in bed intubated. EYES: Pupils equal. Conjunctivae normal. NECK: JVD unable to assess. Mass not palpable. RESPIRATORY: Effort increased. LUNGS: Decreased breath sounds. HEENT: Endotracheal tube in place. CARDIOVASCULAR: 1st and 2nd sounds normal. No edema. ABDOMEN: Soft, nontender. Liver and spleen not palpable. INVESTIGATIONS: White count 7.6, hemoglobin 8.7, platelets 302. Blood gas showed pH of 7.52, potassium 3, BUN 26, creatinine 1.0. Chest x-ray film shows some infiltrate. ASSESSMENT: 1. Multilobar pneumonia, suspect gram-negative organism with severe sepsis present on admission. 2. Acute hypoxic respiratory failure requiring ventilator support from underlying pneumonia. The patient was extubated today on , had to be reintubated. 3. Acute chronic obstructive pulmonary disease exacerbation in an ex-smoker. 4. Acute metabolic encephalopathy due to sepsis. 5. Obesity; BMI more than 30. 6. Gastroesophageal reflux disease. 7. Essential hypertension, history of. 8. Septic shock. The patient remains on pressure support. 9. 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 10.Severe aortic regurgitation, moderate aortic stenosis, moderate mitral regurgitation, nonrheumatic. 11.Ventricular tachycardia. 12.Severe alkalosis, probably a mixed picture. PLAN: Prognosis remains guarded. The patient failed extubation and went into pulmonary edema. The patient seems to be in significant alkalosis and will benefit from Diamox. Prognosis is guarded. Remains critically ill. MMODL / IJN: [id number] /
[2018-09-28 23:34] LABS: Glucose,Whole Blood 113 mg/dL (75-99)
[2018-09-29] MEDS: PIPERACILLIN-TAZOBACTAM 3.375 GM in SODIUM CHLORIDE 0.9% 100 ML IVPB SCH ×4 (01:14→23:58)
[2018-09-29] MEDS: POTASSIUM CHLORIDE 20 MEQ in WATER FOR INJECTION 1 100ML.BAG IVPB SCH ×2 (01:15→03:24)
[2018-09-29] MEDS: HEPARIN SODIUM,PORCINE 5,000 UNIT/ML 1 ML VIAL SQ SCH ×3 (01:15→15:09)
[2018-09-29] MEDS: NOREPINEPHRINE 4 MG in SODIUM CHLORIDE 0.9% 250 ML IV SCH ×2 (01:27→18:03)
[2018-09-29] MEDS: IPRATROPIUM-ALBUTEROL 3 ML NEB INHALATION SCH ×6 (03:05→23:08)
[2018-09-29 04:06] LABS: ABG Base Excess 2.1 mmol/L; ABG HCO3 26 mmol/L (21-25); ABG PCO2 36 mmHg (35-45); ABG PH 7.46 (7.35-7.45); ABG PO2 85 mmHg (83-108); ABG TCO2 27 mmol/L (19-24)
[2018-09-29] MEDS: FUROSEMIDE 100 MG in SODIUM CHLORIDE 0.9% 90 ML IV SCH (04:24)
[2018-09-29 04:27] LABS: Allen Test Performed? no
[2018-09-29 04:27] LABS: Basophils # (A) 0.1 k/uL (0-0.2); Basophils % (A) 1 %; Eosinophils # (A) 0.5 k/uL (0-0.7); Eosinophils % (A) 4 %; HCT 31.9 % (34.0-46.0); HGB 9.7 gm/dL (11.4-16.0); Hypochromasia Marked; Lymphocytes # (A) 1.1 k/uL (1.0-4.8); Lymphocytes % (A) 10 %; MCH 26.9 pg (25.0-35.0); MCHC 30.5 g/dL (31.0-37.0); MCV 88.2 fL (80.0-100.0); Mean Platelet Volume 8.7; Monocytes # (A) 0.6 k/uL (0-1.0); Monocytes % (A) 6 %; Neutrophils % (A) 76 %; Platelet Count 452 k/uL (150-450); RBC 3.62 m/uL (3.80-5.40); RDW 14.8 % (11.5-15.5); WBC 11.7 k/uL (3.8-10.6)
[2018-09-29 06:04] LABS: Glucose,Whole Blood 133 mg/dL (75-99)
[2018-09-29 07:17] LABS: Calcium 8.9 mg/dL (8.4-10.2); Magnesium 2.1 mg/dL (1.6-2.3); Phosphorus 3.2 mg/dL (2.5-4.5); Potassium 4.4 mmol/L (3.5-5.1)
--- NOTE | 2018-09-29 07:36 | P.PN ---
Subjective Progress Note Date: 09/29/18 Principal diagnosis: Cardiac arrhythmia This is a 78-year-old female patient with a past medical history significant for COPD, valvular heart disease, as well as multiple comorbid conditions was admitted to the hospital with shortness of breath and was diagnosed with acute hypoxic respiratory failure secondary to COPD exacerbation as well as sepsis pneumonia. We get involved in her care because of cardiac arrhythmia and the patient was experiencing intermittent and rate related LBBB. On follow-up with the patient today, 09/29/2018, the patient was extubated and reintubated yesterday. She went into flash pulmonary edema. This is her third extubation and intubation in a week. The plan also to speak with the family regarding trach and PEG tube. She was started yesterday on Lasix IV. She continues to be on amiodarone by mouth and she did not have any more episodes of wide-complex tachycardia. Objective - Vital Signs Vital signs: Vital Signs Temp 100.0 F H 09/29/18 04:00 Pulse 80 09/29/18 07:17 Resp 25 H 09/29/18 06:00 BP 110/41 09/29/18 06:00 Pulse Ox 99 09/29/18 06:00 Intake & Output 09/28/18 09/29/18 09/29/18 18:59 06:59 18:59 Intake Total 1592.658 3832.412 Output Total 1205 1522 Balance 416.149 503.412 Weight 85.9 kg Intake: IV 556 867 ACETAMINOPHEN IV (For NPO 100 ) 1,000 mg In Empty Bag 1 bag @ 400 mls/hr IVPB Q6HR PRN Rx#:[id number] Azithromycin 500 mg In 250 Sodium Chloride 0.9% 250 ml @ 250 mls/hr IVPB DAILY [facility] Rx#:[id number] Furosemide 100 mg In 55 Sodium Chloride 0.9% 90 ml @ 5 MG/HR 5 mls/hr IV .Q20H [facility] Rx#:[id number] Normal Saline Pressure 66 72 Bag Piperacillin-Tazobactam 3 100 .375 gm In Sodium Chloride 0.9% 100 ml @ 25 mls/hr IVPB Q8HR [facility] Rx# :[id number] Potassium Chloride 20 meq 300 In Water For Injection 1 100ml.bag @ 50 mls/hr IVPB Q2H [facility] Rx#: [id number] Sodium Chloride 0.9% 1, 240 240 000 ml @ 20 mls/hr IV . Q24H [facility] Rx#:[id number] Intake, IV Titration 1030.149 508.412 Amount Furosemide 100 mg In 78.25 Sodium Chloride 0.9% 90 ml @ 5 MG/HR 5 mls/hr IV .Q20H [facility] Rx#:[id number] Norepinephrine 4 mg In 130.149 330.162 Sodium Chloride 0.9% 250 ml @ 0.05 MCG/KG/MIN 15. 122 mls/hr IV .[id number] [facility] Rx#:[id number] Piperacillin-Tazobactam 3 100 .375 gm In Sodium Chloride 0.9% 100 ml @ 25 mls/hr IVPB Q8HR [facility] Rx# :[id number] Potassium Chloride 20 meq 200 In Water For Injection 1 100ml.bag @ 50 mls/hr IVPB Q2H [facility] Rx#: [id number] Propofol 1,000 mg In 100 100 Empty Bag 1 bag @ Titrate IV .Q0M [facility] Rx#: [id number] Vancomycin 1,750 mg In 500 Sodium Chloride 0.9% 500 ml 500 ml @ 167 mls/hr IVPB Q24H [facility] Rx#: [id number] Tube Feeding 35 560 Other 90 Output: Urine 1205 1522 Other: Voiding Method Indwelling Catheter Indwelling Catheter # Bowel Movements 1 ABP, PAP, CO, CI - Last Documented Arterial Blood Pressure 140/36 - Constitutional General appearance: Present: no acute distress - Respiratory Respiratory: bilateral: rales - Cardiovascular Rhythm: regular Heart sounds: normal: S1, S2 - Labs CBC & Chem 7: 09/29/18 04:20 09/29/18 06:30 Labs: Abnormal Lab Results - Last 24 Hours (Table) 09/28/18 09/28/18 09/28/18 Range/Units 11:54 12:26 17:55 WBC (3.8-10.6) k/uL RBC (3.80-5.40) m/uL Hgb (11.4-16.0) gm/dL Hct (34.0-46.0) % MCHC (31.0-37.0) g/dL Plt Count (150-450) k/uL Neutrophils # (1.3-7.7) k/uL ABG pH (7.35-7.45) ABG pO2 329 H (83-108) mmHg ABG HCO3 (21-25) mmol/L ABG Total CO2 26 H (19-24) mmol/L ABG O2 Saturation 99.6 H (94-97) % Potassium 2.4 L* (3.5-5.1) mmol/L Chloride (98-107) mmol/L BUN (7-17) mg/dL Creatinine (0.52-1.04) mg/dL Glucose (74-99) mg/dL POC Glucose (mg/dL) 155 H (75-99) mg/dL 09/28/18 09/28/18 09/29/18 Range/Units 18:24 23:32 04:04 WBC (3.8-10.6) k/uL RBC (3.80-5.40) m/uL Hgb (11.4-16.0) gm/dL Hct (34.0-46.0) % MCHC (31.0-37.0) g/dL Plt Count (150-450) k/uL Neutrophils # (1.3-7.7) k/uL ABG pH 7.46 H (7.35-7.45) ABG pO2 (83-108) mmHg ABG HCO3 26 H (21-25) mmol/L ABG Total CO2 27 H (19-24) mmol/L ABG O2 Saturation (94-97) % Potassium (3.5-5.1) mmol/L Chloride (98-107) mmol/L BUN (7-17) mg/dL Creatinine (0.52-1.04) mg/dL Glucose (74-99) mg/dL POC Glucose (mg/dL) 113 H 113 H (75-99) mg/dL 09/29/18 09/29/18 09/29/18 Range/Units 04:20 06:02 06:30 WBC 11.7 H (3.8-10.6) k/uL RBC 3.62 L (3.80-5.40) m/uL Hgb 9.7 L (11.4-16.0) gm/dL Hct 31.9 L (34.0-46.0) % MCHC 30.5 L (31.0-37.0) g/dL Plt Count 452 H (150-450) k/uL Neutrophils # 9.0 H (1.3-7.7) k/uL ABG pH (7.35-7.45) ABG pO2 (83-108) mmHg ABG HCO3 (21-25) mmol/L ABG Total CO2 (19-24) mmol/L ABG O2 Saturation (94-97) % Potassium (3.5-5.1) mmol/L Chloride 109 H (98-107) mmol/L BUN 33 H (7-17) mg/dL Creatinine 1.20 H (0.52-1.04) mg/dL Glucose 128 H (74-99) mg/dL POC Glucose (mg/dL) 133 H (75-99) mg/dL Microbiology - Last 24 Hours (Table) 09/27/18 17:44 Blood Culture - Preliminary Blood No Growth after 24 hours 09/27/18 17:53 Blood Culture Gram Stain - Preliminary Blood Blood Culture - Preliminary Coagulase Negative Staph 09/27/18 17:53 Blood Culture - Final Blood Assessment and Plan Assessment: Assessment #1 acute hypoxic respiratory failure #2 sepsis/pneumonia #3 acute renal failure which has improved #4 hemodynamic instability which has improved #5 cardiac arrhythmia #6 valvular heart disease #7 COPD #8 multiple comorbid conditions Plan #1 continue the current dose of amiodarone #2 continue Lasix drip #3 follow-up with the patient Thank you for allowing us participate in her care and we'll continue following up with the patient
--- NOTE | 2018-09-29 07:54 | XR ---
EXAMINATION TYPE: XR chest 1V portable DATE OF EXAM: 09/29/2018 CLINICAL HISTORY: Difficulty breathing progress study. TECHNIQUE: Single AP portable upright view of the chest is obtained. COMPARISON: Chest x-ray from one day earlier and older studies FINDINGS: An endotracheal tube, left internal jugular central venous catheter, and orogastric tube a re all stable in appearance. There is improved aeration periHilar region bilaterally with persistent bibasilar opacities on current study. No pneumothorax is evident. Cardiac silhouette size is stable a nd upper limits of normal atherosclerotic change in the aortic knob. Osseous structures are intact. IMPRESSION: Improving bilateral central edema and/or infiltrates. Persistent bibasilar edema and/or i nfiltrate stable or slightly worsened with suspected small bilateral pleural effusions.
[2018-09-29] MEDS: CHLORHEXIDINE GLUCONATE 15 ML CUP MUCOUS MEM SCH ×2 (08:15→21:54)
[2018-09-29] MEDS: AMIODARONE 200 MG TAB PO SCH ×2 (08:15→21:54)
[2018-09-29] MEDS: PANTOPRAZOLE 40 MG/10 ML VIAL IV SCH (08:15)
[2018-09-29 11:31] LABS: Glucose,Whole Blood 140 mg/dL (75-99)
--- NOTE | 2018-09-29 11:40 | P.PN ---
Subjective Progress Note Date: 09/29/18 Principal diagnosis: Acute hypoxic respiratory failure secondary to systolic congestive heart failure with moderate severe aortic stenosis, severe aortic regurgitation, and moderate mitral regurgitation. and suspect underlying pneumonia. A 78-year-old female patient who came in to the emergency department with respiratory failure. The patient has COPD, history of aortic regurgitation and hyperlipidemia and addition to a previous history of CVA, hypertension, and breast cancer. The patient was intubated and placed on a mechanical ventilator. She was septic, but I will and she was aggressively resuscitated with IV fluids and currently she is only a few mics of norepinephrine infusion for blood pressure support. She already has a triple lumen catheter in place. Chest x- ray from today shows adequate positioning of the orotracheal tube. The patient has still some cardiomegaly and bilateral layering of pleural effusion in addition to engorgement of the hilar vasculature and cardiac silhouettes. Overall his findings are more consistent with CHF, the patient is acting more like pneumonia/sepsis. She is afebrile. White cell count remains elevated at 18, and the patient's metabolic acidosis improving. Lactic acid level is down to 1.7. Renal function is normal with a creatinine of 0.9. The patient is currently receiving a combination of Rocephin and Zithromax. The patient is also on IV fluids with normal state rate of 100 mL an hour. Echocardiogram was sent and the results are still pending for now. The patient remains on a mechanical ventilator. On today's evaluation the patient is on a PEEP of 8 with an FiO2 of 50% and tidal volume of 400 with a rate of 25. The blood gases from today showed a pH of 7.32 with a pCO2 of 35 and a pO2 of 92. A sedation holiday will be given. Nevertheless, the patient is not ready for any weaning trials or possible extubation yet. She is producing adequate amount of urine output. No other significant events otherwise since yesterday. On 09/23/2018 and seeing this patient for a follow-up. This morning the patient is still sedated with Diprivan at 50 microvascular KG per minute. She is calm and comfortable. Hemodynamically she is stable and the patient is currently off pressors. She remains on a mechanical ventilator. She is an assist-control mode at the rate of 85 with a tidal volume of 400 with an FiO2 of 50% and a PEEP of 5. The chest x-ray from today is showing pulmonary vascular congestion and small effusions bilaterally. No significant sputum production. The blood cultures been negative. The patient remains on a combination of Rocephin and Zithromax. The echocardiogram was done and the patient was found to have a mildly impaired LV function with an ejection fraction of 45-50%. There is evidence of severe aortic regurgitation, moderate aortic stenosis, moderate mitral regurgitation and right ventricular systolic pressure measured to be 29 mmHg. The net fluid balance over the past 24 hours is +2.6 L. The white cell count has improved and is down to 10.7. Blood gases from today showed a pH of 7.35 with a pCO2 of 35 and a pO2 of 113 and this was on FiO2 of 50%. She is tolerating her tube feeds. No other significant events overnight otherwise. On 09/24/2018 and seeing this patient for a follow-up. This morning she is quite comfortable and the patient is being weaned off the sedation. She is hemodynamically stable and the patient is being diuresed with IV Lasix 20 mg and fish every 12 hours. The patient remains a negative fluid balance. Chest x-ray shows small better pleural effusion. No significant orotracheal secretions. ET tube is in a good location. The patient remains and accommodation Rocephin and Zithromax. Cultures of been all negative. In terms of vent support, the patient is an assist-control mode at the rate of 25 with a total volume of 400 and FiO2 of 40% and a PEEP of 5. The morning blood gases showed a pH of 0.41 with a pCO2 of 38 and pO2 of 69 and this was done and FiO2 of 40%. Renal function is stable with a creatinine of 0.8. The rest of the electrodes are all within normal limits. Echocardiogram from yesterday was noted. We are in the process of taking this patient off sedation. I made recommendations to hold propofol. Following that the patient was monitored for another 30-60 minutes during which she was waking up nicely and she was following commands and answering questions. At that point, weaning parameters were checked and the patient was given a spontaneous breathing trial with a pressure support of 5 and a PEEP of 5. After doing that for another 20 minutes, the patient had a blood culture that showed a pH of 7.44 with a pCO2 of 38 and pO2 of 100. Based on all this, I made recommendations to extubate this patient. On 09/25/2089 patient seen in follow-up in the intensive care unit, patient was extubated yesterday, however within 2 hours of extubation she became very hypoxemic, respirations labored, and subsequently patient failed extubation, and had to be emergently reintubated. This morning she is intubated, on mechanical ventilator, and her current vent settings are assist control mode of ventilation with a rate of 25, tidal in the 400, FiO2 of 70%, and PEEP of 8, today's chest x-ray has been reviewed, and shows bilateral pleural effusions, and improving pulmonary edema. Patient is on IV diuretics, and she is in -3600 mL fluid balance over the last 24 hours. One episode of low-grade fever last night at 2000, afebrile this morning, blood, urine and sputum cultures have shown no growth thus far. Current antibiotic coverage in the form of Rocephin and Zithromax, IV Lasix at 20 mg every 8 hours. This morning's blood gases were reviewed, and showed pO2 of 154, pCO2 of 36, and pH of 7.51. White blood cell count is 7.2, hemoglobin is 9.5, electrolyte were within normal limits, BUN is 25 creatinine 0.82. Lung sounds are clear, diminished at the bases. Patient is nontender any vasopressor support. 0.9 normal saline every 20, and improving and is a 60 mics per kilo per minute. On 09/26/2018, I'm seeing this patient in follow-up in the intensive care units. Note that the patient was given initial trial of extubation 2 days ago and the patient failed and subsequently the patient had to be reintubated. Since then the patient is receiving diuresis and the patient remains in a negative fluid balance was receiving Lasix 20 mg of push every 8 hours. The net fluid balance has been -3.6 L from yesterday. Meanwhile, the chest x-ray from today showing some improvement in the volume status. There is persistence of mild cardiomegaly and central vascular congestion and small bilateral pleural effusion which seems to be improved compared to yesterday. As for ET tube, this was a low-lying ET tube and was pushed out why around 1 cm. Meanwhile, the patient remains hemodynamically stable on no pressors. She remains afebrile. She is rating her tube feeds. She is on ventilator at the rate of 25 with a tidal volume of 400 and FiO2 has been drop down to 50% with a PEEP of 5 in the morning blood gases showed a pH of 7.54 with a pCO2 of 35 and pO2 of 81. Remains and accommodation Rocephin and Zithromax. No other significant events otherwise for now. We are the process of getting this patient a sedation holiday and possibly a spontaneous breathing trial On 09/27/2018 I'm seeing this patient for a follow-up. The patient was taken off sedation at 9 AM. I started around 11 AM and the patient was still not following commands. She would open eyes and move extremities and she would withdraw to painful stimulation. Nevertheless there was no meaningful reactions from her. Based on this, I decided to keep it off sedation monitor mental status over the next few hours. I tried to put on a spontaneous breathing trial with a pressure support of 5 and PEEP of 5 and she did poorly as the patient's tidal volumes were low and she became quite tachypneic and restless. I put her back on assist control and she did fine and when the process of continuing the sedation holiday for now. She is having low-grade fever. Sputum and blood culture will be sent. The patient for now is an assist-control mode of ventilation. Her vent settings include assist control mode at the rate of 25 with a tidal volume of 400 with an FiO2 of 40% and a PEEP of 5. The chest x-ray showing some improvement in the volume status. ET tube is in a good location. Blood gases from this morning showed a component of metabolic alkalosis with a pH of 7.59 and a pCO2 of 36 and pO2 of 77. The patient was given a dose of Diamox to 250 mg IV push. The patient is started on IV Lasix 20 mg every 8 hours and the net fluid balance remains -1.7 L over the past 24 hours. Renal function remains stable with a creatinine of 0.7. She is tolerating his tube feeds. No other significant events overnight. She remains on an empiric antibiotic coverage with a combination of Rocephin and Zithromax. She is on few mics of norepinephrine infusion for hemodynamic support. Her cardiac rhythm is sinus. On 09/28/2018 I'm seeing this patient for a follow-up. This morning the patient looked great. She has been off sedation since 4 AM in the morning and the patient was following commands and she was hemodynamically stable. She has diuresed aggressively over the past 24 hours and 48 hours and the patient has been negative fluid balance. She also has received regarding metabolic alkalosis. Earlier this morning the patient's pH was at 7.52 with a pCO2 of 37 and pO2 147. Chest x-ray was showing improvement in the CHF findings. Based on that, I made a decision to give the patient spontaneous breathing trial and the subsequent extubated the patient. Within one hour of extubation the patient failed and she went into a full-blown acute pulmonary edema. The patient had bilateral pulmonary edema right more than left. She had to be reintubated. Excessive amount of frothy secretions were suctioned from the ET tube following the extubation. She was placed back on a mechanical ventilator at the same setting and the patient subsequent blood cultures showed a pH of 7.37 with a pCO2 of 43 and pO2 of 70 on and this was on FiO2 100% with a PEEP of 12. Tidal volume was at 500 with a rate of 25. At this point in time, the FiO2 was gradually weaned off. The patient is currently on propofol. She was having some low-grade fever. Blood cultures were sent and the cultures came back positive for gram-positive cocci. I'm in the process of switching her ant ibiotics. She'll be taken off the Rocephin and Zithromax in place and accommodation Zosyn and vancomycin. She has no significant leukocytosis. The gram-positive and the blood could be potentially colonization. At the same time, I'm going to put this patient on Lasix drip at 5 mg an hour to diuresis him aggressively. Levo fed will be utilized for hemodynamic support. She has significant valvular heart disease and regurgitation with stenosis. On 09/29/2018, patient remains on mechanical ventilation, presently her ventilator settings are assist control rate of 25, tidal volume of 450, FiO2 50%, and PEEP of 5. Remains on Lasix drip at 5 mg per hour, she is on levo fed at 15.6 mcg/m, she is also on propofol at 14 mcg/kg/h. ABG this morning showed a pO2 of 85 pCO2 of 36 pH of 7.46. Electrolytes are normal BUN is 33 creatinine 1.20. CBC showed the risk of 11.7 hemoglobin of 9.7. Chest x-ray showed bilateral edema and/or infiltrates. Small bilateral pleural effusions were noted. Patient is sedated, she had to be reintubated yesterday shortly after she was extubated. Apparently the patient was extubated and reintubated 3 times since admission. Today I had a long discussion with family at bedside, and I have strongly recommended tracheostomy and PEG tube placement. Will not try to wean and extubate again as the patient goes into flash pulmonary edema shortly after extubation and each time. Objective - Vital Signs Vital signs: Vital Signs Temp 100.4 F H 09/29/18 08:00 Pulse 80 09/29/18 11:00 Resp 25 H 09/29/18 11:00 BP 137/45 09/29/18 11:00 Pulse Ox 98 09/29/18 11:00 Intake & Output 09/28/18 09/29/18 09/29/18 18:59 06:59 18:59 Intake Total 4767.656 1349.412 440 Output Total 1205 1522 950 Balance 416.149 503.412 -510 Weight 85.9 kg Intake: IV 556 867 335 ACETAMINOPHEN IV (For NPO 100 100 ) 1,000 mg In Empty Bag 1 bag @ 400 mls/hr IVPB Q6HR PRN Rx#:[id number] Azithromycin 500 mg In 250 Sodium Chloride 0.9% 250 ml @ 250 mls/hr IVPB DAILY [facility] Rx#:[id number] Furosemide 100 mg In 55 5 Sodium Chloride 0.9% 90 ml @ 5 MG/HR 5 mls/hr IV .Q20H [facility] Rx#:[id number] Normal Saline Pressure 66 72 30 Bag Piperacillin-Tazobactam 3 100 100 .375 gm In Sodium Chloride 0.9% 100 ml @ 25 mls/hr IVPB Q8HR [facility] Rx# :[id number] Potassium Chloride 20 meq 300 In Water For Injection 1 100ml.bag @ 50 mls/hr IVPB Q2H [facility] Rx#: [id number] Sodium Chloride 0.9% 1, 240 240 100 000 ml @ 20 mls/hr IV . Q24H [facility] Rx#:[id number] Intake, IV Titration 1030.149 508.412 Amount Furosemide 100 mg In 78.25 Sodium Chloride 0.9% 90 ml @ 5 MG/HR 5 mls/hr IV .Q20H [facility] Rx#:[id number] Norepinephrine 4 mg In 130.149 330.162 Sodium Chloride 0.9% 250 ml @ 0.05 MCG/KG/MIN 15. 122 mls/hr IV .[id number] [facility] Rx#:[id number] Piperacillin-Tazobactam 3 100 .375 gm In Sodium Chloride 0.9% 100 ml @ 25 mls/hr IVPB Q8HR [facility] Rx# :[id number] Potassium Chloride 20 meq 200 In Water For Injection 1 100ml.bag @ 50 mls/hr IVPB Q2H [facility] Rx#: [id number] Propofol 1,000 mg In 100 100 Empty Bag 1 bag @ Titrate IV .Q0M [facility] Rx#: [id number] Vancomycin 1,750 mg In 500 Sodium Chloride 0.9% 500 ml 500 ml @ 167 mls/hr IVPB Q24H [facility] Rx#: [id number] Tube Feeding 35 560 105 Other 90 Output: Urine 1205 1522 950 Other: Voiding Method Indwelling Catheter Indwelling Catheter Indwelling Catheter # Bowel Movements 1 ABP, PAP, CO, CI - Last Documented Arterial Blood Pressure 151/37 - Exam Gen. Intubated on a mechanical ventilator. Patient is sedated, on propofol drip, no plans to wean the patient today, but will try to interrupt sedation later on and assess mental status Head atraumatic, normocephalic, PERRLA, EOMI, no icterus. Moist mucous membranes. Neck was supple and without jugular venous distension, thyromegaly, or carotid bruits. Carotids were easily palpable bilaterally. There was no adenopathy. The patient has an orogastric and orotracheal tube are both in place. Lungs sounds minimal fine crackles at the bases, no rhonchi and no wheezes Cardiac exam normal S1 and S2, no gallops, 2/6 systolic murmur thought the p recordium.Abdominal exam revealed normal bowel sounds. abdomen: soft, non-tender, and without masses, organomegaly, or appreciable enlargement of the abdominal aorta. Examination of the extremities revealed easily palpable radial, femoral and pedal pulses. There was no cyanosis, clubbing or edema. Examination of the skin revealed no evidence of significant rashes, suspicious appearing nevi or other concerning lesions. Neurologically : Patient is sedated, remains on propofol, could not be assessed. Psychiatric: Could not be assessed, patient is sedated on propofol. Skin: No rashes. Lymphatics: No lymphadenopathy. - Labs CBC & Chem 7: 09/29/18 04:20 09/29/18 06:30 Labs: Abnormal Lab Results - Last 24 Hours (Table) 09/28/18 09/28/18 09/28/18 Range/Units 11:54 12:26 17:55 WBC (3.8-10.6) k/uL RBC (3.80-5.40) m/uL Hgb (11.4-16.0) gm/dL Hct (34.0-46.0) % MCHC (31.0-37.0) g/dL Plt Count (150-450) k/uL Neutrophils # (1.3-7.7) k/uL ABG pH (7.35-7.45) ABG pO2 329 H (83-108) mmHg ABG HCO3 (21-25) mmol/L ABG Total CO2 26 H (19-24) mmol/L ABG O2 Saturation 99.6 H (94-97) % Potassium 2.4 L* (3.5-5.1) mmol/L Chloride (98-107) mmol/L BUN (7-17) mg/dL Creatinine (0.52-1.04) mg/dL Glucose (74-99) mg/dL POC Glucose (mg/dL) 155 H (75-99) mg/dL 09/28/18 09/28/18 09/29/18 Range/Units 18:24 23:32 04:04 WBC (3.8-10.6) k/uL RBC (3.80-5.40) m/uL Hgb (11.4-16.0) gm/dL Hct (34.0-46.0) % MCHC (31.0-37.0) g/dL Plt Count (150-450) k/uL Neutrophils # (1.3-7.7) k/uL ABG pH 7.46 H (7.35-7.45) ABG pO2 (83-108) mmHg ABG HCO3 26 H (21-25) mmol/L ABG Total CO2 27 H (19-24) mmol/L ABG O2 Saturation (94-97) % Potassium (3.5-5.1) mmol/L Chloride (98-107) mmol/L BUN (7-17) mg/dL Creatinine (0.52-1.04) mg/dL Glucose (74-99) mg/dL POC Glucose (mg/dL) 113 H 113 H (75-99) mg/dL 09/29/18 09/29/18 09/29/18 Range/Units 04:20 06:02 06:30 WBC 11.7 H (3.8-10.6) k/uL RBC 3.62 L (3.80-5.40) m/uL Hgb 9.7 L (11.4-16.0) gm/dL Hct 31.9 L (34.0-46.0) % MCHC 30.5 L (31.0-37.0) g/dL Plt Count 452 H (150-450) k/uL Neutrophils # 9.0 H (1.3-7.7) k/uL ABG pH (7.35-7.45) ABG pO2 (83-108) mmHg ABG HCO3 (21-25) mmol/L ABG Total CO2 (19-24) mmol/L ABG O2 Saturation (94-97) % Potassium (3.5-5.1) mmol/L Chloride 109 H (98-107) mmol/L BUN 33 H (7-17) mg/dL Creatinine 1.20 H (0.52-1.04) mg/dL Glucose 128 H (74-99) mg/dL POC Glucose (mg/dL) 133 H (75-99) mg/dL Microbiology - Last 24 Hours (Table) 09/27/18 17:44 Blood Culture - Preliminary Blood No Growth after 24 hours 09/27/18 17:53 Blood Culture Gram Stain - Preliminary Blood Blood Culture - Preliminary Coagulase Negative Staph 09/27/18 17:53 Blood Culture - Final Blood Assessment and Plan Assessment: Impression: 1 acute hypoxic respiratory failure secondary to systolic congestive heart failu re and significant valvular heart disease including aortic stenosis, aortic regurgitation, and mitral regurgitation as noted on previous echocardiogram. 2 recurrent episodes of extubation and reintubation, failure to wean, mostly because of the patient going into flash pulmonary edema and I believe it is mostly related to her underlying valvular heart disease. 3 acute kidney injury, improving, most likely cardiorenal, doubt sepsis or septic shock. 4 COPD, remains on bronchodilator. 5 previous history of CVA 6 hypertension 7 severe significant valvular heart disease including aortic regurgitation, mitral regurgitation, and aortic stenosis. 8 positive gram-positive cocci in blood cultures, however it is felt to be most likely contamination. 9 history of right-sided breast cancer. 10 bilateral infiltrates and pleural effusions noted on the chest x-ray, felt to be mostly related to congestive heart failure, strongly doubt pneumonia. However it is not entirely ruled out. Recommendation: 1 continue ventilatory hemodynamic and nutritional support 2 continue diuretics patient is on Lasix at 5 mg per hour. 3 continue bronchodilators 4 considering that recurrent episodes of flash pulmonary edema as, and congestive heart failure with failure to wean, patient will need to have tracheostomy and PEG tube placement. 5 continue GI and DVT prophylaxis 6 continue empiric antibiotics I had a long discussion with all her family members at bedside today, explained to them her condition, and I'm quite concerned that the patient has been failing extubation and weaning at least 3 times since she was admitted. Patient will definitely need tracheostomy and PEG tube placement, may eventually consider cardiac surgery consultation regarding her valvular conditions. I believe the patient goes into flash pulmonary edema because of her underlying valvular heart disease. We'll continue to follow. Critical care time is 45 minutes. Time with Patient: Greater than 30
[2018-09-29 12:31] VITALS: BMI 33.5
--- NOTE | 2018-09-29 14:25 | P.GSCN ---
History of Present Illness Consult date: 09/29/18 Reason for Consult: trach and peg Requesting physician: Tristne Brown History of present illness: CHIEF COMPLAINT: Trach and peg HISTORY OF PRESENT ILLNESS: 78-year-old female who is admitted to the hospital secondary to congestive heart failure and significant valvular heart disease. She remains on mechanical ventilation. Extubated x 3 with subsequent pulmonary edema requiring re-intubation. General surgery consulted for trach and peg. Patient examined at the bedside. Patients sister, Brunilda, DPOA, present. Brunilda is agreeable to trach and peg. PAST MEDICAL HISTORY: See list. PAST SURGICAL HISTORY: See list. SOCIAL HISTORY: No illicit drug use. REVIEW OF SYSTEMS: Unable to obtain secondary to mechanical ventilation PHYSICAL EXAM: VITAL SIGNS: Reviewed. GENERAL: Well-developed in no acute distress-sedated on mechanical ventilation. HEENT: No sclera icterus. Extraocular movements grossly intact. Moist buccal mucosa. Head is atraumatic, normocephalic. ABDOMEN: Soft. Nondistended. Nontender. NEUROLOGIC: Sedated on mechanical ventilation ASSESSMENT: 1. Acute hypoxic respiratory failure PLAN: Patient tentatively scheduled for trach and peg tube insertion on 10/01/2018. Please stop tube feedings Saturday night Nurse practitioner note has been reviewed by physician. Signing provider agrees with the documented findings, assessment, and plan of care. 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 History of Any Multi-Drug Resistant Organisms: None Reported Past Surgical History: Breast Surgery, Cholecystectomy, Hysterectomy Additional Past Surgical History / Comment(s): VARICOSE VEIN SX, L breast bx- benign, MULTIPLE TEEs, CYN CATARACTS , colonoscopy-normal, Right breast surgery. LUMPECTOMY RT BREAST Past Anesthesia/Blood Transfusion Reactions: Previous Problems w/ Anesthesia Additional Past Anesthesia/Blood Transfusion Reaction / Comm: STATES WAS TOLD "WE ALMOST LOST YOU" THAT HER B/P DROPPED POST CHOLECYSTECTOMY Past Psychological History: Anxiety, Depression Additional Psychological History / Comment(s): . Smoking Status: Former smoker Past Alcohol Use History: None Reported Additional Past Alcohol Use History / Comment(s): SMOKED 1-2 PPD - QUIT REGULAR CIGARETTES-2013- SMOKED 30 YEARS AND THEN SMOKED E-CIGARETTES UNTIL NOVEMBER 2016. Past Drug Use History: None Reported - Past Family History Mother Family Medical History: Cancer, CVA/TIA Additional Family Medical History / Comment(s): breast Father Family Medical History: Cancer Additional Family Medical History / Comment(s): lung, heart issues Medications and Allergies Home Medications Medication Instructions Recorded Confirmed Type Ezetimibe [Zetia] 10 mg PO QAM 02/18/15 09/21/18 History clonazePAM [KlonoPIN] 0.5 mg PO TID PRN 02/18/15 09/21/18 History Lisinopril [Zestril] 5 mg PO QAM 05/07/16 09/21/18 History Desvenlafaxine Succinate [Pristiq] 100 mg PO QAM 03/07/17 09/21/18 History amLODIPine [Norvasc] 10 mg PO QAM 03/27/17 09/21/18 History Anastrozole [Arimidex] 1 mg PO DAILY 09/16/17 09/21/18 History Clopidogrel [Plavix] 75 mg PO DAILY 09/16/17 09/21/18 History Allergies Allergy/AdvReac Type Severity Reaction Status Date / Time Iodinated Contrast- Oral and Allergy R/T RENAL Verified 09/21/18 08:40 IV Dye DISEASE [Iodinated Contrast Media - IV Dye] Surgical - Exam Vital Signs Temp Pulse Resp BP Pulse Ox 100.2 F H 101 H 30 H 179/81 75 L 09/21/18 04:21 09/21/18 04:21 09/21/18 04:21 09/21/18 04:21 09/21/18 04:21 Results - Labs 09/29/18 04:20 09/29/18 06:30 Abnormal Lab Results - Last 24 Hours (Table) 09/28/18 09/28/18 09/28/18 Range/Units 17:55 18:24 23:32 WBC (3.8-10.6) k/uL RBC (3.80-5.40) m/uL Hgb (11.4-16.0) gm/dL Hct (34.0-46.0) % MCHC (31.0-37.0) g/dL Plt Count (150-450) k/uL Neutrophils # (1.3-7.7) k/uL ABG pH (7.35-7.45) ABG HCO3 (21-25) mmol/L ABG Total CO2 (19-24) mmol/L Potassium 2.4 L* (3.5-5.1) mmol/L Chloride (98-107) mmol/L BUN (7-17) mg/dL Creatinine (0.52-1.04) mg/dL Glucose (74-99) mg/dL POC Glucose (mg/dL) 113 H 113 H (75-99) mg/dL 09/29/18 09/29/18 09/29/18 Range/Units 04:04 04:20 06:02 WBC 11.7 H (3.8-10.6) k/uL RBC 3.62 L (3.80-5.40) m/uL Hgb 9.7 L (11.4-16.0) gm/dL Hct 31.9 L (34.0-46.0) % MCHC 30.5 L (31.0-37.0) g/dL Plt Count 452 H (150-450) k/uL Neutrophils # 9.0 H (1.3-7.7) k/uL ABG pH 7.46 H (7.35-7.45) ABG HCO3 26 H (21-25) mmol/L ABG Total CO2 27 H (19-24) mmol/L Potassium (3.5-5.1) mmol/L Chloride (98-107) mmol/L BUN (7-17) mg/dL Creatinine (0.52-1.04) mg/dL Glucose (74-99) mg/dL POC Glucose (mg/dL) 133 H (75-99) mg/dL 09/29/18 09/29/18 Range/Units 06:30 11:28 WBC (3.8-10.6) k/uL RBC (3.80-5.40) m/uL Hgb (11.4-16.0) gm/dL Hct (34.0-46.0) % MCHC (31.0-37.0) g/dL Plt Count (150-450) k/uL Neutrophils # (1.3-7.7) k/uL ABG pH (7.35-7.45) ABG HCO3 (21-25) mmol/L ABG Total CO2 (19-24) mmol/L Potassium (3.5-5.1) mmol/L Chloride 109 H (98-107) mmol/L BUN 33 H (7-17) mg/dL Creatinine 1.20 H (0.52-1.04) mg/dL Glucose 128 H (74-99) mg/dL POC Glucose (mg/dL) 140 H (75-99) mg/dL Microbiology - Last 24 Hours (Table) 09/27/18 19:13 Gram Stain - Final Sputum Sputum Culture - Final 09/27/18 17:44 Blood Culture - Preliminary Blood No Growth after 24 hours 09/27/18 17:53 Blood Culture Gram Stain - Preliminary Blood Blood Culture - Preliminary Coagulase Negative Staph 09/27/18 17:53 Blood Culture - Final Blood Diabetes panel 09/28/18 09/29/18 Range/Units 17:55 06:30 Sodium 142 (137-145) mmol/L Potassium 2.4 L* 4.4 (3.5-5.1) mmol/L Chloride 109 H (98-107) mmol/L Carbon Dioxide 26 (22-30) mmol/L BUN 33 H (7-17) mg/dL Creatinine 1.20 H (0.52-1.04) mg/dL Glucose 128 H (74-99) mg/dL Calcium 8.9 (8.4-10.2) mg/dL Calcium panel 09/29/18 Range/Units 06:30 Calcium 8.9 (8.4-10.2) mg/dL Phosphorus 3.2 (2.5-4.5) mg/dL Pituitary panel 09/28/18 09/29/18 Range/Units 17:55 06:30 Sodium 142 (137-145) mmol/L Potassium 2.4 L* 4.4 (3.5-5.1) mmol/L Chloride 109 H (98-107) mmol/L Carbon Dioxide 26 (22-30) mmol/L BUN 33 H (7-17) mg/dL Creatinine 1.20 H (0.52-1.04) mg/dL Glucose 128 H (74-99) mg/dL Calcium 8.9 (8.4-10.2) mg/dL Adrenal panel 09/28/18 09/29/18 Range/Units 17:55 06:30 Sodium 142 (137-145) mmol/L Potassium 2.4 L* 4.4 (3.5-5.1) mmol/L Chloride 109 H (98-107) mmol/L Carbon Dioxide 26 (22-30) mmol/L BUN 33 H (7-17) mg/dL Creatinine 1.20 H (0.52-1.04) mg/dL Glucose 128 H (74-99) mg/dL Calcium 8.9 (8.4-10.2) mg/dL
[2018-09-29] MEDS: VANCOMYCIN 1,750 MG in SODIUM CHLORIDE 0.9% 500 ML 500 ML IVPB SCH (15:09)
[2018-09-29] MEDS: PROPOFOL 1,000 MG in EMPTY BAG 1 BAG IV SCH ×2 (15:10→19:11)
[2018-09-29] MEDS ORDERED: Potassium Replacement Protocol 1 EACH MISC MISCELLANE PRN (17:38)
[2018-09-29] MEDS: POTASSIUM CHLORIDE 10 MEQ in WATER FOR INJECTION 1 100ML.BAG IVPB SCH ×2 (17:59→19:10)
[2018-09-29 18:08] LABS: Glucose,Whole Blood 117 mg/dL (75-99)
--- NOTE | 2018-09-29 19:46 | PN ---
PROGRESS NOTE DATE OF SERVICE: 09/29/2018 PRESENTING COMPLAINT: Intubated. INTERVAL HISTORY: Patient is in the ICU; failed extubation yesterday on 09/28/2018. She was initially admitted for multilobar pneumonia, sepsis, COPD. Patient remains on the ventilator with FiO2 of 50 and a PEEP of 5. Remains on Lasix drip at 5 mg/hour and Levophed. Propofol was held this morning briefly. Remains in sinus rhythm. Tube feeding is at 35 mL/hour. Trach is putting out creamy yellow secretions. REVIEW OF SYSTEMS: Patient is intubated. CURRENT MEDICATIONS: Reviewed. They include: 1. IV propofol. 2. IV Lasix drip. 3. IV Levophed. 4. Zosyn. 5. Vancomycin. PHYSICAL EXAMINATION: Temperature 100, pulse 81, respiration 20, blood pressure 144/42, pulse ox 98% on ventilator. GENERAL APPEARANCE: Lying in bed, intubated. EYES: Pupils equal. Conjunctivae normal. NECK: JVD unable to assess. Mass not palpable. RESPIRATORY: Effort increased. LUNGS: Decreased breath sounds. HEENT: Endotracheal tube in place. CARDIOVASCULAR: First and second sounds normal. No edema. ABDOMEN: Soft, nontender. Liver and spleen not palpable. NEUROLOGICAL: Pupils are equal, reactive. INVESTIGATIONS: White count 11.7, hemoglobin 9.7, platelets 452, potassium 4.4, BUN 33, creatinine 1.20. ASSESSMENT: 1. Multilobar pneumonia. Suspect gram-negative organism with severe sepsis, present on admission, slow to respond. 2. Acute hypoxic respiratory failure requiring ventilator support; failed extubation on 09/28/2018. Re-intubated. 3. Acute chronic obstructive pulmonary disease exacerbation in an ex-smoker. 4. Acute metabolic encephalopathy due to sepsis. 5. Obesity; body mass index more than 30. 6. Gastroesophageal reflux disease. 7. Essential hypertension, history of. 8. Septic shock. Patient remains on pressor support. 9. Chronic kidney disease, stage II, from nephrosclerosis. 10.Severe aortic regurgitation, moderate aortic stenosis. 11.Moderate mitral regurgitation, non-rheumatic. 12.Episode of ventricular tachycardia. 13.Severe alkalosis with some improvement. PLAN: Patient is slow to respond. Continue current medication and treatment plan, including pressor support, antibiotics. General Surgery was consulted for placement of PEG and trach. Prognosis guarded. MMODL / IJN: [id number] /
[2018-09-30 00:12] LABS: Glucose,Whole Blood 135 mg/dL (75-99)
[2018-09-30] MEDS: HEPARIN SODIUM,PORCINE 5,000 UNIT/ML 1 ML VIAL SQ SCH ×4 (01:25→23:30)
[2018-09-30] MEDS: SODIUM CHLORIDE 0.9% 1,000 ML IV SCH ×2 (01:26→20:45)
[2018-09-30] MEDS: FUROSEMIDE 100 MG in SODIUM CHLORIDE 0.9% 90 ML IV SCH ×2 (01:38→23:49)
[2018-09-30] MEDS: IPRATROPIUM-ALBUTEROL 3 ML NEB INHALATION SCH ×5 (03:10→19:41)
[2018-09-30] MEDS: NOREPINEPHRINE 4 MG in SODIUM CHLORIDE 0.9% 250 ML IV SCH ×2 (04:29→19:00)
[2018-09-30 05:25] LABS: Basophils # (A) 0.1 k/uL (0-0.2); Basophils % (A) 1 %; Eosinophils # (A) 0.6 k/uL (0-0.7); Eosinophils % (A) 7 %; HCT 32.7 % (34.0-46.0); HGB 9.9 gm/dL (11.4-16.0); Hypochromasia Marked; Lymphocytes % (A) 11 %; MCH 26.7 pg (25.0-35.0); MCHC 30.4 g/dL (31.0-37.0); MCV 87.9 fL (80.0-100.0); Mean Platelet Volume 7.5; Monocytes # (A) 0.4 k/uL (0-1.0); Monocytes % (A) 5 %; Neutrophils # (A) 6.5 k/uL (1.3-7.7); Neutrophils % (A) 72 %; Platelet Count 474 k/uL (150-450); RBC 3.72 m/uL (3.80-5.40); RDW 15.4 % (11.5-15.5)
[2018-09-30 05:39] LABS: Calcium 9.2 mg/dL (8.4-10.2); Magnesium 2.2 mg/dL (1.6-2.3); Phosphorus 4.2 mg/dL (2.5-4.5)
[2018-09-30 06:23] LABS: Potassium 3.2 mmol/L (3.5-5.1)
[2018-09-30] MEDS: POTASSIUM BICARBONATE/CIT AC 20 MEQ TABLET.EFF NG-TUBE SCH ×2 (07:16→08:52)
--- NOTE | 2018-09-30 07:27 | P.PN ---
Subjective Progress Note Date: 09/30/18 Principal diagnosis: Cardiac arrhythmia This is a 78-year-old female patient with a past medical history significant for COPD, valvular heart disease, as well as multiple comorbid conditions was admitted to the hospital with shortness of breath and was diagnosed with acute hypoxic respiratory failure secondary to COPD exacerbation as well as sepsis pneumonia. We get involved in her care because of cardiac arrhythmia and the patient was experiencing intermittent and rate related LBBB. On follow-up with the patient today, September 302018, she continues to be intubated on mechanical ventilation. Hemodynamically she still requires small dose of norepinephrine. She continues to be on Lasix drip. The chest x-ray from today was reviewed and seems to be better. She continues to be on amiodarone by mouth and no more episode of wide complex tachycardia so far. Objective - Vital Signs Vital signs: Vital Signs Temp 99.5 F 09/30/18 04:00 Pulse 72 09/30/18 07:00 Resp 25 H 09/30/18 07:00 BP 157/41 09/30/18 07:00 Pulse Ox 97 09/30/18 07:00 Intake & Output 09/29/18 09/30/18 09/30/18 18:59 06:59 18:59 Intake Total 6117.352 3829.914 26 Output Total 2600 2475 260 Balance -1069.562 -924.086 -234 Weight 85.9 kg 85.6 kg Intake: IV 617 386 26 ACETAMINOPHEN IV (For NPO 100 ) 1,000 mg In Empty Bag 1 bag @ 400 mls/hr IVPB Q6HR PRN Rx#:[id number] Furosemide 100 mg In 5 Sodium Chloride 0.9% 90 ml @ 5 MG/HR 5 mls/hr IV .Q20H JEFFERY Rx#:[id number] Normal Saline Pressure 72 66 6 Bag Piperacillin-Tazobactam 3 200 100 .375 gm In Sodium Chloride 0.9% 100 ml @ 25 mls/hr IVPB Q8HR JEFFERY Rx# :[id number] Sodium Chloride 0.9% 1, 240 220 20 000 ml @ 20 mls/hr IV . Q24H JEFFERY Rx#:[id number] Intake, IV Titration 703.438 724.914 Amount Furosemide 100 mg In 100 Sodium Chloride 0.9% 90 ml @ 5 MG/HR 5 mls/hr IV .Q20H JEFFERY Rx#:[id number] Norepinephrine 4 mg In 177.838 254 Sodium Chloride 0.9% 250 ml @ 0.05 MCG/KG/MIN 15. 122 mls/hr IV .[id number] JEFFERY Rx#:[id number] Potassium Chloride 20 meq 200 In Water For Injection 1 100ml.bag @ 50 mls/hr IVPB Q2HR JEFFERY Rx#: [id number] Propofol 1,000 mg In 25.6 170.914 Empty Bag 1 bag @ Titrate IV .Q0M JEFFERY Rx#: [id number] Vancomycin 1,750 mg In 500 Sodium Chloride 0.9% 500 ml 500 ml @ 167 mls/hr IVPB Q24H JEFFERY Rx#: [id number] Tube Feeding 210 350 Other 90 Output: Urine 2600 2475 260 Other: Voiding Method Indwelling Catheter Indwelling Catheter ABP, PAP, CO, CI - Last Documented Arterial Blood Pressure 132/40 - Constitutional General appearance: Present: no acute distress - Respiratory Respiratory: bilateral: CTA - Cardiovascular Rhythm: regular Heart sounds: normal: S1, S2 - Labs CBC & Chem 7: 09/30/18 05:05 09/30/18 05:05 Labs: Abnormal Lab Results - Last 24 Hours (Table) 09/29/18 09/29/18 09/30/18 Range/Units 11:28 18:06 00:11 RBC (3.80-5.40) m/uL Hgb (11.4-16.0) gm/dL Hct (34.0-46.0) % MCHC (31.0-37.0) g/dL Plt Count (150-450) k/uL Potassium (3.5-5.1) mmol/L BUN (7-17) mg/dL Creatinine (0.52-1.04) mg/dL Glucose (74-99) mg/dL POC Glucose (mg/dL) 140 H 117 H 135 H (75-99) mg/dL 09/30/18 09/30/18 Range/Units 05:05 05:05 RBC 3.72 L (3.80-5.40) m/uL Hgb 9.9 L (11.4-16.0) gm/dL Hct 32.7 L (34.0-46.0) % MCHC 30.4 L (31.0-37.0) g/dL Plt Count 474 H (150-450) k/uL Potassium 3.2 L (3.5-5.1) mmol/L BUN 39 H (7-17) mg/dL Creatinine 1.26 H (0.52-1.04) mg/dL Glucose 137 H (74-99) mg/dL POC Glucose (mg/dL) (75-99) mg/dL Microbiology - Last 24 Hours (Table) 09/27/18 17:53 Blood Culture Gram Stain - Final Blood Blood Culture - Final Coagulase Negative Staph 09/27/18 17:44 Blood Culture - Preliminary Blood No Growth after 48 hours 09/27/18 19:13 Gram Stain - Final Sputum Sputum Culture - Final Assessment and Plan Assessment: Assessment #1 acute hypoxic respiratory failure #2 sepsis/pneumonia #3 acute renal failure which has improved #4 hemodynamic instability which has improved #5 cardiac arrhythmia #6 valvular heart disease #7 COPD #8 multiple comorbid conditions Plan #1 continue the current dose of amiodarone #2 continue Lasix drip #3 follow-up with the patient Thank you for allowing us participate in her care and we'll continue following up with the patient
[2018-09-30 07:50] LABS: ABG Base Excess 1.7 mmol/L; ABG HCO3 26 mmol/L (21-25); ABG Oxygen Saturation 97.5 % (94-97); ABG PCO2 36 mmHg (35-45); ABG PH 7.46 (7.35-7.45); ABG PO2 90 mmHg (83-108); ABG TCO2 27 mmol/L (19-24)
[2018-09-30 07:52] LABS: Allen Test Performed? no
--- NOTE | 2018-09-30 08:20 | XR ---
EXAMINATION TYPE: XR chest 1V portable DATE OF EXAM: 09/30/2018 Comparison: 09/29/2018 Clinical History: 78-year-old female endotracheal intubation Findings: ET tube tip is approximately 2.1 cm from the srini. NG tube courses below the diaphragm. Left CVC ti p in the right atrium. Atherosclerotic arch calcifications. Heart remains upper limits of normal in s ize. Mild interstitial prominence remains. Small pleural effusions persist with patchy left greater t fine right bibasilar opacities. Impression: 1. Suspect continued mild pulmonary vascular congestion. 2. Similar small pleural effusions with adjacent left greater than right bibasilar atelectasis and/or infiltrates.
[2018-09-30] MEDS: PIPERACILLIN-TAZOBACTAM 3.375 GM in SODIUM CHLORIDE 0.9% 100 ML IVPB SCH ×3 (08:49→23:31)
[2018-09-30] MEDS: CHLORHEXIDINE GLUCONATE 15 ML CUP MUCOUS MEM SCH ×2 (08:52→20:44)
[2018-09-30] MEDS: PANTOPRAZOLE 40 MG/10 ML VIAL IV SCH (08:52)
[2018-09-30] MEDS: AMIODARONE 200 MG TAB PO SCH ×2 (08:52→20:44)
--- NOTE | 2018-09-30 09:45 | CDI ---
Documentation Clarification Form Date: 09/30/2018 9:36:45 AM From: Niki MorrisonSterlingJOAN franco, CCDS Admit Date: 09/29/2018 6:02:00 PM Patient Name: Peg Quiros Visit Number: [id number] Discharge Date: ATTENTION: The Clinical Documentation Specialists (CDI) and [facility] Coding Staff appreciate your assistance in clarifying documentation. Please respond to the clarification below the line at the bottom and electronically sign. The CDI & [facility] Coding staff will review the response and follow-up if needed. Please note: Queries are made part of the Legal Health Record. If you have any questions, please contact the author of this message via ITS. Dr. Clarisa Giron: Per the ED note, the patient is admitted with "Hypertensive Emergency" History/Risk Factors: Combined systolic & diastolic CHF, Hypertension, ESRD on HD due to polycystic disease with history of a failed kidney transplant, Anemia and DM II. Clinical Indicators: Presented with SOB, diagnosed with acute exacerbation of combined heart failure with history of hypertension per the History & Physical and DM with hypoglycemia. VS: P 104^, R 18 (sob, cough), BP 189/124^, 186/139^, 167/113^ Lab findings: Hgb 9.7*, K 6.2^^, BUN 84^, Cr 12.87^^, Glucose 54*, Troponin x1 0.1^^ Radiology findings: CXR: Pulmonary edema increased & consistent with increased congestive heart failure, moderate cardiomegaly. Treatment: IV Lasix, IV fl 20, Albuterol INH, IV CalGluconate, IV Dextrose/Water, IV Insulin, IV Morphine Sulfate, Nitropaste, IV Labetalol, O2 2Lnc In your professional opinion, can you please clarify if the patient is being treated for: Hypertensive Emergency Hypertensive Urgency Other, please specify Unable to determine (Last Revision: August 2017) MTDD
[2018-09-30] MEDS: PROPOFOL 1,000 MG in EMPTY BAG 1 BAG IV SCH ×3 (11:19→22:14)
--- NOTE | 2018-09-30 11:19 | P.PN ---
Subjective Progress Note Date: 09/30/18 Principal diagnosis: Acute hypoxic respiratory failure secondary to systolic congestive heart failure with moderate severe aortic stenosis, severe aortic regurgitation, and moderate mitral regurgitation. and suspect underlying pneumonia. A 78-year-old female patient who came in to the emergency department with respiratory failure. The patient has COPD, history of aortic regurgitation and hyperlipidemia and addition to a previous history of CVA, hypertension, and breast cancer. The patient was intubated and placed on a mechanical ventilator. She was septic, but I will and she was aggressively resuscitated with IV fluids and currently she is only a few mics of norepinephrine infusion for blood pressure support. She already has a triple lumen catheter in place. Chest x- ray from today shows adequate positioning of the orotracheal tube. The patient has still some cardiomegaly and bilateral layering of pleural effusion in addition to engorgement of the hilar vasculature and cardiac silhouettes. Overall his findings are more consistent with CHF, the patient is acting more like pneumonia/sepsis. She is afebrile. White cell count remains elevated at 18, and the patient's metabolic acidosis improving. Lactic acid level is down to 1.7. Renal function is normal with a creatinine of 0.9. The patient is currently receiving a combination of Rocephin and Zithromax. The patient is also on IV fluids with normal state rate of 100 mL an hour. Echocardiogram was sent and the results are still pending for now. The patient remains on a mechanical ventilator. On today's evaluation the patient is on a PEEP of 8 with an FiO2 of 50% and tidal volume of 400 with a rate of 25. The blood gases from today showed a pH of 7.32 with a pCO2 of 35 and a pO2 of 92. A sedation holiday will be given. Nevertheless, the patient is not ready for any weaning trials or possible extubation yet. She is producing adequate amount of urine output. No other significant events otherwise since yesterday. On 09/23/2018 and seeing this patient for a follow-up. This morning the patient is still sedated with Diprivan at 50 microvascular KG per minute. She is calm and comfortable. Hemodynamically she is stable and the patient is currently off pressors. She remains on a mechanical ventilator. She is an assist-control mode at the rate of 85 with a tidal volume of 400 with an FiO2 of 50% and a PEEP of 5. The chest x-ray from today is showing pulmonary vascular congestion and small effusions bilaterally. No significant sputum production. The blood cultures been negative. The patient remains on a combination of Rocephin and Zithromax. The echocardiogram was done and the patient was found to have a mildly impaired LV function with an ejection fraction of 45-50%. There is evidence of severe aortic regurgitation, moderate aortic stenosis, moderate mitral regurgitation and right ventricular systolic pressure measured to be 29 mmHg. The net fluid balance over the past 24 hours is +2.6 L. The white cell count has improved and is down to 10.7. Blood gases from today showed a pH of 7.35 with a pCO2 of 35 and a pO2 of 113 and this was on FiO2 of 50%. She is tolerating her tube feeds. No other significant events overnight otherwise. On 09/24/2018 and seeing this patient for a follow-up. This morning she is quite comfortable and the patient is being weaned off the sedation. She is hemodynamically stable and the patient is being diuresed with IV Lasix 20 mg and fish every 12 hours. The patient remains a negative fluid balance. Chest x-ray shows small better pleural effusion. No significant orotracheal secretions. ET tube is in a good location. The patient remains and accommodation Rocephin and Zithromax. Cultures of been all negative. In terms of vent support, the patient is an assist-control mode at the rate of 25 with a total volume of 400 and FiO2 of 40% and a PEEP of 5. The morning blood gases showed a pH of 0.41 with a pCO2 of 38 and pO2 of 69 and this was done and FiO2 of 40%. Renal function is stable with a creatinine of 0.8. The rest of the electrodes are all within normal limits. Echocardiogram from yesterday was noted. We are in the process of taking this patient off sedation. I made recommendations to hold propofol. Following that the patient was monitored for another 30-60 minutes during which she was waking up nicely and she was following commands and answering questions. At that point, weaning parameters were checked and the patient was given a spontaneous breathing trial with a pressure support of 5 and a PEEP of 5. After doing that for another 20 minutes, the patient had a blood culture that showed a pH of 7.44 with a pCO2 of 38 and pO2 of 100. Based on all this, I made recommendations to extubate this patient. On 09/25/2089 patient seen in follow-up in the intensive care unit, patient was extubated yesterday, however within 2 hours of extubation she became very hypoxemic, respirations labored, and subsequently patient failed extubation, and had to be emergently reintubated. This morning she is intubated, on mechanical ventilator, and her current vent settings are assist control mode of ventilation with a rate of 25, tidal in the 400, FiO2 of 70%, and PEEP of 8, today's chest x-ray has been reviewed, and shows bilateral pleural effusions, and improving pulmonary edema. Patient is on IV diuretics, and she is in -3600 mL fluid balance over the last 24 hours. One episode of low-grade fever last night at 2000, afebrile this morning, blood, urine and sputum cultures have shown no growth thus far. Current antibiotic coverage in the form of Rocephin and Zithromax, IV Lasix at 20 mg every 8 hours. This morning's blood gases were reviewed, and showed pO2 of 154, pCO2 of 36, and pH of 7.51. White blood cell count is 7.2, hemoglobin is 9.5, electrolyte were within normal limits, BUN is 25 creatinine 0.82. Lung sounds are clear, diminished at the bases. Patient is nontender any vasopressor support. 0.9 normal saline every 20, and improving and is a 60 mics per kilo per minute. On 09/26/2018, I'm seeing this patient in follow-up in the intensive care units. Note that the patient was given initial trial of extubation 2 days ago and the patient failed and subsequently the patient had to be reintubated. Since then the patient is receiving diuresis and the patient remains in a negative fluid balance was receiving Lasix 20 mg of push every 8 hours. The net fluid balance has been -3.6 L from yesterday. Meanwhile, the chest x-ray from today showing some improvement in the volume status. There is persistence of mild cardiomegaly and central vascular congestion and small bilateral pleural effusion which seems to be improved compared to yesterday. As for ET tube, this was a low-lying ET tube and was pushed out why around 1 cm. Meanwhile, the patient remains hemodynamically stable on no pressors. She remains afebrile. She is rating her tube feeds. She is on ventilator at the rate of 25 with a tidal volume of 400 and FiO2 has been drop down to 50% with a PEEP of 5 in the morning blood gases showed a pH of 7.54 with a pCO2 of 35 and pO2 of 81. Remains and accommodation Rocephin and Zithromax. No other significant events otherwise for now. We are the process of getting this patient a sedation holiday and possibly a spontaneous breathing trial On 09/27/2018 I'm seeing this patient for a follow-up. The patient was taken off sedation at 9 AM. I started around 11 AM and the patient was still not following commands. She would open eyes and move extremities and she would withdraw to painful stimulation. Nevertheless there was no meaningful reactions from her. Based on this, I decided to keep it off sedation monitor mental status over the next few hours. I tried to put on a spontaneous breathing trial with a pressure support of 5 and PEEP of 5 and she did poorly as the patient's tidal volumes were low and she became quite tachypneic and restless. I put her back on assist control and she did fine and when the process of continuing the sedation holiday for now. She is having low-grade fever. Sputum and blood culture will be sent. The patient for now is an assist-control mode of ventilation. Her vent settings include assist control mode at the rate of 25 with a tidal volume of 400 with an FiO2 of 40% and a PEEP of 5. The chest x-ray showing some improvement in the volume status. ET tube is in a good location. Blood gases from this morning showed a component of metabolic alkalosis with a pH of 7.59 and a pCO2 of 36 and pO2 of 77. The patient was given a dose of Diamox to 250 mg IV push. The patient is started on IV Lasix 20 mg every 8 hours and the net fluid balance remains -1.7 L over the past 24 hours. Renal function remains stable with a creatinine of 0.7. She is tolerating his tube feeds. No other significant events overnight. She remains on an empiric antibiotic coverage with a combination of Rocephin and Zithromax. She is on few mics of norepinephrine infusion for hemodynamic support. Her cardiac rhythm is sinus. On 09/28/2018 I'm seeing this patient for a follow-up. This morning the patient looked great. She has been off sedation since 4 AM in the morning and the patient was following commands and she was hemodynamically stable. She has diuresed aggressively over the past 24 hours and 48 hours and the patient has been negative fluid balance. She also has received regarding metabolic alkalosis. Earlier this morning the patient's pH was at 7.52 with a pCO2 of 37 and pO2 147. Chest x-ray was showing improvement in the CHF findings. Based on that, I made a decision to give the patient spontaneous breathing trial and the subsequent extubated the patient. Within one hour of extubation the patient failed and she went into a full-blown acute pulmonary edema. The patient had bilateral pulmonary edema right more than left. She had to be reintubated. Excessive amount of frothy secretions were suctioned from the ET tube following the extubation. She was placed back on a mechanical ventilator at the same setting and the patient subsequent blood cultures showed a pH of 7.37 with a pCO2 of 43 and pO2 of 70 on and this was on FiO2 100% with a PEEP of 12. Tidal volume was at 500 with a rate of 25. At this point in time, the FiO2 was gradually weaned off. The patient is currently on propofol. She was having some low-grade fever. Blood cultures were sent and the cultures came back positive for gram-positive cocci. I'm in the process of switching her ant ibiotics. She'll be taken off the Rocephin and Zithromax in place and accommodation Zosyn and vancomycin. She has no significant leukocytosis. The gram-positive and the blood could be potentially colonization. At the same time, I'm going to put this patient on Lasix drip at 5 mg an hour to diuresis him aggressively. Levo fed will be utilized for hemodynamic support. She has significant valvular heart disease and regurgitation with stenosis. On 09/29/2018, patient remains on mechanical ventilation, presently her ventilator settings are assist control rate of 25, tidal volume of 450, FiO2 50%, and PEEP of 5. Remains on Lasix drip at 5 mg per hour, she is on levo fed at 15.6 mcg/m, she is also on propofol at 14 mcg/kg/h. ABG this morning showed a pO2 of 85 pCO2 of 36 pH of 7.46. Electrolytes are normal BUN is 33 creatinine 1.20. CBC showed the risk of 11.7 hemoglobin of 9.7. Chest x-ray showed bilateral edema and/or infiltrates. Small bilateral pleural effusions were noted. Patient is sedated, she had to be reintubated yesterday shortly after she was extubated. Apparently the patient was extubated and reintubated 3 times since admission. Today I had a long discussion with family at bedside, and I have strongly recommended tracheostomy and PEG tube placement. Will not try to wean and extubate again as the patient goes into flash pulmonary edema shortly after extubation and each time. Reevaluated today on 09/30/2018, patient remains in the ICU on mechanical ventilat ion. She is now on tidal volume of 450, FiO2 of 50%, PEEP of 5, and assist control rate of 25. Remains on propofol at 40 mcg/kg/m, she is also on norepinephrine at 6 mcg/m, remains on Lasix at 5 mg per hour. Continues to diurese, chest x-ray continues to improve, patient is also on amiodarone by mouth. Her wide-complex tachycardia did resolve. ABG this morning showed a pO2 of 90 pCO2 of 36 pH of 7.46. Potassium is low at 3.2 being corrected as per protocol. BUN is 39 creatinine is 1.26, slightly worse compared to the last couple of days. Patient was already seen by general surgery, and she is scheduled to undergo tracheostomy and PEG tube placement tomorrow. Family was updated on her condition today, and aware of plans for tracheostomy and PEG tube placement tomorrow Objective - Vital Signs Vital signs: Vital Signs Temp 98.5 F 09/30/18 08:00 Pulse 79 09/30/18 11:00 Resp 25 H 09/30/18 11:00 BP 121/40 09/30/18 11:00 Pulse Ox 98 09/30/18 11:00 Intake & Output 09/29/18 09/30/18 09/30/18 18:59 06:59 18:59 Intake Total 5555.767 7738.914 350 Output Total 2600 2475 1310 Balance -1069.562 -924.086 -960 Weight 85.9 kg 85.6 kg Intake: IV 617 386 145 ACETAMINOPHEN IV (For NPO 100 ) 1,000 mg In Empty Bag 1 bag @ 400 mls/hr IVPB Q6HR PRN Rx#:[id number] Furosemide 100 mg In 5 Sodium Chloride 0.9% 90 ml @ 5 MG/HR 5 mls/hr IV .Q20H [facility] Rx#:[id number] Normal Saline Pressure 72 66 30 Bag Piperacillin-Tazobactam 3 200 100 75 .375 gm In Sodium Chloride 0.9% 100 ml @ 25 mls/hr IVPB Q8HR [facility] Rx# :[id number] Sodium Chloride 0.9% 1, 240 220 40 000 ml @ 20 mls/hr IV . Q24H [facility] Rx#:[id number] Intake, IV Titration 703.438 724.914 Amount Furosemide 100 mg In 100 Sodium Chloride 0.9% 90 ml @ 5 MG/HR 5 mls/hr IV .Q20H [facility] Rx#:[id number] Norepinephrine 4 mg In 177.838 254 Sodium Chloride 0.9% 250 ml @ 0.05 MCG/KG/MIN 15. 122 mls/hr IV .[id number] [facility] Rx#:[id number] Potassium Chloride 20 meq 200 In Water For Injection 1 100ml.bag @ 50 mls/hr IVPB Q2HR [facility] Rx#: [id number] Propofol 1,000 mg In 25.6 170.914 Empty Bag 1 bag @ Titrate IV .Q0M [facility] Rx#: [id number] Vancomycin 1,750 mg In 500 Sodium Chloride 0.9% 500 ml 500 ml @ 167 mls/hr IVPB Q24H [facility] Rx#: [id number] Tube Feeding 210 350 175 Other 90 30 Output: Urine 2600 2475 1310 Other: Voiding Method Indwelling Catheter Indwelling Catheter ABP, PAP, CO, CI - Last Documented Arterial Blood Pressure 136/37 - Exam Gen. Intubated on a mechanical ventilator. Patient is sedated, on propofol drip, Head atraumatic, normocephalic, PERRLA, EOMI, no icterus. Moist mucous membranes. Neck was supple and without jugular venous distension, thyromegaly, or carotid bruits. Carotids were easily palpable bilaterally. There was no adenopathy. The patient has an orogastric and orotracheal tube are both in place. Lungs sounds minimal fine crackles at the bases, no rhonchi and no wheezes Cardiac exam normal S1 and S2, no gallops, 2/6 systolic murmur thought the precordium. abdomen: soft, non-tender, and without masses, organomegaly, or appreciable enlargement of the abdominal aorta. Positive bowel sounds Examination of the extremities revealed easily palpable radial, femoral and pedal pulses. There was no cyanosis, clubbing positive bipedal edema noted. Examination of the skin revealed no evidence of significant rashes, suspicious appearing nevi or other concerning lesions. Neurologically : Patient is sedated, remains on propofol, could not be assessed. Psychiatric: Could not be assessed, patient is sedated on propofol. Skin: No rashes. Lymphatics: No lymphadenopathy. - Labs CBC & Chem 7: 09/30/18 05:05 09/30/18 05:05 Labs: Abnormal Lab Results - Last 24 Hours (Table) 09/29/18 09/29/18 09/30/18 Range/Units 11:28 18:06 00:11 RBC (3.80-5.40) m/uL Hgb (11.4-16.0) gm/dL Hct (34.0-46.0) % MCHC (31.0-37.0) g/dL Plt Count (150-450) k/uL ABG pH (7.35-7.45) ABG HCO3 (21-25) mmol/L ABG Total CO2 (19-24) mmol/L ABG O2 Saturation (94-97) % Potassium (3.5-5.1) mmol/L BUN (7-17) mg/dL Creatinine (0.52-1.04) mg/dL Glucose (74-99) mg/dL POC Glucose (mg/dL) 140 H 117 H 135 H (75-99) mg/dL 09/30/18 09/30/18 09/30/18 Range/Units 05:05 05:05 07:47 RBC 3.72 L (3.80-5.40) m/uL Hgb 9.9 L (11.4-16.0) gm/dL Hct 32.7 L (34.0-46.0) % MCHC 30.4 L (31.0-37.0) g/dL Plt Count 474 H (150-450) k/uL ABG pH 7.46 H (7.35-7.45) ABG HCO3 26 H (21-25) mmol/L ABG Total CO2 27 H (19-24) mmol/L ABG O2 Saturation 97.5 H (94-97) % Potassium 3.2 L (3.5-5.1) mmol/L BUN 39 H (7-17) mg/dL Creatinine 1.26 H (0.52-1.04) mg/dL Glucose 137 H (74-99) mg/dL POC Glucose (mg/dL) (75-99) mg/dL Microbiology - Last 24 Hours (Table) 09/27/18 17:53 Blood Culture Gram Stain - Final Blood Blood Culture - Final Coagulase Negative Staph 09/27/18 17:44 Blood Culture - Preliminary Blood No Growth after 48 hours 09/27/18 19:13 Gram Stain - Final Sputum Sputum Culture - Final Assessment and Plan Assessment: Impression: 1 acute hypoxic respiratory failure secondary to systolic congestive heart failure and significant valvular heart disease including aortic stenosis, aortic regurgitation, and mitral regurgitation as noted on previous echocardiogram. 2 recurrent episodes of extubation and reintubation, failure to wean, mostly because of the patient going into flash pulmonary edema and I believe it is mostly related to her underlying valvular heart disease. Patient was intubated and extubated 3 times since admission to 3 acute kidney injury, improving, most likely cardiorenal, doubt sepsis or septic shock. 4 COPD, remains on bronchodilator. 5 previous history of CVA 6 hypertension 7 severe significant valvular heart disease including aortic regurgitation, mitral regurgitation, and aortic stenosis. 8 positive gram-positive cocci in blood cultures, however it is felt to be most likely contamination. Coagulase-negative staph aureus. 9 history of right-sided breast cancer. 10 bilateral infiltrates and pleural effusions noted on the chest x-ray, felt to be mostly related to congestive heart failure, strongly doubt pneumonia. Improving with diuresis.. Recommendation: 1 continue ventilatory hemodynamic and nutritional support 2 continue diuretics patient Lasix at 5 mg per hour. 3 continue bronchodilators 4 considering that recurrent episodes of flash pulmonary edema as, and congestive heart failure with failure to wean, patient will need to have tracheostomy and PEG tube placement. 5 continue GI and DVT prophylaxis 6 continue empiric antibiotics Discussed condition again with family at bedside, will awaken the patient today assess mental status, no plans to extubate, mostly because the patient failed 3 attempts of extubation in the past, and no plans to keep trying. Hence we'll proceed with tracheostomy and PEG tube placement tomorrow. In the meantime co ntinue present supportive care measures as noted above. Prognosis remains poor and guarded. We'll continue to follow. Care time is 40 minutes. Time with Patient: Greater than 30
[2018-09-30 11:42] LABS: Glucose,Whole Blood 103 mg/dL (75-99)
--- NOTE | 2018-09-30 12:28 | P.PN ---
Subjective Progress Note Date: 09/30/18 CHIEF COMPLAINT: Trach and peg HISTORY OF PRESENT ILLNESS: Patient examined at the bedside. Remains on mechanical ventilation. PHYSICAL EXAM: VITAL SIGNS: Reviewed. GENERAL: Well-developed in no acute distress-sedated on mechanical ventilation. HEENT: No sclera icterus. Extraocular movements grossly intact. Moist buccal mucosa. Head is atraumatic, normocephalic. ABDOMEN: Soft. Nondistended. Nontender. NEUROLOGIC: Sedated on mechanical ventilation ASSESSMENT: 1. Acute hypoxic respiratory failure PLAN: Patient scheduled for trach and peg tube insertion on 10/01/2018. Tub e feeding to be stopped at midnight. Nurse practitioner note has been reviewed by physician. Signing provider agrees with the documented findings, assessment, and plan of care. Objective - Vital Signs Vital signs: Vital Signs Temp 98.5 F 09/30/18 08:00 Pulse 79 09/30/18 11:54 Resp 25 H 09/30/18 11:00 BP 121/40 09/30/18 11:00 Pulse Ox 98 09/30/18 11:00 Intake & Output 09/29/18 09/30/18 09/30/18 18:59 06:59 18:59 Intake Total 9337.437 1823.914 649.657 Output Total 2600 2475 1310 Balance -1069.562 -924.086 -660.343 Weight 85.9 kg 85.6 kg Intake: IV 617 386 145 ACETAMINOPHEN IV (For NPO 100 ) 1,000 mg In Empty Bag 1 bag @ 400 mls/hr IVPB Q6HR PRN Rx#:[id number] Furosemide 100 mg In 5 Sodium Chloride 0.9% 90 ml @ 5 MG/HR 5 mls/hr IV .Q20H [facility] Rx#:[id number] Normal Saline Pressure 72 66 30 Bag Piperacillin-Tazobactam 3 200 100 75 .375 gm In Sodium Chloride 0.9% 100 ml @ 25 mls/hr IVPB Q8HR [facility] Rx# :[id number] Sodium Chloride 0.9% 1, 240 220 40 000 ml @ 20 mls/hr IV . Q24H [facility] Rx#:[id number] Intake, IV Titration 703.438 724.914 299.657 Amount Furosemide 100 mg In 100 Sodium Chloride 0.9% 90 ml @ 5 MG/HR 5 mls/hr IV .Q20H [facility] Rx#:[id number] Norepinephrine 4 mg In 177.838 254 199.657 Sodium Chloride 0.9% 250 ml @ 0.05 MCG/KG/MIN 15. 122 mls/hr IV .[id number] [facility] Rx#:[id number] Potassium Chloride 20 meq 200 In Water For Injection 1 100ml.bag @ 50 mls/hr IVPB Q2HR [facility] Rx#: [id number] Propofol 1,000 mg In 25.6 170.914 100 Empty Bag 1 bag @ Titrate IV .Q0M [facility] Rx#: [id number] Vancomycin 1,750 mg In 500 Sodium Chloride 0.9% 500 ml 500 ml @ 167 mls/hr IVPB Q24H [facility] Rx#: [id number] Tube Feeding 210 350 175 Other 90 30 Output: Urine 2600 2475 1310 Other: Voiding Method Indwelling Catheter Indwelling Catheter Indwelling Catheter ABP, PAP, CO, CI - Last Documented Arterial Blood Pressure 136/37 - Labs CBC & Chem 7: 09/30/18 05:05 09/30/18 11:24 Labs: Abnormal Lab Results - Last 24 Hours (Table) 09/29/18 09/30/18 09/30/18 Range/Units 18:06 00:11 05:05 RBC 3.72 L (3.80-5.40) m/uL Hgb 9.9 L (11.4-16.0) gm/dL Hct 32.7 L (34.0-46.0) % MCHC 30.4 L (31.0-37.0) g/dL Plt Count 474 H (150-450) k/uL ABG pH (7.35-7.45) ABG HCO3 (21-25) mmol/L ABG Total CO2 (19-24) mmol/L ABG O2 Saturation (94-97) % Potassium (3.5-5.1) mmol/L BUN (7-17) mg/dL Creatinine (0.52-1.04) mg/dL Glucose (74-99) mg/dL POC Glucose (mg/dL) 117 H 135 H (75-99) mg/dL 09/30/18 09/30/18 09/30/18 Range/Units 05:05 07:47 11:41 RBC (3.80-5.40) m/uL Hgb (11.4-16.0) gm/dL Hct (34.0-46.0) % MCHC (31.0-37.0) g/dL Plt Count (150-450) k/uL ABG pH 7.46 H (7.35-7.45) ABG HCO3 26 H (21-25) mmol/L ABG Total CO2 27 H (19-24) mmol/L ABG O2 Saturation 97.5 H (94-97) % Potassium 3.2 L (3.5-5.1) mmol/L BUN 39 H (7-17) mg/dL Creatinine 1.26 H (0.52-1.04) mg/dL Glucose 137 H (74-99) mg/dL POC Glucose (mg/dL) 103 H (75-99) mg/dL Microbiology - Last 24 Hours (Table) 09/27/18 17:53 Blood Culture Gram Stain - Final Blood Blood Culture - Final Coagulase Negative Staph 09/27/18 17:44 Blood Culture - Preliminary Blood No Growth after 48 hours 09/27/18 19:13 Gram Stain - Final Sputum Sputum Culture - Final
[2018-09-30] MEDS: VANCOMYCIN 1,750 MG in SODIUM CHLORIDE 0.9% 500 ML 500 ML IVPB SCH (14:28)
[2018-09-30] MEDS ORDERED: POTASSIUM BICARBONATE/CIT AC 20 MEQ TABLET.EFF NG-TUBE SCH ×2 (19:00→23:00)
[2018-09-30 19:24] LABS: Glucose,Whole Blood 128 mg/dL (75-99)
--- NOTE | 2018-09-30 22:33 | PN ---
PROGRESS NOTE DATE OF SERVICE: 09/30/2018 PRESENTING COMPLAINT: Intubated. INTERVAL HISTORY: This patient in the ICU who failed extubation on 09/28/2018 was initially admitted for multilobar pneumonia, sepsis, COPD. She remains on the ventilator. The patient is on Levophed drip and propofol drip. Telemetry shows sinus rhythm. FiO2 is 50 and a PEEP of 5. Also on Lasix drip 5 mg/hour. Trach secretions have decreased. Patient is pending PEG tube and trach placement. REVIEW OF SYSTEMS: Patient is intubated. CURRENT MEDICATIONS: Reviewed. They include: 1. IV propofol. 2. IV Levophed. 3. Lasix drip. 4. Antibiotics. PHYSICAL EXAMINATION: Temperature 99.3, pulse 74, respiration 25, blood pressure 122/38, pulse ox 99% on ventilator. GENERAL APPEARANCE: Lying in bed, intubated. EYES: Pupils equal. Conjunctivae normal. NECK: JVD unable to assess. Mass not palpable. RESPIRATORY: Effort increased. LUNGS: Decreased breath sounds. CARDIOVASCULAR: First and second sounds normal. No edema. HEENT: Endotracheal tube in place. ABDOMEN: Soft, nontender. Liver and spleen not palpable. NEUROLOGICAL: Pupils are equal, reactive. INVESTIGATIONS: White count 9, hemoglobin 9.9, platelets 474. Blood gas showed the pH is 7.46. Potassium 3.9. BUN 39, creatinine 1.26. ASSESSMENT: 1. Multilobar pneumonia. Suspect gram-negative organism with severe sepsis, present on admission. 2. Acute hypoxic respiratory failure requiring ventilator support; failed extubation on 09/28/2018. 3. Acute chronic obstructive pulmonary disease exacerbation in an ex-smoker. 4. Acute metabolic encephalopathy due to sepsis. 5. Obesity; body mass index more than 30. 6. Gastroesophageal reflux disease. 7. Essential hypertension, history of. 8. Septic shock. Patient remains on pressor support. 9. Chronic kidney disease, stage II, from nephrosclerosis. 10.Severe aortic regurgitation, moderate aortic stenosis, moderate mitral regurgitation, non-rheumatic. 11.Paroxysmal ventricular tachycardia. 12.Severe alkalosis. PLAN: Continue medication and treatment plan. Remains on pressor support. Antibiotics. Pending PEG tube and trach placement. Prognosis remains guarded. MMODL / IJN: [id number] /
[2018-09-30] MEDS: ACETAMINOPHEN IV (For NPO) 1,000 MG in EMPTY BAG 1 BAG IVPB PRN (22:34)
[2018-10-01] MEDS: IPRATROPIUM-ALBUTEROL 3 ML NEB INHALATION SCH ×7 (00:09→23:20)
[2018-10-01 00:13] LABS: Glucose,Whole Blood 121 mg/dL (75-99)
[2018-10-01] MEDS: PROPOFOL 1,000 MG in EMPTY BAG 1 BAG IV SCH ×3 (03:10→17:00)
[2018-10-01 04:32] LABS: HGB 9.5 gm/dL (11.4-16.0); Hypochromasia Moderate; MCH 26.4 pg (25.0-35.0); MCHC 30.5 g/dL (31.0-37.0); MCV 86.5 fL (80.0-100.0); Mean Platelet Volume 8.2; Platelet Count 463 k/uL (150-450); RBC 3.58 m/uL (3.80-5.40); RDW 15.5 % (11.5-15.5); WBC 9.1 k/uL (3.8-10.6)
[2018-10-01 04:50] LABS: Calcium 9.2 mg/dL (8.4-10.2); Magnesium 2.3 mg/dL (1.6-2.3); Phosphorus 4.8 mg/dL (2.5-4.5); Potassium 3.5 mmol/L (3.5-5.1)
[2018-10-01] MEDS: POTASSIUM CHLORIDE 20 MEQ in WATER FOR INJECTION 1 100ML.BAG IVPB SCH ×3 (05:00→08:59)
[2018-10-01] MEDS: NOREPINEPHRINE 4 MG in SODIUM CHLORIDE 0.9% 250 ML IV SCH (05:01)
[2018-10-01 05:03] LABS: Eosinophils # (M) 0.91 k/uL (0-0.7); Monocytes # (M) 0.18 k/uL (0-1.0); Myelocytes # (M) 0.09 k/uL (0); Myelocytes % 1 %; Neutrophils % (M) 69 %; Nucleated Red Blood Cells 0 /100 WBC (0-0)
[2018-10-01 05:04] LABS: Lymphocytes # (M) 1.73 k/uL (1.0-4.8); Total Cells Counted 200
[2018-10-01 06:05] LABS: Glucose,Whole Blood 105 mg/dL (75-99)
[2018-10-01 06:09] LABS: Glucose,Whole Blood 115 mg/dL (75-99)
--- NOTE | 2018-10-01 08:11 | XR ---
EXAMINATION TYPE: XR chest 1V portable DATE OF EXAM: 10/01/2018 COMPARISON: NONE HISTORY: SOB, Follow Up FINDINGS: Indwelling tubes and catheters are unchanged. Persistent pulmonary venous congestion with basilar infiltrates/atelectasis and small effusions. Stable appearance of the cardio-mediastinal structures at this time. Pleural effusion unchanged. IMPRESSION: 1. Stable portable chest. Clinical correlation and follow up until resolution is recommended.
[2018-10-01] MEDS: HEPARIN SODIUM,PORCINE 5,000 UNIT/ML 1 ML VIAL SQ SCH ×2 (08:55→16:36)
[2018-10-01] MEDS: PIPERACILLIN-TAZOBACTAM 3.375 GM in SODIUM CHLORIDE 0.9% 100 ML IVPB SCH ×2 (08:56→16:36)
[2018-10-01] MEDS: AMIODARONE 200 MG TAB PO SCH ×2 (08:57→22:28)
[2018-10-01] MEDS: PANTOPRAZOLE 40 MG/10 ML VIAL IV SCH (08:58)
[2018-10-01] MEDS: CHLORHEXIDINE GLUCONATE 15 ML CUP MUCOUS MEM SCH ×2 (08:58→22:28)
--- NOTE | 2018-10-01 09:33 | P.PN ---
Subjective Progress Note Date: 10/01/18 Principal diagnosis: Cardiac arrhythmia This is a 78-year-old female patient with a past medical history significant for COPD, valvular heart disease, as well as multiple comorbid conditions was admitted to the hospital with shortness of breath and was diagnosed with acute hypoxic respiratory failure secondary to COPD exacerbation as well as sepsis pneumonia. We get involved in her care because of cardiac arrhythmia and the patient was experiencing intermittent and rate related LBBB. On follow-up with the patient today, October [id number], she continues to be intubated on mechanical ventilation. Hemodynamically she still requires small dose of norepinephrine. She continues to be on Lasix drip. She continues to be on amiodarone by mouth and no more episode of wide complex tachycardia so far. Objective - Vital Signs Vital signs: Vital Signs Temp 98.1 F 10/01/18 08:00 Pulse 80 10/01/18 08:45 Resp 25 H 10/01/18 08:45 BP 108/49 10/01/18 08:45 Pulse Ox 96 10/01/18 08:45 Intake & Output 09/30/18 10/01/18 10/01/18 18:59 06:59 18:59 Intake Total 7917.738 6496.357 160.986 Output Total 2310 1780 350 Balance -560.576 24.357 -189.014 Weight 86 kg Intake: IV 344.5 960.5 31 ACETAMINOPHEN IV (For NPO 100 ) 1,000 mg In Empty Bag 1 bag @ 400 mls/hr IVPB Q6HR PRN Rx#:[id number] Furosemide 100 mg In 60 5 Sodium Chloride 0.9% 90 ml @ 5 MG/HR 5 mls/hr IV .Q20H [facility]FFERY Rx#:[id number] Normal Saline Pressure 72 78 6 Bag Piperacillin-Tazobactam 3 112.5 262.5 .375 gm In Sodium Chloride 0.9% 100 ml @ 25 mls/hr IVPB Q8HR [facility] Rx# :[id number] Potassium Chloride 20 meq 200 In Water For Injection 1 100ml.bag @ 50 mls/hr IVPB Q2H [facility] Rx#: [id number] Sodium Chloride 0.9% 1, 160 260 20 000 ml @ 20 mls/hr IV . Q24H [facility] Rx#:[id number] Intake, IV Titration 894.924 468.857 129.986 Amount Furosemide 100 mg In 86.833 Sodium Chloride 0.9% 90 ml @ 5 MG/HR 5 mls/hr IV .Q20H [facility] Rx#:[id number] Norepinephrine 4 mg In 254.000 223.197 36.594 Sodium Chloride 0.9% 250 ml @ 0.05 MCG/KG/MIN 15. 122 mls/hr IV .[id number] [facility] Rx#:[id number] Propofol 1,000 mg In 122.924 158.827 93.392 Empty Bag 1 bag @ Titrate IV .Q0M [facility] Rx#: [id number] Sodium Chloride 0.9% 1, 20 000 ml @ 20 mls/hr IV . Q24H [facility] Rx#:[id number] Vancomycin 1,750 mg In 498 Sodium Chloride 0.9% 500 ml 500 ml @ 167 mls/hr IVPB Q24H [facility] Rx#: [id number] Tube Feeding 420 315 Other 90 60 Output: Urine 2310 1780 350 Other: Voiding Method Indwelling Catheter Indwelling Catheter ABP, PAP, CO, CI - Last Documented Arterial Blood Pressure 103/32 - Constitutional General appearance: Present: no acute distress - Respiratory Respiratory: bilateral: CTA - Cardiovascular Rhythm: regular Heart sounds: normal: S1, S2 - Labs CBC & Chem 7: 10/01/18 04:20 10/01/18 04:20 Labs: Abnormal Lab Results - Last 24 Hours (Table) 09/30/18 09/30/18 10/01/18 Range/Units 11:41 19:23 00:11 RBC (3.80-5.40) m/uL Hgb (11.4-16.0) gm/dL Hct (34.0-46.0) % MCHC (31.0-37.0) g/dL Plt Count (150-450) k/uL Eosinophils # (Manual) (0-0.7) k/uL Myelocytes # (Manual) (0) k/uL BUN (7-17) mg/dL Creatinine (0.52-1.04) mg/dL Glucose (74-99) mg/dL POC Glucose (mg/dL) 103 H 128 H 121 H (75-99) mg/dL Phosphorus (2.5-4.5) mg/dL 10/01/18 10/01/18 10/01/18 Range/Units 04:20 04:20 06:03 RBC 3.58 L (3.80-5.40) m/uL Hgb 9.5 L (11.4-16.0) gm/dL Hct 31.0 L (34.0-46.0) % MCHC 30.5 L (31.0-37.0) g/dL Plt Count 463 H (150-450) k/uL Eosinophils # (Manual) 0.91 H (0-0.7) k/uL Myelocytes # (Manual) 0.09 H (0) k/uL BUN 41 H (7-17) mg/dL Creatinine 1.38 H (0.52-1.04) mg/dL Glucose 109 H (74-99) mg/dL POC Glucose (mg/dL) 105 H (75-99) mg/dL Phosphorus 4.8 H (2.5-4.5) mg/dL 10/01/18 Range/Units 06:08 RBC (3.80-5.40) m/uL Hgb (11.4-16.0) gm/dL Hct (34.0-46.0) % MCHC (31.0-37.0) g/dL Plt Count (150-450) k/uL Eosinophils # (Manual) (0-0.7) k/uL Myelocytes # (Manual) (0) k/uL BUN (7-17) mg/dL Creatinine (0.52-1.04) mg/dL Glucose (74-99) mg/dL POC Glucose (mg/dL) 115 H (75-99) mg/dL Phosphorus (2.5-4.5) mg/dL Microbiology - Last 24 Hours (Table) 09/27/18 17:44 Blood Culture - Preliminary Blood No Growth after 72 hours Assessment and Plan Assessment: Assessment #1 acute hypoxic respiratory failure #2 sepsis/pneumonia #3 acute renal failure which has improved #4 hemodynamic instability which has improved #5 cardiac arrhythmia #6 valvular heart disease #7 COPD #8 multiple comorbid conditions Plan #1 continue the current dose of amiodarone #2 continue Lasix drip #3 follow-up with the patient Thank you for allowing us participate in her care and we'll continue following up with the patient
--- NOTE | 2018-10-01 11:00 | P.PN ---
Subjective Progress Note Date: 10/01/18 Principal diagnosis: Acute hypoxic respiratory failure secondary to systolic congestive heart failure with moderate severe aortic stenosis, severe aortic regurgitation, and moderate mitral regurgitation. and suspect underlying pneumonia. A 78-year-old female patient who came in to the emergency department with respiratory failure. The patient has COPD, history of aortic regurgitation and hyperlipidemia and addition to a previous history of CVA, hypertension, and breast cancer. The patient was intubated and placed on a mechanical ventilator. She was septic, but I will and she was aggressively resuscitated with IV fluids and currently she is only a few mics of norepinephrine infusion for blood pressure support. She already has a triple lumen catheter in place. Chest x- ray from today shows adequate positioning of the orotracheal tube. The patient has still some cardiomegaly and bilateral layering of pleural effusion in addition to engorgement of the hilar vasculature and cardiac silhouettes. Overall his findings are more consistent with CHF, the patient is acting more like pneumonia/sepsis. She is afebrile. White cell count remains elevated at 18, and the patient's metabolic acidosis improving. Lactic acid level is down to 1.7. Renal function is normal with a creatinine of 0.9. The patient is currently receiving a combination of Rocephin and Zithromax. The patient is also on IV fluids with normal state rate of 100 mL an hour. Echocardiogram was sent and the results are still pending for now. The patient remains on a mechanical ventilator. On today's evaluation the patient is on a PEEP of 8 with an FiO2 of 50% and tidal volume of 400 with a rate of 25. The blood gases from today showed a pH of 7.32 with a pCO2 of 35 and a pO2 of 92. A sedation holiday will be given. Nevertheless, the patient is not ready for any weaning trials or possible extubation yet. She is producing adequate amount of urine output. No other significant events otherwise since yesterday. On 09/23/2018 and seeing this patient for a follow-up. This morning the patient is still sedated with Diprivan at 50 microvascular KG per minute. She is calm and comfortable. Hemodynamically she is stable and the patient is currently off pressors. She remains on a mechanical ventilator. She is an assist-control mode at the rate of 85 with a tidal volume of 400 with an FiO2 of 50% and a PEEP of 5. The chest x-ray from today is showing pulmonary vascular congestion and small effusions bilaterally. No significant sputum production. The blood cultures been negative. The patient remains on a combination of Rocephin and Zithromax. The echocardiogram was done and the patient was found to have a mildly impaired LV function with an ejection fraction of 45-50%. There is evidence of severe aortic regurgitation, moderate aortic stenosis, moderate mitral regurgitation and right ventricular systolic pressure measured to be 29 mmHg. The net fluid balance over the past 24 hours is +2.6 L. The white cell count has improved and is down to 10.7. Blood gases from today showed a pH of 7.35 with a pCO2 of 35 and a pO2 of 113 and this was on FiO2 of 50%. She is tolerating her tube feeds. No other significant events overnight otherwise. On 09/24/2018 and seeing this patient for a follow-up. This morning she is quite comfortable and the patient is being weaned off the sedation. She is hemodynamically stable and the patient is being diuresed with IV Lasix 20 mg and fish every 12 hours. The patient remains a negative fluid balance. Chest x-ray shows small better pleural effusion. No significant orotracheal secretions. ET tube is in a good location. The patient remains and accommodation Rocephin and Zithromax. Cultures of been all negative. In terms of vent support, the patient is an assist-control mode at the rate of 25 with a total volume of 400 and FiO2 of 40% and a PEEP of 5. The morning blood gases showed a pH of 0.41 with a pCO2 of 38 and pO2 of 69 and this was done and FiO2 of 40%. Renal function is stable with a creatinine of 0.8. The rest of the electrodes are all within normal limits. Echocardiogram from yesterday was noted. We are in the process of taking this patient off sedation. I made recommendations to hold propofol. Following that the patient was monitored for another 30-60 minutes during which she was waking up nicely and she was following commands and answering questions. At that point, weaning parameters were checked and the patient was given a spontaneous breathing trial with a pressure support of 5 and a PEEP of 5. After doing that for another 20 minutes, the patient had a blood culture that showed a pH of 7.44 with a pCO2 of 38 and pO2 of 100. Based on all this, I made recommendations to extubate this patient. On 09/25/2089 patient seen in follow-up in the intensive care unit, patient was extubated yesterday, however within 2 hours of extubation she became very hypoxemic, respirations labored, and subsequently patient failed extubation, and had to be emergently reintubated. This morning she is intubated, on mechanical ventilator, and her current vent settings are assist control mode of ventilation with a rate of 25, tidal in the 400, FiO2 of 70%, and PEEP of 8, today's chest x-ray has been reviewed, and shows bilateral pleural effusions, and improving pulmonary edema. Patient is on IV diuretics, and she is in -3600 mL fluid balance over the last 24 hours. One episode of low-grade fever last night at 2000, afebrile this morning, blood, urine and sputum cultures have shown no growth thus far. Current antibiotic coverage in the form of Rocephin and Zithromax, IV Lasix at 20 mg every 8 hours. This morning's blood gases were reviewed, and showed pO2 of 154, pCO2 of 36, and pH of 7.51. White blood cell count is 7.2, hemoglobin is 9.5, electrolyte were within normal limits, BUN is 25 creatinine 0.82. Lung sounds are clear, diminished at the bases. Patient is nontender any vasopressor support. 0.9 normal saline every 20, and improving and is a 60 mics per kilo per minute. On 09/26/2018, I'm seeing this patient in follow-up in the intensive care units. Note that the patient was given initial trial of extubation 2 days ago and the patient failed and subsequently the patient had to be reintubated. Since then the patient is receiving diuresis and the patient remains in a negative fluid balance was receiving Lasix 20 mg of push every 8 hours. The net fluid balance has been -3.6 L from yesterday. Meanwhile, the chest x-ray from today showing some improvement in the volume status. There is persistence of mild cardiomegaly and central vascular congestion and small bilateral pleural effusion which seems to be improved compared to yesterday. As for ET tube, this was a low-lying ET tube and was pushed out why around 1 cm. Meanwhile, the patient remains hemodynamically stable on no pressors. She remains afebrile. She is rating her tube feeds. She is on ventilator at the rate of 25 with a tidal volume of 400 and FiO2 has been drop down to 50% with a PEEP of 5 in the morning blood gases showed a pH of 7.54 with a pCO2 of 35 and pO2 of 81. Remains and accommodation Rocephin and Zithromax. No other significant events otherwise for now. We are the process of getting this patient a sedation holiday and possibly a spontaneous breathing trial On 09/27/2018 I'm seeing this patient for a follow-up. The patient was taken off sedation at 9 AM. I started around 11 AM and the patient was still not following commands. She would open eyes and move extremities and she would withdraw to painful stimulation. Nevertheless there was no meaningful reactions from her. Based on this, I decided to keep it off sedation monitor mental status over the next few hours. I tried to put on a spontaneous breathing trial with a pressure support of 5 and PEEP of 5 and she did poorly as the patient's tidal volumes were low and she became quite tachypneic and restless. I put her back on assist control and she did fine and when the process of continuing the sedation holiday for now. She is having low-grade fever. Sputum and blood culture will be sent. The patient for now is an assist-control mode of ventilation. Her vent settings include assist control mode at the rate of 25 with a tidal volume of 400 with an FiO2 of 40% and a PEEP of 5. The chest x-ray showing some improvement in the volume status. ET tube is in a good location. Blood gases from this morning showed a component of metabolic alkalosis with a pH of 7.59 and a pCO2 of 36 and pO2 of 77. The patient was given a dose of Diamox to 250 mg IV push. The patient is started on IV Lasix 20 mg every 8 hours and the net fluid balance remains -1.7 L over the past 24 hours. Renal function remains stable with a creatinine of 0.7. She is tolerating his tube feeds. No other significant events overnight. She remains on an empiric antibiotic coverage with a combination of Rocephin and Zithromax. She is on few mics of norepinephrine infusion for hemodynamic support. Her cardiac rhythm is sinus. On 09/28/2018 I'm seeing this patient for a follow-up. This morning the patient looked great. She has been off sedation since 4 AM in the morning and the patient was following commands and she was hemodynamically stable. She has diuresed aggressively over the past 24 hours and 48 hours and the patient has been negative fluid balance. She also has received regarding metabolic alkalosis. Earlier this morning the patient's pH was at 7.52 with a pCO2 of 37 and pO2 147. Chest x-ray was showing improvement in the CHF findings. Based on that, I made a decision to give the patient spontaneous breathing trial and the subsequent extubated the patient. Within one hour of extubation the patient failed and she went into a full-blown acute pulmonary edema. The patient had bilateral pulmonary edema right more than left. She had to be reintubated. Excessive amount of frothy secretions were suctioned from the ET tube following the extubation. She was placed back on a mechanical ventilator at the same setting and the patient subsequent blood cultures showed a pH of 7.37 with a pCO2 of 43 and pO2 of 70 on and this was on FiO2 100% with a PEEP of 12. Tidal volume was at 500 with a rate of 25. At this point in time, the FiO2 was gradually weaned off. The patient is currently on propofol. She was having some low-grade fever. Blood cultures were sent and the cultures came back positive for gram-positive cocci. I'm in the process of switching her ant ibiotics. She'll be taken off the Rocephin and Zithromax in place and accommodation Zosyn and vancomycin. She has no significant leukocytosis. The gram-positive and the blood could be potentially colonization. At the same time, I'm going to put this patient on Lasix drip at 5 mg an hour to diuresis him aggressively. Levo fed will be utilized for hemodynamic support. She has significant valvular heart disease and regurgitation with stenosis. On 09/29/2018, patient remains on mechanical ventilation, presently her ventilator settings are assist control rate of 25, tidal volume of 450, FiO2 50%, and PEEP of 5. Remains on Lasix drip at 5 mg per hour, she is on levo fed at 15.6 mcg/m, she is also on propofol at 14 mcg/kg/h. ABG this morning showed a pO2 of 85 pCO2 of 36 pH of 7.46. Electrolytes are normal BUN is 33 creatinine 1.20. CBC showed the risk of 11.7 hemoglobin of 9.7. Chest x-ray showed bilateral edema and/or infiltrates. Small bilateral pleural effusions were noted. Patient is sedated, she had to be reintubated yesterday shortly after she was extubated. Apparently the patient was extubated and reintubated 3 times since admission. Today I had a long discussion with family at bedside, and I have strongly recommended tracheostomy and PEG tube placement. Will not try to wean and extubate again as the patient goes into flash pulmonary edema shortly after extubation and each time. Reevaluated today on 09/30/2018, patient remains in the ICU on mechanical ventilat ion. She is now on tidal volume of 450, FiO2 of 50%, PEEP of 5, and assist control rate of 25. Remains on propofol at 40 mcg/kg/m, she is also on norepinephrine at 6 mcg/m, remains on Lasix at 5 mg per hour. Continues to diurese, chest x-ray continues to improve, patient is also on amiodarone by mouth. Her wide-complex tachycardia did resolve. ABG this morning showed a pO2 of 90 pCO2 of 36 pH of 7.46. Potassium is low at 3.2 being corrected as per protocol. BUN is 39 creatinine is 1.26, slightly worse compared to the last couple of days. Patient was already seen by general surgery, and she is scheduled to undergo tracheostomy and PEG tube placement tomorrow. Family was updated on her condition today, and aware of plans for tracheostomy and PEG tube placement tomorrow Reevaluated today on 10/01/2018, remains on the same ventilator settings, remains on propofol, remains on norepinephrine at 0.055 mcg/kg/m, propofol is at 30 mcg/kg/m, remains on Lasix at 5 mg per hour. Patient is scheduled to undergo EGD and PEG tube placement today. Chest x-ray was reviewed relatively unchanged compared to the chest x-ray yesterday, her CBC is relatively normal hemoglobin is 9.5. Electrolytes are normal potassium is 3.5 being corrected creatinine is 1.38, slightly worse compared to the last 2 or 3 days, hence may consider stopping Lasix and switching to Lasix IV push instead of Lasix drip. Remains on oral amiodarone, and no further episodes of wide-complex tachycardia. Objective - Vital Signs Vital signs: Vital Signs Temp 98.1 F 10/01/18 08:00 Pulse 80 10/01/18 08:45 Resp 25 H 10/01/18 08:45 BP 108/49 10/01/18 08:45 Pulse Ox 96 10/01/18 08:45 Intake & Output 09/30/18 10/01/18 10/01/18 18:59 06:59 18:59 Intake Total 0758.317 3441.357 160.986 Output Total 2310 1780 350 Balance -560.576 24.357 -189.014 Weight 86 kg Intake: IV 344.5 960.5 31 ACETAMINOPHEN IV (For NPO 100 ) 1,000 mg In Empty Bag 1 bag @ 400 mls/hr IVPB Q6HR PRN Rx#:[id number] Furosemide 100 mg In 60 5 Sodium Chloride 0.9% 90 ml @ 5 MG/HR 5 mls/hr IV .Q20H JEFFERY Rx#:[id number] Normal Saline Pressure 72 78 6 Bag Piperacillin-Tazobactam 3 112.5 262.5 .375 gm In Sodium Chloride 0.9% 100 ml @ 25 mls/hr IVPB Q8HR [facility] Rx# :[id number] Potassium Chloride 20 meq 200 In Water For Injection 1 100ml.bag @ 50 mls/hr IVPB Q2H [facility] Rx#: [id number] Sodium Chloride 0.9% 1, 160 260 20 000 ml @ 20 mls/hr IV . Q24H [facility]ERY Rx#:[id number] Intake, IV Titration 894.924 468.857 129.986 Amount Furosemide 100 mg In 86.833 Sodium Chloride 0.9% 90 ml @ 5 MG/HR 5 mls/hr IV .Q20H [facility]ERY Rx#:[id number] Norepinephrine 4 mg In 254.000 223.197 36.594 Sodium Chloride 0.9% 250 ml @ 0.05 MCG/KG/MIN 15. 122 mls/hr IV .[id number] JEFFERY Rx#:[id number] Propofol 1,000 mg In 122.924 158.827 93.392 Empty Bag 1 bag @ Titrate IV .Q0M [facility]ERY Rx#: [id number] Sodium Chloride 0.9% 1, 20 000 ml @ 20 mls/hr IV . Q24H [facility]FFERY Rx#:[id number] Vancomycin 1,750 mg In 498 Sodium Chloride 0.9% 500 ml 500 ml @ 167 mls/hr IVPB Q24H [facility]FFERY Rx#: [id number] Tube Feeding 420 315 Other 90 60 Output: Urine 2310 1780 350 Other: Voiding Method Indwelling Catheter Indwelling Catheter ABP, PAP, CO, CI - Last Documented Arterial Blood Pressure 103/32 - Exam Gen. Intubated on a mechanical ventilator. Patient is sedated, on propofol drip, Head atraumatic, normocephalic, PERRLA, EOMI, no icterus. Moist mucous membranes. Neck was supple and without jugular venous distension, thyromegaly, or carotid bruits. Orogastric tube and endotracheal tube are intact Lungs sounds minimal fine crackles at the bases, no rhonchi and no wheezes Cardiac exam normal S1 and S2, no gallops, 2/6 systolic murmur thought the precordium. abdomen: soft, non-tender, and without masses, organomegaly, or appreciable enlargement of the abdominal aorta. Positive bowel sounds Examination of the extremities revealed easily palpable radial, femoral and pedal pulses. There was no cyanosis, clubbing positive bipedal edema noted. Examination of the skin revealed no evidence of significant rashes, suspicious appearing nevi or other concerning lesions. Neurologically : Patient is sedated, remains on propofol, could not be assessed. Psychiatric: Could not be assessed, patient is sedated on propofol. Skin: No rashes. Lymphatics: No lymphadenopathy. - Labs CBC & Chem 7: 10/01/18 04:20 10/01/18 04:20 Labs: Abnormal Lab Results - Last 24 Hours (Table) 09/30/18 09/30/18 10/01/18 Range/Units 11:41 19:23 00:11 RBC (3.80-5.40) m/uL Hgb (11.4-16.0) gm/dL Hct (34.0-46.0) % MCHC (31.0-37.0) g/dL Plt Count (150-450) k/uL Eosinophils # (Manual) (0-0.7) k/uL Myelocytes # (Manual) (0) k/uL BUN (7-17) mg/dL Creatinine (0.52-1.04) mg/dL Glucose (74-99) mg/dL POC Glucose (mg/dL) 103 H 128 H 121 H (75-99) mg/dL Phosphorus (2.5-4.5) mg/dL 10/01/18 10/01/18 10/01/18 Range/Units 04:20 04:20 06:03 RBC 3.58 L (3.80-5.40) m/uL Hgb 9.5 L (11.4-16.0) gm/dL Hct 31.0 L (34.0-46.0) % MCHC 30.5 L (31.0-37.0) g/dL Plt Count 463 H (150-450) k/uL Eosinophils # (Manual) 0.91 H (0-0.7) k/uL Myelocytes # (Manual) 0.09 H (0) k/uL BUN 41 H (7-17) mg/dL Creatinine 1.38 H (0.52-1.04) mg/dL Glucose 109 H (74-99) mg/dL POC Glucose (mg/dL) 105 H (75-99) mg/dL Phosphorus 4.8 H (2.5-4.5) mg/dL 10/01/18 Range/Units 06:08 RBC (3.80-5.40) m/uL Hgb (11.4-16.0) gm/dL Hct (34.0-46.0) % MCHC (31.0-37.0) g/dL Plt Count (150-450) k/uL Eosinophils # (Manual) (0-0.7) k/uL Myelocytes # (Manual) (0) k/uL BUN (7-17) mg/dL Creatinine (0.52-1.04) mg/dL Glucose (74-99) mg/dL POC Glucose (mg/dL) 115 H (75-99) mg/dL Phosphorus (2.5-4.5) mg/dL Microbiology - Last 24 Hours (Table) 09/27/18 17:44 Blood Culture - Preliminary Blood No Growth after 72 hours Assessment and Plan Assessment: Impression: 1 acute hypoxic respiratory failure secondary to systolic congestive heart failure and significant valvular heart disease including aortic stenosis, aortic regurgitation, and mitral regurgitation as noted on previous echocardiogram. 2 recurrent episodes of extubation and reintubation, failure to wean, mostly because of the patient going into flash pulmonary edema and I believe it is mostly related to her underlying valvular heart disease. Patient was intubated and extubated 3 times since admission to 3 acute kidney injury, improving, most likely cardiorenal, doubt sepsis or septic shock. 4 COPD, remains on bronchodilator. 5 previous history of CVA 6 hypertension 7 severe significant valvular heart disease including aortic regurgitation, mitral regurgitation, and aortic stenosis. 8 positive gram-positive cocci in blood cultures, however it is felt to be most likely contamination. Coagulase-negative staph aureus. 9 history of right-sided breast cancer. 10 bilateral infiltrates and pleural effusions noted on the chest x-ray, felt to be mostly related to congestive heart failure, strongly doubt pneumonia. Improving with diuresis.. Recommendation: 1 continue ventilatory hemodynamic and nutritional support 2 continue diuretics switched Lasix from IV infusion to IV push 20 mg every 12 hours. 3 continue bronchodilators 4 considering that recurrent episodes of flash pulmonary edema as, and congestive heart failure with failure to wean, patient will need to have tracheostomy and PEG tube placement. 5 continue GI and DVT prophylaxis 6 continue empiric antibiotics Discussed condition again with family at bedside, patient is scheduled to have tracheostomy and PEG tube placement today general surgery, and we'll start to be addressing weaning in the next 24 hours. Patient remains critically ill, critical care time is 34 minutes Time with Patient: Greater than 30
[2018-10-01 12:45] LABS: Glucose,Whole Blood 109 mg/dL (75-99)
[2018-10-01] MEDS ORDERED: VANCOMYCIN TROUGH DUE 1 EACH MISC MISCELLANE ONE (13:00)
[2018-10-01] MEDS: VANCOMYCIN 1,750 MG in SODIUM CHLORIDE 0.9% 500 ML 500 ML IVPB SCH (14:18)
[2018-10-01] MEDS ORDERED: MIDAZOLAM 2 MG/2 ML VIAL ONE (14:40)
[2018-10-01] MEDS ORDERED: ROCURONIUM BROMIDE 10 MG/ML 10 ML VIAL IV ONE (14:40)
--- NOTE | 2018-10-01 15:41 | P.OP ---
Date of Procedure: 10/01/18 Preoperative Diagnosis: Respiratory failure Malnutrition Postoperative Diagnosis: *Respiratory failure Malnutrition Procedure(s) Performed: Tracheostomy PEG tube placement Anesthesia: ISABELLE Surgeon: Jones Quiroga Estimated Blood Loss (ml): 10 Pathology: none sent Condition: stable Disposition: PACU Description of Procedure: The patient's placed on the operating table in the supine position. She received general anesthesia. Her neck was prepped and draped usual sterile fa shion. A standard Wai incision was made approximately 2 cm above the sternal notch. Using left cautery the platysma was divided. The strap muscles were divided midline. The adipose tissue was divided with left cautery. And the trachea was exposed. To eliminate her used to expose the trachea. At this point the endotracheal tube was inserted the right mainstem bronchus. Tracheotomies performed between the second and third tracheal rings. A #8 Shiley fenestrated tracheostomy tube was placed into the trachea. After the tracheotomy performed. The entry to have been brought back under direct vision and was positioned just above the tracheotomy site. End tidal CO2 was confirmed. The patient was connected to the ventilator. The skin incision was closed with 2-0 nylon sutures. The umbilical trach tie was secured. The patient had excellent sedation during the procedure. Next the PEG tube was placed. The gastroscope placed oropharynx passed in the esophagus and the stomach. The stomach was insufflated with air. There is no evidence of any gastric obstruction. A suitable light reflux seen the anterior abdominal wall. The skin was incised. And then the needles placed into the stomach under direct visualization. The needle was snared. And then the wire was placed through the needle and the wire was snared and brought out through the oropharynx. The PEG tube placed overtop the wire and brought down into the stomach. The PEG tube was secured at the 3 cm hector. The gastroscope was placed back into the stomach and the PEG tube was appeared to be in appropriate po sition. This was photographed. The gastroscope was then withdrawn. Patient top she will well and was sent back to the ICU in stable condition.
--- NOTE | 2018-10-01 16:34 | XR ---
EXAMINATION TYPE: XR chest 1V portable DATE OF EXAM: 10/01/2018 HISTORY: Shortness of breath. COMPARISON: None. TECHNIQUE: Single view of the chest is submitted. FINDINGS: Tracheostomy tube is now in place. Left subclavian central venous line with its distal tip within the right atrium. Continued cardiomegaly. Left lower lobe atelectasis infiltrate and/or effusion. Hilar and mediastinal structures are within normal limits. Degenerative changes are seen of the dorsal spine. IMPRESSION: 1. Tracheostomy tube is now in place. Left subclavian central venous line with its distal tip within the right atrium. Continued cardiomegaly. Left lower lobe atelectasis infiltrate and/or effusion.
[2018-10-01] MEDS: SODIUM CHLORIDE 0.9% 1,000 ML IV SCH (16:37)
[2018-10-01 18:23] LABS: Glucose,Whole Blood 86 mg/dL (75-99)
[2018-10-01] MEDS: FUROSEMIDE 10 MG/ML 2 ML VIAL IV SCH (23:11)
[2018-10-01] MEDS: ACETAMINOPHEN IV (For NPO) 1,000 MG in EMPTY BAG 1 BAG IVPB PRN (23:23)
[2018-10-02 00:07] LABS: Glucose,Whole Blood 89 mg/dL (75-99)
[2018-10-02] MEDS: HEPARIN SODIUM,PORCINE 5,000 UNIT/ML 1 ML VIAL SQ SCH ×3 (00:41→17:24)
[2018-10-02] MEDS: PIPERACILLIN-TAZOBACTAM 3.375 GM in SODIUM CHLORIDE 0.9% 100 ML IVPB SCH ×3 (00:41→17:24)
[2018-10-02] MEDS: IPRATROPIUM-ALBUTEROL 3 ML NEB INHALATION SCH ×6 (03:10→23:11)
--- NOTE | 2018-10-02 05:59 | PN ---
PROGRESS NOTE DATE OF SERVICE: 10/01/2018 PRESENTING COMPLAINT: Intubated. INTERVAL HISTORY: The patient in the ICU failed extubation on 09/28/2018. Initially admitted for multilobar pneumonia, sepsis, COPD. Remains on the ventilator, pending tracheostomy and a PEG tube. Drips include propofol and Levophed at 4 mcg. Lasix drip was held up this morning. Remains in sinus rhythm. Minimal secretions through the endotracheal tube. Currently tube feeding has been held since midnight. REVIEW OF SYSTEMS: Patient intubated. CURRENT MEDICATIONS: Current medications are reviewed include IV propofol, IV Levophed, also Lasix drip and antibiotics. PHYSICAL EXAMINATION: On examination, temperature 98.9, pulse 82 respiration 25, blood pressure 116/98, pulse ox 91%. GENERAL APPEARANCE: Lying in bed, intubated. EYES: Pupils equal. Conjunctivae normal. NECK: JVD unable to assess. Mass not palpable. RESPIRATORY: Effort increased. LUNGS: Diminished breath sounds. CARDIOVASCULAR: First and second sounds normal. No edema. ABDOMEN: Soft, nontender. Liver and spleen not palpable. HENT: Endotracheal tube in place. NEUROLOGICAL: Pupils are equal, reactive. INVESTIGATIONS: White count 9.1, hemoglobin 9.5, platelets 463. Potassium 3.5, BUN 41, creatinine 1.38. Accu-Cheks are noted. ASSESSMENT: 1. Multilobar pneumonia, suspect gram-negative organism with severe sepsis, present on admission. 2. Acute hypoxic respiratory failure requiring ventilator support; failed extubation on 09/28/2018. 3. Acute chronic obstructive pulmonary disease exacerbation in an ex-smoker. 4. Acute metabolic encephalopathy due to sepsis. 5. Obesity; body mass index more than 30. 6. Gastroesophageal reflux disease. 7. Essential hypertension, history of. 8. Septic shock. Patient remains on pressor support. 9. 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 10.Severe aortic regurgitation, moderate aortic stenosis, moderate mitral regurgitation, nonrheumatic. 11.Paroxysmal ventricular tachycardia. 12.Severe alkalosis, now better. PLAN: Continue current medication and treatment plan. PEG tube has been held. Lasix drip is off. Awaiting on a PEG tube and a tracheostomy when I saw this patient this morning. Prognosis is guarded. Care was discussed with the family at the bedside. MMODL / IJN: [id number] /
[2018-10-02 06:00] LABS: Glucose,Whole Blood 105 mg/dL (75-99)
[2018-10-02 06:15] LABS: Basophils # (A) 0.1 k/uL (0-0.2); Basophils % (A) 1 %; Eosinophils # (A) 0.2 k/uL (0-0.7); Eosinophils % (A) 2 %; HCT 27.2 % (34.0-46.0); HGB 8.4 gm/dL (11.4-16.0); Hypochromasia Marked; Lymphocytes # (A) 0.7 k/uL (1.0-4.8); Lymphocytes % (A) 8 %; MCH 26.7 pg (25.0-35.0); MCHC 30.7 g/dL (31.0-37.0); MCV 87.1 fL (80.0-100.0); Mean Platelet Volume 7.8; Monocytes # (A) 0.4 k/uL (0-1.0); Monocytes % (A) 5 %; Neutrophils % (A) 81 %; Platelet Count 402 k/uL (150-450); RBC 3.13 m/uL (3.80-5.40); RDW 15.4 % (11.5-15.5); WBC 8.5 k/uL (3.8-10.6)
[2018-10-02 06:27] LABS: Calcium 9.7 mg/dL (8.4-10.2); Magnesium 2.7 mg/dL (1.6-2.3); Phosphorus 5.6 mg/dL (2.5-4.5); Potassium 3.3 mmol/L (3.5-5.1)
[2018-10-02] MEDS ORDERED: VANCOMYCIN 1,500 MG in SODIUM CHLORIDE 0.9% 250 ML IVPB SCH ×2 (07:00→12:00)
--- NOTE | 2018-10-02 07:25 | P.PN ---
Subjective Progress Note Date: 10/02/18 Principal diagnosis: Cardiac arrhythmia This is a 78-year-old female patient with a past medical history significant for COPD, valvular heart disease, as well as multiple comorbid conditions was admitted to the hospital with shortness of breath and was diagnosed with acute hypoxic respiratory failure secondary to COPD exacerbation as well as sepsis pneumonia. We get involved in her care because of cardiac arrhythmia and the patient was experiencing intermittent and rate related LBBB. On follow-up with the patient today, October 022018, the patient underwent a PEG and trach tube yesterday. She's of sedation and she seems to be doing clinically better. She is of norepinephrine. She is going to be restarted on amiodarone by mouth later on today. She has been maintaining normal sinus mechanism. No more episode of wide complex tachycardia. Objective - Vital Signs Vital signs: Vital Signs Temp 98.8 F 10/02/18 00:00 Pulse 80 10/02/18 03:25 Resp 27 H 10/02/18 03:00 BP 96/53 10/02/18 03:00 Pulse Ox 95 10/02/18 03:00 Intake & Output 10/01/18 10/02/18 10/02/18 18:59 06:59 18:59 Intake Total 980.511 385 Output Total 1705 470 Balance -724.489 -85 Intake: IV 530 385 ACETAMINOPHEN IV (For NPO 0 ) 1,000 mg In Empty Bag 1 bag @ 400 mls/hr IVPB Q6HR PRN Rx#:[id number] Furosemide 100 mg In 20 Sodium Chloride 0.9% 90 ml @ 5 MG/HR 5 mls/hr IV .Q20H [facility]FFERY Rx#:[id number] Normal Saline Pressure 60 60 Bag Piperacillin-Tazobactam 3 150 125 .375 gm In Sodium Chloride 0.9% 100 ml @ 25 mls/hr IVPB Q8HR [facility] Rx# :[id number] Potassium Chloride 20 meq 100 In Water For Injection 1 100ml.bag @ 50 mls/hr IVPB Q2H [facility] Rx#: [id number] Sodium Chloride 0.9% 1, 200 200 000 ml @ 20 mls/hr IV . Q24H [facility] Rx#:[id number] Intake, IV Titration 390.511 Amount Norepinephrine 4 mg In 187.887 Sodium Chloride 0.9% 250 ml @ 0.05 MCG/KG/MIN 15. 122 mls/hr IV .[id number] [facility] Rx#:[id number] Propofol 1,000 mg In 202.624 Empty Bag 1 bag @ Titrate IV .Q0M JEFFERY Rx#: [id number] Oral 0 Other 60 Output: Urine 1700 470 Estimated Blood Loss 5 Other: Voiding Method Indwelling Catheter Indwelling Catheter ABP, PAP, CO, CI - Last Documented Arterial Blood Pressure 104/28 - Constitutional General appearance: Present: no acute distress - Respiratory Respiratory: bilateral: diminished - Cardiovascular Rhythm: regular Heart sounds: normal: S1, S2 - Labs CBC & Chem 7: 10/02/18 06:00 10/02/18 06:00 Labs: Abnormal Lab Results - Last 24 Hours (Table) 10/01/18 10/02/18 10/02/18 Range/Units 12:44 05:59 06:00 RBC 3.13 L (3.80-5.40) m/uL Hgb 8.4 L (11.4-16.0) gm/dL Hct 27.2 L (34.0-46.0) % MCHC 30.7 L (31.0-37.0) g/dL Lymphocytes # 0.7 L (1.0-4.8) k/uL Potassium (3.5-5.1) mmol/L Chloride (98-107) mmol/L BUN (7-17) mg/dL Creatinine (0.52-1.04) mg/dL POC Glucose (mg/dL) 109 H 105 H (75-99) mg/dL Phosphorus (2.5-4.5) mg/dL Magnesium (1.6-2.3) mg/dL 10/02/18 Range/Units 06:00 RBC (3.80-5.40) m/uL Hgb (11.4-16.0) gm/dL Hct (34.0-46.0) % MCHC (31.0-37.0) g/dL Lymphocytes # (1.0-4.8) k/uL Potassium 3.3 L (3.5-5.1) mmol/L Chloride 110 H (98-107) mmol/L BUN 43 H (7-17) mg/dL Creatinine 1.50 H (0.52-1.04) mg/dL POC Glucose (mg/dL) (75-99) mg/dL Phosphorus 5.6 H (2.5-4.5) mg/dL Magnesium 2.7 H (1.6-2.3) mg/dL Microbiology - Last 24 Hours (Table) 09/27/18 17:44 Blood Culture - Preliminary Blood No Growth after 96 hours Assessment and Plan Assessment: Assessment #1 acute hypoxic respiratory failure #2 sepsis/pneumonia #3 acute renal failure which has improved #4 hemodynamic instability which has improved #5 cardiac arrhythmia #6 valvular heart disease #7 COPD #8 multiple comorbid conditions Plan #1 continue the current dose of amiodarone #2 continue the Lasix IV for additional 24 hours #3 follow-up with the patient Thank you for allowing us participate in her care and we'll continue following up with the patient
[2018-10-02 07:47] LABS: ABG Base Excess 0.5 mmol/L; ABG HCO3 25 mmol/L (21-25); ABG Oxygen Saturation 98.8 % (94-97); ABG PCO2 36 mmHg (35-45); ABG PH 7.45 (7.35-7.45); ABG PO2 116 mmHg (83-108); ABG TCO2 26 mmol/L (19-24); Allen Test Performed? Yes
[2018-10-02] MEDS ORDERED: VANCOMYCIN IV PER PHARMACY 1 EACH MISC MISCELLANE PRN (07:59)
[2018-10-02] MEDS: CHLORHEXIDINE GLUCONATE 15 ML CUP MUCOUS MEM SCH ×2 (09:00→20:41)
[2018-10-02] MEDS: PANTOPRAZOLE 40 MG/10 ML VIAL IV SCH (09:01)
[2018-10-02] MEDS: FUROSEMIDE 10 MG/ML 2 ML VIAL IV SCH ×2 (09:01→20:41)
[2018-10-02] MEDS: POTASSIUM CHLORIDE 20 MEQ in WATER FOR INJECTION 1 100ML.BAG IVPB SCH ×2 (10:00→13:36)
--- NOTE | 2018-10-02 10:45 | XR ---
EXAMINATION TYPE: XR chest 1V portable DATE OF EXAM: 10/02/2018 Comparison: 10/01/2018 Clinical History: 70 year-old female with respiratory failure/CHF Findings: Tracheostomy cannula is in place. Left CVC tip in the right atrium. Heart upper limits of normal in s ize. Mild interstitial prominence. Trace effusion suspected, improved from prior. Impression: Borderline heart size and mild interstitial prominence, possible mild residual pulmonary vascular con gestion. Trace effusions are suspected, improved from prior.
--- NOTE | 2018-10-02 11:09 | P.PN ---
Subjective Progress Note Date: 10/02/18 CHIEF COMPLAINT: Trach and peg HISTORY OF PRESENT ILLNESS: Patient examined at the bedside. Niece present. She is s/p trach and peg. POD #1. PHYSICAL EXAM: VITAL SIGNS: Reviewed. GENERAL: Well-developed in no acute distress. HEENT: Trach noted-site clean and dry. No sclera icterus. Moist buccal mucosa. Head is atraumatic, normocephalic. ABDOMEN: Soft. Nondistended. Nontender. PEG intact. currently clamped. NEUROLOGIC: Patient opens eyes and looks around. Not following commands. ASSESSMENT: 1. Acute hypoxic respiratory failure PLAN: Ventilator management per pulmonary May begin tube feeding per dietary recommendations at 1800 Please crush all pills completely and dissolve in water before administering via PEG tube Nurse practitioner note has been reviewed by physician. Signing provider agrees with the documented findings, assessment, and plan of care. Objective - Vital Signs Vital signs: Vital Signs Temp 98.9 F 10/02/18 04:00 Pulse 69 10/02/18 10:00 Resp 25 H 10/02/18 10:00 BP 116/42 10/02/18 10:00 Pulse Ox 96 10/02/18 10:00 Intake & Output 10/01/18 10/02/18 10/02/18 18:59 06:59 18:59 Intake Total 980.511 437 154 Output Total 1705 530 132 Balance -724.489 -93 22 Weight 86 kg Intake: IV 530 437 154 ACETAMINOPHEN IV (For NPO 0 ) 1,000 mg In Empty Bag 1 bag @ 400 mls/hr IVPB Q6HR PRN Rx#:[id number] Furosemide 100 mg In 20 Sodium Chloride 0.9% 90 ml @ 5 MG/HR 5 mls/hr IV .Q20H [facility] Rx#:[id number] Normal Saline Pressure 60 72 24 Bag Piperacillin-Tazobactam 3 150 125 50 .375 gm In Sodium Chloride 0.9% 100 ml @ 25 mls/hr IVPB Q8HR [facility] Rx# :[id number] Potassium Chloride 20 meq 100 In Water For Injection 1 100ml.bag @ 50 mls/hr IVPB Q2H [facility] Rx#: [id number] Sodium Chloride 0.9% 1, 200 240 80 000 ml @ 20 mls/hr IV . Q24H [facility] Rx#:[id number] Intake, IV Titration 390.511 Amount Norepinephrine 4 mg In 187.887 Sodium Chloride 0.9% 250 ml @ 0.05 MCG/KG/MIN 15. 122 mls/hr IV .[id number] [facility] Rx#:[id number] Propofol 1,000 mg In 202.624 Empty Bag 1 bag @ Titrate IV .Q0M [facility] Rx#: [id number] Oral 0 Tube Feeding 0 Other 60 Output: Urine 1700 530 132 Estimated Blood Loss 5 Other: Voiding Method Indwelling Catheter Indwelling Catheter Indwelling Catheter ABP, PAP, CO, CI - Last Documented Arterial Blood Pressure 104/28 - Labs CBC & Chem 7: 10/02/18 06:00 10/02/18 06:00 Labs: Abnormal Lab Results - Last 24 Hours (Table) 10/01/18 10/02/18 10/02/18 Range/Units 12:44 05:59 06:00 RBC 3.13 L (3.80-5.40) m/uL Hgb 8.4 L (11.4-16.0) gm/dL Hct 27.2 L (34.0-46.0) % MCHC 30.7 L (31.0-37.0) g/dL Lymphocytes # 0.7 L (1.0-4.8) k/uL ABG pO2 (83-108) mmHg ABG Total CO2 (19-24) mmol/L ABG O2 Saturation (94-97) % Potassium (3.5-5.1) mmol/L Chloride (98-107) mmol/L BUN (7-17) mg/dL Creatinine (0.52-1.04) mg/dL POC Glucose (mg/dL) 109 H 105 H (75-99) mg/dL Phosphorus (2.5-4.5) mg/dL Magnesium (1.6-2.3) mg/dL 10/02/18 10/02/18 Range/Units 06:00 07:45 RBC (3.80-5.40) m/uL Hgb (11.4-16.0) gm/dL Hct (34.0-46.0) % MCHC (31.0-37.0) g/dL Lymphocytes # (1.0-4.8) k/uL ABG pO2 116 H (83-108) mmHg ABG Total CO2 26 H (19-24) mmol/L ABG O2 Saturation 98.8 H (94-97) % Potassium 3.3 L (3.5-5.1) mmol/L Chloride 110 H (98-107) mmol/L BUN 43 H (7-17) mg/dL Creatinine 1.50 H (0.52-1.04) mg/dL POC Glucose (mg/dL) (75-99) mg/dL Phosphorus 5.6 H (2.5-4.5) mg/dL Magnesium 2.7 H (1.6-2.3) mg/dL Microbiology - Last 24 Hours (Table) 09/27/18 17:44 Blood Culture - Preliminary Blood No Growth after 96 hours
--- NOTE | 2018-10-02 11:30 | P.PN ---
Subjective Progress Note Date: 10/02/18 Principal diagnosis: Acute hypoxic respiratory failure secondary to systolic congestive heart failure with moderate severe aortic stenosis, severe aortic regurgitation, and moderate mitral regurgitation. A 78-year-old female patient who came in to the emergency department with respiratory failure. The patient has COPD, history of aortic regurgitation and hyperlipidemia and addition to a previous history of CVA, hypertension, and breast cancer. The patient was intubated and placed on a mechanical ventilator. She was septic, but I will and she was aggressively resuscitated with IV fluids and currently she is only a few mics of norepinephrine infusion for blood pressure support. She already has a triple lumen catheter in place. Chest x- ray from today shows adequate positioning of the orotracheal tube. The patient has still some cardiomegaly and bilateral layering of pleural effusion in addition to engorgement of the hilar vasculature and cardiac silhouettes. O verall his findings are more consistent with CHF, the patient is acting more like pneumonia/sepsis. She is afebrile. White cell count remains elevated at 18, and the patient's metabolic acidosis improving. Lactic acid level is down to 1.7. Renal function is normal with a creatinine of 0.9. The patient is currently receiving a combination of Rocephin and Zithromax. The patient is also on IV fluids with normal state rate of 100 mL an hour. Echocardiogram was sent and the results are still pending for now. The patient remains on a mechanical ventilator. On today's evaluation the patient is on a PEEP of 8 with an FiO2 of 50% and tidal volume of 400 with a rate of 25. The blood gases from today showed a pH of 7.32 with a pCO2 of 35 and a pO2 of 92. A sedation holiday will be given. Nevertheless, the patient is not ready for any weaning trials or possible extubation yet. She is producing adequate amount of urine output. No other significant events otherwise since yesterday. On 09/23/2018 and seeing this patient for a follow-up. This morning the patient is still sedated with Diprivan at 50 microvascular KG per minute. She is calm and comfortable. Hemodynamically she is stable and the patient is currently off pressors. She remains on a mechanical ventilator. She is an assist-control mode at the rate of 85 with a tidal volume of 400 with an FiO2 of 50% and a PEEP of 5. The chest x-ray from today is showing pulmonary vascular congestion and small effusions bilaterally. No significant sputum production. The blood cultures been negative. The patient remains on a combination of Rocephin and Zithromax. The echocardiogram was done and the patient was found to have a mildly impaired LV function with an ejection fraction of 45-50%. There is evidence of severe aortic regurgitation, moderate aortic stenosis, moderate mitral regurgitation and right ventricular systolic pressure measured to be 29 mmHg. The net fluid balance over the past 24 hours is +2.6 L. The white cell count has improved and is down to 10.7. Blood gases from today showed a pH of 7.35 with a pCO2 of 35 and a pO2 of 113 and this was on FiO2 of 50%. She is tolerating her tube feeds. No other significant events overnight otherwise. On 09/24/2018 and seeing this patient for a follow-up. This morning she is quite comfortable and the patient is being weaned off the sedation. She is hemodynamically stable and the patient is being diuresed with IV Lasix 20 mg and fish every 12 hours. The patient remains a negative fluid balance. Chest x-ray shows small better pleural effusion. No significant orotracheal secretions. ET tube is in a good location. The patient remains and accommodation Rocephin and Zithromax. Cultures of been all negative. In terms of vent support, the pat ient is an assist-control mode at the rate of 25 with a total volume of 400 and FiO2 of 40% and a PEEP of 5. The morning blood gases showed a pH of 0.41 with a pCO2 of 38 and pO2 of 69 and this was done and FiO2 of 40%. Renal function is stable with a creatinine of 0.8. The rest of the electrodes are all within normal limits. Echocardiogram from yesterday was noted. We are in the process of taking this patient off sedation. I made recommendations to hold propofol. Following that the patient was monitored for another 30-60 minutes during which she was waking up nicely and she was following commands and answering questions. At that point, weaning parameters were checked and the patient was given a spontaneous breathing trial with a pressure support of 5 and a PEEP of 5. After doing that for another 20 minutes, the patient had a blood culture that showed a pH of 7.44 with a pCO2 of 38 and pO2 of 100. Based on all this, I made recommendations to extubate this patient. On 09/25/2089 patient seen in follow-up in the intensive care unit, patient was extubated yesterday, however within 2 hours of extubation she became very hypoxemic, respirations labored, and subsequently patient failed extubation, and had to be emergently reintubated. This morning she is intubated, on mechanical ventilator, and her current vent settings are assist control mode of ventilation with a rate of 25, tidal in the 400, FiO2 of 70%, and PEEP of 8, today's chest x-ray has been reviewed, and shows bilateral pleural effusions, and improving pulmonary edema. Patient is on IV diuretics, and she is in -3600 mL fluid balance over the last 24 hours. One episode of low-grade fever last night at 20 00, afebrile this morning, blood, urine and sputum cultures have shown no growth thus far. Current antibiotic coverage in the form of Rocephin and Zithromax, IV Lasix at 20 mg every 8 hours. This morning's blood gases were reviewed, and showed pO2 of 154, pCO2 of 36, and pH of 7.51. White blood cell count is 7.2, hemoglobin is 9.5, electrolyte were within normal limits, BUN is 25 creatinine 0.82. Lung sounds are clear, diminished at the bases. Patient is nontender any vasopressor support. 0.9 normal saline every 20, and improving and is a 60 mics per kilo per minute. On 09/26/2018, I'm seeing this patient in follow-up in the intensive care units. Note that the patient was given initial trial of extubation 2 days ago and the patient failed and subsequently the patient had to be reintubated. Since then the patient is receiving diuresis and the patient remains in a negative fluid b delma was receiving Lasix 20 mg of push every 8 hours. The net fluid balance has been -3.6 L from yesterday. Meanwhile, the chest x-ray from today showing some improvement in the volume status. There is persistence of mild cardiomegaly and central vascular congestion and small bilateral pleural effusion which seems to be improved compared to yesterday. As for ET tube, this was a low-lying ET tube and was pushed out why around 1 cm. Meanwhile, the patient remains hemodynamically stable on no pressors. She remains afebrile. She is rating her tube feeds. She is on ventilator at the rate of 25 with a tidal volume of 400 and FiO2 has been drop down to 50% with a PEEP of 5 in the morning blood gases showed a pH of 7.54 with a pCO2 of 35 and pO2 of 81. Remains and accommodation Rocephin and Zithromax. No other significant events otherwise for now. We are the process of getting this patient a sedation holiday and possibly a spontaneous breathing trial On 09/27/2018 I'm seeing this patient for a follow-up. The patient was taken off sedation at 9 AM. I started around 11 AM and the patient was still not following commands. She would open eyes and move extremities and she would withdraw to painful stimulation. Nevertheless there was no meaningful reactions from her. Based on this, I decided to keep it off sedation monitor mental status over the next few hours. I tried to put on a spontaneous breathing trial with a pressure support of 5 and PEEP of 5 and she did poorly as the patient's tidal volumes were low and she became quite tachypneic and restless. I put her back on assist control and she did fine and when the process of continuing the sedation holiday for now. She is having low-grade fever. Sputum and blood culture will be sent. The patient for now is an assist-control mode of ventilation. Her vent settings include assist control mode at the rate of 25 with a tidal volume of 400 with an FiO2 of 40% and a PEEP of 5. The chest x-ray showing some improvement in the volume status. ET tube is in a good location. Blood gases from this morning showed a component of metabolic alkalosis with a pH of 7.59 and a pCO2 of 36 and pO2 of 77. The patient was given a dose of Diamox to 250 mg IV push. The patient is started on IV Lasix 20 mg every 8 hours and the net fluid balance remains -1.7 L over the past 24 hours. Renal function remains stable with a creatinine of 0.7. She is tolerating his tube feeds. No other significant events overnight. She remains on an empiric antibiotic coverage with a combination of Rocephin and Zithromax. She is on few mics of norepinephrine infusion for hemodynamic support. Her cardiac rhythm is sinus. On 09/28/2018 I'm seeing this patient for a follow-up. This morning the patient looked great. She has been off sedation since 4 AM in the morning and the patient was following commands and she was hemodynamically stable. She has diuresed aggressively over the past 24 hours and 48 hours and the patient has been negative fluid balance. She also has received regarding metabolic alkalosis. Earlier this morning the patient's pH was at 7.52 with a pCO2 of 37 and pO2 147. Chest x-ray was showing improvement in the CHF findings. Based on that, I made a decision to give the patient spontaneous breathing trial and the subsequent extubated the patient. Within one hour of extubation the patient failed and she went into a full-blown acute pulmonary edema. The patient had bilateral pulmonary edema right more than left. She had to be reintubated. Excessive amount of frothy secretions were suctioned from the ET tube following the extubation. She was placed back on a mechanical ventilator at the same setting and the patient subsequent blood cultures showed a pH of 7.37 with a pCO2 of 43 and pO2 of 70 on and this was on FiO2 100% with a PEEP of 12. Tidal volume was at 500 with a rate of 25. At this point in time, the FiO2 was gradually weaned off. The patient is currently on propofol. She was having some low-grade fever. Blood cultures were sent and the cultures came back positive for gram-positive cocci. I'm in the process of switching her antibiotics. She'll be taken off the Rocephin and Zithromax in place and accommodation Zosyn and vancomycin. She has no significant leukocytosis. The gram-positive and the blood could be potentially colonization. At the same time, I'm going to put this patient on Lasix drip at 5 mg an hour to diuresis him aggressively. Levo fed will be utilized for hemodynamic support. She has significant valvular heart disease and regurgitation with stenosis. On 09/29/2018, patient remains on mechanical ventilation, presently her ventilator settings are assist control rate of 25, tidal volume of 450, FiO2 50%, and PEEP of 5. Remains on Lasix drip at 5 mg per hour, she is on levo fed at 15.6 mcg/m, she is also on propofol at 14 mcg/kg/h. ABG this morning showed a pO2 of 85 pCO2 of 36 pH of 7.46. Electrolytes are normal BUN is 33 creatinine 1.20. CBC showed the risk of 11.7 hemoglobin of 9.7. Chest x-ray showed bilateral edema and/or infiltrates. Small bilateral pleural effusions were noted. Patient is sedated, she had to be reintubated yesterday shortly after she was extubated. Apparently the patient was extubated and reintubated 3 times since admission. Today I had a long discussion with family at bedside, and I have strongly recommended tracheostomy and PEG tube placement. Will not try to wean and extubate again as the patient goes into flash pulmonary edema shortly after extubation and each time. Reevaluated today on 09/30/2018, patient remains in the ICU on mechanical ventilation. She is now on tidal volume of 450, FiO2 of 50%, PEEP of 5, and assist control rate of 25. Remains on propofol at 40 mcg/kg/m, she is also on norepinephrine at 6 mcg/m, remains on Lasix at 5 mg per hour. Continues to diurese, chest x-ray continues to improve, patient is also on amiodarone by mouth. Her wide-complex tachycardia did resolve. ABG this morning showed a pO2 of 90 pCO2 of 36 pH of 7.46. Potassium is low at 3.2 being corrected as per protocol. BUN is 39 creatinine is 1.26, slightly worse compared to the last couple of days. Patient was already seen by general surgery, and she is scheduled to undergo tracheostomy and PEG tube placement tomorrow. Family was updated on her condition today, and aware of plans for tracheostomy and PEG tube placement tomorrow Reevaluated today on 10/01/2018, remains on the same ventilator settings, remains on propofol, remains on norepinephrine at 0.055 mcg/kg/m, propofol is at 30 mcg/kg/m, remains on Lasix at 5 mg per hour. Patient is scheduled to undergo EGD and PEG tube placement today. Chest x-ray was reviewed relatively unchanged compared to the chest x-ray yesterday, her CBC is relatively normal hemoglobin is 9.5. Electrolytes are normal potassium is 3.5 being corrected creatinine is 1.38, slightly worse compared to the last 2 or 3 days, hence may consider stopping Lasix and switching to Lasix IV push instead of Lasix drip. Remains on oral amiodarone, and no further episodes of wide-complex tachycardia. Reevaluated today on 10/02/2018, patient had tracheostomy and PEG tube placement yesterday. Has been off narcotics and sedatives for the last 24 hours, off Lasix drip, hemodynamically stable, ABG is excellent showing a pO2 of 116 pCO2 of 36 pH of 7.45. Her ventilator settings are unchanged except of tidal volume was increased to 500 because there was some air leak around the trachea. Electrolytes were reviewed potassium is a bit low at 3.3 being corrected, renal profile is a bit worse with creatinine of 1.5 and BUN of 43, hence I will cut down on her diuretics. Patient is actually dry, will cut down on diuresis. Remains on broad-spectrum antibiotics, presently on vancomycin and Zosyn. Chest x-ray continues to improve. Objective - Vital Signs Vital signs: Vital Signs Temp 98.9 F 10/02/18 04:00 Pulse 80 10/02/18 11:09 Resp 25 H 10/02/18 10:00 BP 116/42 10/02/18 10:00 Pulse Ox 96 10/02/18 10:00 Intake & Output 10/01/18 10/02/18 10/02/18 18:59 06:59 18:59 Intake Total 980.511 437 154 Output Total 1705 530 132 Balance -724.489 -93 22 Weight 86 kg Intake: IV 530 437 154 ACETAMINOPHEN IV (For NPO 0 ) 1,000 mg In Empty Bag 1 bag @ 400 mls/hr IVPB Q6HR PRN Rx#:[id number] Furosemide 100 mg In 20 Sodium Chloride 0.9% 90 ml @ 5 MG/HR 5 mls/hr IV .Q20H [facility] Rx#:[id number] Normal Saline Pressure 60 72 24 Bag Piperacillin-Tazobactam 3 150 125 50 .375 gm In Sodium Chloride 0.9% 100 ml @ 25 mls/hr IVPB Q8HR [facility] Rx# :[id number] Potassium Chloride 20 meq 100 In Water For Injection 1 100ml.bag @ 50 mls/hr IVPB Q2H [facility] Rx#: [id number] Sodium Chloride 0.9% 1, 200 240 80 000 ml @ 20 mls/hr IV . Q24H [facility] Rx#:[id number] Intake, IV Titration 390.511 Amount Norepinephrine 4 mg In 187.887 Sodium Chloride 0.9% 250 ml @ 0.05 MCG/KG/MIN 15. 122 mls/hr IV .[id number] [facility] Rx#:[id number] Propofol 1,000 mg In 202.624 Empty Bag 1 bag @ Titrate IV .Q0M [facility] Rx#: [id number] Oral 0 Tube Feeding 0 Other 60 Output: Urine 1700 530 132 Estimated Blood Loss 5 Other: Voiding Method Indwelling Catheter Indwelling Catheter Indwelling Catheter ABP, PAP, CO, CI - Last Documented Arterial Blood Pressure 104/28 - Exam Gen. Intubated on a mechanical ventilation. Barely opening her eyes to deep painful stimuli, not following any instructions Head atraumatic, normocephalic, PERRLA, EOMI, no icterus. Moist mucous membranes. Neck was supple and without jugular venous distension, thyromegaly, or carotid bruits. Tracheostomy is intact Lungs sounds minimal fine crackles at the bases, no rhonchi and no wheezes Cardiac exam normal S1 and S2, no gallops, 2/6 systolic murmur thought the precordium. abdomen: soft, non-tender, and without masses, organomegaly, or appreciable enlargement of the abdominal aorta. Positive bowel sounds. PEG tube is intact. Examination of the extremities revealed easily palpable radial, femoral and pedal pulses. There was no cyanosis, clubbing positive bipedal edema noted. Examination of the skin revealed no evidence of significant rashes, suspicious appearing nevi or other concerning lesions. Neurologically : Patient is barely opening eyes, on deep painful stimuli, grimaces, but not following any instructions. Psychiatric: Could not be assessed, Skin: No rashes. Lymphatics: No lymphadenopathy. - Labs CBC & Chem 7: 10/02/18 06:00 10/02/18 06:00 Labs: Abnormal Lab Results - Last 24 Hours (Table) 10/01/18 10/02/18 10/02/18 Range/Units 12:44 05:59 06:00 RBC 3.13 L (3.80-5.40) m/uL Hgb 8.4 L (11.4-16.0) gm/dL Hct 27.2 L (34.0-46.0) % MCHC 30.7 L (31.0-37.0) g/dL Lymphocytes # 0.7 L (1.0-4.8) k/uL ABG pO2 (83-108) mmHg ABG Total CO2 (19-24) mmol/L ABG O2 Saturation (94-97) % Potassium (3.5-5.1) mmol/L Chloride (98-107) mmol/L BUN (7-17) mg/dL Creatinine (0.52-1.04) mg/dL POC Glucose (mg/dL) 109 H 105 H (75-99) mg/dL Phosphorus (2.5-4.5) mg/dL Magnesium (1.6-2.3) mg/dL 10/02/18 10/02/18 Range/Units 06:00 07:45 RBC (3.80-5.40) m/uL Hgb (11.4-16.0) gm/dL Hct (34.0-46.0) % MCHC (31.0-37.0) g/dL Lymphocytes # (1.0-4.8) k/uL ABG pO2 116 H (83-108) mmHg ABG Total CO2 26 H (19-24) mmol/L ABG O2 Saturation 98.8 H (94-97) % Potassium 3.3 L (3.5-5.1) mmol/L Chloride 110 H (98-107) mmol/L BUN 43 H (7-17) mg/dL Creatinine 1.50 H (0.52-1.04) mg/dL POC Glucose (mg/dL) (75-99) mg/dL Phosphorus 5.6 H (2.5-4.5) mg/dL Magnesium 2.7 H (1.6-2.3) mg/dL Microbiology - Last 24 Hours (Table) 09/27/18 17:44 Blood Culture - Preliminary Blood No Growth after 96 hours Assessment and Plan Assessment: Impression: 1 acute hypoxic respiratory failure secondary to systolic congestive heart failure and significant valvular heart disease including aortic stenosis, aortic regurgitation, and mitral regurgitation as noted on previous echocardiogram. 2 recurrent episodes of extubation and reintubation, failure to wean, mostly b ecause of the patient going into flash pulmonary edema and I believe it is mostly related to her underlying valvular heart disease. Patient was intubated and extubated 3 times since admission to 3 acute kidney injury, improving, most likely cardiorenal, doubt sepsis or septic shock. 4 COPD, remains on bronchodilator. 5 previous history of CVA 6 hypertension 7 severe significant valvular heart disease including aortic regurgitation, mitral regurgitation, and aortic stenosis. 8 positive gram-positive cocci in blood cultures, however it is felt to be most likely contamination. Coagulase-negative staph aureus. 9 history of right-sided breast cancer. 10 bilateral infiltrates and pleural effusions noted on the chest x-ray, felt to be mostly related to congestive heart failure, strongly doubt pneumonia. Improving with diuresis.. 11 status post tracheostomy and PEG tube placement on 10/01/2018. 12 suspect ongoing metabolic encephalopathy, with poor mental status noted today, we'll continue to hold narcotics and sedatives, and correct metabolic derangements accordingly. Recommendation: 1 continue ventilatory hemodynamic and nutritional support 2 cut down the dose of diuretics, consider cautious hydration if no significant improvement by holding diuretics. 3 continue bronchodilators 4 tracheostomy and PEG tube care as per protocol. 5 continue GI and DVT prophylaxis 6 continue empiric antibiotics 7 continue GI and DVT prophylaxis Discussed condition again with family at bedside, will continue to hold narcotics and sedatives, we'll address mental status on a daily basis, and once the patient is awake and responsive, may consider a trial of rash support and CPAP. At this point she is not ready to have any form of weaning. Prognosis remains poor and guarded, patient may have to be eventually transferred to a long-term facility handling ventilators and tracheostomy. We'll continue to follow. Critical care time is 40 minutes Time with Patient: Greater than 30
[2018-10-02 12:23] LABS: Glucose,Whole Blood 99 mg/dL (75-99)
[2018-10-02] MEDS: AMIODARONE 200 MG TAB PO SCH ×2 (13:34→20:41)
[2018-10-02] MEDS: NOREPINEPHRINE 4 MG in SODIUM CHLORIDE 0.9% 250 ML IV SCH (17:21)
[2018-10-03 00:12] LABS: Glucose,Whole Blood 104 mg/dL (75-99)
[2018-10-03] MEDS: HEPARIN SODIUM,PORCINE 5,000 UNIT/ML 1 ML VIAL SQ SCH ×2 (00:35→08:05)
[2018-10-03] MEDS: PIPERACILLIN-TAZOBACTAM 3.375 GM in SODIUM CHLORIDE 0.9% 100 ML IVPB SCH ×2 (00:35→08:04)
[2018-10-03] MEDS: HALOPERIDOL LACTATE 5 MG/ML 1 ML VIAL IVP PRN ×2 (00:36→04:44)
[2018-10-03] MEDS: IPRATROPIUM-ALBUTEROL 3 ML NEB INHALATION SCH ×4 (03:10→16:46)
--- NOTE | 2018-10-03 06:20 | PN ---
PROGRESS NOTE DATE OF SERVICE: 10/02/2018 PRESENTING COMPLAINT: Intubated. INTERVAL HISTORY: Patient in the ICU, having failed extubation on 09/28/2018, initially admitted for multilobar pneumonia, sepsis, COPD, remains on the ventilator. Today did undergo tracheostomy and a PEG tube placement. The patient has been on propofol and Levophed. Telemetry shows sinus rhythm. REVIEW OF SYSTEMS: Patient intubated. CURRENT MEDICATIONS: Current medications are reviewed that include IV propofol and IV Levophed. PHYSICAL EXAMINATION: On examination, temperature 99.2, pulse 72, respiration 20, blood pressure 124/50, pulse ox 98% with FiO2 50 and a PEEP of 5. GENERAL APPEARANCE: Lying in bed, intubated. EYES: Pupils equal. Conjunctivae normal. NECK: JVD unable to assess. Mass not palpable. Tracheostomy tube in place. RESPIRATORY: Effort increased. LUNGS: Decreased breath sounds. CARDIOVASCULAR: First and second sounds normal. No edema. ABDOMEN: Soft, nontender. Liver and spleen not palpable. PEG tube in place. NEUROLOGICAL: The patient is awake, but not really following commands. INVESTIGATIONS: White count 8.5, hemoglobin 8.4, platelets 402. Potassium 3.3, BUN 43, creatinine 1.50. ASSESSMENT: 1. Multilobar pneumonia suspect gram-negative organism with severe sepsis, present on admission. 2. Acute hypoxic respiratory failure requiring ventilator support; failed extubation on 09/28/2018. 3. Acute chronic obstructive pulmonary disease exacerbation in an ex-smoker. 4. Acute metabolic encephalopathy due to sepsis. 5. Obesity; body mass index of more than 30. 6. Gastroesophageal reflux disease. 7. Essential hypertension, history of. 8. Septic shock, status post being on pressor support. 9. Chronic kidney disease, stage 2, from nephrosclerosis. 10.Severe aortic regurgitation, moderate aortic stenosis, moderate mitral regurgitation, nonrheumatic. 11.Paroxysmal ventricular tachycardia. 12.Severe alkalosis, now improved. 13.Status post tracheostomy and a PEG tube placement today on 10/02/2018. PLAN: Continue current medication and treatment plan. Overall prognosis remains a bit guarded. Currently no family at the bedside. MMODL / IJN: [id number] /
--- NOTE | 2018-10-03 06:57 | P.PN ---
Subjective Progress Note Date: 10/03/18 Principal diagnosis: Cardiac arrhythmia This is a 78-year-old female patient with a past medical history significant for COPD, valvular heart disease, as well as multiple comorbid conditions was admitted to the hospital with shortness of breath and was diagnosed with acute hypoxic respiratory failure secondary to COPD exacerbation as well as sepsis pneumonia. We get involved in her care because of cardiac arrhythmia and the patient was experiencing intermittent and rate related LBBB. On follow-up with the patient today, October [id number], the patient seems to be agitated was some change in mental status. She is hemodynamically stable. She is not on any vasopressors as reaching continues to be in normal sinus mechanism but she continues to be on amiodarone by mouth. I did review the chest x-ray from this morning and it seems to be good without any fluid overload or finding consistent with CHF. Because of the creatinine has been getting worse, I am going to DC the Lasix IV and start the patient on Lasix by mouth at 20 mg twice a day. Objective - Vital Signs Vital signs: Vital Signs Temp 97.4 F L 10/03/18 04:00 Pulse 84 10/03/18 06:00 Resp 25 H 10/03/18 06:00 BP 142/58 10/03/18 06:00 Pulse Ox 97 10/03/18 06:00 Intake & Output 10/02/18 10/02/18 10/03/18 06:59 18:59 06:59 Intake Total 437 586 642 Output Total 283 301 9724 Balance -93 -196 -458 Weight 78.6 kg 86 kg 85.8 kg Intake: IV 437 586 312 Normal Saline Pressure 72 66 72 Bag Piperacillin-Tazobactam 3 125 100 .375 gm In Sodium Chloride 0.9% 100 ml @ 25 mls/hr IVPB Q8HR [facility] Rx# :[id number] Potassium Chloride 20 meq 200 In Water For Injection 1 100ml.bag @ 50 mls/hr IVPB Q2H [facility] Rx#: [id number] Sodium Chloride 0.9% 1, 240 220 240 000 ml @ 20 mls/hr IV . Q24H [facility] Rx#:[id number] Tube Feeding 0 330 Output: Urine 406 212 6424 Other: Voiding Method Indwelling Catheter Indwelling Catheter Indwelling Catheter ABP, PAP, CO, CI - Last Documented Arterial Blood Pressure 104/28 - Constitutional General appearance: Present: no acute distress - Respiratory Respiratory: bilateral: diminished - Cardiovascular Rhythm: regular Heart sounds: normal: S1, S2 - Labs CBC & Chem 7: 10/02/18 06:00 10/02/18 06:00 Labs: Abnormal Lab Results - Last 24 Hours (Table) 10/02/18 10/03/18 Range/Units 07:45 00:10 ABG pO2 116 H (83-108) mmHg ABG Total CO2 26 H (19-24) mmol/L ABG O2 Saturation 98.8 H (94-97) % POC Glucose (mg/dL) 104 H (75-99) mg/dL Microbiology - Last 24 Hours (Table) 09/27/18 17:44 Blood Culture - Preliminary Blood No Growth after 120 hours Assessment and Plan Assessment: Assessment #1 acute hypoxic respiratory failure #2 sepsis/pneumonia #3 acute renal failure which has improved #4 hemodynamic instability which has improved #5 cardiac arrhythmia #6 valvular heart disease #7 COPD #8 multiple comorbid conditions Plan #1 continue the current dose of amiodarone #2 DC Lasix IV and start the patient on Lasix by mouth #3 follow-up with the patient Thank you for allowing us participate in her care and we'll continue following u p with the patient
[2018-10-03 07:07] LABS: Basophils % (A) 1 %; Eosinophils # (A) 0.3 k/uL (0-0.7); Eosinophils % (A) 4 %; HCT 26.8 % (34.0-46.0); HGB 8.1 gm/dL (11.4-16.0); Hypochromasia Marked; Lymphocytes # (A) 0.7 k/uL (1.0-4.8); Lymphocytes % (A) 9 %; MCH 26.9 pg (25.0-35.0); MCHC 30.3 g/dL (31.0-37.0); MCV 88.6 fL (80.0-100.0); Mean Platelet Volume 8.9; Monocytes # (A) 0.4 k/uL (0-1.0); Monocytes % (A) 6 %; Neutrophils # (A) 6.4 k/uL (1.3-7.7); Neutrophils % (A) 79 %; Platelet Count 457 k/uL (150-450); RBC 3.02 m/uL (3.80-5.40); RDW 15.7 % (11.5-15.5); WBC 8.2 k/uL (3.8-10.6)
[2018-10-03 07:28] LABS: Albumin 3.3 g/dL (3.5-5.0); Calcium 9.6 mg/dL (8.4-10.2); Magnesium 2.6 mg/dL (1.6-2.3); Phosphorus 3.4 mg/dL (2.5-4.5); Potassium 3.2 mmol/L (3.5-5.1); Total Bilirubin 0.6 mg/dL (0.2-1.3); Total Protein 6.1 g/dL (6.3-8.2)
[2018-10-03 08:00] LABS: ABG Base Excess -2.3 mmol/L; ABG HCO3 22 mmol/L (21-25); ABG Oxygen Saturation 99.2 % (94-97); ABG PCO2 31 mmHg (35-45); ABG PH 7.45 (7.35-7.45); ABG PO2 135 mmHg (83-108); ABG TCO2 23 mmol/L (19-24); Allen Test Performed? Yes
[2018-10-03] MEDS: CHLORHEXIDINE GLUCONATE 15 ML CUP MUCOUS MEM SCH (08:04)
[2018-10-03] MEDS: POTASSIUM BICARBONATE/CIT AC 20 MEQ TABLET.EFF NG-TUBE SCH ×2 (08:04→12:53)
[2018-10-03] MEDS: AMIODARONE 200 MG TAB PO SCH (08:04)
--- NOTE | 2018-10-03 08:07 | XR ---
EXAMINATION TYPE: XR chest 1V portable DATE OF EXAM: 10/03/2018 CLINICAL HISTORY: Difficulty breathing and CHF progress study. TECHNIQUE: Single AP portable upright view of the chest is obtained. COMPARISON: Chest x-ray from one day earlier and older studies. FINDINGS: A tracheostomy tube and left internal jugular central venous catheter are stable in appear ance. There is cardiomegaly with atherosclerotic thoracic aorta. There is mild central vascular conge stion. There is no new focal airspace opacity, pleural effusion, or pneumothorax seen bilaterally. Sandoval rgical clips overlie the right breast. Osseous structures are intact. IMPRESSION: Overall stable findings, cardiomegaly with suspected mild interstitial edema. No new fo dhara infiltrate. No significant change from prior.
[2018-10-03] MEDS: PANTOPRAZOLE 40 MG/10 ML VIAL IV SCH (08:08)
[2018-10-03] MEDS: NOREPINEPHRINE 4 MG in SODIUM CHLORIDE 0.9% 250 ML IV SCH (08:08)
[2018-10-03] MEDS: SODIUM CHLORIDE 0.9% 1,000 ML IV SCH (08:09)
--- NOTE | 2018-10-03 08:11 | CDI ---
Documentation Clarification Form Date: 10/02/2018 8:08:00 AM From: Niki MorrisonSterlingJOAN, CCDS Admit Date: 09/21/2018 5:25:00 AM Patient Name: Cindy Quiros Visit Number: [id number] Discharge Date: ATTENTION: The Clinical Documentation Specialists (CDI) and [facility] Coding Staff appreciate your assistance in clarifying documentation. Please respond to the clarification below the line at the bottom and electronically sign. The CDI & [facility] Coding staff will review the response and follow-up if needed. Please note: Queries are made part of the Legal Health Record. If you have any questions, please contact the author of this message via ITS. Dr. Jones Quiroga: Malnutrition has been documented in the operative report for tracheostomy & PEG tube placement. History/Risk Factors: COPD, Hypertension, CKD II, GERD, Hyperlipidemia, TIA & former smoker. Clinical Indicators: Presented with SOB & cough, initially put on O2 nc, advanced to BiPAP & required intubation enroute to the hospital, has been weaned off the vent twice but is now back on after failed attempt. Labs: Albumin 4.5 - 2.7* - 2.4*; Total Protein 7.9 - 5.1* - 4.7* Current BMI: 33.6 Nursing assessment: nutrition intake poor, intubated, obese appearance. Treatment: Intubated on vent, tube feedings, NGT, IV sedation, IV antibiotics, IV fluids, Albuterol INH, IV Tylenol, IV Lasix, IV MagSulfate, IV Haldol, IV KCl, IV Amiodarone. In your professional opinion, can you please clarify if these findings signify one of the following conditions? Mild Protein-Calorie Malnutrition Moderate Protein-Calorie Malnutrition Severe Protein-Calorie Malnutrition Other condition, please specify Unable to determine (Last Revision: August 2017) MTDD
[2018-10-03] MEDS ORDERED: FUROSEMIDE 20 MG TAB PO SCH (09:00)
[2018-10-03 11:52] LABS: Glucose,Whole Blood 130 mg/dL (75-99)
--- NOTE | 2018-10-03 12:25 | P.PN ---
Subjective Progress Note Date: 10/03/18 Principal diagnosis: Acute hypoxic respiratory failure secondary to systolic congestive heart failure with moderate severe aortic stenosis, severe aortic regurgitation, and moderate mitral regurgitation. A 78-year-old female patient who came in to the emergency department with respiratory failure. The patient has COPD, history of aortic regurgitation and hyperlipidemia and addition to a previous history of CVA, hypertension, and breast cancer. The patient was intubated and placed on a mechanical ventilator. She was septic, but I will and she was aggressively resuscitated with IV fluids and currently she is only a few mics of norepinephrine infusion for blood pressure support. She already has a triple lumen catheter in place. Chest x- ray from today shows adequate positioning of the orotracheal tube. The patient has still some cardiomegaly and bilateral layering of pleural effusion in addition to engorgement of the hilar vasculature and cardiac silhouettes. O verall his findings are more consistent with CHF, the patient is acting more like pneumonia/sepsis. She is afebrile. White cell count remains elevated at 18, and the patient's metabolic acidosis improving. Lactic acid level is down to 1.7. Renal function is normal with a creatinine of 0.9. The patient is currently receiving a combination of Rocephin and Zithromax. The patient is also on IV fluids with normal state rate of 100 mL an hour. Echocardiogram was sent and the results are still pending for now. The patient remains on a mechanical ventilator. On today's evaluation the patient is on a PEEP of 8 with an FiO2 of 50% and tidal volume of 400 with a rate of 25. The blood gases from today showed a pH of 7.32 with a pCO2 of 35 and a pO2 of 92. A sedation holiday will be given. Nevertheless, the patient is not ready for any weaning trials or possible extubation yet. She is producing adequate amount of urine output. No other significant events otherwise since yesterday. On 09/23/2018 and seeing this patient for a follow-up. This morning the patient is still sedated with Diprivan at 50 microvascular KG per minute. She is calm and comfortable. Hemodynamically she is stable and the patient is currently off pressors. She remains on a mechanical ventilator. She is an assist-control mode at the rate of 85 with a tidal volume of 400 with an FiO2 of 50% and a PEEP of 5. The chest x-ray from today is showing pulmonary vascular congestion and small effusions bilaterally. No significant sputum production. The blood cultures been negative. The patient remains on a combination of Rocephin and Zithromax. The echocardiogram was done and the patient was found to have a mildly impaired LV function with an ejection fraction of 45-50%. There is evidence of severe aortic regurgitation, moderate aortic stenosis, moderate mitral regurgitation and right ventricular systolic pressure measured to be 29 mmHg. The net fluid balance over the past 24 hours is +2.6 L. The white cell count has improved and is down to 10.7. Blood gases from today showed a pH of 7.35 with a pCO2 of 35 and a pO2 of 113 and this was on FiO2 of 50%. She is tolerating her tube feeds. No other significant events overnight otherwise. On 09/24/2018 and seeing this patient for a follow-up. This morning she is quite comfortable and the patient is being weaned off the sedation. She is hemodynamically stable and the patient is being diuresed with IV Lasix 20 mg and fish every 12 hours. The patient remains a negative fluid balance. Chest x-ray shows small better pleural effusion. No significant orotracheal secretions. ET tube is in a good location. The patient remains and accommodation Rocephin and Zithromax. Cultures of been all negative. In terms of vent support, the pat ient is an assist-control mode at the rate of 25 with a total volume of 400 and FiO2 of 40% and a PEEP of 5. The morning blood gases showed a pH of 0.41 with a pCO2 of 38 and pO2 of 69 and this was done and FiO2 of 40%. Renal function is stable with a creatinine of 0.8. The rest of the electrodes are all within normal limits. Echocardiogram from yesterday was noted. We are in the process of taking this patient off sedation. I made recommendations to hold propofol. Following that the patient was monitored for another 30-60 minutes during which she was waking up nicely and she was following commands and answering questions. At that point, weaning parameters were checked and the patient was given a spontaneous breathing trial with a pressure support of 5 and a PEEP of 5. After doing that for another 20 minutes, the patient had a blood culture that showed a pH of 7.44 with a pCO2 of 38 and pO2 of 100. Based on all this, I made recommendations to extubate this patient. On 09/25/2089 patient seen in follow-up in the intensive care unit, patient was extubated yesterday, however within 2 hours of extubation she became very hypoxemic, respirations labored, and subsequently patient failed extubation, and had to be emergently reintubated. This morning she is intubated, on mechanical ventilator, and her current vent settings are assist control mode of ventilation with a rate of 25, tidal in the 400, FiO2 of 70%, and PEEP of 8, today's chest x-ray has been reviewed, and shows bilateral pleural effusions, and improving pulmonary edema. Patient is on IV diuretics, and she is in -3600 mL fluid balance over the last 24 hours. One episode of low-grade fever last night at 20 00, afebrile this morning, blood, urine and sputum cultures have shown no growth thus far. Current antibiotic coverage in the form of Rocephin and Zithromax, IV Lasix at 20 mg every 8 hours. This morning's blood gases were reviewed, and showed pO2 of 154, pCO2 of 36, and pH of 7.51. White blood cell count is 7.2, hemoglobin is 9.5, electrolyte were within normal limits, BUN is 25 creatinine 0.82. Lung sounds are clear, diminished at the bases. Patient is nontender any vasopressor support. 0.9 normal saline every 20, and improving and is a 60 mics per kilo per minute. On 09/26/2018, I'm seeing this patient in follow-up in the intensive care units. Note that the patient was given initial trial of extubation 2 days ago and the patient failed and subsequently the patient had to be reintubated. Since then the patient is receiving diuresis and the patient remains in a negative fluid b delma was receiving Lasix 20 mg of push every 8 hours. The net fluid balance has been -3.6 L from yesterday. Meanwhile, the chest x-ray from today showing some improvement in the volume status. There is persistence of mild cardiomegaly and central vascular congestion and small bilateral pleural effusion which seems to be improved compared to yesterday. As for ET tube, this was a low-lying ET tube and was pushed out why around 1 cm. Meanwhile, the patient remains hemodynamically stable on no pressors. She remains afebrile. She is rating her tube feeds. She is on ventilator at the rate of 25 with a tidal volume of 400 and FiO2 has been drop down to 50% with a PEEP of 5 in the morning blood gases showed a pH of 7.54 with a pCO2 of 35 and pO2 of 81. Remains and accommodation Rocephin and Zithromax. No other significant events otherwise for now. We are the process of getting this patient a sedation holiday and possibly a spontaneous breathing trial On 09/27/2018 I'm seeing this patient for a follow-up. The patient was taken off sedation at 9 AM. I started around 11 AM and the patient was still not following commands. She would open eyes and move extremities and she would withdraw to painful stimulation. Nevertheless there was no meaningful reactions from her. Based on this, I decided to keep it off sedation monitor mental status over the next few hours. I tried to put on a spontaneous breathing trial with a pressure support of 5 and PEEP of 5 and she did poorly as the patient's tidal volumes were low and she became quite tachypneic and restless. I put her back on assist control and she did fine and when the process of continuing the sedation holiday for now. She is having low-grade fever. Sputum and blood culture will be sent. The patient for now is an assist-control mode of ventilation. Her vent settings include assist control mode at the rate of 25 with a tidal volume of 400 with an FiO2 of 40% and a PEEP of 5. The chest x-ray showing some improvement in the volume status. ET tube is in a good location. Blood gases from this morning showed a component of metabolic alkalosis with a pH of 7.59 and a pCO2 of 36 and pO2 of 77. The patient was given a dose of Diamox to 250 mg IV push. The patient is started on IV Lasix 20 mg every 8 hours and the net fluid balance remains -1.7 L over the past 24 hours. Renal function remains stable with a creatinine of 0.7. She is tolerating his tube feeds. No other significant events overnight. She remains on an empiric antibiotic coverage with a combination of Rocephin and Zithromax. She is on few mics of norepinephrine infusion for hemodynamic support. Her cardiac rhythm is sinus. On 09/28/2018 I'm seeing this patient for a follow-up. This morning the patient looked great. She has been off sedation since 4 AM in the morning and the patient was following commands and she was hemodynamically stable. She has diuresed aggressively over the past 24 hours and 48 hours and the patient has been negative fluid balance. She also has received regarding metabolic alkalosis. Earlier this morning the patient's pH was at 7.52 with a pCO2 of 37 and pO2 147. Chest x-ray was showing improvement in the CHF findings. Based on that, I made a decision to give the patient spontaneous breathing trial and the subsequent extubated the patient. Within one hour of extubation the patient failed and she went into a full-blown acute pulmonary edema. The patient had bilateral pulmonary edema right more than left. She had to be reintubated. Excessive amount of frothy secretions were suctioned from the ET tube following the extubation. She was placed back on a mechanical ventilator at the same setting and the patient subsequent blood cultures showed a pH of 7.37 with a pCO2 of 43 and pO2 of 70 on and this was on FiO2 100% with a PEEP of 12. Tidal volume was at 500 with a rate of 25. At this point in time, the FiO2 was gradually weaned off. The patient is currently on propofol. She was having some low-grade fever. Blood cultures were sent and the cultures came back positive for gram-positive cocci. I'm in the process of switching her antibiotics. She'll be taken off the Rocephin and Zithromax in place and accommodation Zosyn and vancomycin. She has no significant leukocytosis. The gram-positive and the blood could be potentially colonization. At the same time, I'm going to put this patient on Lasix drip at 5 mg an hour to diuresis him aggressively. Levo fed will be utilized for hemodynamic support. She has significant valvular heart disease and regurgitation with stenosis. On 09/29/2018, patient remains on mechanical ventilation, presently her ventilator settings are assist control rate of 25, tidal volume of 450, FiO2 50%, and PEEP of 5. Remains on Lasix drip at 5 mg per hour, she is on levo fed at 15.6 mcg/m, she is also on propofol at 14 mcg/kg/h. ABG this morning showed a pO2 of 85 pCO2 of 36 pH of 7.46. Electrolytes are normal BUN is 33 creatinine 1.20. CBC showed the risk of 11.7 hemoglobin of 9.7. Chest x-ray showed bilateral edema and/or infiltrates. Small bilateral pleural effusions were noted. Patient is sedated, she had to be reintubated yesterday shortly after she was extubated. Apparently the patient was extubated and reintubated 3 times since admission. Today I had a long discussion with family at bedside, and I have strongly recommended tracheostomy and PEG tube placement. Will not try to wean and extubate again as the patient goes into flash pulmonary edema shortly after extubation and each time. Reevaluated today on 09/30/2018, patient remains in the ICU on mechanical ventilation. She is now on tidal volume of 450, FiO2 of 50%, PEEP of 5, and assist control rate of 25. Remains on propofol at 40 mcg/kg/m, she is also on norepinephrine at 6 mcg/m, remains on Lasix at 5 mg per hour. Continues to diurese, chest x-ray continues to improve, patient is also on amiodarone by mouth. Her wide-complex tachycardia did resolve. ABG this morning showed a pO2 of 90 pCO2 of 36 pH of 7.46. Potassium is low at 3.2 being corrected as per protocol. BUN is 39 creatinine is 1.26, slightly worse compared to the last couple of days. Patient was already seen by general surgery, and she is scheduled to undergo tracheostomy and PEG tube placement tomorrow. Family was updated on her condition today, and aware of plans for tracheostomy and PEG tube placement tomorrow Reevaluated today on 10/01/2018, remains on the same ventilator settings, remains on propofol, remains on norepinephrine at 0.055 mcg/kg/m, propofol is at 30 mcg/kg/m, remains on Lasix at 5 mg per hour. Patient is scheduled to undergo EGD and PEG tube placement today. Chest x-ray was reviewed relatively unchanged compared to the chest x-ray yesterday, her CBC is relatively normal hemoglobin is 9.5. Electrolytes are normal potassium is 3.5 being corrected creatinine is 1.38, slightly worse compared to the last 2 or 3 days, hence may consider stopping Lasix and switching to Lasix IV push instead of Lasix drip. Remains on oral amiodarone, and no further episodes of wide-complex tachycardia. Reevaluated today on 10/02/2018, patient had tracheostomy and PEG tube placement yesterday. Has been off narcotics and sedatives for the last 24 hours, off Lasix drip, hemodynamically stable, ABG is excellent showing a pO2 of 116 pCO2 of 36 pH of 7.45. Her ventilator settings are unchanged except of tidal volume was increased to 500 because there was some air leak around the trachea. Electrolytes were reviewed potassium is a bit low at 3.3 being corrected, renal profile is a bit worse with creatinine of 1.5 and BUN of 43, hence I will cut down on her diuretics. Patient is actually dry, will cut down on diuresis. Remains on broad-spectrum antibiotics, presently on vancomycin and Zosyn. Chest x-ray continues to improve. Patient was reevaluated today on 10/03/2018, patient remains off sedation, she is awake today, responsive, following simple instructions, even given a trial of pressure support and CPAP. Noted to tolerate the pressure support of 8 and CPAP quite well. Patient was accepted at and we plan to proceed with transfer for further weaning. In the meantime she'll remain on the same course of cardiac meds and diuretics. She will remain on the same updrafts, she will continue with Zosyn, and vancomycin for today only. Chest x-ray showed significant improvement with minimal interstitial edema, no evidence of significant infiltrate. The ventilator settings are unchanged but went ahead and tried the patient on pressure support and CPAP Objective - Vital Signs Vital signs: Vital Signs Temp 98.9 F 10/03/18 08:00 Pulse 80 10/03/18 11:56 Resp 18 10/03/18 11:00 BP 135/47 10/03/18 11:00 Pulse Ox 98 10/03/18 11:00 Intake & Output 10/02/18 10/03/18 10/03/18 18:59 06:59 18:59 Intake Total 586 642 379 Output Total 782 1100 300 Balance -196 -458 79 Weight 86 kg 85.8 kg Intake: IV 586 312 104 Normal Saline Pressure 66 72 24 Bag Piperacillin-Tazobactam 3 100 .375 gm In Sodium Chloride 0.9% 100 ml @ 25 mls/hr IVPB Q8HR [facility] Rx# :[id number] Potassium Chloride 20 meq 200 In Water For Injection 1 100ml.bag @ 50 mls/hr IVPB Q2H [facility] Rx#: [id number] Sodium Chloride 0.9% 1, 220 240 80 000 ml @ 20 mls/hr IV . Q24H [facility] Rx#:[id number] Tube Feeding 0 330 245 Other 30 Output: Urine 782 1100 300 Other: Voiding Method Indwelling Catheter Indwelling Catheter Indwelling Catheter ABP, PAP, CO, CI - Last Documented Arterial Blood Pressure 104/28 - Exam Gen. Intubated on a mechanical ventilation. Opening eyes, following simple instructions, squeezing hands, wiggling toes, and much more responsive compared to yesterday. Head atraumatic, normocephalic, PERRLA, EOMI, no icterus. Moist mucous membranes. Neck was supple and without jugular venous distension, thyromegaly, or carotid bruits. Tracheostomy is intact Lungs sounds minimal fine crackles at the bases, no rhonchi and no wheezes Cardiac exam normal S1 and S2, no gallops, 2/6 systolic murmur thought the precordium. abdomen: soft, non-tender, and without masses, organomegaly, or appreciable enlargement of the abdominal aorta. Positive bowel sounds. PEG tube is intact. Examination of the extremities revealed easily palpable radial, femoral and pedal pulses. There was no cyanosis, clubbing positive bipedal edema noted. Examination of the skin revealed no evidence of significant rashes, suspicious appearing nevi or other concerning lesions. Neurologically : Patient is barely opening eyes, on deep painful stimuli, grimaces, but not following any instructions. Psychiatric: Could not be assessed, Skin: No rashes. Lymphatics: No lymphadenopathy. - Labs CBC & Chem 7: 10/03/18 04:50 10/03/18 04:50 Labs: Abnormal Lab Results - Last 24 Hours (Table) 10/03/18 10/03/18 10/03/18 Range/Units 00:10 04:50 04:50 RBC 3.02 L (3.80-5.40) m/uL Hgb 8.1 L (11.4-16.0) gm/dL Hct 26.8 L (34.0-46.0) % MCHC 30.3 L (31.0-37.0) g/dL RDW 15.7 H (11.5-15.5) % Plt Count 457 H (150-450) k/uL Lymphocytes # 0.7 L (1.0-4.8) k/uL ABG pCO2 (35-45) mmHg ABG pO2 (83-108) mmHg ABG O2 Saturation (94-97) % Sodium 147 H (137-145) mmol/L Potassium 3.2 L (3.5-5.1) mmol/L Chloride 116 H (98-107) mmol/L BUN 39 H (7-17) mg/dL Creatinine 1.21 H (0.52-1.04) mg/dL Glucose 106 H (74-99) mg/dL POC Glucose (mg/dL) 104 H (75-99) mg/dL Magnesium 2.6 H (1.6-2.3) mg/dL AST 38 H (14-36) U/L ALT 62 H (9-52) U/L Alkaline Phosphatase 132 H (38-126) U/L Total Protein 6.1 L (6.3-8.2) g/dL Albumin 3.3 L (3.5-5.0) g/dL 10/03/18 10/03/18 Range/Units 07:57 11:50 RBC (3.80-5.40) m/uL Hgb (11.4-16.0) gm/dL Hct (34.0-46.0) % MCHC (31.0-37.0) g/dL RDW (11.5-15.5) % Plt Count (150-450) k/uL Lymphocytes # (1.0-4.8) k/uL ABG pCO2 31 L (35-45) mmHg ABG pO2 135 H (83-108) mmHg ABG O2 Saturation 99.2 H (94-97) % Sodium (137-145) mmol/L Potassium (3.5-5.1) mmol/L Chloride (98-107) mmol/L BUN (7-17) mg/dL Creatinine (0.52-1.04) mg/dL Glucose (74-99) mg/dL POC Glucose (mg/dL) 130 H (75-99) mg/dL Magnesium (1.6-2.3) mg/dL AST (14-36) U/L ALT (9-52) U/L Alkaline Phosphatase (38-126) U/L Total Protein (6.3-8.2) g/dL Albumin (3.5-5.0) g/dL Microbiology - Last 24 Hours (Table) 09/27/18 17:44 Blood Culture - Preliminary Blood No Growth after 120 hours Assessment and Plan Assessment: Impression: 1 acute hypoxic respiratory failure secondary to systolic congestive heart failure and significant valvular heart disease including aortic stenosis, aortic regurgitation, and mitral regurgitation as noted on previous echocardiogram. 2 recurrent episodes of extubation and reintubation, failure to wean, mostly because of the patient going into flash pulmonary edema and I believe it is mostly related to her underlying valvular heart disease. Patient was intubated and extubated 3 times since admission to 3 acute kidney injury, improving, most likely cardiorenal, doubt sepsis or septic shock. 4 COPD, remains on bronchodilator. 5 previous history of CVA 6 hypertension 7 severe significant valvular heart disease including aortic regurgitation, mitral regurgitation, and aortic stenosis. 8 positive gram-positive cocci in blood cultures, however it is felt to be most likely contamination. Coagulase-negative staph aureus. 9 history of right-sided breast cancer. 10 bilateral infiltrates and pleural effusions noted on the chest x-ray, felt to be mostly related to congestive heart failure, strongly doubt pneumonia. Improving with diuresis.. 11 status post tracheostomy and PEG tube placement on 10/01/2018. 12 improving metabolic encephalopathy with improved mental status noted today. Recommendation: 1 continue ventilatory hemodynamic and nutritional support 2 continue diuretics at present dose. 3 continue bronchodilators 4 tracheostomy and PEG tube care as per protocol. 5 continue GI and DVT prophylaxis 6 continue empiric antibiotics 7 continue GI and DVT prophylaxis 8 patient was given a short weaning trial with pressure support of 8 and CPAP. Seems to be tolerating that trial well. However I wouldn't king to place the patient on trach collar at this point. Continue all present supportive care measures as above, plan to [facility] the [facility]. Discussed her condition with the case liner and with the admitting physician. Agreeable to transfer plans. Long- term prognosis remains relatively guarded. Critical care time is 35 minutes Time with Patient: Greater than 30
[2018-10-03 13:31] VITALS: TEMP 98.1
--- NOTE | 2018-10-03 13:53 | DS ---
DISCHARGE SUMMARY DATE OF ADMISSION: 09/21/2018 DATE OF TRANSFER: 10/03/2018 FINAL DIAGNOSES: 1. Multilobar pneumonia suspect gram-negative organism causing severe sepsis, present on admission. 2. Acute hypoxic respiratory failure requiring ventilator support; failed extubation x3. 3. Acute chronic obstructive pulmonary disease exacerbation in an ex-smoker. 4. Acute metabolic encephalopathy due to sepsis. 5. Obesity; body mass index more than 30. 6. Gastroesophageal reflux disease. 7. Essential hypertension, history of. 8. Septic shock status post being on pressor support. 9. Chronic kidney disease, stage 2, from nephrosclerosis. 10.Severe aortic regurgitation, moderate aortic stenosis, moderate mitral regurgitation, nonrheumatic. 11.Non-sustained ventricular tachycardia. 12.Severe alkalosis. PROCEDURE: Tracheostomy and PEG tube placement on 10/02/2018. CONSULTATIONS: Dr. Flor and colleagues from [facility]; Dr. [facility]; Dr. Quiroga from General Surgery. HOSPITAL COURSE: This 78-year-old patient with rather extensive medical history presented with short of breath, not feeling well, getting more and more tired. Patient did go into respiratory distress and had to be intubated. The patient was attempted extubation at least 3 times unsuccessfully. The patient had been requiring Levophed and propofol. Also been tolerating tube feeding. Tracheostomy and PEG tube was carried out as above. was attempted by the critical care physician. Currently patient is intubated. On examination, temperature 99, pulse 74, respiration 20, blood pressure 149/48, pulse ox 100% on the ventilator, FiO2 50%. LUNGS: Decreased breath sounds. CARDIOVASCULAR: First and second sounds normal. Patient's eyes are open and does follow some simple commands. INVESTIGATIONS: White count 8.2, hemoglobin 8.1, platelets 457. Today's blood gas showed a pH of 7.45, pCO2 of 31, pO2 135. Potassium 3.2, BUN 39, creatinine 1.21. A 2-D echocardiogram results as above. CURRENT MEDICATIONS: Current medications include: 1. Tylenol 1000 mg IV piggyback q.6 p.r.n. 2. Amiodarone 400 mg b.i.d. 3. Chlorhexidine gluconate 15 mL mucous membrane b.i.d. 4. Lasix 20 mg b.i.d. 5. Haldol 1 mg IV push q.2 p.r.n. 6. Heparin 5000 units subcu q.8. 7. DuoNeb q.2 p.r.n. 8. DuoNeb q.4 hours. 9. Magnesium replacement protocol. 10.Narcan 0.2 mg IV q.2 p.r.n. 11.Levophed drip, which patient has been off. 12.Protonix 40 mg IV daily. 13.IV Zosyn 3.375 IV piggyback q.8. 14.Vancomycin 1500 mg q.36. ADDITIONAL INFORMATION: The patient's sputum culture did show normal respiratory alin. Blood culture showed coagulase-negative Staph. DISPOSITION: [facility]. Prognosis guarded. CODE STATUS: FULL CODE. MMODL / IJN: [id number] /
--- NOTE | 2018-10-03 13:56 | DS ---
DISCHARGE SUMMARY ADDENDUM TO DISCHARGE SUMMARY: ADDENDUM: Care was discussed with Dr. Hu. Discharge planning more than 35 minutes. MMODL / IJN: [id number] /
--- NOTE | 2018-10-03 14:08 | CDI ---
Documentation Clarification Form Date: 10/02/2018 8:08:00 AM From: Niki MorrisonSterlingJOAN, CCDS Admit Date: 09/21/2018 5:25:00 AM Patient Name: Cindy Quiros Visit Number: [id number] Discharge Date: ATTENTION: The Clinical Documentation Specialists (CDI) and [facility] Coding Staff appreciate your assistance in clarifying documentation. Please respond to the clarification below the line at the bottom and electronically sign. The CDI & [facility] Coding staff will review the response and follow-up if needed. Please note: Queries are made part of the Legal Health Record. If you have any questions, please contact the author of this message via ITS. Dr. Jones Quiroga: Malnutrition has been documented in the operative report for tracheostomy & PEG tube placement. History/Risk Factors: COPD, Hypertension, CKD II, GERD, Hyperlipidemia, TIA & former smoker. Clinical Indicators: Presented with SOB & cough, initially put on O2 nc, advanced to BiPAP & required intubation enroute to the hospital, has been weaned off the vent twice but is now back on after failed attempt. Labs: Albumin 4.5 - 2.7* - 2.4*; Total Protein 7.9 - 5.1* - 4.7* Current BMI: 33.6 Nursing assessment: nutrition intake poor, intubated, obese appearance. Treatment: Intubated on vent, tube feedings, NGT, IV sedation, IV antibiotics, IV fluids, Albuterol INH, IV Tylenol, IV Lasix, IV MagSulfate, IV Haldol, IV KCl, IV Amiodarone. In your professional opinion, can you please clarify if these findings signify one of the following conditions? Mild Protein-Calorie Malnutrition Moderate Protein-Calorie Malnutrition Severe Protein-Calorie Malnutrition Other condition, please specify Unable to determine (Last Revision: August 2017) Moderate protein calorie malnutrition MTDD
[2018-10-03 15:38] VITALS: BP 116/51; PULSE 64; RESP 29
[2018-10-04] MEDS ORDERED: VANCOMYCIN 1,500 MG in SODIUM CHLORIDE 0.9% 250 ML IVPB SCH (02:00)
--- NOTE | 2018-10-10 22:20 | PCN ---
PROCEDURE NOTE ADDENDUM TO PROCEDURE: DATE OF PROCEDURE (PLACEMENT OF RIGHT RADIAL ARTERIAL LINE): 09/25/2018 Diagnosis was for persistent hypotension and frequent blood gas monitoring. MMODL / IJN: [id number] /
== END 2018-10-03 20:01 | disposition short-term general hospital (02) | DRG 4 ==
LOC: EC 04:20 → 2SICU 05:25
PROVIDERS: ADMIT Hospitalist; ATTEND Hospitalist
PROC: 0BH17EZ Insertion of Endotracheal Airway into Trachea, Via Natural or Artificial Opening (ICD-10-PCS; principal; 2018-09-21)
PROC: 5A1955Z Respiratory Ventilation, Greater than 96 Consecutive Hours (ICD-10-PCS; 2018-09-21)
PROC: 0DH67UZ Insertion of Feeding Device into Stomach, Via Natural or Artificial Opening (ICD-10-PCS; 2018-09-21)
PROC: 3E0G76Z Introduction of Nutritional Substance into Upper GI, Via Natural or Artificial Opening (ICD-10-PCS; 2018-09-21)
PROC: 03HY32Z Insertion of Monitoring Device into Upper Artery, Percutaneous Approach (ICD-10-PCS; 2018-09-21)
PROC: 4A133B1 Monitoring of Arterial Pressure, Peripheral, Percutaneous Approach (ICD-10-PCS; 2018-09-21)
PROC: 4A133J1 Monitoring of Arterial Pulse, Peripheral, Percutaneous Approach (ICD-10-PCS; 2018-09-21)
PROC: 05HN33Z Insertion of Infusion Device into Left Internal Jugular Vein, Percutaneous Approach (ICD-10-PCS; 2018-09-21)
PROC: 0DH63UZ Insertion of Feeding Device into Stomach, Percutaneous Approach (ICD-10-PCS; 2018-10-01)
PROC: 0B110F4 Bypass Trachea to Cutaneous with Tracheostomy Device, Open Approach (ICD-10-PCS; 2018-10-01 14:50)
DX: A41.9 Sepsis, unspecified organism (principal); J96.01 Acute respiratory failure with hypoxia; J18.1 Lobar pneumonia, unspecified organism; R65.21 Severe sepsis with septic shock; G93.41 Metabolic encephalopathy; J44.1 Chronic obstructive pulmonary disease with (acute) exacerbation; I13.0 Hypertensive heart and chronic kidney disease with heart failure and stage 1 through stage 4 chronic kidney disease, or unspecified chronic kidney disease; E87.4 Mixed disorder of acid-base balance; J44.0 Chronic obstructive pulmonary disease with (acute) lower respiratory infection; I50.20 Unspecified systolic (congestive) heart failure; I47.2 Ventricular tachycardia; N17.9 Acute kidney failure, unspecified; E44.0 Moderate protein-calorie malnutrition; I08.0 Rheumatic disorders of both mitral and aortic valves; E78.5 Hyperlipidemia, unspecified; K21.9 Gastro-esophageal reflux disease without esophagitis; I25.10 Atherosclerotic heart disease of native coronary artery without angina pectoris; N18.3 Chronic kidney disease, stage 3 (moderate); F41.9 Anxiety disorder, unspecified; F32.9 Major depressive disorder, single episode, unspecified; R91.1 Solitary pulmonary nodule; I44.7 Left bundle-branch block, unspecified; I27.20 Pulmonary hypertension, unspecified; E66.9 Obesity, unspecified; Z68.33 Body mass index [BMI] 33.0-33.9, adult; Z79.82 Long term (current) use of aspirin; Z79.811 Long term (current) use of aromatase inhibitors; Z79.02 Long term (current) use of antithrombotics/antiplatelets; Z79.899 Other long term (current) drug therapy; Z86.73 Personal history of transient ischemic attack (TIA), and cerebral infarction without residual deficits; Z85.3 Personal history of malignant neoplasm of breast; Z90.710 Acquired absence of both cervix and uterus; Z90.49 Acquired absence of other specified parts of digestive tract; Z98.42 Cataract extraction status, left eye; Z98.41 Cataract extraction status, right eye; Z87.891 Personal history of nicotine dependence; Z91.041 Radiographic dye allergy status; Z82.3 Family history of stroke; Z80.1 Family history of malignant neoplasm of trachea, bronchus and lung; Z80.3 Family history of malignant neoplasm of breast
CPT/HCPCS: 31500; 36415; 36600; 43246; 51702; 71045; 80048; 80053; 80202; 81001; 81003; 82553; 82805; 83605; 83735; 83880; 84100; 84132; 84145; 84484; 85025; 85610; 85730; 87040; 87070; 87086; 87205; 87502; 93005; 93306; 94002; 94003; 94640; 94660; 96365; 96375; 99291